=== PATIENT | female | born 1945 | race Caucasian/White ===

== ENCOUNTER 2019-03-06 05:38 | Outpatient (RCR) | payer MEDICARE, OTHER, SELFPAY | END 2019-03-31 00:01 | LOC: ONCRAD 05:38 | PROVIDERS: Family Provider Nurse Practitioner Family; Visit Provider Radiology Radiation Oncology | DX: C09.9 Malignant neoplasm of tonsil, unspecified (principal); F10.21 Alcohol dependence, in remission; M19.90 Unspecified osteoarthritis, unspecified site; H91.92 Unspecified hearing loss, left ear; N18.2 Chronic kidney disease, stage 2 (mild); D64.9 Anemia, unspecified; Z79.52 Long term (current) use of systemic steroids; Z79.899 Other long term (current) drug therapy; Z79.82 Long term (current) use of aspirin; Z92.3 Personal history of irradiation; Z85.3 Personal history of malignant neoplasm of breast; Z90.11 Acquired absence of right breast and nipple; Z92.23 Personal history of estrogen therapy; Z87.891 Personal history of nicotine dependence; Z92.21 Personal history of antineoplastic chemotherapy | CPT/HCPCS: 36591; 70491; 80053; 85025; 99214; J1642; Q9967 ==

== ENCOUNTER 2019-03-25 08:56 | Inpatient (IN) | payer MEDICARE, OTHER, SELFPAY | END 2019-03-28 16:49 | disposition skilled nursing facility (03) | DRG 682 | PROVIDERS: Admitting Provider Family Medicine; Family Provider Nurse Practitioner Family; Visit Provider Family Medicine | DX: N17.9 Acute kidney failure, unspecified (principal); S06.5X9A Traumatic subdural hemorrhage with loss of consciousness of unspecified duration, initial encounter; I82.4Z2 Acute embolism and thrombosis of unspecified deep veins of left distal lower extremity; E46 Unspecified protein-calorie malnutrition; N39.0 Urinary tract infection, site not specified; E86.0 Dehydration; N83.9 Noninflammatory disorder of ovary, fallopian tube and broad ligament, unspecified; Z85.3 Personal history of malignant neoplasm of breast; Z85.89 Personal history of malignant neoplasm of other organs and systems; Z92.21 Personal history of antineoplastic chemotherapy; K21.9 Gastro-esophageal reflux disease without esophagitis; E03.9 Hypothyroidism, unspecified; Z91.81 History of falling; F03.90 Unspecified dementia, unspecified severity, without behavioral disturbance, psychotic disturbance, mood disturbance, and anxiety; Z87.891 Personal history of nicotine dependence; X58.XXXA Exposure to other specified factors, initial encounter; D64.9 Anemia, unspecified; Z28.21 Immunization not carried out because of patient refusal ==

== ENCOUNTER 2019-04-15 05:48 | Outpatient (RCR) | payer MEDICARE, OTHER, SELFPAY ==
[2019-04-15 09:20] LABS: Basophils % 0.5 %; Eosinophils # 0.1 10^3/uL (0.0-0.8); Eosinophils % 0.8 %; Hematocrit 28.9 % (37.0-47.0); Hemoglobin 8.6 g/dL (11.5-15.3); Lymphocytes # 0.7 10^3/uL (0.8-4.8); Lymphocytes % 9.6 %; Mean Corpuscular HGB Conc 29.8 g/dL (30.0-36.0); Mean Corpuscular Hemoglobin 29.7 pg (28.0-34.0); Mean Corpuscular Volume 99.7 fL (81-99); Mean Platelet Volume 9.7 fL (7.4-10.4); Monocytes # 0.7 10^3/uL (0.2-0.9); Monocytes % 9.4 %; Neutrophils # 6.1 10^3/uL (1.8-7.7); Neutrophils % 78.9 %; Nucleated Red Blood Cells % 0 %; Platelet Count 254 10^3/cmm (130-400); Red Cell Distribution Width 17.2 % (12.1-15.1); White Blood Count 7.7 10^3/uL (4.0-10.0)
--- NOTE | 2019-04-16 13:07 | ONC FU_ITS ---
Dr. Miller follow up note Patient: Martha Patterson Unit #: [id number]: 1945 Dicatated By: Bhavani Miller M.D.Date of Visit:Apr 15, 2019 Onc Med Follow-up/Prog Note History of Present Illness: Mrs. Patterson is a 73-year-old female with history of progressive dysphagia and right-sided sore throat. As per patient initially she thought sore throat could be due to allergies but due to progressive nature and development of right tonsillar mass, she was referred to ENT and CT scan of the neck was done on 09/13/2018 which showed very large infiltrative also mass extending superiorly past the soft palate and measures 4 x 3 cm and there is a small level II lymph node on same side T4,N1 . 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 Now being treated with combined chemoradiation with weekly carboplatin since 12/03/2018 Patient has history of smoking but quit long time back and quit alcohol about year ago. She has history of arthritis for which she used to take low-dose methotrexate which she quit taken in July 2018, now being treated with low-dose steroids. She has history of right breast cancer diagnosed in 1975 status post right modified mastectomy followed by tamoxifen for 5 years. s/p combined therapy with radiation and weekly Carboplatin.Completed on 11/20/2018 h/o of fall off and on for the last couple of months now more often and was seen in emergency room recently on 01/30/2019 and she underwent echocardiogram on 02/04/2019 which shows normal-sized left ventricle with ejection fraction 45% patient also had Holter is monitor and as per she did not have any episode of fall while she was on monitor. Patient went to ER on 03/11/2019 with head /facial injury underwent CT scan of neck which showed no acute cervical spinal injury CT head showed thin subdural hematoma on the left extending along the left tentorium cerebelli. Old lacunar infarct on the left. She also had CT lumbar spine on 03/11/2019 which showed no acute lumbar spinal injury spinal injury because of subdural hematoma she was transferred to [place] where during further evaluation she was found to have left leg DVT but due to left subdural hematoma and anticoagulation was not considered rather inferior vena cava filter was placed in. Next Patient was immediately admitted to hospital on 03/25/2019 with shortness of breath and left lower extremity pain underwent venous Doppler study which was positive for DVT in the left leg and also had VQ scan which was low probability for pulmonary embolism. And follow-up CT scan of the head done on 03/25/2019 showed decreased size left tentorial subdural hematoma. Also had follow-up CT scan of neck done on 03/05/2019 which showed previously described large right tonsillar carcinoma has essentially resolved. Tiny amount of asymmetry at the tongue base and right tonsillar fossa likely post-therapeutic. No cervical lymphadenopathy. Came for follow-up, feeling much better now, as per patient physical therapy is helping her. No fever or chills, no nausea or vomiting, no diarrhea constipation, no more episode of fall, overall feeling better still has left leg swelling. No dysphagia. Medications: Isosorbide Dinitrate 1 Tablet (of 30 mg) Oral daily, Klor-Con 10 2 Tablet (of 10 meq) Tablet, controlled release Oral b.i.d., Levothyroxine Sodium 1 Tablet (of 10 mcg) Oral daily, Mirtazapine 1 Tablet (of 7.5 mg) Oral daily, Multivitamin Adult 1 Tablet Oral daily, Pantoprazole Sodium 1 Tablet (of 40 mg) Tablet, enteric coated Oral b.i.d., predniSONE 1 Tablet (of 5 mg) Oral daily, Prochlorperazine Maleate 1 Tablet (of 10 mg) Oral q 4 hours, Senna 1 Capsule (of 8.6 mg) Oral daily PRN, Tamsulosin HCl 1 Tablet (of 0.4 mg) Capsule Oral daily, Triamterene-HCTZ 1 Capsule (of 37.5-25 mg) Oral daily Allergies: milk, pork, and Sulfa Antibiotics. Review of Systems: Constitutional - Appetite is fair and weight is stable.No fever, chills, or night sweats. Energy level is poor, ENMT - Negative for sinus congestion/drainage. No mouth sores. Negative for sore throat and difficulty swallowing, Hematologic/Lymphatic - Pt bruises easily, Respiratory - No shortness of breath. No cough. No pleuritic pain or hemoptysis, Cardiovascular - No angina pain. Positive for palpitations, Gastrointestinal - No nausea, no vomiting. No heartburn or acid reflux. No diarrhea or constipation. No blood in the stool or black stools, Genitourinary (F) - No dysuria or hematuria. Positive for urinary frequency. No urgency or incontinence, Musculoskeletal - Positive for joint pain, Neurologic - Positive for dizziness, Psychiatric - Positive for anxiety and depression. No insomnia. Vital Signs: Performed on Apr 15, 2019 10:43 Height - 61.00 in Weight - 106.4 lbs (HIGH) BSA - 1.44 sq.m BMI - 20.10 Temperature - 98.1 F (LOW) Pulse - 96 /min Respiration - 20 /min BP - 156/79 mm(hg) (HIGH) O2 Sat - 99 % Pain - 0 Performance Status: 2 - Ambulatory/capable of all self-care, unable to perform any work activities. Up and about more than 50% of waking hours. (ECOG) Physical Examination: ENMT - No oral exudates, ulcers, masses, thrush or mucositis. Oropharynx clear. Tongue normal, Hematologic/Lymphatic - No petechiae or purpura. No tender or palpable lymph nodes in the cervical, supraclavicular, axillary or inguinal area, Respiratory - Lungs are clear to auscultation without rhonchi or wheezing, Abdomen - Non-tender, non-distended, Good bowel sounds. No guarding or rebound tenderness. No pulsatile masses, Extremities - left leg swelling. Lab/Imaging: Test performed on Apr 15, 2019 08:50 WBC 7.7 10 3/uL RBC 2.90 10^12/L HGB 8.6 g/dL HCT 28.9 % MCV 99.7 fL MCH 29.7 pg MCHC 29.8 g/dL Platelet Count 254 10^9/L RDW 17.2 % MPV 9.7 fL Lymphocytes 0.7 10^9/L Neutrophils 0.0 10 3/uL Monocytes 0.7 10^9/L Eosinophils 0.1 10^9/L Basophils 0.0 10^9/L Neutrophil % 0.8 % Manual Lymphocytes 9.6 % Manual Monocytes 9.4 % Manual Eosinophils 0.8 % Manual Basophils 0.5 % NRBCs 0.0 /100 WBC Test performed on Mar 03, 2019 11:18 Sodium 137 mmol/L Potassium 4.2 mmol/L Chloride 103 mmol/L CO2 22 mmol/L Anion Gap 16.2 BUN 23 mg/dL Creatinine 1.3 mg/dL Cr Clearance (Est) 29.1800 mL/min Glucose 89 mg/dl Calcium 9.6 mg/dL Protein, Total 6.9 g/dL Albumin 4.0 g/dL Globulin 2.9 gm/dL Bilirubin, Total 0.6 mg/dL ALT (SGPT) 14 U/L AST (SGOT) 19 U/L Alkaline Phosphatase 68 U/L Lymphocyte % 13.2 % Monocyte % 10.1 % Eosinophil % 1.7 % Basophils % 0.4 % Test performed on Jan 19, 2019 09:00 Magnesium 2.1 mg/dL Test performed on Jan 12, 2019 09:45 Ua Color YELLOW Ua Appearance CLEAR Ua Glucose NORM Ua Bilirubin NEG Colored urine samples may result in false positive dipstick reactions. Ua Ketones NEG Ua Specific [place] 1.010 Ua Blood 3+ Ua pH 8.0 Ua Protein NEG Ua Protein, Sulfosal Acid NEGATIVE Ua Nitrites NEG Ua Leukocyte Esterase NEG Ua Micro: Hyaline Casts 0-4 /lpf Ua Micro: WBC 10-15 /hpf Urine Culture DAY 2. 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 No cervical lymphadenopathy by size criteria Repeat CT scan of neck done on 09/09/2018 showed large infiltrative tonsillar mass size 4 x 3 cm and there is a small level II lymph node on the same side cT4,N1 History of right breast cancer diagnosed in 1975 status post right MRM followed by tamoxifen for 5 years History of progressive left ear hearing loss Mild renal insufficiency Chronic arthritis in the past treated with low-dose methotrexate/prednisone but patient quit methotrexate in July 2018. CT PET scan done on 10/25/2018 showed 2.2 cm mass in the right tonsil with SUV of 14.2. A small scattered cervical nodes are FDG negative s/p concurrent therapy with radiation with weekly carboplatin Completed on 01/20/2019 Follow-up CT scan of neck done on 03/05/2019 showed resolution of tonsillar mass and no evidence of cervical lymphadenopathy Plan: Discussed with patient regarding labs white blood count 7.7 hemoglobin 8.6 crit 28.9 platelets 254,000 Clinically, patient is doing well now improving from injuries sustained due to fall as well as symptoms due to acute left leg DVT. Patient still has lower extremity edema more on the left side due to DVT but not on anticoagulation due to recent episode of subdural hematoma due to fall, although she has inferior vena cava filter to prevent pulmonary embolism. Follow-up CT scan of neck done on 03/05/2019 showed excellent response to combined chemoradiation with resolution of tonsillar mass and no evidence of cervical lymphadenopathy. Progressive anemia probably due to diagnostic phlebotomy during multiple hospitalization in the recent past, we'll continue to monitor check her iron and B12 folic acid level if low supplement otherwise monitor and transfuse if hemoglobin below 8 g. Considering her age underlying myelodysplasia cannot be ruled out. Signed By: Bhavani Miller M.D. <<Signature on File>>
== END 2019-05-01 23:59 | disposition home or self-care (01) ==
LOC: ONCMED 05:48
PROVIDERS: Family Provider Nurse Practitioner Family; PCP Nurse Practitioner Family; Visit Provider Internal Medicine Hematology & Oncology
DX: Z08 Encounter for follow-up examination after completed treatment for malignant neoplasm (principal); Z85.89 Personal history of malignant neoplasm of other organs and systems; F10.21 Alcohol dependence, in remission; M19.90 Unspecified osteoarthritis, unspecified site; N18.2 Chronic kidney disease, stage 2 (mild); F41.8 Other specified anxiety disorders; Z79.899 Other long term (current) drug therapy; Z79.52 Long term (current) use of systemic steroids; Z92.21 Personal history of antineoplastic chemotherapy; Z92.3 Personal history of irradiation; Z87.891 Personal history of nicotine dependence; Z85.3 Personal history of malignant neoplasm of breast; Z90.11 Acquired absence of right breast and nipple; Z92.23 Personal history of estrogen therapy; Z86.718 Personal history of other venous thrombosis and embolism
CPT/HCPCS: 36591; 85025; 99214

== ENCOUNTER 2019-05-26 05:37 | Outpatient (RCR) | payer MEDICARE, OTHER, SELFPAY ==
[2019-05-19 12:42] LABS: Basophils % 0.6 %; Eosinophils # 0.1 10^3/uL (0.0-0.8); Eosinophils % 1.2 %; Hemoglobin 8.6 g/dL (11.5-15.3); Lymphocytes # 0.5 10^3/uL (0.8-4.8); Lymphocytes % 10.1 %; Mean Corpuscular HGB Conc 29.7 g/dL (30.0-36.0); Mean Corpuscular Hemoglobin 26.8 pg (28.0-34.0); Mean Corpuscular Volume 90.3 fL (81-99); Monocytes # 0.4 10^3/uL (0.2-0.9); Monocytes % 7.9 %; Neutrophils % 79.8 %; Nucleated Red Blood Cells % 0 %; Platelet Count 201 10^3/cmm (130-400); Red Blood Count 3.21 10^6/uL (4.1-5.3)
[2019-05-19 12:56] LABS: Ferritin 24 ng/mL (15-150); Iron 29 ug/dL (37-145); Total Iron Binding Capacity 289 mcg/dl; Unsaturated Iron Binding 260 ug/dL (112-347)
[2019-05-19 13:12] LABS: Vitamin B12 306 pg/mL (232-1245)
[2019-05-19 13:47] LABS: Folate Level 15.8 ng/mL (4.8-37.3)
--- NOTE | 2019-05-19 14:27 | ONC FU_ITS ---
Dr. Miller follow up note Patient: Martha Patterson Unit #: [id number]: [id number] Dicatated By: Bhavani Miller M.D.Date of Visit:May 19, 2019 Onc Med Follow-up/Prog Note History of Present Illness: Mrs. Patterson is a 73-year-old female with history of progressive dysphagia and right-sided sore throat. As per patient initially she thought sore throat could be due to allergies but due to progressive nature and development of right tonsillar mass, she was referred to ENT and CT scan of the neck was done on 09/13/2018 which showed very large infiltrative also mass extending superiorly past the soft palate and measures 4 x 3 cm and there is a small level II lymph node on same side T4,N1 . 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 Now being treated with combined chemoradiation with weekly carboplatin since 12/03/2018 Patient has history of smoking but quit long time back and quit alcohol about year ago. She has history of arthritis for which she used to take low-dose methotrexate which she quit taken in July 2018, now being treated with low-dose steroids. She has history of right breast cancer diagnosed in 1975 status post right modified mastectomy followed by tamoxifen for 5 years. s/p combined therapy with radiation and weekly Carboplatin.Completed on 11/20/2018 h/o of fall off and on for the last couple of months now more often and was seen in emergency room recently on 01/30/2019 and she underwent echocardiogram on 02/04/2019 which shows normal-sized left ventricle with ejection fraction 45% patient also had Holter is monitor and as per she did not have any episode of fall while she was on monitor. Patient went to ER on 03/11/2019 with head /facial injury underwent CT scan of neck which showed no acute cervical spinal injury CT head showed thin subdural hematoma on the left extending along the left tentorium cerebelli. Old lacunar infarct on the left. She also had CT lumbar spine on 03/11/2019 which showed no acute lumbar spinal injury spinal injury because of subdural hematoma she was transferred to [place] where during further evaluation she was found to have left leg DVT but due to left subdural hematoma and anticoagulation was not considered rather inferior vena cava filter was placed in. Next Patient was immediately admitted to hospital on 03/25/2019 with shortness of breath and left lower extremity pain underwent venous Doppler study which was positive for DVT in the left leg and also had VQ scan which was low probability for pulmonary embolism. And follow-up CT scan of the head done on 03/25/2019 showed decreased size left tentorial subdural hematoma.as per patient underwent inferior vena cava filter placement and because of subdural hematoma anticoagulation was not offered. Also had follow-up CT scan of neck done on 03/05/2019 which showed previously described large right tonsillar carcinoma has essentially resolved. Tiny amount of asymmetry at the tongue base and right tonsillar fossa likely post-therapeutic. No cervical lymphadenopathy. Came for follow-up, complaining of persistent left leg swelling, patient has history of left leg DVT now with inferior vena cava filter as anticoagulation was contraindicated due to subdural hematoma. Also complaining of generalized weakness and fatigue but no melena or hematochezia no nausea or vomiting no diarrhea or constipation no hemoptysis or hematemesis no jaundice. No fever or chills no dysphagia. Medications: Isosorbide Dinitrate 1 Tablet (of 30 mg) Oral daily, Klor-Con 10 2 Tablet (of 10 meq) Tablet, controlled release Oral b.i.d., Levothyroxine Sodium 1 Tablet (of 10 mcg) Oral daily, Mirtazapine 1 Tablet (of 7.5 mg) Oral daily, Multivitamin Adult 1 Tablet Oral daily, Pantoprazole Sodium 1 Tablet (of 40 mg) Tablet, enteric coated Oral b.i.d., predniSONE 1 Tablet (of 5 mg) Oral daily, Prochlorperazine Maleate 1 Tablet (of 10 mg) Oral q 4 hours, Senna 1 Capsule (of 8.6 mg) Oral daily PRN, Tamsulosin HCl 1 Tablet (of 0.4 mg) Capsule Oral daily, Triamterene-HCTZ 1 Capsule (of 37.5-25 mg) Oral daily Allergies: milk and Sulfa Antibiotics. Review of Systems: Constitutional - Appetite is fair and weight is stable.No fever, chills, or night sweats. Energy level is poor, ENMT - Negative for sinus congestion/drainage. No mouth sores. Negative for sore throat and difficulty swallowing, Hematologic/Lymphatic - Pt bruises easily, Respiratory - No shortness of breath. No cough. No pleuritic pain or hemoptysis, Cardiovascular - No angina pain. Positive for palpitations, Gastrointestinal - No nausea, no vomiting. No heartburn or acid reflux. No diarrhea or constipation. No blood in the stool or black stools, Genitourinary (F) - No dysuria or hematuria. Positive for urinary frequency. No urgency or incontinence, Musculoskeletal - Positive for joint pain, Neurologic - Positive for dizziness, Psychiatric - Positive for anxiety and depression. No insomnia. Vital Signs: Performed on May 19, 2019 13:41 Height - 61.00 in Weight - 111.8 lbs (HIGH) BSA - 1.48 sq.m BMI - 21.12 Temperature - 97.6 F (LOW) Pulse - 67 /min Respiration - 16 /min BP - 160/70 mm(hg) (HIGH) O2 Sat - 99 % Pain - 0 Fatigue - 4 Performance Status: 1 - No physically strenuous activity, but ambulatory and able to carry out light or sedentary work (e.g. office work, light house work). (ECOG) Physical Examination: ENMT - No oral exudates, ulcers, masses, thrush or mucositis. Oropharynx clear. Tongue normal, Respiratory - Lungs are clear to auscultation without rhonchi or wheezing, Cardiovascular - Regular rate and rhythm of heart, Abdomen - Non-tender, non-distended, Good bowel sounds. No guarding or rebound tenderness. No pulsatile masses, Extremities - left leg 3+ edema. Lab/Imaging: Test performed on Apr 15, 2019 08:50 WBC 7.7 10 3/uL RBC 2.90 10^12/L HGB 8.6 g/dL HCT 28.9 % MCV 99.7 fL MCH 29.7 pg MCHC 29.8 g/dL Platelet Count 254 10^9/L RDW 17.2 % MPV 9.7 fL Lymphocytes 0.7 10^9/L Neutrophils 0.0 10 3/uL Monocytes 0.7 10^9/L Eosinophils 0.1 10^9/L Basophils 0.0 10^9/L Neutrophil % 0.8 % Manual Lymphocytes 9.6 % Manual Monocytes 9.4 % Manual Eosinophils 0.8 % Manual Basophils 0.5 % NRBCs 0.0 /100 WBC Test performed on Mar 03, 2019 11:18 Sodium 137 mmol/L Potassium 4.2 mmol/L Chloride 103 mmol/L CO2 22 mmol/L Anion Gap 16.2 BUN 23 mg/dL Creatinine 1.3 mg/dL Cr Clearance (Est) 29.1800 mL/min Glucose 89 mg/dl Calcium 9.6 mg/dL Protein, Total 6.9 g/dL Albumin 4.0 g/dL Globulin 2.9 gm/dL Bilirubin, Total 0.6 mg/dL ALT (SGPT) 14 U/L AST (SGOT) 19 U/L Alkaline Phosphatase 68 U/L Lymphocyte % 13.2 % Monocyte % 10.1 % Eosinophil % 1.7 % Basophils % 0.4 % Test performed on Jan 19, 2019 09:00 Magnesium 2.1 mg/dL Test performed on Jan 12, 2019 09:45 Ua Color YELLOW Ua Appearance CLEAR Ua Glucose NORM Ua Bilirubin NEG Colored urine samples may result in false positive dipstick reactions. Ua Ketones NEG Ua Specific [place] 1.010 Ua Blood 3+ Ua pH 8.0 Ua Protein NEG Ua Protein, Sulfosal Acid NEGATIVE Ua Nitrites NEG Ua Leukocyte Esterase NEG Ua Micro: Hyaline Casts 0-4 /lpf Ua Micro: WBC 10-15 /hpf Urine Culture DAY 2. 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 No cervical lymphadenopathy by size criteria Repeat CT scan of neck done on 09/09/2018 showed large infiltrative tonsillar mass size 4 x 3 cm and there is a small level II lymph node on the same side cT4,N1 History of right breast cancer diagnosed in 1975 status post right MRM followed by tamoxifen for 5 years History of progressive left ear hearing loss Mild renal insufficiency Chronic arthritis in the past treated with low-dose methotrexate/prednisone but patient quit methotrexate in July 2018. CT PET scan done on 10/25/2018 showed 2.2 cm mass in the right tonsil with SUV of 14.2. A small scattered cervical nodes are FDG negative s/p concurrent therapy with radiation with weekly carboplatin Completed on 01/20/2019 Follow-up CT scan of neck done on 03/05/2019 showed resolution of tonsillar mass and no evidence of cervical lymphadenopathy Plan: Discussed with patient regarding her labs white blood count 5 hemoglobin 8.6 crit 29 platelets 201,000 and anemia workup shows ferritin 24, lower side of normal range, iron 29 which is low, B12 305 Clinically, patient is doing reasonably well but symptomatic due to persistent anemia and anemia workup shows iron deficiency. Patient has taken oral iron in the past but could not tolerate because of GI intolerance, at this point we'll consider trial of Injectafer 750 mg IV weekly ???2 and then repeat CBC and iron studies in one month, if with normalization of iron stores, anemia resolves then we'll monitor otherwise, considering her age she may have underlying myelodysplasia causing anemia. As far as left leg swelling is concern patient has history of DVT diagnosed on 03/25/2019 and anticoagulation was not done because of subdural hematoma and inferior vena cava filter was placed in to prevent major pulmonary embolism. At this point we'll consider EDU hose for her left leg. Patient was advised to use it as directed and also advised to do leg elevation when in the bed , might help her left leg swelling As far as left adnexal mass seen on CT scan of abdomen done while she was inpatient in the hospital is concern, we will refer her to [facility] for evaluation Return to clinic 1 month after second Injectafer infusion with CBC and iron studies. Signed By: Bhavani Miller M.D. <<Signature on File>>
== END 2019-05-30 23:59 | disposition home or self-care (01) ==
LOC: ONCMED 05:37
PROVIDERS: Family Provider Nurse Practitioner Family; PCP Nurse Practitioner Family; Visit Provider Internal Medicine Hematology & Oncology
DX: D50.9 Iron deficiency anemia, unspecified (principal); C09.9 Malignant neoplasm of tonsil, unspecified; M19.90 Unspecified osteoarthritis, unspecified site; N18.2 Chronic kidney disease, stage 2 (mild); N83.202 Unspecified ovarian cyst, left side; N83.201 Unspecified ovarian cyst, right side; F10.21 Alcohol dependence, in remission; Z79.899 Other long term (current) drug therapy; Z79.52 Long term (current) use of systemic steroids; Z87.891 Personal history of nicotine dependence; Z92.3 Personal history of irradiation; Z85.3 Personal history of malignant neoplasm of breast; Z90.11 Acquired absence of right breast and nipple; Z92.23 Personal history of estrogen therapy; Z92.21 Personal history of antineoplastic chemotherapy; Z91.81 History of falling; Z86.718 Personal history of other venous thrombosis and embolism; Z95.828 Presence of other vascular implants and grafts
CPT/HCPCS: 36591; 82607; 82728; 82746; 83540; 83550; 85025; 96365; 99214

== ENCOUNTER 2019-06-01 | Outpatient (RCR) | payer MEDICARE, OTHER, SELFPAY | END 2019-06-02 | disposition home or self-care (01) | LOC: WPT | PROVIDERS: PCP Nurse Practitioner Family; Referring Provider Nurse Practitioner Family; Visit Provider Nurse Practitioner Family | DX: R53.1 Weakness (principal); M54.2 Cervicalgia | CPT/HCPCS: 82105; 83520; 83615; 86304; 86336 ==

== ENCOUNTER 2019-06-02 06:04 | Outpatient (RCR) | payer MEDICARE, OTHER, SELFPAY | END 2019-06-30 23:59 | disposition home or self-care (01) | LOC: ONCMED 06:04 | PROVIDERS: Family Provider Nurse Practitioner Family; PCP Nurse Practitioner Family; Visit Provider Internal Medicine Hematology & Oncology | DX: C09.9 Malignant neoplasm of tonsil, unspecified (principal) | CPT/HCPCS: 96365; J1439 ==

== ENCOUNTER → 2019-06-12 11:02 | Outpatient (BNVA) | payer MEDICARE, OTHER, SELFPAY | PROVIDERS: Family Provider Nurse Practitioner Family; PCP Nurse Practitioner Family; Visit Provider Obstetrics & Gynecology Female Pelvic Medicine and Reconstructive Surgery | DX: N83.202 Unspecified ovarian cyst, left side (principal) | CPT/HCPCS: 76830 ==

== ENCOUNTER → 2019-06-25 15:08 | Outpatient (BNVA) | payer MEDICARE, OTHER, SELFPAY | PROVIDERS: Family Provider Nurse Practitioner Family; PCP Nurse Practitioner Family; Visit Provider Nurse Practitioner | DX: M25.511 Pain in right shoulder (principal) | CPT/HCPCS: 73030 ==

== ENCOUNTER 2019-07-06 07:27 | Outpatient (RCR) | payer MEDICARE, OTHER, SELFPAY ==
[2019-07-06 09:38] LABS: Basophils % 0.7 %; Eosinophils # 0.1 10^3/uL (0.0-0.8); Eosinophils % 1.6 %; Hematocrit 38.5 % (37.0-47.0); Hemoglobin 11.6 g/dL (11.5-15.3); Lymphocytes # 0.7 10^3/uL (0.8-4.8); Lymphocytes % 12.6 %; Mean Corpuscular HGB Conc 30.1 g/dL (30.0-36.0); Mean Corpuscular Hemoglobin 29.2 pg (28.0-34.0); Mean Platelet Volume 9.9 fL (7.4-10.4); Monocytes # 0.4 10^3/uL (0.2-0.9); Monocytes % 7.5 %; Neutrophils # 4.4 10^3/uL (1.8-7.7); Neutrophils % 77.3 %; Nucleated Red Blood Cells % 0 %; Platelet Count 177 10^3/cmm (130-400); Red Blood Count 3.97 10^6/uL (4.1-5.3); Red Cell Distribution Width 20.5 % (12.1-15.1); White Blood Count 5.7 10^3/uL (4.0-10.0)
[2019-07-06 09:52] LABS: Ferritin 637 ng/mL (15-150); Iron 74 ug/dL (37-145); Percent Saturation 37.5 % (20-50); Total Iron Binding Capacity 197 mcg/dl; Unsaturated Iron Binding 123 ug/dL (112-347)
--- NOTE | 2019-07-06 15:36 | ONC FU_ITS ---
Dr. Miller follow up note Patient: Martha Patterson Unit #: [id number]: 1945 Dicatated By: Bhavani Miller M.D.Date of Visit:Jul 06, 2019 Onc Med Follow-up/Prog Note History of Present Illness: Mrs. Patterson is a 74-year-old female with history of progressive dysphagia and right-sided sore throat. As per patient initially she thought sore throat could be due to allergies but due to progressive nature and development of right tonsillar mass, she was referred to ENT and CT scan of the neck was done on 09/13/2018 which showed very large infiltrative also mass extending superiorly past the soft palate and measures 4 x 3 cm and there is a small level II lymph node on same side T4,N1 . 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 Now being treated with combined chemoradiation with weekly carboplatin since 12/03/2018 Patient has history of smoking but quit long time back and quit alcohol about year ago. She has history of arthritis for which she used to take low-dose methotrexate which she quit taken in July 2018, now being treated with low-dose steroids. She has history of right breast cancer diagnosed in 1975 status post right modified mastectomy followed by tamoxifen for 5 years. s/p combined therapy with radiation and weekly Carboplatin.Completed on 11/20/2018 h/o of fall off and on for the last couple of months now more often and was seen in emergency room recently on 01/30/2019 and she underwent echocardiogram on 02/04/2019 which shows normal-sized left ventricle with ejection fraction 45% patient also had Holter is monitor and as per she did not have any episode of fall while she was on monitor. Patient went to ER on 03/11/2019 with head /facial injury underwent CT scan of neck which showed no acute cervical spinal injury CT head showed thin subdural hematoma on the left extending along the left tentorium cerebelli. Old lacunar infarct on the left. She also had CT lumbar spine on 03/11/2019 which showed no acute lumbar spinal injury spinal injury because of subdural hematoma she was transferred to [place] where during further evaluation she was found to have left leg DVT but due to left subdural hematoma and anticoagulation was not considered rather inferior vena cava filter was placed in. Next Patient was immediately admitted to hospital on 03/25/2019 with shortness of breath and left lower extremity pain underwent venous Doppler study which was positive for DVT in the left leg and also had VQ scan which was low probability for pulmonary embolism. And follow-up CT scan of the head done on 03/25/2019 showed decreased size left tentorial subdural hematoma.as per patient underwent inferior vena cava filter placement and because of subdural hematoma anticoagulation was not offered. Also had follow-up CT scan of neck done on 03/05/2019 which showed previously described large right tonsillar carcinoma has essentially resolved. Tiny amount of asymmetry at the tongue base and right tonsillar fossa likely post-therapeutic. No cervical lymphadenopathy. Follow-up CT PET scan done on 06/20/2019 showed no evidence of recurrent or residual malignancy Came for follow-up, denies any specific complaints, no fever or chills, no nausea or vomiting, no dysphagia, no mouth sores, no diarrhea constipation. more energetic since iron infusion,but persistent left leg swelling,, has history of left lower extremity DVT, was not treated with anticoagulation because of recent history of cranial hematoma Medications: Isosorbide Dinitrate 1 Tablet (of 30 mg) Oral daily, Klor-Con 10 2 Tablet (of 10 meq) Tablet, controlled release Oral b.i.d., Levothyroxine Sodium 1 Tablet (of 10 mcg) Oral daily, Multivitamin Adult 1 Tablet Oral daily, Pantoprazole Sodium 1 Tablet (of 40 mg) Tablet, enteric coated Oral b.i.d., predniSONE 1 Tablet (of 5 mg) Oral daily, Prochlorperazine Maleate 1 Tablet (of 10 mg) Oral q 4 hours, Senna 1 Capsule (of 8.6 mg) Oral daily PRN, Tamsulosin HCl 1 Tablet (of 0.4 mg) Capsule Oral daily, Triamterene-HCTZ 1 Capsule (of 37.5-25 mg) Oral daily Allergies: milk and Sulfa Antibiotics. Review of Systems: Constitutional - Appetite is fair and weight is stable.No fever, chills, or night sweats. Energy level is poor, ENMT - Negative for sinus congestion/drainage. No mouth sores. Negative for sore throat and difficulty swallowing, Hematologic/Lymphatic - Pt bruises easily, Respiratory - No shortness of breath. No cough. No pleuritic pain or hemoptysis, Cardiovascular - No angina pain. Positive for palpitations, Gastrointestinal - No nausea, no vomiting. No heartburn or acid reflux. No diarrhea or constipation. No blood in the stool or black stools, Genitourinary (F) - No dysuria or hematuria. Positive for urinary frequency. No urgency or incontinence, Musculoskeletal - Positive for joint pain, Neurologic - Positive for dizziness, Psychiatric - Positive for anxiety and depression. No insomnia. Vital Signs: Performed on Jul 06, 2019 10:35 Height - 61.00 in Weight - 108.8 lbs (LOW) BSA - 1.46 sq.m BMI - 20.56 Temperature - 97.3 F (LOW) Pulse - 54 /min (LOW) Respiration - 18 /min BP - 137/72 mm(hg) O2 Sat - 95 % (LOW) Pain - 0 Performance Status: 1 - No physically strenuous activity, but ambulatory and able to carry out light or sedentary work (e.g. office work, light house work). (ECOG) Physical Examination: ENMT - patient denies oral exudates, ulcers, masses, thrush or mucositis. Oropharynx clear. Tongue normal, Respiratory - no wheezing or shortness of breath, Cardiovascular - no tachycardia or palpitation, Abdomen - no abdominal pain or swelling, Extremities - left leg 2+ edema. Lab/Imaging: Test performed on Jul 06, 2019 09:15 Ferritin 637 ng/mL Iron 74 mcg/dL Iron Binding Capacity (TIBC) 197 mcg/dl % Iron Saturation 37.5 % UIBC 123 mcg/dL WBC 5.7 10 3/uL RBC 3.97 10 6/uL HGB 11.6 g/dL HCT 38.5 % MCV 97.0 fL MCH 29.2 pg MCHC 30.1 g/dL RDW 20.5 % Platelet Count 177 10 3/cmm MPV 9.9 fL Neutrophils 4.4 10 3/uL Lymphocytes 0.7 10 3/uL Monocytes 0.4 10 3/uL Eosinophils 0.1 10 3/uL Basophils 0.0 10 3/uL Neutrophil % 77.3 % Lymphocyte % 12.6 % Monocyte % 7.5 % Eosinophil % 1.6 % Basophils % 0.7 % Test performed on May 19, 2019 12:14 Vitamin B12 306 pg/mL Test performed on Apr 15, 2019 08:50 Manual Lymphocytes 9.6 % Manual Monocytes 9.4 % Manual Eosinophils 0.8 % Manual Basophils 0.5 % NRBCs 0.0 /100 WBC Test performed on Mar 03, 2019 11:18 Sodium 137 mmol/L Potassium 4.2 mmol/L Chloride 103 mmol/L CO2 22 mmol/L Anion Gap 16.2 BUN 23 mg/dL Creatinine 1.3 mg/dL Cr Clearance (Est) 29.1800 mL/min Glucose 89 mg/dl Calcium 9.6 mg/dL Protein, Total 6.9 g/dL Albumin 4.0 g/dL Globulin 2.9 gm/dL Bilirubin, Total 0.6 mg/dL ALT (SGPT) 14 U/L AST (SGOT) 19 U/L Alkaline Phosphatase 68 U/L Test performed on Jan 19, 2019 09:00 Magnesium 2.1 mg/dL Test performed on Jan 12, 2019 09:45 Ua Color YELLOW Ua Appearance CLEAR Ua Glucose NORM Ua Bilirubin NEG Colored urine samples may result in false positive dipstick reactions. Ua Ketones NEG Ua Specific [place] 1.010 Ua Blood 3+ Ua pH 8.0 Ua Protein NEG Ua Protein, Sulfosal Acid NEGATIVE Ua Nitrites NEG Ua Leukocyte Esterase NEG Ua Micro: Hyaline Casts 0-4 /lpf Ua Micro: WBC 10-15 /hpf Urine Culture DAY 2. 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 No cervical lymphadenopathy by size criteria Repeat CT scan of neck done on 09/09/2018 showed large infiltrative tonsillar mass size 4 x 3 cm and there is a small level II lymph node on the same side cT4,N1 History of right breast cancer diagnosed in 1975 status post right MRM followed by tamoxifen for 5 years History of progressive left ear hearing loss Mild renal insufficiency Chronic arthritis in the past treated with low-dose methotrexate/prednisone but patient quit methotrexate in July 2018. CT PET scan done on 10/25/2018 showed 2.2 cm mass in the right tonsil with SUV of 14.2. A small scattered cervical nodes are FDG negative s/p concurrent therapy with radiation with weekly carboplatin Completed on 01/20/2019 Follow-up CT scan of neck done on 03/05/2019 showed resolution of tonsillar mass and no evidence of cervical lymphadenopathy Plan: Discussed with patient regarding her labs white blood count 5.7 hemoglobin 11.6 crit 38.5 platelets 177,000 ferritin 637 compared to 24 on 05/19/2019, B12 [address] PET scan showed no evidence of recurrence of disease Clinically, patient is doing well, now with no signs symptom suggestive of recurrence of head and neck cancer, confirmed with follow-up CT PET scan done recently. As for the anemia is concerned, responded very well to Injectafer and now hemoglobin improved to 11.6 g compared to 8.6 g prior to Injectafer given on 05/26/2019 and 06/02/2019. Next Left leg swelling due to history of DVT, status post IVC filter as anticoagulation was not considered because of recent history of intracranial hematoma and now being treated with supportive care, patient was advised to elevate left leg while in the bed and any use EDU hose otherwise. And continue with monthly port maintenance return to clinic in 3 months with CBC CMP Signed By: Bhavani Miller M.D. <<Signature on File>>
== END 2019-07-30 23:59 | disposition home or self-care (01) ==
LOC: ONCMED 07:27
PROVIDERS: Family Provider Nurse Practitioner Family; PCP Nurse Practitioner Family; Visit Provider Internal Medicine Hematology & Oncology
DX: Z08 Encounter for follow-up examination after completed treatment for malignant neoplasm (principal); Z85.818 Personal history of malignant neoplasm of other sites of lip, oral cavity, and pharynx; H91.92 Unspecified hearing loss, left ear; N28.9 Disorder of kidney and ureter, unspecified; D50.9 Iron deficiency anemia, unspecified; Z85.3 Personal history of malignant neoplasm of breast; Z86.718 Personal history of other venous thrombosis and embolism
CPT/HCPCS: 36591; 82728; 83540; 83550; 85025; 99214

== ENCOUNTER → 2019-07-20 16:19 | Outpatient (BNVA) | payer MEDICARE, OTHER, SELFPAY | PROVIDERS: Family Provider Nurse Practitioner Family; PCP Nurse Practitioner Family; Visit Provider Nurse Practitioner Family | DX: Z87.440 Personal history of urinary (tract) infections (principal); N39.0 Urinary tract infection, site not specified | CPT/HCPCS: 80053; 81003; 87077; 87086; 87186 ==

== ENCOUNTER 2019-08-07 06:55 | Outpatient (RCR) | payer MEDICARE, OTHER, SELFPAY | END 2019-08-30 23:59 | disposition home or self-care (01) | LOC: ONCMED 06:55 | PROVIDERS: PCP Nurse Practitioner Family; Visit Provider Internal Medicine Hematology & Oncology | DX: Z45.2 Encounter for adjustment and management of vascular access device (principal); C09.9 Malignant neoplasm of tonsil, unspecified; D64.9 Anemia, unspecified; I25.10 Atherosclerotic heart disease of native coronary artery without angina pectoris; I10 Essential (primary) hypertension; M81.0 Age-related osteoporosis without current pathological fracture | CPT/HCPCS: 96523 ==

== ENCOUNTER 2019-09-11 06:57 | Outpatient (RCR) | payer MEDICARE, OTHER, SELFPAY | END 2019-09-29 23:59 | disposition home or self-care (01) | LOC: ONCMED 06:57 | PROVIDERS: PCP Nurse Practitioner Family; Visit Provider Internal Medicine Hematology & Oncology | DX: Z45.2 Encounter for adjustment and management of vascular access device (principal); C09.9 Malignant neoplasm of tonsil, unspecified; D64.9 Anemia, unspecified | CPT/HCPCS: 96523 ==

== ENCOUNTER 2019-10-09 06:51 | Outpatient (RCR) | payer MEDICARE, OTHER, SELFPAY ==
[2019-10-09 10:31] LABS: Basophils % 0.5 %; Eosinophils # 0.1 10^3/uL (0.0-0.8); Eosinophils % 1.4 %; Hematocrit 38.2 % (37.0-47.0); Hemoglobin 12.1 g/dL (11.5-15.3); Lymphocytes % 16.2 %; Mean Corpuscular HGB Conc 31.7 g/dL (30.0-36.0); Mean Corpuscular Hemoglobin 32.8 pg (28.0-34.0); Mean Corpuscular Volume 103.5 fL (81-99); Mean Platelet Volume 9.9 fL (7.4-10.4); Monocytes # 0.5 10^3/uL (0.2-0.9); Monocytes % 8.2 %; Neutrophils # 4.67 10^3/uL (1.8-7.7); Neutrophils % 73.4 %; Nucleated Red Blood Cells % 0 %; Platelet Count 165 10^3/cmm (130-400); Red Blood Count 3.69 10^6/uL (4.1-5.3); Red Cell Distribution Width 12.2 % (12.1-15.1); White Blood Count 6.4 10^3/uL (4.0-10.0)
[2019-10-09 10:43] LABS: Ferritin 438 ng/mL (15-150); Iron 105 ug/dL (37-145); Percent Saturation 52.5 % (20-50); Total Iron Binding Capacity 200 mcg/dl; Unsaturated Iron Binding 95 ug/dL (112-347)
--- NOTE | 2019-10-09 11:54 | ONC FU_ITS ---
Dr. Miller follow up note Patient: Martha Patterson Unit #: [id number]: 1945 Dicatated By: Bhavani Miller M.D.Date of Visit:Oct 09, 2019 Onc Med Follow-up/Prog Note History of Present Illness: Mrs. Patterson is a 74-year-old female with history of progressive dysphagia and right-sided sore throat. As per patient initially she thought sore throat could be due to allergies but due to progressive nature and development of right tonsillar mass, she was referred to ENT and CT scan of the neck was done on 09/13/2018 which showed very large infiltrative also mass extending superiorly past the soft palate and measures 4 x 3 cm and there is a small level II lymph node on same side T4,N1 . 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 Now being treated with combined chemoradiation with weekly carboplatin since 12/03/2018 Patient has history of smoking but quit long time back and quit alcohol about year ago. She has history of arthritis for which she used to take low-dose methotrexate which she quit taken in July 2018, now being treated with low-dose steroids. She has history of right breast cancer diagnosed in 1975 status post right modified mastectomy followed by tamoxifen for 5 years. s/p combined therapy with radiation and weekly Carboplatin.Completed on 11/20/2018 h/o of fall off and on for the last couple of months now more often and was seen in emergency room recently on 01/30/2019 and she underwent echocardiogram on 02/04/2019 which shows normal-sized left ventricle with ejection fraction 45% patient also had Holter is monitor and as per she did not have any episode of fall while she was on monitor. Patient went to ER on 03/11/2019 with head /facial injury underwent CT scan of neck which showed no acute cervical spinal injury CT head showed thin subdural hematoma on the left extending along the left tentorium cerebelli. Old lacunar infarct on the left. She also had CT lumbar spine on 03/11/2019 which showed no acute lumbar spinal injury spinal injury because of subdural hematoma she was transferred to [place] where during further evaluation she was found to have left leg DVT but due to left subdural hematoma and anticoagulation was not considered rather inferior vena cava filter was placed in. Next Patient was immediately admitted to hospital on 03/25/2019 with shortness of breath and left lower extremity pain underwent venous Doppler study which was positive for DVT in the left leg and also had VQ scan which was low probability for pulmonary embolism. And follow-up CT scan of the head done on 03/25/2019 showed decreased size left tentorial subdural hematoma.as per patient underwent inferior vena cava filter placement and because of subdural hematoma anticoagulation was not offered. Also had follow-up CT scan of neck done on 03/05/2019 which showed previously described large right tonsillar carcinoma has essentially resolved. Tiny amount of asymmetry at the tongue base and right tonsillar fossa likely post-therapeutic. No cervical lymphadenopathy. Follow-up CT PET scan done on 06/20/2019 showed no evidence of recurrent or residual malignancy Came for follow-up, denies any specific complaints today, no sore throat no dysphagia, no nausea or vomiting no hemoptysis or hematemesis no melena or hematochezia no jaundice, appetite is good overall feeling well, patient has follow-up appointment with ENT physician next month in [place]. Medications: Isosorbide Dinitrate 1 Tablet (of 30 mg) Oral daily, Klor-Con 10 2 Tablet (of 10 meq) Tablet, controlled release Oral b.i.d., Levothyroxine Sodium 1 Tablet (of 10 mcg) Oral daily, Lisinopril 1 Tablet (of 5 mg) Oral daily, Multivitamin Adult 1 Tablet Oral daily, Pantoprazole Sodium 1 Tablet (of 40 mg) Tablet, enteric coated Oral b.i.d., predniSONE 1 Tablet (of 5 mg) Oral daily, Senna 1 Capsule (of 8.6 mg) Oral daily PRN, Tamsulosin HCl 1 Tablet (of 0.4 mg) Capsule Oral daily, Triamterene-HCTZ 1 Capsule (of 37.5-25 mg) Oral daily Allergies: milk and Sulfa Antibiotics. Review of Systems: Constitutional - Appetite is fair and weight is stable. No fever, chills, or night sweats. Energy level is fair, ENMT - Negative for sinus congestion/drainage. No mouth sores. Negative for sore throat and difficulty swallowing, Hematologic/Lymphatic - Pt bruises easily, Respiratory - No shortness of breath. No cough. No pleuritic pain or hemoptysis, Cardiovascular - No angina pain. No palpitations, Gastrointestinal - No nausea, no vomiting. No heartburn or acid reflux. No diarrhea. Occasional constipation. No blood in the stool or black stools, Genitourinary (F) - No dysuria or hematuria. Positive for urinary frequency. No urgency or incontinence, Musculoskeletal - Positive for joint pain, Neurologic - Positive for dizziness, Psychiatric - Positive for anxiety and depression. No insomnia. Vital Signs: Performed on Oct 09, 2019 11:30 Height - 61.00 in Weight - 107.8 lbs (LOW) BSA - 1.45 sq.m BMI - 20.37 Temperature - 98.3 F (LOW) Pulse - 70 /min Respiration - 16 /min BP - 148/72 mm(hg) (HIGH) O2 Sat - 98 % Pain - 0 Performance Status: 0 - Fully active, able to carry on all predisease activities without restrictions. (ECOG) Physical Examination: ENMT - No mouth sores no thrush, no jaundice, Respiratory - Lungs are clear, Cardiovascular - Regular rate and rhythm of heart, Abdomen - Soft, bowel sounds present, Extremities - Trace edema bilaterally. Lab/Imaging: Test performed on Jul 06, 2019 09:15 Ferritin 637 ng/mL Iron 74 mcg/dL Iron Binding Capacity (TIBC) 197 mcg/dl % Iron Saturation 37.5 % UIBC 123 mcg/dL WBC 5.7 10 3/uL RBC 3.97 10 6/uL HGB 11.6 g/dL HCT 38.5 % MCV 97.0 fL MCH 29.2 pg MCHC 30.1 g/dL RDW 20.5 % Platelet Count 177 10 3/cmm MPV 9.9 fL Neutrophils 4.4 10 3/uL Lymphocytes 0.7 10 3/uL Monocytes 0.4 10 3/uL Eosinophils 0.1 10 3/uL Basophils 0.0 10 3/uL Neutrophil % 77.3 % Lymphocyte % 12.6 % Monocyte % 7.5 % Eosinophil % 1.6 % Basophils % 0.7 % Test performed on May 19, 2019 12:14 Vitamin B12 306 pg/mL Test performed on Apr 15, 2019 08:50 Manual Lymphocytes 9.6 % Manual Monocytes 9.4 % Manual Eosinophils 0.8 % Manual Basophils 0.5 % NRBCs 0.0 /100 WBC Impression: 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 No cervical lymphadenopathy by size criteria Repeat CT scan of neck done on 09/09/2018 showed large infiltrative tonsillar mass size 4 x 3 cm and there is a small level II lymph node on the same side cT4,N1 History of right breast cancer diagnosed in 1974 status post right MRM followed by tamoxifen for 5 years History of progressive left ear hearing loss Mild renal insufficiency Chronic arthritis in the past treated with low-dose methotrexate/prednisone but patient quit methotrexate in July 2018. CT PET scan done on 10/25/2018 showed 2.2 cm mass in the right tonsil with SUV of 14.2. A small scattered cervical nodes are FDG negative s/p concurrent therapy with radiation with weekly carboplatin Completed on 01/20/2019 Follow-up CT scan of neck done on 03/05/2019 showed resolution of tonsillar mass and no evidence of cervical lymphadenopathy Plan: Discussed with patient regarding her labs white blood count 6.4 hemoglobin 12.1 hematocrit 38.2 platelets 165,000 ferritin 438 iron saturation 52.5 iron 105 Clinically, patient is doing well with no signs symptoms suggestive of recurrence of head and neck cancer, patient said she has a follow-up appointment with the ENT physician in [place] next month. As far as iron deficiency anemia is concerned patient responded very well to parenteral iron and now with normalization of hemoglobin and iron stores. We will continue to monitor and she will continue with monthly port maintenance and return to clinic in 4 months with CBC CMP. Signed By: Bhavani Miller M.D. <<Signature on File>>
== END 2019-10-22 10:14 | disposition home or self-care (01) ==
LOC: ONCMED 06:51
PROVIDERS: PCP Nurse Practitioner Family; Visit Provider Internal Medicine Hematology & Oncology
DX: Z08 Encounter for follow-up examination after completed treatment for malignant neoplasm (principal); Z85.818 Personal history of malignant neoplasm of other sites of lip, oral cavity, and pharynx; D50.9 Iron deficiency anemia, unspecified; Z85.3 Personal history of malignant neoplasm of breast; Z92.23 Personal history of estrogen therapy; Z92.3 Personal history of irradiation; Z92.21 Personal history of antineoplastic chemotherapy
CPT/HCPCS: 36591; 82728; 83540; 83550; 85025; G0463

== ENCOUNTER 2019-10-22 10:14 | Outpatient (CLI) | payer MEDICARE, OTHER, SELFPAY ==
--- NOTE | 2019-10-22 10:30 | MM_ITS ---
WS: [id number] LEFT DIGITAL MAMMOGRAPHY WITH CAD CLINICAL INFORMATION: history HISTORY: Breast cancer with right mastectomy. COMPARISON: TECHNIQUE: 3 views of the left breast were obtained. FINDINGS: The left breast is composed of heterogeneous fibroglandular density tissue, which can limit the detec tion of small underlying mass lesions. Punctate calcifications. Vascular calcification. No suspicious focal mass, asymmetry, calcifications, or architectural distortion. No evidence of dayne gnancy. MM/[place] [id number] IMPRESSION: BI-RADS: 2-Benign FOLLOW UP: 1 Year Follow-up Recommend return to annual diagnostic mammography.
== END 2019-10-22 10:15 | disposition home or self-care (01) ==
LOC: RADSHAW 10:19
PROVIDERS: PCP Nurse Practitioner Family; Visit Provider Nurse Practitioner Family
DX: Z85.3 Personal history of malignant neoplasm of breast (principal)
CPT/HCPCS: 77065

== ENCOUNTER → 2019-10-26 14:55 | Outpatient (BNVA) | payer MEDICARE, OTHER, SELFPAY | PROVIDERS: PCP Nurse Practitioner Family; Visit Provider Obstetrics & Gynecology | DX: N81.11 Cystocele, midline (principal) | CPT/HCPCS: 80053 ==

== ENCOUNTER 2019-11-09 09:11 | Outpatient (CLI) | payer MEDICARE, OTHER, SELFPAY | END 2019-11-09 09:12 | disposition home or self-care (01) | LOC: ONCMED 09:13 | PROVIDERS: PCP Nurse Practitioner Family; Visit Provider Internal Medicine Hematology & Oncology | DX: Z45.2 Encounter for adjustment and management of vascular access device (principal) | CPT/HCPCS: 96523 ==

== ENCOUNTER 2019-12-10 09:25 | Outpatient (CLI) | payer MEDICARE, OTHER, SELFPAY | END 2019-12-10 09:26 | disposition home or self-care (01) | LOC: ONCMED 09:29 | PROVIDERS: PCP Nurse Practitioner Family; Visit Provider Internal Medicine Hematology & Oncology | DX: Z45.2 Encounter for adjustment and management of vascular access device (principal) | CPT/HCPCS: 96523 ==

== ENCOUNTER 2020-01-08 09:29 | Outpatient (CLI) | payer MEDICARE, OTHER, SELFPAY ==
[2020-01-08 11:07] LABS: Vitamin B12 308 pg/mL (232-1245)
== END 2020-01-08 09:30 | disposition home or self-care (01) ==
PROVIDERS: PCP Nurse Practitioner Family; Visit Provider Internal Medicine Hematology & Oncology
DX: D50.8 Other iron deficiency anemias (principal); Z45.2 Encounter for adjustment and management of vascular access device
CPT/HCPCS: 36591; 82607

== ENCOUNTER 2020-02-12 09:28 | Outpatient (CLI) | payer MEDICARE, OTHER, SELFPAY ==
[2020-02-12 10:05] LABS: Basophils # 0.1 10^3/uL (0.0-0.1); Basophils % 0.7 %; Eosinophils # 0.1 10^3/uL (0.0-0.8); Eosinophils % 1.9 %; Hematocrit 37.3 % (37.0-47.0); Lymphocytes % 13.8 %; Mean Corpuscular HGB Conc 32.2 g/dL (30.0-36.0); Mean Corpuscular Volume 105.7 fL (81-99); Mean Platelet Volume 9.7 fL (7.4-10.4); Monocytes # 0.6 10^3/uL (0.2-0.9); Monocytes % 8.8 %; Neutrophils # 5.17 10^3/uL (1.8-7.7); Neutrophils % 74.1 %; Nucleated Red Blood Cells % 0 %; Platelet Count 182 10^3/cmm (130-400); Red Blood Count 3.53 10^6/uL (4.1-5.3); Red Cell Distribution Width 12.1 % (12.1-15.1)
[2020-02-12 10:25] LABS: Alanine Aminotransferase 15 U/L (0-33); Albumin Level 4.1 g/dL (3.5-5.2); Alkaline Phosphatase 51 IU/L (35-105); Anion Gap 12.8 (5-19); Aspartate Amino Transferase 16 U/L (0-32); Blood Urea Nitrogen 22 mg/dL (8-23); Calcium 9.4 mg/dL (8.5-10.5); Carbon Dioxide 28 mmol/L (22-29); Chloride 104 mmol/L (98-107); Ferritin 473 ng/mL (15-150); Globulin 2.3 g/dL (1.3-4.6); Glucose 74 mg/dL (65-115); Iron 101 ug/dL (37-145); Osmolality Calculated 294 mOsm/kg (285-295); Percent Saturation 45.4 % (20-50); Potassium 3.8 mmol/L (3.5-5.1); Sodium 141 mmol/L (136-145); Total Bilirubin 0.3 mg/dL (0.15-1.2); Total Iron Binding Capacity 222 mcg/dl; Total Protein 6.4 g/dL (6.6-8.7); Unsaturated Iron Binding 121 ug/dL (112-347)
--- NOTE | 2020-02-12 12:05 | ONC FU_ITS ---
Dr. Miller follow up note Patient: Martha Patterson Unit #: [id number]: 1945 Dicatated By: Bhavani Miller M.D.Date of Visit:Feb 12, 2020 Onc Med Follow-up/Prog Note History of Present Illness: Mrs. Patterson is a 74-year-old female with history of progressive dysphagia and right-sided sore throat. As per patient initially she thought sore throat could be due to allergies but due to progressive nature and development of right tonsillar mass, she was referred to ENT and CT scan of the neck was done on 09/13/2018 which showed very large infiltrative also mass extending superiorly past the soft palate and measures 4 x 3 cm and there is a small level II lymph node on same side T4,N1 . 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 Now being treated with combined chemoradiation with weekly carboplatin since 12/03/2018 Patient has history of smoking but quit long time back and quit alcohol about year ago. She has history of arthritis for which she used to take low-dose methotrexate which she quit taken in July 2018, now being treated with low-dose steroids. She has history of right breast cancer diagnosed in 1975 status post right modified mastectomy followed by tamoxifen for 5 years. s/p combined therapy with radiation and weekly Carboplatin.Completed on 11/20/2018 h/o of fall off and on for the last couple of months now more often and was seen in emergency room recently on 01/30/2019 and she underwent echocardiogram on 02/04/2019 which shows normal-sized left ventricle with ejection fraction 45% patient also had Holter is monitor and as per she did not have any episode of fall while she was on monitor. Patient went to ER on 03/11/2019 with head /facial injury underwent CT scan of neck which showed no acute cervical spinal injury CT head showed thin subdural hematoma on the left extending along the left tentorium cerebelli. Old lacunar infarct on the left. She also had CT lumbar spine on 03/11/2019 which showed no acute lumbar spinal injury spinal injury because of subdural hematoma she was transferred to [place] where during further evaluation she was found to have left leg DVT but due to left subdural hematoma and anticoagulation was not considered rather inferior vena cava filter was placed in. Next Patient was immediately admitted to hospital on 03/25/2019 with shortness of breath and left lower extremity pain underwent venous Doppler study which was positive for DVT in the left leg and also had VQ scan which was low probability for pulmonary embolism. And follow-up CT scan of the head done on 03/25/2019 showed decreased size left tentorial subdural hematoma.as per patient underwent inferior vena cava filter placement and because of subdural hematoma anticoagulation was not offered. Also had follow-up CT scan of neck done on 03/05/2019 which showed previously described large right tonsillar carcinoma has essentially resolved. Tiny amount of asymmetry at the tongue base and right tonsillar fossa likely post-therapeutic. No cervical lymphadenopathy. Follow-up CT PET scan done on 06/20/2019 showed no evidence of recurrent or residual malignancy Follow-up mammogram done on October 22, 2019 showed benign findings Came for follow-up, denies any specific complaints, no fever chills, no nausea vomiting, no diarrhea constipation, no melena or hematochezia, patient states she has seen ENT physician recently and now with no evidence of disease. , No dysphagia, no hemoptysis or hematemesis Medications: Isosorbide Dinitrate 1 Tablet (of 30 mg) Oral daily, Klor-Con 10 2 Tablet (of 10 meq) Tablet, controlled release Oral b.i.d., Levothyroxine Sodium 1 Tablet (of 10 mcg) Oral daily, Lisinopril 1 Tablet (of 5 mg) Oral daily, Multivitamin Adult 1 Tablet Oral daily, Pantoprazole Sodium 1 Tablet (of 40 mg) Tablet, enteric coated Oral b.i.d., predniSONE 1 Tablet (of 5 mg) Oral daily, Senna 1 Capsule (of 8.6 mg) Oral daily PRN, Tamsulosin HCl 1 Tablet (of 0.4 mg) Capsule Oral daily, Triamterene-HCTZ 1 Capsule (of 37.5-25 mg) Oral daily Allergies: milk and Sulfa Antibiotics. Review of Systems: Constitutional - Appetite is fair and weight is stable. No fever, chills, or night sweats. Energy level is fair, ENMT - Negative for sinus congestion/drainage. No mouth sores. Negative for sore throat and difficulty swallowing, Hematologic/Lymphatic - Pt bruises easily, Respiratory - No shortness of breath. No cough. No pleuritic pain or hemoptysis, Cardiovascular - No angina pain. No palpitations, Gastrointestinal - No nausea, no vomiting. No heartburn or acid reflux. No diarrhea. Occasional constipation. No blood in the stool or black stools, Genitourinary (F) - No dysuria or hematuria. Positive for urinary frequency. No urgency or incontinence, Musculoskeletal - Positive for joint pain, Neurologic - Positive for dizziness, Psychiatric - Positive for anxiety and depression. No insomnia. Vital Signs: Performed on Feb 12, 2020 10:32 Height - 61.00 in Weight - 113.0 lbs (HIGH) BSA - 1.48 sq.m BMI - 21.35 Temperature - 97.0 F (LOW) Pulse - 64 /min Respiration - 18 /min BP - 150/72 mm(hg) (HIGH) O2 Sat - 98 % Pain - 0 Performance Status: 0 - Fully active, able to carry on all predisease activities without restrictions. (ECOG) Physical Examination: ENMT - No mouth sores, no thrush, no jaundice, Respiratory - Lungs are clear to auscultation, Heart S1-S2, Abdomen - Soft, bowel sounds present, Extremities - No visible edema. 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 No cervical lymphadenopathy by size criteria Repeat CT scan of neck done on 09/09/2018 showed large infiltrative tonsillar mass size 4 x 3 cm and there is a small level II lymph node on the same side cT4,N1 History of right breast cancer diagnosed in 1974 status post right MRM followed by tamoxifen for 5 years History of progressive left ear hearing loss Mild renal insufficiency Chronic arthritis in the past treated with low-dose methotrexate/prednisone but patient quit methotrexate in July 2018. CT PET scan done on 10/25/2018 showed 2.2 cm mass in the right tonsil with SUV of 14.2. A small scattered cervical nodes are FDG negative s/p concurrent therapy with radiation with weekly carboplatin Completed on 01/20/2019 Follow-up CT scan of neck done on 03/05/2019 showed resolution of tonsillar mass and no evidence of cervical lymphadenopathy Plan: Discussed with patient regarding her labs white blood count 7 hemoglobin 12 hematocrit 37.3 platelets 182,000, CMP within normal limits ferritin 473, iron saturation 45.4, her follow-up mammogram also showed benign finding Clinically, patient is doing well with no new signs symptoms, her follow-up labs shows hemoglobin in normal range along with iron stores. We will continue to monitor and then she will return to clinic in 3 months with CBC CMP Signed By: Bhavani Miller M.D. <<Signature on File>>
== END 2020-02-12 09:29 | disposition home or self-care (01) ==
LOC: ONCMED 09:31
PROVIDERS: PCP Nurse Practitioner Family; Visit Provider Internal Medicine Hematology & Oncology
DX: C09.9 Malignant neoplasm of tonsil, unspecified (principal); C79.89 Secondary malignant neoplasm of other specified sites; C77.1 Secondary and unspecified malignant neoplasm of intrathoracic lymph nodes; D50.9 Iron deficiency anemia, unspecified; N28.9 Disorder of kidney and ureter, unspecified
CPT/HCPCS: 36591; 80053; 82728; 83540; 83550; 85025; G0463

== ENCOUNTER → 2020-04-04 13:45 | Outpatient (BNVA) | payer MEDICARE, OTHER, SELFPAY | PROVIDERS: PCP Nurse Practitioner Family; Visit Provider Obstetrics & Gynecology | DX: N89.8 Other specified noninflammatory disorders of vagina (principal); N76.0 Acute vaginitis; B96.89 Other specified bacterial agents as the cause of diseases classified elsewhere | CPT/HCPCS: 87210 ==

== ENCOUNTER 2020-04-06 08:09 | Outpatient (CLI) | payer MEDICARE, OTHER, SELFPAY ==
--- NOTE | 2020-04-06 08:00 | USCV_ITS ---
Martha Patterson Age: 74 Gender: F : 1945 Exam Date: 04/06/2020 08:24 Ordering Phys: Bhaskar Lara MD Technologist: Tom Barnes [place] [facility] [place]: HISTORY: Lower extremity swelling. PROCEDURES: Bilateral duplex Venous Insufficiency study of the Deep and Superficial systems was carried out according to normal protocol with the patient in supine positon for deep system and dependent position for the superficial system. FINDINGS: All deep veins demonstrated compressibility without evidence of intraluminal thrombus or increased echogenicity. Spectral analysis of Doppler signals demonstrates normal response to compression maneuvers indicating patency without obstruction. Reflux determinations were made with the patient in the dependent position, the weight being on the contralateral leg. Vein measurements and reflux times are listed below were applicable. RT LEG QUALIFIES FOR ABLATION THERE IS STILL DVT IN THE LT LEG CONCLUSIONS 1. No evidence of DVT in the above-mentioned identifiable veins. 2. On the right side, no deep venous reflexes were noted. Significant venous reflux of greater than 500 ms were noted throughout the entire greater saphenous vein segments and also at the saphenofemoral junction. The venous reflux was 2.35 seconds at the saphenofemoral junction and greater than 3 seconds at all the greater saphenous vein segments. The venous dimension was ranging anywhere from 0.35 to 0.57 cm. These venous segments were greater than 1 cm deep from the skin surface. 3. On the left side, no significant venous reflux was noted in the deep veins at the level of the common femoral, femoral and popliteal veins. No significant venous reflux was noted in the superficial veins except that at the saphenofemoral junction. Further details of the reflux time, venous dimensions and depth from the surface, please see the above Dr Rhiannon Carrillo MD [facility] (Electronically Signed) Final Date: 08 April 2020 13:26 S
== END 2020-04-06 08:10 | disposition home or self-care (01) ==
LOC: RAD 08:15
PROVIDERS: PCP Nurse Practitioner Family; Visit Provider Family Medicine
DX: Z95.828 Presence of other vascular implants and grafts (principal); M79.89 Other specified soft tissue disorders
CPT/HCPCS: 93970

== ENCOUNTER 2020-05-13 08:29 | Outpatient (CLI) | payer MEDICARE, OTHER, SELFPAY ==
[2020-05-13 09:13] LABS: Basophils % 0.6 %; Eosinophils # 0.2 10^3/uL (0.0-0.8); Eosinophils % 2.3 %; Hematocrit 39.4 % (37.0-47.0); Hemoglobin 12.9 g/dL (11.5-15.3); Lymphocytes # 0.9 10^3/uL (0.8-4.8); Lymphocytes % 12.5 %; Mean Corpuscular HGB Conc 32.7 g/dL (30.0-36.0); Mean Corpuscular Hemoglobin 32.7 pg (28.0-34.0); Mean Platelet Volume 9.8 fL (7.4-10.4); Monocytes # 0.6 10^3/uL (0.2-0.9); Monocytes % 8.8 %; Neutrophils # 5.13 10^3/uL (1.8-7.7); Neutrophils % 75.4 %; Nucleated Red Blood Cells % 0 %; Platelet Count 177 10^3/cmm (130-400); Red Blood Count 3.94 10^6/uL (4.1-5.3); Red Cell Distribution Width 11.9 % (12.1-15.1); White Blood Count 6.8 10^3/uL (4.0-10.0)
[2020-05-13 09:31] LABS: Alanine Aminotransferase 15 U/L (0-33); Albumin Level 4.2 g/dL (3.5-5.2); Alkaline Phosphatase 54 IU/L (35-105); Anion Gap 12.2 (5-19); Aspartate Amino Transferase 16 U/L (0-32); Blood Urea Nitrogen 17 mg/dL (8-23); Calcium 9.5 mg/dL (8.5-10.5); Carbon Dioxide 30 mmol/L (22-29); Chloride 101 mmol/L (98-107); Globulin 2.5 g/dL (1.3-4.6); Glucose 97 mg/dL (65-115); Osmolality Calculated 289 mOsm/kg (285-295); Potassium 4.2 mmol/L (3.5-5.1); Sodium 139 mmol/L (136-145); Total Bilirubin 0.3 mg/dL (0.15-1.2); Total Protein 6.7 g/dL (6.6-8.7)
--- NOTE | 2020-05-13 10:53 | ONC FU_ITS ---
Dr. Miller follow up note Patient: Martha Patterson Unit #: [id number]: 1945 Dicatated By: Bhavani Miller M.D.Date of Visit:May 13, 2020 Onc Med Follow-up/Prog Note History of Present Illness: Mrs. Patterson is a 74-year-old female with history of progressive dysphagia and right-sided sore throat. As per patient initially she thought sore throat could be due to allergies but due to progressive nature and development of right tonsillar mass, she was referred to ENT and CT scan of the neck was done on 09/13/2018 which showed very large infiltrative also mass extending superiorly past the soft palate and measures 4 x 3 cm and there is a small level II lymph node on same side T4,N1 . 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 Now being treated with combined chemoradiation with weekly carboplatin since 12/03/2018 Patient has history of smoking but quit long time back and quit alcohol about year ago. She has history of arthritis for which she used to take low-dose methotrexate which she quit taken in July 2018, now being treated with low-dose steroids. She has history of right breast cancer diagnosed in 1975 status post right modified mastectomy followed by tamoxifen for 5 years. s/p combined therapy with radiation and weekly Carboplatin.Completed on 11/20/2018 h/o of fall off and on for the last couple of months now more often and was seen in emergency room recently on 01/30/2019 and she underwent echocardiogram on 02/04/2019 which shows normal-sized left ventricle with ejection fraction 45% patient also had Holter is monitor and as per she did not have any episode of fall while she was on monitor. Patient went to ER on 03/11/2019 with head /facial injury underwent CT scan of neck which showed no acute cervical spinal injury CT head showed thin subdural hematoma on the left extending along the left tentorium cerebelli. Old lacunar infarct on the left. She also had CT lumbar spine on 03/11/2019 which showed no acute lumbar spinal injury spinal injury because of subdural hematoma she was transferred to [place] where during further evaluation she was found to have left leg DVT but due to left subdural hematoma and anticoagulation was not considered rather inferior vena cava filter was placed in. Next Patient was immediately admitted to hospital on 03/25/2019 with shortness of breath and left lower extremity pain underwent venous Doppler study which was positive for DVT in the left leg and also had VQ scan which was low probability for pulmonary embolism. And follow-up CT scan of the head done on 03/25/2019 showed decreased size left tentorial subdural hematoma.as per patient underwent inferior vena cava filter placement and because of subdural hematoma anticoagulation was not offered. Also had follow-up CT scan of neck done on 03/05/2019 which showed previously described large right tonsillar carcinoma has essentially resolved. Tiny amount of asymmetry at the tongue base and right tonsillar fossa likely post-therapeutic. No cervical lymphadenopathy. Follow-up CT PET scan done on 06/20/2019 showed no evidence of recurrent or residual malignancy Follow-up mammogram done on October 22, 2019 showed benign findings Came for follow-up, denies any specific complaints except off-and-on soreness in her throat and also dental problem, may require extraction, but no fever chills, no nausea or vomiting, no diarrhea constipation. , No melena or hematochezia, no hemoptysis or hematemesis Medications: Isosorbide Dinitrate 1 Tablet (of 30 mg) Oral daily, Klor-Con 10 2 Tablet (of 10 meq) Tablet, controlled release Oral b.i.d., Levothyroxine Sodium 1 Tablet (of 10 mcg) Oral daily, Lisinopril 1 Tablet (of 5 mg) Oral daily, Multivitamin Adult 1 Tablet Oral daily, Pantoprazole Sodium 1 Tablet (of 40 mg) Tablet, enteric coated Oral b.i.d., predniSONE 1 Tablet (of 5 mg) Oral daily, Senna 1 Capsule (of 8.6 mg) Oral daily PRN, Tamsulosin HCl 1 Tablet (of 0.4 mg) Capsule Oral daily, Triamterene-HCTZ 1 Capsule (of 37.5-25 mg) Oral daily Allergies: milk and Sulfa Antibiotics. Review of Systems: Constitutional - Appetite is fair and weight is stable. No fever, chills, or night sweats. Energy level is fair, ENMT - Negative for sinus congestion/drainage. No mouth sores. Negative for sore throat and difficulty swallowing, Hematologic/Lymphatic - Pt bruises easily, Respiratory - No shortness of breath. No cough. No pleuritic pain or hemoptysis, Cardiovascular - No angina pain. No palpitations, Gastrointestinal - No nausea, no vomiting. No heartburn or acid reflux. No diarrhea. Occasional constipation. No blood in the stool or black stools, Genitourinary (F) - No dysuria or hematuria. Positive for urinary frequency. No urgency or incontinence, Musculoskeletal - Positive for neck pain, Neurologic - Positive for dizziness, Psychiatric - Positive for anxiety and depression. No insomnia. Vital Signs: Performed on May 13, 2020 10:22 Height - 61.00 in Weight - 119.4 lbs (HIGH) BSA - 1.52 sq.m BMI - 22.56 Temperature - 97.4 F (LOW) Pulse - 76 /min Respiration - 16 /min BP - 171/69 mm(hg) (HIGH) O2 Sat - 96 % Pain - 4 Performance Status: 1 - No physically strenuous activity, but ambulatory and able to carry out light or sedentary work (e.g. office work, light house work). (ECOG) Physical Examination: ENMT - No mouth sores, no thrush, Respiratory - Lungs are clear to auscultation, Cardiovascular - Regular rate and rhythm of heart, Abdomen - Soft, bowel sounds present, Extremities - No visible edema. Lab/Imaging: Test performed on May 13, 2020 08:50 Sodium 139 mmol/L Potassium 4.2 mmol/L Chloride 101 mmol/L CO2 30 mmol/L Anion Gap 12.2 BUN 17 mg/dL Creatinine 0.8 mg/dL Cr Clearance (Est) 46.7000 mL/min Glucose 97 mg/dL Osmolality - Calculated 289 mOsm/kg Calcium 9.5 mg/dL Protein, Total 6.7 g/dL Albumin 4.2 g/dL Globulin 2.5 g/dL Bilirubin, Total 0.3 mg/dL ALT (SGPT) 15 U/L AST (SGOT) 16 U/L Alkaline Phosphatase 54 IU/L WBC 6.8 10 3/uL RBC 3.94 10 6/uL HGB 12.9 g/dL HCT 39.4 % MCV 100.0 fL MCH 32.7 pg MCHC 32.7 g/dL RDW 11.9 % Platelet Count 177 10 3/cmm MPV 9.8 fL Neutrophils 5.13 10 3/uL Lymphocytes 0.9 10 3/uL Monocytes 0.6 10 3/uL Eosinophils 0.2 10 3/uL Basophils 0.0 10 3/uL Neutrophil % 75.4 % Lymphocyte % 12.5 % Monocyte % 8.8 % Eosinophil % 2.3 % Basophils % 0.6 % NRBC % 0 % Test performed on Feb 12, 2020 09:42 Ferritin 473 ng/mL Iron 101 mcg/dL Iron Binding Capacity (TIBC) 222 mcg/dl % Iron Saturation 45.4 % UIBC 121 mcg/dL Impression: 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 No cervical lymphadenopathy by size criteria Repeat CT scan of neck done on 09/09/2018 showed large infiltrative tonsillar mass size 4 x 3 cm and there is a small level II lymph node on the same side cT4,N1 History of right breast cancer diagnosed in 1975 status post right MRM followed by tamoxifen for 5 years History of progressive left ear hearing loss Mild renal insufficiency Chronic arthritis in the past treated with low-dose methotrexate/prednisone but patient quit methotrexate in July 2018. CT PET scan done on 10/25/2018 showed 2.2 cm mass in the right tonsil with SUV of 14.2. A small scattered cervical nodes are FDG negative s/p concurrent therapy with radiation with weekly carboplatin Completed on 01/20/2019 Follow-up CT scan of neck done on 03/05/2019 showed resolution of tonsillar mass and no evidence of cervical lymphadenopathy Plan: Discussed with patient regarding her labs white blood count 6.8 hemoglobin 12.9 hematocrit 39.4 platelets under 77,000 CMP within normal limits Clinically, patient doing well with no new signs symptom suggestive of recurrence of disease, as per patient she is following with ENT on regular basis, she will return to clinic in 3 months with CBC CMP and Follow-up CT scan of neck and chest x-ray Signed By: Bhavani Miller M.D. <<Signature on File>>
== END 2020-05-13 08:30 | disposition home or self-care (01) ==
LOC: ONCMED 08:32
PROVIDERS: PCP Nurse Practitioner Family; Visit Provider Internal Medicine Hematology & Oncology
DX: Z08 Encounter for follow-up examination after completed treatment for malignant neoplasm (principal); Z85.818 Personal history of malignant neoplasm of other sites of lip, oral cavity, and pharynx; Z85.3 Personal history of malignant neoplasm of breast; Z92.21 Personal history of antineoplastic chemotherapy; Z92.3 Personal history of irradiation
CPT/HCPCS: 36415; 36591; 80053; 85025; G0463

== ENCOUNTER → 2020-05-25 14:06 | Outpatient (BNVA) | payer MEDICARE, OTHER, SELFPAY | PROVIDERS: PCP Nurse Practitioner Family; Visit Provider Obstetrics & Gynecology | DX: N81.11 Cystocele, midline (principal); N99.3 Prolapse of vaginal vault after hysterectomy; N83.202 Unspecified ovarian cyst, left side | CPT/HCPCS: 87635 ==

== ENCOUNTER 2020-06-01 16:40 | Inpatient (IN) | payer MEDICARE, OTHER, SELFPAY ==
[2020-05-27 12:22] VITALS: BMI 22.8
--- NOTE | 2020-05-27 13:33 | ECG_ITS ---
[facility] Test Date: 2020-05-27 Pat Name: Martha Patterson Department: Room: Gender: Female Doula: : 1945 Requested By: Willie Coulter Order Number: [id number] Leo MD: Ana Maldonado M.D. Measurements Intervals [place] Rate: 66 P: 18 NC: 152 QRS: -34 QRSD: 137 T: 131 QT: 439 QTc: 463 Interpretive Statements SINUS RHYTHM WITH SINUS ARRHYTHMIA MARKED LEFT AXIS DEVIATION [QRS AXIS < -30] LEFT BUNDLE BRANCH BLOCK [120+ ms QRS DURATION, 80+ ms Q/S IN V1/V2, 85+ ms R IN I/aVL/V5/V6] Compared to ECG 02/03/2019 08:36:22 No significant changes Electronically Signed On 05-28-2020 11:30:49 [employer] by Ana Maldonado M.D. [id number]
[2020-05-27 13:34] LABS: Basophils # 0.1 10^3/uL (0.0-0.1); Basophils % 0.6 %; Eosinophils # 0.1 10^3/uL (0.0-0.8); Eosinophils % 1.1 %; Hematocrit 39.2 % (37.0-47.0); Hemoglobin 12.7 g/dL (11.5-15.3); Lymphocytes # 0.8 10^3/uL (0.8-4.8); Lymphocytes % 8.4 %; Mean Corpuscular HGB Conc 32.4 g/dL (30.0-36.0); Mean Corpuscular Hemoglobin 32.6 pg (28.0-34.0); Mean Corpuscular Volume 100.8 fL (81-99); Mean Platelet Volume 9.8 fL (7.4-10.4); Monocytes # 0.5 10^3/uL (0.2-0.9); Monocytes % 5.6 %; Neutrophils # 7.43 10^3/uL (1.8-7.7); Neutrophils % 83.7 %; Nucleated Red Blood Cells % 0 %; Platelet Count 181 10^3/cmm (130-400); Red Blood Count 3.89 10^6/uL (4.1-5.3); Red Cell Distribution Width 12.2 % (12.1-15.1); White Blood Count 8.9 10^3/uL (4.0-10.0)
--- NOTE | 2020-05-27 13:51 | P.ANESASSM_ITS ---
Pre-Anesthetic Assessment Pre-Anesthetic Assessment: Height/Weight: Height 1.52 m Weight 53.07 kg Preop Diagnosis: Vaginal vault prolapse, Cystocele, Ovarian cyst Proposed Procedure: Operation Date: 05/31/20 10:00 Proposed Procedures p Laparoscopic Uterosacral Ligament Suspen 38570 [id number] 23204 N99.3 N81.11 N83.202(Not Applicable) - MD oz Thompson Laparoscopic Salpingo Oophorectomy(Bilateral) - MD oz Thompson Anterior Repair(Not Applicable) - MD oz Thompson Cystoscopy(Not Applicable) - Arturo Isaac MD Was Beta Merlin taken within 24 hours: N/A Social: Social History: No alcohol and No tobacco (h/o smoking quit 20 yrs/ago) Exam: Pre-Anes Outpt Exam: alert, oriented x 3, clear to auscultation bilaterally and regular rate & rhythm Airway: Submandibular: WNL Cervical ROM: Other (limited b/c of cervical issues and head/neck radiation) MP: 3 Additional comments: Several missing and chipped--potentially difficult intubation Pulmonary: Pulmonary: COPD CV/HEM: CV/HEM: Anemia, Arrythmia, CAD, DVT, HTN, MA, Murmur and PVD C omments: h/o polymorphic VT, CAD/MA on perfusion study (per Dr. Gerardo garcia treat ent unless symptomatic), LV fxn normal GI: GI: GERD Metabolic: Metabolic: Thyroid Comments: Chronic steroid (for connective tissue disorder) Neuropsych: Neuropsych: CVA Comments: h/o subdural hematoma Anesthetic Plan: ASA status: 3 Anesthesia: General Other: GA/LMA Risk of > 500 ml blood loss (7ml/kg in children): No PFSH Anesthesia PFSH: Medical History Abnormal nuclear stress test Anemia Benign essential HTN Bladder prolapse Brain bleed Chronic congestive heart failure Chronic GERD COPD (chronic obstructive pulmonary disease) Essential (primary) hypertension Generalized weakness H/O deep venous thrombosis History of breast cancer Hypothyroidism (acquired) Mild hyperlipidemia Polymorphic ventricular tachycardia Syncope and collapse Tonsil cancer Surgical History H/O abdominoplasty History of left hip replacement S/P IVC filter (~03/13/19) DVT after hip replacement IVC Filter placed March 13, 2019 at [facility] Status post carpal tunnel release Status post hysterectomy (~1969) Vaginal per patient, ovaries were spared Status post right mastectomy with breast reconstruction with abdominal trans-flap. Status post total hip replacement, left Family History Mother Diabetes Hypertension Uterine cancer Diagnosed in her 70s Family/Other Diabetes maternal aunt Father Hypertension Heart disease of MA at age 59 Daughter Breast cancer With Mets; at age 50 Social History Smoking and tobacco status: former smoker Quit status (tobacco): has quit using tobacco Year quit tobacco: 1989 Former quit date comment: Started smoked as a teenager and smoked 1/2 pack per day Alcohol intake: never Data Anesthesia CBC & Chem 7: 05/27/20 12:59 05/27/20 12:59 Other Labs: Laboratory Results - last 48 hr 05/27/20 12:59 WBC 8.9 RBC 3.89 L Hgb 12.7 Hct 39.2 MCV 100.8 H MCH 32.6 MCHC 32.4 RDW 12.2 Plt Count 181 MPV 9.8 Neut % (Auto) 83.7 Lymph % (Auto) 8.4 [place] % (Auto) 5.6 Eos % (Auto) 1.1 Baso % (Auto) 0.6 Neut # (Auto) 7.43 Lymph # (Auto) 0.8 [place] # (Auto) 0.5 Eos # (Auto) 0.1 Baso # (Auto) 0.1 Nucleated RBC % (auto) 0 Nucleated RBCs # 0.0 Cardiac Studies: Holter Monitor 04/24/19
[2020-05-27 13:59] LABS: Anion Gap 12.2 (5-19); Blood Urea Nitrogen 21 mg/dL (8-23); Carbon Dioxide 29 mmol/L (22-29); Chloride 102 mmol/L (98-107); Glucose 95 mg/dL (65-115); Osmolality Calculated 291 mOsm/kg (285-295); Potassium 4.2 mmol/L (3.5-5.1); Sodium 139 mmol/L (136-145)
[2020-05-31] VITALS (72 sets, daily range): BP systolic 57–176; BP diastolic 32–88; PULSE 61–135; RESP 8–35; TEMP 36.2–36.8; O2SAT 75–100
[2020-05-31] MEDS: sodium chloride 0.9% 1,000 ML 30 ML IV (07:54)
[2020-05-31] MEDS: phenazopyridine 100 mg Tablet 200 MG PO (07:55)
[2020-05-31] MEDS: gabapentin 300 mg Capsule PO (07:55)
[2020-05-31] MEDS: ketorolac 30 mg/mL INJ IVP (07:55)
--- NOTE | 2020-05-31 08:26 | P.HPUD_ITS ---
Surgery/Procedure H&P Update DATE OF PROCEDURE: May 31, 2020 DATE H&P PERFORMED: 05/27/20 H&P UPDATE INFORMATION: I have reviewed H&P completed within last 30 days, I have examined patient prior to procedure, No changes to prior documentation and H[place] [facility] [place] indicated PREOP DIAGNOSIS: Vaginal vault prolapse, Cystocele, Ovarian cyst PLANNED PROCEDURE: Operation Date: 05/31/20 08:45 Proposed Procedures p Laparoscopic Uterosacral Ligament Suspen [id number] 52190 N99.3 N81.11 N83.202(Not Applicable) - Arturo Isaac MD s Laparoscopic Salpingo Oophorectomy(Bilateral) - MD oz Thompson Anterior Repair(Not Applicable) - MD oz Thompson Cystoscopy(Not Applicable) - Arturo Isaac MD Related Problem List Diagnoses (1) Vaginal vault prolapse after hysterectomy: (2) Cystocele, midline: (3) Ovarian cyst, left:
[2020-05-31] MEDS: vasopressin 20 unit/mL INJ 4 UNIT INJECTION (11:08)
--- NOTE | 2020-05-31 11:46 | P.OP_ITS ---
Operative Report Date of procedure: May 31, 2020 Pre-op Diagnosis: Vaginal vault prolapse, Cystocele, Ovarian cyst Post-op Diagnosis: Vaginal vault prolapse, Cystocele, Left ovarian cyst Procedure Done: Laparoscopic bilateral salpingo-oophorectomy, Laparoscopic uterosacral ligament suspension with enterocele repair, Anterior colporrhaphy, Cystoscopy Specimens removed/disposition: Bilateral tubes and ovaries Surgeon: Arturo Isaac Physical Chemistry Professor: None Anesthesia: General Estimated blood loss (mL): 20 IV fluids (mL): 1,000 Urine output (mL): 800 Complications: None Findings: Left ovarian cyst. Filmy adhesions between the sigmoid and the vaginal cuff. Brief History: Patient is a 75-year-old female 3, para 2-0-1-0 who is postmenopausal. She had presented to the office in 09/2019 complaining of a vaginal bulge. At the time, she had decided to wait and see if it gets any worse. She returned in 04/2020 reporting that the bulge had gotten bigger. And she decided that she wanted to go ahead and proceed with surgical treatment. On exam, she had been found to have a second-degree vaginal vault prolapse with third-degree cystocele. Treatment options were discussed and she is presenting for surgical repair. In addition she had been noted to have an approximately 6 cm simple appearing left ovarian cyst. Since she would be having a laparoscopic procedure anyway as part of her repair decision was made to go ahead and remove the ova etelvina as well because of the cyst. Procedure: Patient was taken to the operating room where general anesthesia was obtained. She was prepped and draped in usual sterile fashion dorsal supine position with legs in Ozzy style stirrups. Sequential compression boots have been placed prior to starting the case. Mccray catheter was inserted. Exam under anesthesia revealed her to have a third degree cystocele with a second-degree vault prolapse. The supraumbilical area was injected with 1% lidocaine with epinephrine. Skin incision was made with a knife and a size 10 trocar and sheath were inserted using an Optiview type technique. Trocar was removed and replaced with the laparoscope confirming intra-abdominal placement. Abdomen was inflated with carbon dioxide. The anterior abdominal wall was inspected and noted be free of adhesions. In the right and left lower quadrants lateral to the inferior epigastric vessels, the skin was injected with 1% lidocaine with epinephrine. Skin incisions were made with a knife and a size 5 trocar and sheath were inserted under direct visualization at each site. The pelvis was thoroughly inspected. She had filmy adhesions of the sigmoid to the vaginal cuff. A left ovarian cyst was also noted. Appendix was normal in appearance. Using the Voyant sealing device, the adhesions between the sigmoid and the vaginal cuff were lysed. The left ovary was grasped and elevated. Using the Voyant sealing device, the infundibulopelvic ligament was sealed and cut and the dissection carried along the underlying mesovarian and mesosalpinx until the tube and ovary were completely excised. The right ovary was grasped and elevated. Using the Voyant sealing device, the infundibulopelvic ligament was s ealed and cut and the dissection carried along the underlying mesovarian and mesosalpinx until the tube and ovary were completely excised. These were placed into a laparoscopic pouch. The cyst was drained and then removed from the abdomen. Inspection of the posterior cul-de-sac revealed presence of a large enterocele. As a result a laparoscopic approach to a modified Moschcowitz culdoplasty was performed. Approximately 2 cm above the pubic symphysis in the midline, skin was injected with 1% lidocaine with epinephrine. Skin incision was made with a knife and a 5 mm trocar and sheath were inserted under direct visualization. Using 2-0 silk suture, a pursestring stitch was placed into the peritoneum with care taken not to incorporate the bowel or ureters into the stitch. When tied, this closed the enterocele pouch well. Using an EEA sizer, the vaginal cuff was elevated to determine the cephalad most displacement of the vaginal cuff. Using 0 Ethibond suture, stitch was placed into the uterosacral ligament on the right side. This was then incorporated into the right side of the vaginal cuff. During the placement of the suture, a retroperitoneal hematoma formed which was contained. The suture was tied which elevated the cuff well. The left side was then inspected, however, the uterosacral ligament was not able to be identified adequately and as result a stitch was not placed on the left side. At this point cystoscopy was performed. Mccray catheter was removed and cystoscope inserted. Both ureters were noted to be effluxing urine well. No suture material was noted within the bladder. Bladder was drained and Mccray catheter reinserted. The fascia at umbilical site was closed with 0 Vicryl suture in a running fashion. Skin was reapproximated using 4-0 Vicryl suture at each of the sites. Skin glue was applied. The anterior vaginal wall was inspected. The vault suspension had reduced the cystocele, but she still had a good second-degree cystocele present. As a result an anterior repair was performed. The anterior vaginal wall was injected with dilute Pitressin solution. Midline incision was made with the knife. The edges were grasped with Allis clamps and the skin dissected away from the underlying vesicovaginal fascia and a sharp and blunt dissection. This was carried out to the lateral aspect of the anterior vaginal wall and extended from the urethrovesical junction to the vaginal vault. Using 2-0 Vicryl suture, stitches were placed laterally into the vesicovaginal fascia and carried across to the contralateral side picking up the lateral aspect of the fascia. Multiple stitches were placed along the anterior wall. Once all stitches were placed these were then tied, which reduced the cystocele well. Excess vaginal mucosa was excised and the vaginal wall was closed using 3-0 Vicryl suture in a running locking fashion. The vagina was packed with 1 inch Nu Gauze. Patient tolerated procedure well. Sponge needle and instrument counts were correct. Drains: Mccray catheter Postoperative status: Patient was transferred to recovery room in satisfactory condition.
--- NOTE | 2020-05-31 13:22 | ECG_ITS ---
[facility] Test Date: 2020-05-31 Pat Name: Martha Patterson Department: Room: OB8 Gender: Female Kinesiology Professor: SUDARSHAN OLSONB: 1945 Requested By: Kenia Farfan Order Number: [id number] Reading MD: PAPA STEWART Measurements Intervals [place] Rate: 73 P: 37 IN: 190 QRS: -42 QRSD: 133 T: 120 QT: 443 QTc: 490 Interpretive Statements SINUS RHYTHM WITH FREQUENT SUPRAVENTRICULAR PREMATURE COMPLEXES MARKED LEFT AXIS DEVIATION [QRS AXIS < -30] LEFT BUNDLE BRANCH BLOCK [120+ ms QRS DURATION, 80+ ms Q/S IN V1/V2, 85+ ms R IN I/aVL/V5/V6] Compared to ECG 05/27/2020 13:41:02 Sinus arrhythmia no longer present Electronically Signed On 05-31-2020 19:52:56 HOOP PUNCH AND COILER OPERATOR HELPER by PAPA STEWART [id number]
[2020-05-31] MEDS: sodium chloride 0.9% 1,000 ML 999 ML IV (14:00)
[2020-05-31] MEDS: HYDROcodone-acetaminophen 5-325 mg Tablet 1 TAB PO (14:16)
[2020-05-31] MEDS: albumin 12.5 GM/250 ML VIAL IV (14:30)
[2020-05-31 14:36] LABS: Basophils % 0.3 %; Eosinophils % 0.1 %; Hematocrit 24.2 % (37.0-47.0); Hemoglobin 7.5 g/dL (11.5-15.3); Lymphocytes # 0.7 10^3/uL (0.8-4.8); Lymphocytes % 4.5 %; Mean Corpuscular Hemoglobin 32.9 pg (28.0-34.0); Mean Corpuscular Volume 106.1 fL (81-99); Mean Platelet Volume 9.9 fL (7.4-10.4); Monocytes # 0.5 10^3/uL (0.2-0.9); Monocytes % 3.2 %; Neutrophils # 13.17 10^3/uL (1.8-7.7); Nucleated Red Blood Cells % 0 %; Platelet Count 151 10^3/cmm (130-400); Red Blood Count 2.28 10^6/uL (4.1-5.3); Red Cell Distribution Width 12.3 % (12.1-15.1); White Blood Count 14.5 10^3/uL (4.0-10.0)
[2020-05-31 16:19] LABS: Alanine Aminotransferase 12 U/L (0-33); Albumin Level 2.3 g/dL (3.5-5.2); Alkaline Phosphatase 29 IU/L (35-105); Anion Gap 10.3 (5-19); Aspartate Amino Transferase 11 U/L (0-32); Blood Urea Nitrogen 18 mg/dL (8-23); Calcium 6.8 mg/dL (8.5-10.5); Carbon Dioxide 22 mmol/L (22-29); Chloride 113 mmol/L (98-107); Globulin 1.5 g/dL (1.3-4.6); Glucose 160 mg/dL (65-115); Osmolality Calculated 297 mOsm/kg (285-295); Potassium 4.3 mmol/L (3.5-5.1); Sodium 141 mmol/L (136-145); Total Bilirubin 0.2 mg/dL (0.15-1.2); Total Protein 3.8 g/dL (6.6-8.7)
--- NOTE | 2020-05-31 17:07 | PC.NURSE ---
From PACU: Rec'd pt from PACU. PAC is accessed. 4 surgical Stabs to abdomen with dermabond. RBC brought by PACU. RBC started in ICU through PAC. BP is 77/45 O2 at 94 HR 86 T 98.1.
--- NOTE | 2020-05-31 17:29 | P.CONIM_ITS ---
Providers/Reason For Consult Consulting Physican/Specialty*: Dr. Isaac Reason for Consult*: Hypotension Attending Physician: Arturo Isaac MD Primary Care Provider: YISEL Che History of Present Illness History of Present Illness Martha Patterson is a 75 year old female developed hypotension after she had complex procedures performed including laparoscopic bilateral salpingo- oophorectomy, Laparoscopic uterosacral ligament suspension with enterocele repair, Anterior colporrhaphy and cystoscopy. Hospitalist team consulted for help managing patient in ICU. Patient received 2 L of fluids in PACU without much improvement and when she was brought to ICU her blood pressure is in the 50s over 30s. Her hemoglobin was 7.4 and she is started on PRBC infusion in addition to third liter of fluids. She is still under effect of anesthesia and does not respond to tactile stimuli but does withdraw to pain. Levophed drip was started. She does appear making urine based on Mccray catheter. History is limited. Review of Systems 2 Narrative: Unable to obtain due to patient's mental status Meds/Allergies Home Medications and Allergies Home Medications Medication Instructions Recorded Confirmed Last Taken Type acetaminophen 325 mg capsule 650 mg PO QID PRN cap 05/07/19 05/31/20 05/19/19 History docusate sodium 100 mg capsule 200 mg PO DAILY cap 05/07/19 05/31/20 05/30/20 History folic acid 400 mcg tablet 0.4 mg PO DAILY 05/07/19 05/31/20 05/30/20 History prednisone 5 mg tablet 5 mg PO DAILY #30 tab 07/28/19 05/31/20 05/31/20 05:30 Rx levothyroxine 25 mcg tablet 25 mcg PO DAILY #90 tab 10/12/19 05/31/20 05/31/20 05:30 Rx cyclobenzaprine 10 mg tablet 10 mg PO BID PRN 90 Days #180 tab 12/10/19 05/31/20 05/30/20 Rx cyanocobalamin (vitamin B-12) 1,000 mcg PO DAILY 60 Days #60 cap 02/22/20 05/31/20 05/30/20 Rx 1,000 mcg capsule lisinopril 5 mg tablet See Rx Instructions .ROUTE 04/14/20 05/31/20 05/31/20 05:30 Rx .COMPLEX #90 tab tamsulosin 0.4 mg capsule See Rx Instructions .ROUTE 04/19/20 05/31/20 05/30/20 Rx .COMPLEX #90 cap isosorbide mononitrate 30 mg See Rx Instructions .ROUTE 05/06/20 05/31/20 05/31/20 05:30 Rx tablet,extended release 24 hr .COMPLEX #90 tab pantoprazole 40 mg tablet,delayed See Rx Instructions .ROUTE 05/19/20 05/31/20 05/31/20 05:30 Rx release .COMPLEX #30 tab potassium chloride 10 mEq See Rx Instructions .ROUTE 05/26/20 05/31/20 05/30/20 Rx capsule,extended release .COMPLEX #30 cap Allergies Allergy/AdvReac Type Severity Reaction Status Date / Time ciprofloxacin [From Cipro] Allergy Intermediate rash Verified 05/31/20 07:20 Sulfa (Sulfonamide AdvReac [place] Verified 05/31/20 07:20 Antibiotics) dehydrated PFSH Acute PFSH: Medical History Abnormal nuclear stress test Anemia Benign essential HTN Bladder prolapse Brain bleed Chronic congestive heart failure Chronic GERD COPD (chronic obstructive pulmonary disease) Essential (primary) hypertension Generalized weakness H/O deep venous thrombosis History of breast cancer Hypothyroidism (acquired) Mild hyperlipidemia Polymorphic ventricular tachycardia Syncope and collapse Tonsil cancer Surgical History H/O abdominoplasty History of left hip replacement S/P IVC filter (~03/13/19) DVT after hip replacement IVC Filter placed March 13, 2019 at [facility] Status post carpal tunnel release Status post hysterectomy (~1969) Vaginal per patient, ovaries were spared Status post right mastectomy with breast reconstruction with abdominal trans-flap. Status post total hip replacement, left Family History Mother Diabetes Hypertension Uterine cancer Diagnosed in her 70s Family/Other Diabetes maternal aunt Father Hypertension Heart disease of [place] at age 59 Daughter Breast cancer With Mets; at age 50 Social History Smoking and tobacco status: former smoker Quit status (tobacco): has quit using tobacco Year quit tobacco: 1989 Former quit date comment: Started smoked as a teenager and smoked 1/2 pack per day Alcohol intake: never Vitals/I&O/Wt Last Vital Signs Temp 98.1 F 05/31/20 16:59 Pulse 87 05/31/20 16:59 Resp 18 05/31/20 16:59 BP 77/45 05/31/20 16:59 Pulse Ox 95 05/31/20 16:59 05/31/20 05/31/20 05/31/20 06:59 14:59 22:59 Intake Total 2049 1250 / 3300 Output Total 800 / 800 Balance 1250 / 1250 1250 / 2500 Physical Exam Const: COMMON NORMALS: no acute distress HENMT: COMMON NORMALS: normocephalic and atraumatic HEAD & SCALP: normocephalic and atraumatic Eye: COMMON NORMALS: conjunctivae normal and no scleral icterus CONJUNCTIVA: Yes conjunctivae normal Neck/C-Spine: COMMON NORMALS: no lymphadenopathy Lymph: LYMPHATIC: no lymphadenopathy noted Chest: COMMONS NORMALS: normal palpation of entire chest wall Resp: COMMON NORMALS: No use of accessory muscles and clear to auscultation bilaterally AUSCULTATION: clear to auscultation bilaterally Cardio: COMMON NORMALS: regular rate, regular rhythm and No murmurs present (Cardio) RATE: regular rate RHYTHM: regular rhythm OTHER: No lower extremity edema GI: COMMON NORMALS: Soft to palpation PALPATION: Yes Soft to palpation RECTAL EXAM: deferred OTHER: Appears tender on palpation. Post laparoscopic incisions look clean. Extremity: COMMON NORMALS: normal to inspection and capillary refill normal Neuro: OTHER: No focal motor neurological findings on gross examination although exam is limited. Skin: COMMON NORMALS: no rashes or lesions noted GENERAL SKIN EXAM: no rashes or lesions noted Urinary Catheter Management^: Mccray: Cath Placed During This Visit: yes Urinary Catheter Date of Insertion: 05/31/20 Urinary Catheter Time of Insertion: 09:15 A&P Assessment and plan (1) Postoperative anemia due to acute blood loss: Status: Acute (2) Hypotension due to hypovolemia: Postanesthesia effect can also play a role Status: Acute (3) Anesthesia complication: Patient appears to be under the effect of anesthesia. Status: Acute (4) Squamous cell carcinoma: Of right tonsil, currently being treated with chemoradiation Status: Acute Additional A&P Information PLAN: Continue with IV fluids, blood transfusion and Levophed drip titrated for map above 65 Monitor urinary output. I expect patient's mental status should improve as anesthesia wears off Patient is saturating well on room air. Will request chest x-ray and obtain UA for urinalysis and blood culture. Although infection felt highly unlikely will treat patient with Zosyn and vancomycin considering degree of her hypertension and since patient is immunosuppressed and reevaluate tomorrow. If mental status does not improve tomorrow morning will obtain CT scan of the head. Consult Attestations Medical Necessity Statement: Patient with postop acute blood loss anemia and hypotension requires close ICU monitoring and treatment. I expect patient will require more than 2 midnights. Time Spent in Patient Care: Greater than 35 minutes Critical Care Time: Critical Care Time (min): 40 Coding Level of Care Code Acute Electro Mechanical Designer for Mary Balderas Diagnoses Postoperative anemia due to acute blood loss D62 Hypotension due to hypovolemia I95.89; E86.1 Anesthesia complication T41.45XA Squamous cell carcinoma
--- NOTE | 2020-05-31 17:56 | XR_ITS ---
WS: [id number] Portable AP supine chest, 05/31/2020 Clinical Data: Hypotension post surgery Comparison: Portable chest, 03/25/2019. Findings: No nodules, masses or effusions are seen. The heart is normal. The aortic arch and descendi ng aorta show minimal calcification and tortuosity. The pulmonary vascularity is not increased. No pn eumonia or pneumothorax is seen. The left Port-A-Cath remains in good position. Monitor leads are on the chest wall. There are clips in the right axilla. The tip of the inferior vena caval filter is see n. XR/XR chest 1V portable [id number] Impression: Atherosclerosis.
[2020-05-31] MEDS: ondansetron 2 mg/ML SDV 2 mL 4 MG IVP (18:10)
[2020-05-31] MEDS: sodium chloride 0.9% (100 ml) 100 ML (20:16)
--- NOTE | 2020-05-31 21:10 | ANE.PACU2 ---
Inpatient post-anesthesia follow up: Airway intact: Yes Vital signs: Temperature 97.3 F Pulse Rate 110 Respiratory Rate 29 Blood Pressure 81/46 Pulse Oximetry 97 Oxygen Delivery Me thod [ Room Air Current Rate & Del fabiana] Oxygen Delivery Me thod Room Air Oxygen Flow Rate 8 Fraction of Inspir ed Oxygen Hydration adequate: No Nausea and vomiting: No Pain level: 3 Mental status: Altered (drowsy, easily falls back asleep) Additional Comments: Patient hypotensive in PACU, systolics in 80s with a few systolics dropping to 70s and one of 63 mmHg. Pateint giiven 1 L NS bolus, and phenylephrine 400 mg IV in divided doses, and 12.5g of Albumin (250 cc) with improvement in BP of systolics to low 90s to 105. Narcan 0.2 mg IV given despite adequate respiratory rate d/t somnolence, with mild improvement in alertness. EKG unchanged from pre-op, no chest pain, abdomen not tense or distended. Obtaining ICU bed and consulting hospitalist for closer management, surgeon aware of patient status. CBC while waiting for ICU bed shows Hgb 7.5. 2 Units prbcs ordered and transfusion begun in PACU. CMP shows no evidence of hemodilution.
[2020-05-31] MEDS: vancomycin 1,000 MG in sodium chloride 0.9% 250 ML 250 MG IV (23:14)
[2020-05-31] MEDS: dextrose 5%-lactated ringers 1,000 ML 125 ML IV (23:19)
[2020-05-31] MEDS: piperacillin-tazobactam 3.375 GM in sodium chloride 0.9% (plus) 50 ML IV (23:19)
[2020-05-31] MEDS: sodium chloride 0.9% 500 ML 999 ML IV (23:41)
[2020-05-31 23:51] LABS: Hemoglobin 10.7 g/dL (11.5-15.3)
[2020-06-01] VITALS (215 sets, daily range): BP systolic 81–131; BP diastolic 38–81; PULSE 87–135; RESP 4–37; TEMP 37.1; O2SAT 82–100
[2020-06-01] MEDS: albumin 12.5 GM/50 ML VIAL IV (00:20)
[2020-06-01] MEDS: dextrose 5%-lactated ringers 1,000 ML 125 ML IV (01:08)
--- NOTE | 2020-06-01 02:59 | PC.NURSE ---
[facility] 1900 Bedside report with FLORA Rodriguez. Patients BP is 70/47, 1 unit of blood is running at 240 mL/hour in left subclavian port. Nurse reports 1L NS bolus ordered, but waiting until blood done. Levophed also ordered, but cannot run with blood. This RN established peripheral line in left forearm, levophed started at 2 mcg/min, and bolus started once peripheral access obtained. Patient is alert and oriented x 4, but is pale and sleepy. Patient denies any pain. Vaginal packing in place and no drainage noted, 4 surgical incisions on stomach covered by dermabond, no bleeding or drainage. Mccray catheter is also in place and draining.
--- NOTE | 2020-06-01 03:14 | PC.NURSE ---
DR DAVIS ROUNDING Dr. Davis to ICU to round on patient. Patient is on 12 mcg/min of levophed at the time of rounding and 2 unit of blood infusing at the time. Dr. Davis states that patient had retroperitoneal bleed in OR, but denies need for abdomen/pelvis CT when nurse asked. Nurse asked about vaginal packing, Dr. Davis instructs he will change on 06/01 and not to remove atkinson catheter or patient will not be able to urinate with packing in place.
--- NOTE | 2020-06-01 03:34 | PC.NURSE ---
DR SCHAFER/RYAN CALLED [id number] hour Patient is extremely hypotensive. Dr. Schafer called, gave order for one liter bolus of normal saline and 12.5 of albumin. Nurse requested abdomen/pelvis CT and was told to call Dr. Isaac. Dr. Schafer reported to unit to assess patient as she is obtunded, lethargic, saying inappropriate sentences and not making sense, but is able to tell nurse her name and birthday. Order for phenylephrine, but as bolus began and levophed running also, not needed at this time. Order left in case of need. Dr. Isaac called while charge nurse initiated saline bolus. Dr. Isaac denied need for abdomen/pelvis CT and states if there is a retroperitoneal bleed surgery can make it worse and they usually stop on their own. Dr. Isaac told about orders from Dr. Schafer on saline bolus and albumin. Says to go ahead with those orders, draw stat H&H and if hemoglobin less than 9, give 2 more units of PRBC. Hemoglobin reading came back at 10.7, so PRBC not given. After 2nd 1L bolus, albumin, and levophed continuing at 12 mcg/min, patients MAP at 2328 had come back up to 75. Patients current MAP at 0424 is 85. Will continue to monitor and titrate levophed as needed.
[2020-06-01 03:55] LABS: Basophils # 0.1 10^3/uL (0.0-0.1); Basophils % 0.2 %; Hematocrit 30.5 % (37.0-47.0); Hemoglobin 9.3 g/dL (11.5-15.3); Lymphocytes # 1.1 10^3/uL (0.8-4.8); Mean Corpuscular HGB Conc 30.5 g/dL (30.0-36.0); Monocytes # 2.5 10^3/uL (0.2-0.9); Monocytes % 11.6 %; Neutrophils % 81.9 %; Nucleated Red Blood Cells % 0 %; Platelet Count 167 10^3/cmm (130-400); Red Cell Distribution Width 17.2 % (12.1-15.1); White Blood Count 21.7 10^3/uL (4.0-10.0)
[2020-06-01 04:09] LABS: INR 1.35 (0.8-1.2)
[2020-06-01 04:16] LABS: Mean Corpuscular Volume 98.4 fL (81-99)
[2020-06-01 04:20] LABS: Alanine Aminotransferase 14 U/L (0-33); Albumin Level 3.4 g/dL (3.5-5.2); Alkaline Phosphatase 30 IU/L (35-105); Anion Gap 17.4 (5-19); Aspartate Amino Transferase 22 U/L (0-32); Blood Urea Nitrogen 25 mg/dL (8-23); Calcium 6.9 mg/dL (8.5-10.5); Carbon Dioxide 19 mmol/L (22-29); Chloride 112 mmol/L (98-107); Globulin 1.4 g/dL (1.3-4.6); Glucose 212 mg/dL (65-115); Magnesium 1.6 mg/dL (1.7-2.3); Osmolality Calculated 307 mOsm/kg (285-295); Potassium 5.4 mmol/L (3.5-5.1); Sodium 143 mmol/L (136-145); Total Bilirubin 0.3 mg/dL (0.15-1.2); Total Protein 4.8 g/dL (6.6-8.7)
[2020-06-01] MEDS: piperacillin-tazobactam 3.375 GM in sodium chloride 0.9% (plus) 50 ML IV ×3 (06:14→23:24)
--- NOTE | 2020-06-01 07:18 | PM.PN ---
Subjective Subjective: Interval history: Patient reports being hungry this morning. She states she does not remember anything since going to the operating room yesterday until she woke up this morning. She reports feeling slightly nauseated this morning. She denies shortness of breath or chest pains. She denied lightheadedness or dizziness. She reports pressure like she needs to have a bowel movement, but denies any other pain with just lying in bed. However, with sitting up she reports that her belly hurts. Vitals/I&O/Wt Last Vital Signs Temp 97.3 F L 05/31/20 20:38 Pulse 104 H 06/01/20 06:40 Resp 26 H 06/01/20 06:40 BP 106/52 06/01/20 06:40 Pulse Ox 96 06/01/20 06:40 05/31/20 06/01/20 06/01/20 22:59 06:59 14:59 Intake Total 1739.731 / 3789.731 1534.229 / 5323.960 Output Total 200 / 1000 Balance 1739.731 / 2989.731 1334.229 / 4323.960 Weight last 48 hrs Weight 130 lb 14.4 oz Physical Exam Const: COMMON NORMALS: no acute distress, average body habitus, alert and well nourished GENERAL APPEARANCE: well developed ORIENTATION/CONSCIOUSNESS: Yes oriented to person, Yes oriented to place and Yes oriented to time Resp: COMMON NORMALS: normal respiratory effort and clear to auscultation bilaterally AUSCULTATION: clear to auscultation bilaterally Cardio: COMMON NORMALS: regular rate, regular rhythm, No gallops present (Cardio), No murmurs present (Cardio) and No rub (Cardio) RATE: regular rate RHYTHM: regular rhythm GI: COMMON NORMALS: Soft to palpation, No hepatosplenomegaly present and no masses INSPECTION: Yes incision (Laparoscopy sites well approximated with skin glue present.) AUSCULTATION: Yes Hypoactive bowel sounds present PALPATION: Yes Soft to palpation, Yes Tenderness to palpation present (GI) (In the lower abdomen), Yes No hepatosplenomegaly present and No Hernia present : EXTERNAL FEMALE EXAM: No Hernia present Extremity: COMMON NORMALS: no calf tenderness NARRATIVE EXTREMITY EXAM: SCDs in use. Neuro: SENSORIUM/ORIENTATION: Yes alert, Yes oriented to person, Yes oriented to place and Yes oriented to time Psych: COMMON NORMALS: normal affect MOOD & AFFECT: Yes euthymic mood Urinary Catheter Management^: Mccray: Cath Placed During This Visit: yes Urinary Catheter Date of Insertion: 05/31/20 Urinary Catheter Time of Insertion: 09:15 Data : 06/01/20 03:40 06/01/20 03:40 Micro: Microbiology 05/31/20 03:40 Blood Culture - Preliminary Blood SPECIMEN COLLECTED 05/31/20 01:33 Blood Culture - Preliminary Blood SPECIMEN COLLECTED A&P Assessment and plan (1) Vaginal vault prolapse after hysterectomy: Status: Acute (2) Cystocele, midline: Status: Acute (3) Ovarian cyst, left: Status: Acute (4) Postoperative anemia due to acute blood loss: Status: Acute (5) Hypotension due to hypovolemia: Status: Acute Additional A&P Information Postoperative day 1, status post laparoscopic bilateral salpingo-oophorectomy, laparoscopic uterosacral ligament suspension with enterocele repair, anterior repair, and cystoscopy. Patient had a retroperitoneal bleed noted during surgery. This appeared to have stopped when suturing was tied. However, in the recovery room after surgery, she was noted to be hypotensive. H&H in recovery room showed her hemoglobin to be 7.5. However by that time, she had also been given several liters of fluid and question was raised as to how much of the low hemoglobin was due to the bleeding that she had had versus hemodilution. However, due to the low blood pressure, she was transferred to the ICU for more intensive monitoring and management. She received 2 units of blood in the late evening and early night. She had also been started on Levophed for blood pressure management. This morning, Levophed has been titrated down. She is awake and oriented this morning. She is responding appropriately to questioning and commands. Blood pressure has improved. Hemoglobin this morning was 9.3 which is as expected following the 2 units of blood. Plan for today per the hospitalist, Levophed dose is to be further titrated down and if possible to be stopped altogether. She had been started yesterday on antibiotics while being evaluated for possible infection causes for the low blood pressure. If infection is ruled out, then the antibiotics will be stopped. From my standpoint, vaginal packing was removed this morning with minimal blood on the packing. Plan to start clear liquids this morning. When patient is stable from the hospitalist standpoint, may get up and start walking. Discussed with patient that she will not be going home today. Attestations Medical Necessity Statement*: Patient is still in ICU on pressors. Coding Level of Care Code Acute Senior Security Architect for Mary Lobatod Diagnoses Vaginal vault prolapse after hysterectomy N99.3 Cystocele, midline N81.11 Ovarian cyst, left N83.202 Postoperative anemia due to acute blood loss D62 Hypotension due to hypovolemia I95.89; E86.1
--- NOTE | 2020-06-01 07:33 | P.PN_ITS ---
Subjective Subjective: Interval history: Patient reports doing much better this morning. She is alert and orientedx3. She was able to recall name of president. I misread Dr. Miller's note yesterday. Patient is not getting chemotherapy. Patient reports her last chemotherapy was in November last year. This morning patient is on Levophed 8 mcg/min. UA not done yet. Discussed with Dr. Isaac this morning. Patient had retroperitoneal bleed postop and decision was made not to reexplore. Her creatinine increased to 1.6 and WBC up to 21.7. Hemoglobin responded to 2 units of blood and is at 9.3. Patient is making urine. Patient denies shortness of breath or chest pain. Denies abdominal pain but hydrogenation still operator to palpation and movement. Vitals/I&O/Wt Last Vital Signs Temp 97.3 F L 05/31/20 20:38 Pulse 104 H 06/01/20 06:40 Resp 26 H 06/01/20 06:40 BP 106/52 06/01/20 06:40 Pulse Ox 96 06/01/20 06:40 05/31/20 06/01/20 06/01/20 22:59 06:59 14:59 Intake Total 1739.731 / 3789.731 1534.229 / 5323.960 Output Total 200 / 1000 Balance 1739.731 / 2989.731 1334.229 / 4323.960 Weight last 48 hrs Weight 59.375 kg Physical Exam Narrative: EXAM NARRATIVE: Alert and oriented. Lungs are clear and heart is regular. Abdomen is soft and slightly tender to palpation. No lower extremity edema. Urinary Catheter Management^: Mccray: Cath Placed During This Visit: yes Urinary Catheter Date of Insertion: 05/31/20 Urinary Catheter Time of Insertion: 09:15 Data : 06/01/20 03:40 06/01/20 03:40 Micro: Microbiology 05/31/20 03:40 Blood Culture - Preliminary Blood SPECIMEN COLLECTED 05/31/20 01:33 Blood Culture - Preliminary Blood SPECIMEN COLLECTED A&P Assessment and plan (1) Postoperative anemia due to acute blood loss: Status: Acute (2) Hypotension due to hypovolemia: Postanesthesia effect can also play a role Status: Acute (3) Anesthesia complication: Patient appears to be under the effect of anesthesia. Status: Acute (4) Squamous cell carcinoma: Of right tonsil, currently being treated with chemoradiation Status: Acute Additional A&P Information Retroperitoneal bleed Acute kidney injury, concerning for hypotension induced ATN. Hyperkalemia PLAN: Awaiting UA. Continue antibiotics for now Change D5 LR to normal saline. Monitor hemoglobin and platelets Gradually wean off Levophed drip. Monitor urinary output and hopefully patient's kidney function improves. Attestations Medical Necessity Statement*: Patient with hypotension requiring pressors requires close ICU monitoring and treatment. Time Spent in Patient Care: 16 - 35 minutes Coding Level of Care Code Acute Hadoop Java Developer for g Fwd Diagnoses Postoperative anemia due to acute blood loss D62 Hypotension due to hypovolemia I95.89; E86.1 Anesthesia complication T41.45XA Squamous cell carcinoma
[2020-06-01] MEDS: sodium chloride 0.9% 1,000 ML 125 ML IV ×2 (07:59→17:31)
[2020-06-01] MEDS: docusate sodium 100 mg Capsule PO ×2 (08:01→17:31)
[2020-06-01] MEDS: isosorbide mononitrate ER 30 mg Tablet PO (08:01)
[2020-06-01] MEDS: levothyroxine 25 mcg Tablet PO (08:01)
[2020-06-01] MEDS: pantoprazole DR 40 mg Tablet PO (08:01)
[2020-06-01] MEDS: predniSONE 5 mg Tablet PO (08:02)
--- NOTE | 2020-06-01 08:43 | PC.CHAP ---
Pastoral Care Encounter/Spiritual Assessment Type of Contact [] Declined veneer taper visit [] Patient/Family/Request visit [] Outpatient visit [] Follow-up visit [] Physician referral [] Code/Alert [X] Routine visit [] Staff referral [] Actively dying [] Patient sleeping [] Family support [] [] Out of room [] Palliative care [] [] Receiving care in room [] Pre-surgical visit [] Trauma [] Long length of stay [] ICU visit [] Other: Relational/Emotional Strength [X] Patient feels connected with others/family/visitors/staff [] Distress [] Loneliness/isolation [] Abandonment Spirituality of Patient [X] Person of Gaby [] Attends Alevism of their Gaby [X] Believes in Prayer [] Reads Bible or Voodoo materials [] There are Spiritual issues to be addressed Data Examination Clerk Interventions [X] Prayer [] Active listening [X] Non-anxious presence [X] Spiritual/emotional support [] Crisis/trauma care [] Spiritual counseling [] Bereavement support [] Provided bereavement packet [] Provided Bible/devotional materials [] Provided toy/stuffed animal, coloring book to patient or family member [] Provided Communion [] Anointing/[place] [] Salvation [X] Completed spiritual assessment [] Other: Impact on Illness or Injury [] Angry [] Fearful [X] Anxious [] Often cries [] Exhaustion [] Unable to work [] Unable to attend hoahaoism [] Unable to walk/stand [] Unable to read [] Unable to drive [] Unable to eat/drink [] Unable to sleep [] Unable to be with family [] Patient intubated [] Other: Summary Pt alert but said she did not even know what time it was. She had no clock and no window to quality control assessor time. Her cell phone was in her bag so Data Examination Clerk assisted her in obtaining the phone where she could make contact with family and friends and tell time. She also needed assistance with her dinner tray and table arrangement so she could reach things more easily. Prayer offered and accepted. Time spent with patient 15m
[2020-06-01 10:43] LABS: Add Urine Culture? Yes; Add Urine Microscopic? YES; Bacteria Urine 2+ /hpf; Bilirubin Urine 2+ (Negative); Blood Urine Neg (Negative); Glucose Urine UA Norm (Normal); Ketones Urine Negative (Negative); Leukocyte Esterase Urine Trace (Negative); Mucus Urine TRACE /hpf; Nitrate Urine Positive (Negative); Protein Urine 1+ (Negative); RBC Urine 0-4 /hpf (0-2); Urine Appearance Clear (CLEAR); Urine Color Orange (Yellow); Urobilinogen Urine 4 mg/dL (Negative); WBC Urine 15-25 /hpf (0-5); pH Urine 5 (5-7)
[2020-06-02] VITALS (290 sets, daily range): BP systolic 78–201; BP diastolic 51–115; PULSE 97–121; RESP 13–35; TEMP 36.4–37.6; O2SAT 86–98
[2020-06-02 04:11] LABS: Basophils % 0.1 %; Eosinophils % 0.4 %; Lymphocytes # 0.8 10^3/uL (0.8-4.8); Lymphocytes % 7.1 %; Mean Corpuscular HGB Conc 30.9 g/dL (30.0-36.0); Mean Corpuscular Hemoglobin 30.6 pg (28.0-34.0); Mean Platelet Volume 10.3 fL (7.4-10.4); Monocytes # 1.1 10^3/uL (0.2-0.9); Monocytes % 10.2 %; Neutrophils # 9.02 10^3/uL (1.8-7.7); Neutrophils % 81.7 %; Nucleated Red Blood Cells % 0 %; Platelet Count 92 10^3/cmm (130-400); Red Blood Count 1.96 10^6/uL (4.1-5.3); Red Cell Distribution Width 17.2 % (12.1-15.1); White Blood Count 11.1 10^3/uL (4.0-10.0)
[2020-06-02 04:31] LABS: Hematocrit 19.4 % (37.0-47.0)
[2020-06-02 04:35] LABS: Alanine Aminotransferase 14 U/L (0-33); Alkaline Phosphatase 35 IU/L (35-105); Anion Gap 11.2 (5-19); Aspartate Amino Transferase 26 U/L (0-32); Blood Urea Nitrogen 26 mg/dL (8-23); Calcium 7.5 mg/dL (8.5-10.5); Carbon Dioxide 22 mmol/L (22-29); Chloride 111 mmol/L (98-107); Globulin 1.7 g/dL (1.3-4.6); Glucose 95 mg/dL (65-115); Magnesium 1.7 mg/dL (1.7-2.3); Osmolality Calculated 295 mOsm/kg (285-295); Potassium 4.2 mmol/L (3.5-5.1); Sodium 140 mmol/L (136-145); Total Bilirubin 0.3 mg/dL (0.15-1.2); Total Protein 4.7 g/dL (6.6-8.7)
[2020-06-02] MEDS: sodium chloride 0.9% (100 ml) 100 ML 50 ML (06:16)
--- NOTE | 2020-06-02 06:26 | PC.NURSE ---
ASSUMING CARE 1900 Patient resting in bed on 2L nasal cannula. She is alert and oriented x 4. Patient has NS running at 125 mL/hour and zosyn. Patients lung sounds are clear, but she does have generalized edema in upper extremities and scleral edema. Day shift RN reports patient has been off of levophed for most of afternoon. Patients MAP has been sustaining. Vaginal packing was removed in AM by Dr. Isaac and patient has minimal sanguineous vaginal discharge. 4 abdominal incisions to patients abdomen remain clean and no drainage. Mccray catheter in place and draining.
--- NOTE | 2020-06-02 06:30 | PC.NURSE ---
HGB/HCT 0546 Dr. Isaac called to notify of patients critical hemoglobin (6.0) and hematocrit (19.3) values. Dr. Isaac gave orders for 2 more units of PRBC and 20 mg of lasix between units. Run blood at slow rate and decrease rate of IVF due to increased scleral edema and edema to arms and hands. H & H 1 hour after 2nd unit done infusing. 1st unit began at 0616.
--- NOTE | 2020-06-02 06:32 | PC.NURSE ---
SHIFT SUMMARY Patient has been alert and oriented this shift. Patient left on 2L NC while sleeping due to desaturation to 88% while sleeping. Patient had 1275 mL of urine output. See previous note regarding hemoglobin and hematocrit. 1st unit of blood infusing at this time.
--- NOTE | 2020-06-02 07:34 | PM.PN ---
Subjective Subjective: Interval history: Patient reports feeling better. She states that her pain has been minimal unless she moves around in bed very much. She denies any shortness of breath or chest pains. She denied lightheadedness or dizziness with sitting up in bed. She denied nausea or vomiting, reporting tolerating a regular diet. However, she states she does not have much of an appetite. She denies passing flatus and denies having had a bowel movement. Vitals/I&O/Wt Last Vital Signs Temp 97.6 F 06/02/20 06:31 Pulse 113 H 06/02/20 06:46 Resp 21 H 06/02/20 06:46 BP 142/66 06/02/20 06:46 Pulse Ox 95 06/02/20 06:46 06/01/20 06/02/20 06/02/20 22:59 06:59 14:59 Intake Total 1552.913 / 4678.046 430 / 5108.046 Output Total 150 / 250 1275 / 1525 Balance 1402.913 / 4428.046 -845 / 3583.046 Weight last 48 hrs Weight 134 lb 11.2 oz Weight 130 lb 14.4 oz Physical Exam Const: COMMON NORMALS: no acute distress, average body habitus, alert and well nourished GENERAL APPEARANCE: well developed ORIENTATION/CONSCIOUSNESS: Yes oriented to person, Yes oriented to place and Yes oriented to time Resp: COMMON NORMALS: normal respiratory effort and clear to auscultation bilaterally AUSCULTATION: clear to auscultation bilaterally Cardio: COMMON NORMALS: regular rate, regular rhythm, No gallops present (Cardio), No murmurs present (Cardio) and No rub (Cardio) RATE: regular rate RHYTHM: regular rhythm GI: COMMON NORMALS: Soft to palpation, No hepatosplenomegaly present and no masses INSPECTION: Yes incision (Well approximated without erythema noted.) AUSCULTATION: Yes Hypoactive bowel sounds present PALPATION: Yes Soft to palpation, Yes Tenderness to palpation present (GI) (Mild tenderness suprapubic into the right side.), Yes No hepatosplenomegaly present and No Hernia present : EXTERNAL FEMALE EXAM: No Hernia present Extremity: OTHER: 1+ edema of upper and lower extremities Neuro: SENSORIUM/ORIENTATION: Yes alert, Yes oriented to person, Yes oriented to place and Yes oriented to time Psych: COMMON NORMALS: normal affect MOOD & AFFECT: Yes euthymic mood Urinary Catheter Management^: Mccray: Cath Placed During This Visit: yes Urinary Catheter Date of Insertion: 05/31/20 Urinary Catheter Time of Insertion: 09:15 Data : 06/02/20 03:27 06/02/20 03:27 Micro: Microbiology 05/31/20 03:40 Blood Culture - Preliminary Blood NEGATIVE TO DATE 05/31/20 01:33 Blood Culture - Preliminary Blood NEGATIVE TO DATE A&P Assessment and plan (1) Vaginal vault prolapse after hysterectomy: Status: Acute (2) Cystocele, midline: Status: Acute (3) Ovarian cyst, left: Status: Acute (4) Postoperative anemia due to acute blood loss: Status: Acute (5) Retroperitoneal bleeding: Status: Acute Additional A&P Information Postoperative day 2, status post laparoscopic bilateral salpingo-oophorectomy, laparoscopic uterosacral ligament suspension with enterocele repair, anterior colporrhaphy, and cystoscopy. Patient is doing better today. Blood pressures have been stable off of Levophed. This was stopped yesterday. Blood count this morning, however, has dropped further from yesterday. She is now at 6.0 hemoglobin, down from 9.3 yesterday morning. As a result, she is being transfused with 2 more units of blood. With the normalization of her blood pressure and the edema, she has now had her hypovolemia replaced, as a result, she will be getting Lasix with her 2 units of blood as well. As long as she continues to do well and approved by Lizzy Kaufman, she coud be transferred to [facility] floor. Patient had a retroperitoneal bleed during surgery. This most likely contributed to her hypotension and would be the cause for her anemia at this time. Due to her continued slow drop in blood count, I am obtaining a CT of the abdomen and pelvis, looking for evidence of continued bleed. Typically with retroperitoneal bleeds, you try not to have to go back to surgically explore as it becomes difficult to find the bleeding source and typically triggers more bleeding. Attestations Medical Necessity Statement*: Patient is receiving blood today. Coding Level of Care Code Acute Medical Scientific Officer for [facility] Sherrie Diagnoses Vaginal vault prolapse after hysterectomy N99.3 Cystocele, midline N81.11 Ovarian cyst, left N83.202 Postoperative anemia due to acute blood loss D62 Retroperitoneal bleeding R58
--- NOTE | 2020-06-02 07:50 | CT_ITS ---
WS: [id number] CT ABDOMEN AND PELVIS WITH CONTRAST HISTORY: Retroperitoneal bleeding after surgery TECHNIQUE: Imaging performed of the abdomen and pelvis with IV contrast. Single phase imaging of the abdomen. Coronal and sagittal reformats are submitted. All CT scans at [facility] use at least one of these dose optimization techniques: automated exposure control; mA and/or kV adjustment per patient size (includes targeted exams where dose is matched to clinical indication); or iterativ e reconstruction. IV CONTRAST: Visipaque 320; 95 mL IV. Oral contrast: Yes. DLP: 1284.39 mGy.cm COMPARISON: 03/25/2019 Lower thorax: Small bilateral pleural effusions with compressive atelectasis at the lung bases. Mildl y enlarged heart. Small circumferential pericardial effusion measuring up to 10 mm. Moderate size hia luz hernia. Hernia contains oral contrast. Liver/biliary system: Normal size with no intrahepatic dilatation. Gallbladder: Mildly hydropic gallbladder with no wall thickening or enhancement. Pancreas: Normal. Spleen: Normal. Adrenal glands: Normal. Right kidney: Mild atrophy of the RIGHT kidney. There is very slight dilatation of the renal pelvis a nd proximal ureter. Left kidney: Mild cortical thinning. Subcentimeter cyst upper pole LEFT kidney. Additional cysts in t he lower pole. Very slight dilatation of the renal pelvis and proximal ureter. Aorta: Moderate atherosclerosis of aorta. No aneurysm. IVC filter is in good position at the level of the renal vein. There is a very large retroperitoneal hematoma on the RIGHT extending from the inferior pole of the R IGHT kidney inferiorly along the paracolic gutter with involvement of the psoas muscle. Hematoma exte nds into the RIGHT pelvis and adnexa and into the presacral space. Hematoma measures over length grea ter than 17 cm x 8.5 cm. No definite active extravasation is identified. There is beam hardening leah fact from the patient's bilateral hip prosthesis obscuring a possible active bleeding in the RIGHT ad nexa. Retroperitoneal hematoma is minimally obstructing the RIGHT ureter and displacing it. Small yemi unt of free fluid extends along the LEFT paracolic gutter. There is significant diffuse anasarca. Lymphadenopathy: None. GI tract: Mild diffuse constipation. Abdominal wall: Unremarkable abdominal wall. No hernia. Pelvis: Large RIGHT adnexal retroperitoneal hematoma described previously in the report. Hematoma ext ends into the presacral space. There is significant displacement of the rectosigmoid colon to the mid line and LEFT. Bones: Degenerative disc disease and spondylitic changes. Bilateral total hip prostheses. CT/CT abdomen pelvis w con* [id number] IMPRESSION: 1. Large RIGHT retroperitoneal hematoma extends over a length of at least 17 c m x 8.5 cm. Hematoma is causing displacement of the RIGHT ureter, sigmoid and r ectum to the LEFT. Very slight obstruction of the RIGHT ureter. 2. No active extravasation but there is significant beam hardening artifact in the pelvis from the bilateral hip prostheses obscuring the RIGHT pelvis. 3. Small bilateral pleural effusions. Mild compressive atelectasis at the lung bases. 4. Diffuse soft tissue anasarca. 5. Small pericardial effusion. 6. IVC filter.
--- NOTE | 2020-06-02 08:35 | PM.PN ---
Subjective Subjective: Interval history: Patient denies any complaints this morning except some right lower quadrant abdominal discomfort. Denies shortness of breath or chest pain. Had very good urinary output yesterday and her creatinine slightly improved, down to 1.5. She is on 2 L of oxygen saturating in the high 90s. Her hemoglobin is down to 6.0 this morning and blood transfusions were initiated. Platelets are down to 92 and this appears to be consumptive in origin. Patient reports that she is hungry and wants to eat. Vitals/I&O/Wt Last Vital Signs Temp 98.2 F 06/02/20 07:40 Pulse 105 H 06/02/20 07:58 Resp 20 H 06/02/20 07:58 BP 130/62 06/02/20 07:58 Pulse Ox 93 06/02/20 07:58 06/01/20 06/02/20 06/02/20 22:59 06:59 14:59 Intake Total 1552.913 / 4678.046 430 / 5108.046 Output Total 150 / 250 1275 / 1525 Balance 1402.913 / 4428.046 -845 / 3583.046 Weight last 48 hrs Weight 61.099 kg Weight 59.375 kg Physical Exam Narrative: EXAM NARRATIVE: Alert and oriented. Lungs are clear and heart is regular. Abdomen is soft and slightly tender to palpation at right lower quadrant. No lower extremity edema. Urinary Catheter Management^: Mccray: Cath Placed During This Visit: yes Urinary Catheter Date of Insertion: 05/31/20 Urinary Catheter Time of Insertion: 09:15 Data : 06/02/20 03:27 06/02/20 03:27 Micro: Microbiology 05/31/20 03:40 Blood Culture - Preliminary Blood NEGATIVE TO DATE 05/31/20 01:33 Blood Culture - Preliminary Blood NEGATIVE TO DATE A&P Assessment and plan (1) Postoperative anemia due to acute blood loss: Status: Acute (2) Hypotension due to hypovolemia: Postanesthesia effect can also play a role Status: Acute (3) Anesthesia complication: Patient appears to be under the effect of anesthesia. 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 Last treatment was in November last year. Status: Acute Additional A&P Information Retroperitoneal bleed Acute kidney injury, concerning for hypotension induced ATN. Hyperkalemia PLAN: Discontinue vancomycin but continue Zosyn at this point. Awaiting urine culture. Continue with blood transfusion. Avoid antiplatelet medications or anticoagulation at this point. Attestations Medical Necessity Statement*: Patient with acute blood loss anemia and acute kidney injury requires close ICU monitoring and treatment as she shows evidence of continued retroperitoneal bleeding and at risk for hypotension. Time Spent in Patient Care: 16 - 35 minutes Coding Level of Care Code Acute Administrative [facility] Diagnoses Postoperative anemia due to acute blood loss D62 Hypotension due to hypovolemia I95.89; E86.1 Anesthesia complication T41.45XA Squamous cell carcinoma
--- NOTE | 2020-06-02 09:09 | PC.CHAP ---
Pastoral Care Encounter/Spiritual Assessment Type of Contact [] Declined miscellaneous machine operator visit [] Patient/Family/Request visit [] Outpatient visit [] Follow-up visit [] Physician referral [] Code/Alert [x] Routine visit [] Staff referral [] Actively dying [] Patient sleeping [] Family support [] [] Out of room [] Palliative care [] [] Receiving care in room [] Pre-surgical visit [] Trauma [] Long length of stay [x] ICU visit [] Other: Relational/Emotional Strength [] Patient feels connected with others/family/visitors/staff [] Distress [] Loneliness/isolation [] Abandonment Spirituality of Patient [x] Person of Gaby [] Attends Buddhism of their [place] [] Believes in Prayer [] Reads Bible or Jehovah'S Witness materials [] There are Spiritual issues to be addressed [employer] Advisor Interventions [x] Prayer [x] Active listening [x] Non-anxious presence [x] Spiritual/emotional support [] Crisis/trauma care [] Spiritual counseling [] Bereavement support [] Provided bereavement packet [] Provided Bible/devotional materials [] Provided toy/stuffed animal, coloring book to patient or family member [] Provided Communion [] Anointing/[place] [] Salvation [x] Completed spiritual assessment [] Other: Impact on Illness or Injury [] Angry [] Fearful [] Anxious [] Often cries [] Exhaustion [] Unable to work [] Unable to attend jainism [] Unable to walk/stand [] Unable to read [] Unable to drive [] Unable to eat/drink [] Unable to sleep [] Unable to be with family [] Patient intubated [] Other: Summary patient preparing for testing... little anxious... Time spent with patient 10 min
[2020-06-02] MEDS: isosorbide mononitrate ER 30 mg Tablet PO (09:10)
[2020-06-02] MEDS: docusate sodium 100 mg Capsule PO ×2 (09:10→17:36)
[2020-06-02] MEDS: pantoprazole DR 40 mg Tablet PO (09:11)
[2020-06-02] MEDS: predniSONE 5 mg Tablet PO (09:11)
[2020-06-02] MEDS: levothyroxine 25 mcg Tablet PO (09:11)
[2020-06-02] MEDS: lisinopril 5 mg Tablet PO (09:11)
[2020-06-02] MEDS: ondansetron 2 mg/ML SDV 2 mL 4 MG IVP (09:54)
[2020-06-02] MEDS: FUROsemide 10 mg/mL SDV 2mL 20 MG IVP (09:57)
--- NOTE | 2020-06-02 10:11 | PC.NURSE ---
1st unit of blood infused. Nurse administered 20 mg lasix per orders.
--- NOTE | 2020-06-02 10:12 | PC.NURSE ---
Patient cmplains of Nausea. Nurse administered zofran prn.
[2020-06-02] MEDS: iohexol 300 mg/mL 50 mL Btl PO (10:56)
[2020-06-02] MEDS: iodixanol 320 mg/mL 100mL Btl IV (11:20)
[2020-06-02] MEDS: piperacillin-tazobactam 3.375 GM in sodium chloride 0.9% (plus) 50 ML IV ×2 (15:16→23:00)
[2020-06-02 17:11] LABS: Hematocrit 31.1 % (37.0-47.0); Hemoglobin 10.4 g/dL (11.5-15.3)
--- NOTE | 2020-06-02 17:21 | PC.NURSE ---
Patient has had an elevated BP 170-[address] faust. Receive a PRN order for hydralazine if pressure is over 180. See mar
[2020-06-02] MEDS: hyDRALAzine 25 mg Tablet PO (17:59)
[2020-06-02] MEDS: saline nasal spray 44mL Btl 1 SPRAY NASAL (18:43)
[2020-06-03] VITALS (129 sets, daily range): BP systolic 142–183; BP diastolic 69–114; PULSE 91–119; RESP 13–29; TEMP 36.7–37.3; O2SAT 81–100
[2020-06-03] MEDS: hyDRALAzine 25 mg Tablet PO (00:36)
[2020-06-03] MEDS: acetaminophen 325 mg Tablet 650 MG PO (02:58)
[2020-06-03 04:00] LABS: Basophils % 0.2 %; Eosinophils # 0.1 10^3/uL (0.0-0.8); Eosinophils % 1.1 %; Hematocrit 32.2 % (37.0-47.0); Hemoglobin 10.5 g/dL (11.5-15.3); Lymphocytes # 0.7 10^3/uL (0.8-4.8); Lymphocytes % 7.3 %; Mean Corpuscular HGB Conc 32.6 g/dL (30.0-36.0); Mean Corpuscular Hemoglobin 30.7 pg (28.0-34.0); Mean Corpuscular Volume 94.2 fL (81-99); Mean Platelet Volume 9.9 fL (7.4-10.4); Monocytes # 1.1 10^3/uL (0.2-0.9); Monocytes % 10.3 %; Neutrophils # 8.15 10^3/uL (1.8-7.7); Neutrophils % 80.3 %; Nucleated Red Blood Cells # 0.1 /100WBC; Nucleated Red Blood Cells % 0.7 %; Platelet Count 91 10^3/cmm (130-400); Red Blood Count 3.42 10^6/uL (4.1-5.3); Red Cell Distribution Width 15.9 % (12.1-15.1); White Blood Count 10.2 10^3/uL (4.0-10.0)
[2020-06-03 04:31] LABS: Alanine Aminotransferase 17 U/L (0-33); Albumin Level 3.5 g/dL (3.5-5.2); Alkaline Phosphatase 47 IU/L (35-105); Anion Gap 10.4 (5-19); Aspartate Amino Transferase 38 U/L (0-32); Blood Urea Nitrogen 13 mg/dL (8-23); Calcium 8.1 mg/dL (8.5-10.5); Carbon Dioxide 28 mmol/L (22-29); Chloride 106 mmol/L (98-107); Globulin 2.4 g/dL (1.3-4.6); Glucose 95 mg/dL (65-115); Magnesium 1.7 mg/dL (1.7-2.3); Osmolality Calculated 292 mOsm/kg (285-295); Potassium 3.4 mmol/L (3.5-5.1); Sodium 141 mmol/L (136-145); Total Bilirubin 0.6 mg/dL (0.15-1.2); Total Protein 5.9 g/dL (6.6-8.7)
[2020-06-03] MEDS: piperacillin-tazobactam 3.375 GM in sodium chloride 0.9% (plus) 50 ML IV ×3 (06:16→21:19)
--- NOTE | 2020-06-03 07:54 | P.PN_ITS ---
Subjective Subjective: Interval history: Patient reports feeling better today. Reports being hungry. Reports tolerating liquids without nausea or vomiting. Denies shortness of breath or chest pain. States pain has been well controlled. Reports passing flatus. Vitals/I&O/Wt Last Vital Signs Temp 99.1 F 06/03/20 03:00 Pulse 98 06/03/20 06:45 Resp 21 H 06/03/20 06:45 BP 155/98 06/03/20 06:45 Pulse Ox 93 06/03/20 06:45 06/02/20 06/03/20 06/03/20 22:59 06:59 14:59 Intake Total 640 / 4450 50 / 4500 Output Total 1050 / 5100 2200 / 7300 Balance -410 / -650 -2150 / -2800 Weight last 48 hrs Weight 113 lb 11.2 oz Weight 134 lb 11.2 oz Physical Exam Const: COMMON NORMALS: no acute distress, average body habitus, alert and well nourished GENERAL APPEARANCE: well developed ORIENTATION/CONSCIOUSNESS: Yes oriented to person, Yes oriented to place and Yes oriented to time Resp: COMMON NORMALS: normal respiratory effort and clear to auscultation bilaterally AUSCULTATION: clear to auscultation bilaterally Cardio: COMMON NORMALS: regular rate, regular rhythm, No gallops present (Cardio), No murmurs present (Cardio) and No rub (Cardio) RATE: regular rate RHYTHM: regular rhythm GI: COMMON NORMALS: Soft to palpation, No hepatosplenomegaly present and no masses INSPECTION: Yes incision (sites well approximated) AUSCULTATION: Yes normoactive bowel sounds PALPATION: Yes Soft to palpation, Yes Tenderness to palpation present (GI) (right side of abdomen), Yes No hepatosplenomegaly present and No Hernia present : EXTERNAL FEMALE EXAM: No Hernia present Extremity: COMMON NORMALS: no calf tenderness NARRATIVE EXTREMITY EXAM: 1+ edema of extremities, SCD's in use. Neuro: SENSORIUM/ORIENTATION: Yes alert, Yes oriented to person, Yes oriented to place and Yes oriented to time Psych: COMMON NORMALS: normal affect MOOD & AFFECT: Yes euthymic mood Urinary Catheter Management^: Mccray: Cath Placed During This Visit: yes Urinary Catheter Date of Insertion: 05/31/20 Urinary Catheter Time of Insertion: 09:15 Data : 06/03/20 03:30 06/03/20 03:30 Micro: Microbiology 06/01/20 09:35 Urine Culture - Preliminary Urine,Clean Catch 05/31/20 03:40 Blood Culture - Preliminary Blood NEGATIVE TO DATE 05/31/20 01:33 Blood Culture - Preliminary Blood NEGATIVE TO DATE A&P Assessment and plan (1) Vaginal vault prolapse after hysterectomy: Status: Acute (2) Cystocele, midline: Status: Acute (3) Ovarian cyst, left: Status: Acute (4) Retroperitoneal bleeding: Status: Acute (5) Postoperative anemia due to acute blood loss: Status: Acute Additional A&P Information Postoperative day 3, Status post Laparoscopic bilateral salpingo-oophorectomy, Laparoscopic uterosacral ligament suspension with enterocele repair, Anterior colporrhaphy, Cystoscopy. Patient reports feeling better today. She reports having more of an appetite. She has been tolerating clear liquids and is now started passing flatus. As a result, diet has been advanced to a regular diet today. Patient has had no further problems with low blood pressure, and has actually returned to her usual high blood pressure status. She had been restarted on her usual blood pressure medicines yesterday and also was receiving as needed doses of hydralazine for blood pressure. She was also restarted on her nitrates yesterday. Yesterday morning, patient was found to have a hemoglobin of 6.0 on the morning blood draw. As result she was transfused with 2 more units of blood. She also got a CT scan of the abdomen and pelvis which confirmed the presence of the retroperitoneal hematoma which had occurred at the time of surgery. Based upon the CT findings, there did not appear to be any further acute bleeding. Following her 2 units of blood, she had an H&H drawn with hemoglobin 10.4. Hemoglobin this morning was 10.5. This raises the question as to whether the 6 hemoglobin yesterday morning was accurate. With this stable H&H from last night to this morning, I do not believe there is any further bleeding from the hematoma and further blood transfusions would most likely not be needed. However I would recommend rechecking blood count again tomorrow morning. Since patient has not been requiring any further pressors for blood pressure, I feel that she could be transferred from the ICU to the floor. I would recommend that she be monitored through the day today and tonight and if she does well tomorrow morning could potentially go home. Attestations Medical Necessity Statement*: Patient needs to be monitored with increase in activity today. Coding Level of Care Code Acute Marine Electrician Helper for g Fwd Exam Detailed Diagnoses Vaginal vault prolapse after hysterectomy N99.3 Cystocele, midline N81.11 Ovarian cyst, left N83.202 Retroperitoneal bleeding R58 Postoperative anemia due to acute blood loss D62
--- NOTE | 2020-06-03 08:19 | P.PN_ITS ---
Subjective Subjective: Interval history: Patient reports doing well. She denies any shortness of breath or chest pain. She denies abdominal pain unless pressure is applied to the right lower quadrant. Denies nausea. Her hemoglobin and platelets appear to be stabilized. White blood cell count slightly improved. She had good urinary output and her creatinine is down to 1.0. Albumin recover ed to 3.5. Vitals/I&O/Wt Last Vital Signs Temp 99.1 F 06/03/20 03:00 Pulse 98 06/03/20 06:45 Resp 21 H 06/03/20 06:45 BP 155/98 06/03/20 06:45 Pulse Ox 93 06/03/20 06:45 06/02/20 06/03/20 06/03/20 22:59 06:59 14:59 Intake Total 640 / 4450 50 / 4500 Output Total 1050 / 5100 2200 / 7300 Balance -410 / -650 -2150 / -2800 Weight last 48 hrs Weight 51.573 kg Weight 61.099 kg Physical Exam 2 Narrative: EXAM NARRATIVE: Clear lungs and regular heart. Abdomen is soft and slightly tender at right lower quadrant. Urinary Catheter Management^: Mccray: Cath Placed During This Visit: yes Urinary Catheter Date of Insertion: 05/31/20 Urinary Catheter Time of Insertion: 09:15 Data : 06/03/20 03:30 06/03/20 03:30 Micro: Microbiology 06/01/20 09:35 Urine Culture - Preliminary Urine,Clean Catch 05/31/20 03:40 Blood Culture - Preliminary Blood NEGATIVE TO DATE 05/31/20 01:33 Blood Culture - Preliminary Blood NEGATIVE TO DATE A&P Assessment and plan (1) Postoperative anemia due to acute blood loss: Status: Acute (2) Hypotension due to hypovolemia: Postanesthesia effect can also play a role Status: Acute (3) Anesthesia complication: Patient appears to be under the effect of anesthesia. 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 Last treatment was in November last year. Status: Acute Additional A&P Information Retroperitoneal bleed, stabilized Acute kidney injury, prerenal. ATN ruled out Hyperkalemia Hypertension. PLAN: Transfer patient out of ICU. Continue Zosyn for 1 more day and if urine culture negative this can be discontinued. Restart Flomax and continue rest of the antihypertensive medications Would recommend to monitor patient 1 more day to make sure her kidney function and hemoglobin/platelets doing well. Physical therapy to get patient up and walking. 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
[2020-06-03] MEDS: pantoprazole DR 40 mg Tablet PO (08:38)
[2020-06-03] MEDS: docusate sodium 100 mg Capsule PO ×2 (08:38→17:27)
[2020-06-03] MEDS: isosorbide mononitrate ER 30 mg Tablet PO (08:38)
[2020-06-03] MEDS: predniSONE 5 mg Tablet PO (08:38)
[2020-06-03] MEDS: lisinopril 5 mg Tablet PO (08:38)
[2020-06-03] MEDS: levothyroxine 25 mcg Tablet PO (08:38)
[2020-06-03] MEDS: cyanocobalamin 1,000 mcg Tablet 1000 MCG PO (08:50)
[2020-06-03] MEDS: folic acid 1 mg Tablet PO (08:50)
--- NOTE | 2020-06-03 10:57 | PC.NURSE ---
Transferring patient to [facility]. Pr report given to Ricarda HINES. Patient transferred via wheelchair. Belongings sent with patient included bag of clothes, glasses, purse,a book, and phone
--- NOTE | 2020-06-03 17:52 | PC.PT ---
PT note; patient received Instruction in written home exercise program and practice of same, patient feels independently able to continue same at home with use of her walker, posttreatment patient return herself to bed, call light in reach in care of nursing [ End ]
[2020-06-04] VITALS (7 sets, daily range): BP systolic 111–161; BP diastolic 64–80; PULSE 78–98; RESP 16–18; TEMP 36.9–37.3; O2SAT 90–97
[2020-06-04] MEDS: piperacillin-tazobactam 3.375 GM in sodium chloride 0.9% (plus) 50 ML IV (05:18)
[2020-06-04 06:27] LABS: Hematocrit 33.7 % (37.0-47.0); Hemoglobin 10.8 g/dL (11.5-15.3); Mean Corpuscular Hemoglobin 30.4 pg (28.0-34.0); Mean Corpuscular Volume 94.9 fL (81-99); Mean Platelet Volume 9.9 fL (7.4-10.4); Platelet Count 109 10^3/cmm (130-400); Red Blood Count 3.55 10^6/uL (4.1-5.3); Red Cell Distribution Width 15.4 % (12.1-15.1); White Blood Count 9.2 10^3/uL (4.0-10.0)
--- NOTE | 2020-06-04 06:56 | PC.NURSE ---
Patient accidentally removed accessed port, new access obtained with 19 G
--- NOTE | 2020-06-04 08:35 | PM.DCS ---
Discharge Providers Date of Admission: 06/01/20 16:40 Date of Discharge: June 04, 2020 Attending Provider at Admission: Arturo Iasac MD Attending Provider at Discharge: Arturo Isaac MD Primary Care Provider: YISEL Che Diagnoses at Discharge Discharge Diagnosis (1) Vaginal vault prolapse after hysterectomy: Status: Acute (2) Cystocele, midline: Status: Acute (3) Ovarian cyst, left: Status: Acute (4) Retroperitoneal bleeding: Status: Acute (5) Postoperative anemia due to acute blood loss: Status: Acute (6) Hypotension due to hypovolemia: Status: Acute Reason for Visit Reason for Visit: vaginal vault prolapse after hysterectomy Hospital Course Hospital Course Patient is a 75-year-old female 3, para 2-0-1-0 who is postmenopausal. She presented to the office in 09/2019 with complaint of a bulge from the vagina. She was diagnosed as having a cystocele and vault prolapse at the time. She decided at that time to wait and see if this worsens prior to making any decisions regarding treatment. She returned to the office in 04/2020 reporting that the bulge had gotten bigger and that she was wanting to go ahead and proceed with surgical treatment. On exam, she had been found to have a second-degree vaginal vault prolapse with third-degree cystocele. She had also been previously noted to have a 6 cm simple appearing left ovarian cyst. As a result, patient is decided proceed to surgical treatment for these problems. Her medical history is significant for having hypertension, history of deep venous thrombosis with a IVC filter present, chronic congestive heart failure, hyperlipidemia, COPD, GERD, hypothyroidism, remote history of breast cancer, and more recent history of squamous cell cancer of tonsils. Patient presented to the hospital on 05/31/2020 and had a laparoscopic bilateral salpingo-oophorectomy, laparoscopic uterosacral ligament suspension with enterocele repair, anterior colporrhaphy, and cystoscopy. During the surgery, she had a retroperitoneal bleed on the right side which appeared to be contained with tying of the suspension suture. Following surgery, in the recovery room, she was found to be hypotensive and hemoglobin was down to 7.5 from 12.7 preoperatively. The anemia was thought to be most likely secondary to the retroperitoneal bleed. Because of the anemia, hypotension, and sedation from the anesthesia, she was transferred to the ICU for more intensive monitoring and treatment. It was thought at the time that the hypotension may also be partly due to anesthesia effect still. Dr. Kaufman, Hospitalist service, was consulted for ICU management. In the ICU, she was started on transfusion of 2 units PRBCs. Blood pressures were low enough that she was started on a Levophed drip. She was also evaluated for other potential causes for her hypotension and was started on antibiotics for possible infectious causes as well. On postoperative day 1, patient was more awake at the time. She was reporting being hungry. She was denying any lightheadedness or dizziness. She was denying any shortness of breath or chest pains. Blood pressure had improved and Levophed was able to be titrated down through the night. The post transfusion hemoglobin was up to 10.7 and then by the morning of postoperative day 1 it had slightly dropped to 9.3 which was more in the expected range for the 2 units based upon her starting hemoglobin. During the day, Levophed was continued to be weaned down until it was eventually discontinued. She was continued on antibiotics awaiting blood and urine culture results. On postoperative day 2, patient was reporting feeling better. She was reporting minimal pain unless she moves around very much in the bed. She was still denying shortness of breath and chest pains. She was denying lightheadedness or dizziness with sitting up in bed. She was denying nausea or vomiting. A.m. labs however showed a low hemoglobin of 6.0. As a result, she was transfused with 2 more units of blood at the time (for a total of 4 units since surgery) with the possibility of needing more. Her post transfusion H&H however was up to 10.4. This raises the question as to whether the 6.0 hemoglobin was correct. Because of the initial significant drop reported in the H&H that morning, CT scan of abdomen and pelvis was performed to evaluate for possible signs of active bleeding. CT scan confirmed the presence of the known retroperitoneal bleed but no signs of active current bleeding. Blood pressures continued to increase through the day and she was restarted on her antihypertensive medications. By that evening blood pressure increased enough that as needed doses of hydralazine was added to her usual regimen. Urine output was also greatly improved. On postoperative day 3, she was continuing to report doing well. She was reporting that her pain was well controlled. She was denying lightheadedness or dizziness. She was denying any shortness of breath or chest pains. She was reporting feeling hungry and was tolerating clear liquids without nausea or vomiting. She was reporting passing flatus. Hemoglobin that morning was continuing to remain stable in the mid 10 range, again giving further evidence that the 6.0 hemoglobin was incorrect. She was continuing to do well through the day and was transferred out of the ICU to the [facility] floor. She was continued on antibiotics as cultures were still pending. Urine catheter was discontinued. On postoperative day 4, she reports doing well. She states that her pain has continued to be well controlled without need for much pain medication at all. She denies shortness of breath or chest pains. She denied lightheadedness or dizziness with ambulation. She reports tolerating a regular diet without nausea or vomiting. She denies problems with urination. She reports that she has continued to pass flatus. She denies any type of significant vaginal bleeding at all. Physical exam: See below Plan Urine culture was negative. Blood cultures were no growth to date. Hemoglobin this morning was 10.8 and is remaining stable. She is being discharged to home. Discharge instructions were discussed with her and written instructions will be provided. She will be following up in my office this coming week to recheck with her blood count and blood pressure. Physical Exam Const: COMMON NORMALS: no acute distress, average body habitus, alert and well nourished GENERAL APPEARANCE: well developed ORIENTATION/CONSCIOUSNESS: Yes oriented to person, Yes oriented to place and Yes oriented to time Resp: COMMON NORMALS: normal respiratory effort and clear to auscultation bilaterally AUSCULTATION: clear to auscultation bilaterally Cardio: COMMON NORMALS: regular rate, regular rhythm, No gallops present (Cardio), No murmurs present (Cardio) and No rub (Cardio) RATE: regular rate RHYTHM: regular rhythm PERIPHERAL PULSES: posterior tibial pulses present GI: COMMON NORMALS: Soft to palpation, No hepatosplenomegaly present and no masses INSPECTION: Yes incision (Laparoscopy sites well approximated.) AUSCULTATION: Yes normoactive bowel sounds PALPATION: Yes Soft to palpation, Yes Tenderness to palpation present (GI) (Tender in the right lower quadrant and right side of the abdomen.), Yes No hepatosplenomegaly present and No Hernia present : EXTERNAL FEMALE EXAM: No Hernia present Extremity: COMMON NORMALS: no calf tenderness NARRATIVE EXTREMITY EXAM: Trace to 1+ lower extremity edema. Neuro: SENSORIUM/ORIENTATION: Yes alert, Yes oriented to person, Yes oriented to place and Yes oriented to time Psych: COMMON NORMALS: normal affect MOOD & AFFECT: Yes euthymic mood Urinary Catheter Management^: Mccray: Cath Placed During This Visit: yes Urinary Catheter Date of Insertion: 05/31/20 Urinary Catheter Time of Insertion: 09:15 Discharge Data Data Completed and Pending: Completed Studies During Hospitalization Category Date Time Status CT abdomen pelvis w con* [id number] Rout ine Cat Scan 06/02/20 07:50 Completed XR chest 1V josephine ble [id number] Routine Exams 05/31/20 17:56 Completed Pathology: Surgic al [PTH] Routine Pth 05/31/20 12:01 Completed Pending at discharge Category Date Time Status ES surgery / GI i mages Routine Exams 05/31/20 06:48 Taken Blood Culture Sta t Lab 05/31/20 03:40 Results Urine Culture Rou eliazar Lab 06/02/20 09:15 Results Labs from last 24 hours 06/04/20 06:01 WBC 9.2 RBC 3.55 L Hgb 10.8 L Hct 33.7 L MCV 94.9 MCH 30.4 MCHC 32.0 RDW 15.4 H Plt Count 109 L MPV 9.9 Vitals: Last Vital Signs Temp 99.2 F 06/04/20 05:00 Pulse 92 06/04/20 05:00 Resp 16 06/04/20 05:00 BP 160/76 06/04/20 05:01 Pulse Ox 90 06/04/20 05:00 Discharge Plan Discharge Patient Disposition: Home Condition: Stable Prescriptions: Continued docusate sodium [Colace] 100 mg capsule 200 mg PO DAILY RF: 0 folic acid 400 mcg tablet 0.4 mg PO DAILY RF: 0 acetaminophen 325 mg capsule 650 mg PO QID PRN (Reason: Pain) RF: 0 cyanocobalamin (vitamin B-12) 1,000 mcg capsule 1,000 mcg PO DAILY 60 Days Qty: 60 RF: 0 prednisone 5 mg tablet 5 mg PO DAILY Qty: 30 RF: 1 levothyroxine 25 mcg tablet 25 mcg PO DAILY Qty: 90 RF: 1 cyclobenzaprine 10 mg tablet 10 mg PO BID PRN (Reason: muscle spasm) 90 Days Qty: 180 RF: 1 lisinopril 5 mg tablet See Rx Instructions .ROUTE .COMPLEX Qty: 90 RF: 0 tamsulosin 0.4 mg capsule See Rx Instructions .ROUTE .COMPLEX Qty: 90 RF: 0 isosorbide mononitrate 30 mg tablet extended release 24 hr See Rx Instructions .ROUTE .COMPLEX Qty: 90 RF: 1 pantoprazole 40 mg tablet,delayed release (DR/EC) See Rx Instructions .ROUTE .COMPLEX Qty: 30 RF: 3 potassium chloride 10 mEq capsule, extended release See Rx Instructions .ROUTE .COMPLEX Qty: 30 RF: 2 Discharge Orders: Discharge Order (Routine); Ordered 06/04/20 Ordered By: Arturo Isaac Referrals: Arturo Isaac MD [Physician] - 1 week (Postoperative follow-up with hemogram, BMP, and follow-up of blood pressure.) Discharge Diet: Regular Discharge Activity: Limit activity as instructed Patient Instructions: OB Abdominal Surgery - [facility] Discharge Attestations Time Spent in Discharge Care*: less than 30 min Quality Metrics Clinical Quality Measures During this hospital stay, did patient experience: None Coding Level of Care Code Acute Manager Of Digital for [facility] Fwd Diagnoses Vaginal vault prolapse after hysterectomy N99.3 Cystocele, midline N81.11 Ovarian cyst, left N83.202 Retroperitoneal bleeding R58 Postoperative anemia due to acute blood loss D62 Hypotension due to hypovolemia I95.89; E86.1
--- NOTE | 2020-06-04 09:59 | PC.SOCIAL ---
Important Medicare Message Reviewed previously signed Important Medicare Message. Updated copy to patient and in chart.
--- NOTE | 2020-06-04 10:26 | P.PN_ITS ---
Subjective Subjective: Interval history: Patient denies any complaints this morning except reports being short of breath whenever she walks. This is not normal for her. She denies any chest pain or abdominal pain. Reports that her appetite is getting better. CBC showed mild improvement. Denies cough. Vitals/I&O/Wt Last Vital Signs Temp 98.4 F 06/04/20 08:00 Pulse 78 06/04/20 08:00 Resp 18 06/04/20 08:00 BP 111/78 06/04/20 08:00 Pulse Ox 90 06/04/20 05:00 06/03/20 06/04/20 06/04/20 22:59 06:59 14:59 Intake Total 170 / 820 50 / 870 Output Total 0 / 1050 Balance 170 / -230 50 / -180 Weight last 48 hrs Weight 51.8 kg Weight 51.573 kg Physical Exam Narrative: EXAM NARRATIVE: Lungs with very minimal bibasilar Rales which improved with deep inspiration. Heart is regular. Abdomen is soft and slightly tender at right lower quadrant. No lower extremity edema. Urinary Catheter Management^: Mccray: Cath Placed During This Visit: yes Urinary Catheter Date of Insertion: 05/31/20 Urinary Catheter Time of Insertion: 09:15 Data : 06/04/20 06:01 06/03/20 03:30 Micro: Microbiology 06/02/20 09:15 Urine Culture - Final Urine Catheterized 06/01/20 09:35 Urine Culture - Final Urine,Clean Catch A&P Assessment and plan (1) Postoperative anemia due to acute blood loss: Status: Acute (2) Hypotension due to hypovolemia: Postanesthesia effect can also play a role Status: Acute (3) Anesthesia complication: Patient appears to be under the effect of anesthesia. 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 Last treatment was in November last year. Status: Acute Additional A&P Information Retroperitoneal bleed, stabilized Acute kidney injury, prerenal. ATN ruled out Hyperkalemia Hypertension. PLAN: Discussed with Dr. Isaac this morning and it appears that patient can be dismissed home today. Would like to obtain 2 view chest x-ray prior to discharge and perform home O2 evaluation. Patient was told to follow-up with the her primary care physician in 4 to [address] Isaac in 1 week. She had previous history of DVT and at this point it was decided to hold anticoagulations but I will discuss with Dr. Isaac to see earliest we can restart considering that she just had retroperitoneal bleed. Hopefully we can restart her anticoagulation sooner than in 1 week as was previously planned. Attestations Medical Necessity Statement*: Patient is planned to be discharged later today. 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
[2020-06-04] MEDS: cyanocobalamin 1,000 mcg Tablet 1000 MCG PO (10:34)
[2020-06-04] MEDS: levothyroxine 25 mcg Tablet PO (10:35)
[2020-06-04] MEDS: docusate sodium 100 mg Capsule PO (10:35)
[2020-06-04] MEDS: lisinopril 5 mg Tablet PO (10:35)
[2020-06-04] MEDS: folic acid 1 mg Tablet PO (10:35)
[2020-06-04] MEDS: pantoprazole DR 40 mg Tablet PO (10:35)
[2020-06-04] MEDS: isosorbide mononitrate ER 30 mg Tablet PO (10:35)
[2020-06-04] MEDS: predniSONE 5 mg Tablet PO (10:35)
== END 2020-06-04 12:09 | disposition home or self-care (01) | DRG 982 ==
LOC: OR 16:41 → ICU 16:41 → MEDSURG 06-03 10:41
PROVIDERS: Anesthesiology; Internal Medicine; Admitting Provider Obstetrics & Gynecology; PCP Nurse Practitioner Family; Visit Provider Obstetrics & Gynecology
PROC: 0USG4ZZ Reposition Vagina, Percutaneous Endoscopic Approach (ICD-10-PCS; CPT 57425; principal; 2020-05-31 08:45)
PROC: 0UT74ZZ Resection of Bilateral Fallopian Tubes, Percutaneous Endoscopic Approach (ICD-10-PCS; CPT 58661; 2020-05-31 08:45)
PROC: 0JQC0ZZ Repair Pelvic Region Subcutaneous Tissue and Fascia, Open Approach (ICD-10-PCS; CPT 57240; 2020-05-31 08:45)
PROC: 0TJB8ZZ Inspection of Bladder, Via Natural or Artificial Opening Endoscopic (ICD-10-PCS; CPT 52000; 2020-05-31 08:45)
DX: I95.81 Postprocedural hypotension (principal); D62 Acute posthemorrhagic anemia; L76.02 Intraoperative hemorrhage and hematoma of skin and subcutaneous tissue complicating other procedure; N17.9 Acute kidney failure, unspecified; E87.5 Hyperkalemia; E86.1 Hypovolemia; T88.59XA Other complications of anesthesia, initial encounter; N99.3 Prolapse of vaginal vault after hysterectomy; N83.202 Unspecified ovarian cyst, left side; I11.0 Hypertensive heart disease with heart failure; I50.9 Heart failure, unspecified; E78.5 Hyperlipidemia, unspecified; J44.9 Chronic obstructive pulmonary disease, unspecified; K21.9 Gastro-esophageal reflux disease without esophagitis; E03.9 Hypothyroidism, unspecified; Y76.3 Surgical instruments, materials and obstetric and gynecological devices (including sutures) associated with adverse incidents; Y92.234 Operating room of hospital as the place of occurrence of the external cause; Z96.642 Presence of left artificial hip joint; Z78.0 Asymptomatic menopausal state; Z79.52 Long term (current) use of systemic steroids; Z86.718 Personal history of other venous thrombosis and embolism; Z95.828 Presence of other vascular implants and grafts; Z85.3 Personal history of malignant neoplasm of breast; Z87.891 Personal history of nicotine dependence; Z85.89 Personal history of malignant neoplasm of other organs and systems; Z92.21 Personal history of antineoplastic chemotherapy
CPT/HCPCS: 36415; 36430; 36591; 71045; 74177; 80048; 80053; 81001; 83735; 85014; 85018; 85025; 85027; 85610; 86850; 86900; 86920; 87040; 87086; 88305; 93005; 96365; 97110; 97161; J0330; J0360; J0690; J1100; J1200; J1885; J1940; J2370; J2405; J2543; J2704; J3010; J3370; J3490; J7030; J7040; J7050; J7512; P9016; P9041; P9047; Q9967

== ENCOUNTER 2020-06-07 12:19 | Emergency (ER) | payer MEDICARE, OTHER, SELFPAY ==
[2020-06-07] VITALS (10 sets, daily range): BP systolic 113–145; BP diastolic 55–88; PULSE 53–113; RESP 16–18; TEMP 37.7; O2SAT 92–96; BMI 22.2
--- NOTE | 2020-06-07 12:51 | XRR_ITS ---
PROCEDURE INFORMATION: Exam: XR Chest Exam date and time: 06/07/2020 12:54 PM Age: 75 years old Clinical indication: Constipation and fever; Abdominal pain; Generalized; Prior surgery; Surgery date: 3-7 days post-operative; Surgery type: Hyst 05/31/20; Additional info: Abd pain, fever, constipation TECHNIQUE: Imaging protocol: XR of the chest Views: 1 view. COMPARISON: No relevant prior studies available. FINDINGS: Tubes, catheters and devices: There is a left subclavian port with the catheter tip in the right atrium. Lungs: There is left basilar atelectasis. Pleural spaces: No pleural effusion or pneumothorax. Heart/Mediastinum: The cardiac silhouette is not enlarged. The mediastinal contours are normal. Bones/joints: Multilevel disc degeneration in the thoracic spine. Soft tissues: Surgical clips present in the right breast and right axilla. IMPRESSION: Left basilar atelectasis. PROCEDURE INFORMATION: Exam: XR Abdomen Exam date and time: 06/07/2020 12:54 PM Age: 75 years old Clinical indication: Constipation and fever; Abdominal pain; Generalized; Prior surgery; Surgery date: 3-7 days post-operative; Surgery type: Hyst 05/31/20; Additional info: Abd pain, fever, constipation TECHNIQUE: Imaging protocol: XR of the abdomen. Views: 2 Views. Upright and supine views. COMPARISON: No relevant prior studies available. FINDINGS: Gastrointestinal tract: No dilated gas-filled loops of bowel. Large amount of stool in the colon, more so proximally. Intraperitoneal space: No pneumoperitoneum. Vasculature: There is an inferior vena cava filter present. Bones/joints: Prior bilateral total hip arthroplasties. Multilevel degenerative changes in the lower lumbar spine. XR/XR acute abdomen series [id number] IMPRESSION: Large amount of stool in the colon, more so proximally. COMMENTS: For patients with an IVC filter, recommend assessment for a management plan for the patient???s IVC filter. If there is no established management plan, recommend referral to an interventional clinician on a nonemergent basis for evaluation.
--- NOTE | 2020-06-07 13:11 | PC.NURSE ---
Pt to radiology via stretcher.
[2020-06-07 13:28] LABS: Basophils % 0.2 %; Eosinophils # 0.1 10^3/uL (0.0-0.8); Eosinophils % 0.4 %; Hematocrit 36.8 % (37.0-47.0); Hemoglobin 11.8 g/dL (11.5-15.3); Lymphocytes # 0.6 10^3/uL (0.8-4.8); Mean Corpuscular HGB Conc 32.1 g/dL (30.0-36.0); Mean Corpuscular Hemoglobin 31.3 pg (28.0-34.0); Mean Corpuscular Volume 97.6 fL (81-99); Monocytes # 1.2 10^3/uL (0.2-0.9); Monocytes % 9.5 %; Neutrophils # 10.38 10^3/uL (1.8-7.7); Neutrophils % 83.8 %; Nucleated Red Blood Cells % 0 %; Platelet Count 219 10^3/cmm (130-400); Red Blood Count 3.77 10^6/uL (4.1-5.3); Red Cell Distribution Width 16.2 % (12.1-15.1); White Blood Count 12.4 10^3/uL (4.0-10.0)
--- NOTE | 2020-06-07 13:34 | ED_ITS ---
Documented by User: RHETT Arroyo 06/08/20 20:22 HPI - Abdominal Pain General: Chief Complaint: Abdominal Pain Stated Complaint: weakness, constipation from previous surgery Time Seen by Provider: 06/07/20 12:51 Source: patient Mode of arrival: ambulatory Limitations: no limitations History of Present Illness: HPI narrative: 75-year-old female patient presents to the emergency department with weakness and not feeling well. She recently had surgery on 05/31/2020, bilateral oophorectomy with bladder tuck -reports last was prior to surgery, unknown date. She reports continued abdominal pain, took Tylenol approximately 2 days ago, currently not on prescription pain medication. She denies difficulty with urination or pain with urination. She denies fever or chills. She denies nausea vomiting. She has history of breast cancer and nose cancer. Has not taken [id number] medication for constipation. States has not had a follow-up appointment with Dr. Israel. SPAIN elicited complaint: abdominal pain Pertinent past history: constipation Onset (ago): week(s) Associated Symptoms: Reports bloating and constipation; Denies chills, GI cramping, diarrhea, dysuria, excessive flatus, fever(s), heartburn, hematuria, nausea and vomiting Review of Systems General: Reports: 10 or more systems reviewed and unremarkable except in HPI and below Const: Denies: fever(s), chills or diaphoresis Eyes: Denies: blurry vision or eye redness ENMT: Denies: throat pain, dental pain or disequilibrium Card: Denies: chest pain, palpitations or irregular heart rhythm Resp: Denies: dyspnea, productive cough, non-productive cough or wheezing GI: Reports: abdominal pain, constipation and bloating; Denies: nausea, vomiting, heartburn, diarrhea, GI cramping, excessive flatus or pain on defecation : Denies: difficulty voiding, dysuria, urinary urgency, urinary incontinence or hematuria Musc: Denies: neck pain, back pain, joint pain or joint warmth Skin/Breast: Denies: rash or pruritus Neuro: Denies: headache(s), weakness in extremities or behavioral changes Psych: Denies: anxiety or depression Darryn/Lymph: Denies: easy bruising PFSH ED PFSH: Medical History Abnormal nuclear stress test Anemia Benign essential HTN Bladder prolapse Brain bleed Chronic congestive heart failure Chronic GERD COPD (chronic obstructive pulmonary disease) Essential (primary) hypertension Generalized weakness H/O deep venous thrombosis History of breast cancer Hypothyroidism (acquired) Mild hyperlipidemia Polymorphic ventricular tachycardia Syncope and collapse Tonsil cancer Surgical History H/O abdominoplasty History of left hip replacement S/P IVC filter (~03/13/19) DVT after hip replacement IVC Filter placed March 13, 2019 at [facility] Status post carpal tunnel release Status post hysterectomy (~1969) Vaginal per patient, ovaries were spared Status post right mastectomy with breast reconstruction with abdominal trans-flap. Status post total hip replacement, left Family History Mother Diabetes Hypertension Uterine cancer Diagnosed in her 70s Family/Other Diabetes maternal aunt Father Hypertension Heart disease of [place] at age 59 Daughter Breast cancer With Mets; at age 50 Social History Smoking and tobacco status: former smoker Quit status (tobacco): has quit using tobacco Year quit tobacco: 1989 Former quit date comment: Started smoked as a teenager and smoked 1/2 pack per day Alcohol intake: never Physical Exam Const: COMMON NORMALS: no acute distress, average body habitus, patient oriented x3 and alert EXAM LIMITATIONS: no altered mental status and no physical limitations GENERAL APPEARANCE: cooperative, well kempt, well developed, frail appearing and well hydrated; not ill appearing ORIENTATION/CONSCIOUSNESS: Yes awake, Yes oriented to person, Yes oriented to place and Yes oriented to time; not confused HENMT: COMMON NORMALS: normocephalic, Normal external nose present and moist oral mucous membranes HEAD & SCALP: normocephalic NOSE: Normal external nose present Eye: COMMON NORMALS: Equal, round and reactive pupils present and EOMs intact bilaterally GENERAL EYE: appearance normal, both eyes and all related structures PUPIL: Yes Equal, round and reactive pupils present Neck/C-Spine: COMMON NORMALS: full ROM and no lymphadenopathy GENERAL: Yes normal visual inspection and Yes trachea midline CERVICAL SPINE: Yes cervical ROM normal Lymph: LYMPHATIC: no lymphadenopathy noted Chest: COMMONS NORMALS: normal inspection of the chest and normal palpation of entire chest wall OTHER: Port a cath left anterior chest wall Resp: COMMON NORMALS: normal respiratory effort, No retractions, No use of accessory muscles and clear to auscultation bilaterally EFFORT & INSPECTION: No labored, No Actively coughing and No audible wheezes AUSCULTATION: clear to auscultation bilaterally and diminished lung sounds bilateral in the lower lung ybarra Cardio: COMMON NORMALS: regular rate, regular rhythm, S1 normal heart sound present, S2 normal heart sound present and Peripheral pulses 2+ throughout RATE: regular rate and tachycardic RHYTHM: regular rhythm HEART SOUNDS: S1 normal heart sound present and S2 normal heart sound present PERIPHERAL PULSES: Peripheral pulses 2+ throughout GI: COMMON NORMALS: Soft to palpation INSPECTION: Yes normal to inspection, Yes abdominal wall ecchymosis (lower abdomen) and Yes incision (multiple puncture wounds to the abdomen, surgical, no s/s infection) PALPATION: Yes Soft to palpation and Yes Tenderness to palpation present (GI) Details: LLQ and LUQ : COMMON NORMALS: Yes no CVA tenderness BLADDER/KIDNEY EXAM: Yes no CVA tenderness Back/Pelvis: COMMON NORMALS: no CVA tenderness and thoracic and lumbar spine normal to inspection Extremity: COMMON NORMALS: normal to inspection and capillary refill normal Neuro: COMMON NORMALS: patient oriented x3 and no focal motor deficits SENSORIUM/ORIENTATION: Yes alert, Yes oriented to person, Yes oriented to place and Yes oriented to time Psych: COMMON NORMALS: mental status grossly normal, Normal thought process present and cooperative APPEARANCE: Yes well kempt ACTIVITY/MOTOR BEHAVIOR: Yes appropriate eye contact THOUGHT PROCESS: Normal thought process present Skin: COMMON NORMALS: no rashes or lesions noted, turgor normal, no petechiae and no mottling GENERAL SKIN EXAM: no rashes or lesions noted, turgor normal and ecchymosis (scattered BUE) Course Vital Signs: Vital signs: Vital Signs Temperature 99.9 F H 06/07/20 12:29 Pulse Rate 108 H 06/07/20 21:11 Respiratory Rate 16 06/07/20 21:11 Blood Pressure 128/71 06/07/20 20:56 Pulse Oximetry 96 06/07/20 21:11 MDM - Abdominal Pain Lab Data: Labs: Lab Results 06/07/20 06/07/20 06/07/20 Range/Units 13:05 13:05 13:05 WBC 12.4 H (4.0-10.0) 10^3/ uL RBC 3.77 L (4.1-5.3) 10^6/u L Hgb 11.8 (11.5-15.3) g/dL Hct 36.8 L (37.0-47.0) % MCV 97.6 (81-99) fL MCH 31.3 (28.0-34.0) pg MCHC 32.1 (30.0-36.0) g/dL RDW 16.2 H (12.1-15.1) % Plt Count 219 (130-400) 10^3/c mm MPV 10.0 (7.4-10.4) fL Neut % (Auto) 83.8 % Lymph % (Auto) 5.0 % [place] % (Auto) 9.5 % Eos % (Auto) 0.4 % Baso % (Auto) 0.2 % Neut # (Auto) 10.38 H (1.8-7.7) 10^3/u L Lymph # (Auto) 0.6 L (0.8-4.8) 10^3/u L [place] # (Auto) 1.2 H (0.2-0.9) 10^3/u L Eos # (Auto) 0.1 (0.0-0.8) 10^3/u L Baso # (Auto) 0.0 (0.0-0.1) 10^3/u L Nucleated RBC % (a uto) 0 % Nucleated RBCs # 0.0 /100WBC Sodium 137 (136-145) mmol/L Potassium 4.0 (3.5-5.1) mmol/L Chloride 101 (98-107) mmol/L Carbon Dioxide 24 (22-29) mmol/L Anion Gap 16.0 (5-19) BUN 22 (8-23) mg/dL Creatinine 1.0 H (0.5-0.9) mg/dL GFR Calculation Not Reportable Glucose 141 H (65-115) mg/dL Calculated Osmolal ity 290 (285-295) mOsm/k g Lactate 0.8 (0.5-2.2) mmol/L Calcium 9.1 (8.5-10.5) mg/dL Total Bilirubin 1.5 H (0.15-1.2) mg/dL AST 16 (0-32) U/L ALT 10 (0-33) U/L Alkaline Phosphata se 56 (35-105) IU/L Total Protein 6.5 L (6.6-8.7) g/dL Albumin 4.1 (3.5-5.2) g/dL Globulin 2.4 (1.3-4.6) g/dL Urine Color (Yellow) Urine Appearance (CLEAR) Urine pH (5-7) Ur Specific Gravit y (1.005-1.030) Urine Protein (Negative) Urine Glucose (UA) (Normal) Urine Ketones (Negative) Urine Blood (Negative) Urine Nitrate (Negative) Urine Bilirubin (Negative) Urine Urobilinogen (Negative) mg/dL Ur Leukocyte Brenda ase (Negative) Urine RBC (0-2) /hpf Urine WBC (0-5) /hpf Ur Squamous Epith Cells (0-5) /hpf Ur Transition Epit h Cell /hpf Amorphous Sediment Urine Bacteria (NONE) /hpf 06/07/20 Range/Units 14:53 WBC (4.0-10.0) 10^3/ uL RBC (4.1-5.3) 10^6/u L Hgb (11.5-15.3) g/dL Hct (37.0-47.0) % MCV (81-99) fL MCH (28.0-34.0) pg MCHC (30.0-36.0) g/dL RDW (12.1-15.1) % Plt Count (130-400) 10^3/c mm MPV (7.4-10.4) fL Neut % (Auto) % Lymph % (Auto) % [place] % (Auto) % Eos % (Auto) % Baso % (Auto) % Neut # (Auto) (1.8-7.7) 10^3/u L Lymph # (Auto) (0.8-4.8) 10^3/u L [place] # (Auto) (0.2-0.9) 10^3/u L Eos # (Auto) (0.0-0.8) 10^3/u L Baso # (Auto) (0.0-0.1) 10^3/u L Nucleated RBC % (a uto) % Nucleated RBCs # /100WBC Sodium (136-145) mmol/L Potassium (3.5-5.1) mmol/L Chloride (98-107) mmol/L Carbon Dioxide (22-29) mmol/L Anion Gap (5-19) BUN (8-23) mg/dL Creatinine (0.5-0.9) mg/dL GFR Calculation Glucose (65-115) mg/dL Calculated Osmolal ity (285-295) mOsm/k g Lactate (0.5-2.2) mmol/L Calcium (8.5-10.5) mg/dL Total Bilirubin (0.15-1.2) mg/dL AST (0-32) U/L ALT (0-33) U/L Alkaline Phosphata se (35-105) IU/L Total Protein (6.6-8.7) g/dL Albumin (3.5-5.2) g/dL Globulin (1.3-4.6) g/dL Urine Color Dark yellow (Yellow) Urine Appearance Cloudy (CLEAR) Urine pH 5 (5-7) Ur Specific Gravit y 1.010 (1.005-1.030) Urine Protein Trace (Negative) Urine Glucose (UA) Norm (Normal) Urine Ketones Negative (Negative) Urine Blood 2+ H (Negative) Urine Nitrate Negative (Negative) Urine Bilirubin 1+ H (Negative) Urine Urobilinogen 1 H (Negative) mg/dL Ur Leukocyte Brenda ase Negative (Negative) Urine RBC 5-10 H (0-2) /hpf Urine WBC 0-4 H (0-5) /hpf Ur Squamous Epith Cells 25-40 H (0-5) /hpf Ur Transition Epit h Cell 0-4 /hpf Amorphous Sediment Not Reportable Urine Bacteria 1+ H (NONE) /hpf Imaging Data ^: CT Abd/Pel: Radiologist's impression: [facility] [address] [place] [address] XRay Report Signed Patient: Martha Patterson #: [id number] : 4Acct#:[id number] Age/Sex: 75 / FADM Date: 06/07/20 Loc: ERRoom/Bed: Attending Dr: Ordering Provider/Ordering MD: Laurita Posey Date of Service: 06/07/20 Procedure(s): XR acute abdomen series 91334 Accession Number(s): [id number] Report Number: [id number] PROCEDURE INFORMATION: Exam: XR Chest Exam date and time: 06/07/2020 12:54 PM Age: 75 years old Clinical indication: Constipation and fever; Abdominal pain; Generalized; Prior surgery; Surgery date: 3-7 days post-operative; Surgery type: Hy 05/31/20; Additional info: Abd pain, fever, constipation TECHNIQUE: Imaging protocol: XR of the chest Views: 1 view. COMPARISON: No relevant prior studies available. FINDINGS: Tubes, catheters and devices: There is a left subclavian port with the catheter tip in the right atrium. Lungs: There is left basilar atelectasis. Pleural spaces: No pleural effusion or pneumothorax. Heart/Mediastinum: The cardiac silhouette is not enlarged. The mediastinal contours are normal. Bones/joints: Multilevel disc degeneration in the thoracic spine. Soft tissues: Surgical clips present in the right breast and right axilla. IMPRESSION: Left basilar atelectasis. PROCEDURE INFORMATION: Exam: XR Abdomen Exam date and time: 06/07/2020 12:54 PM Age: 75 years old Clinical indication: Constipation and fever; Abdominal pain; Generalized; Prior surgery; Surgery date: 3-7 days post-operative; Surgery type: [facility] 05/31/20; Additional info: Abd pain, fever, constipation TECHNIQUE: Imaging protocol: XR of the abdomen. Views: 2 Views. Upright and supine views. COMPARISON: No relevant prior studies available. FINDINGS: Gastrointestinal tract: No dilated gas-filled loops of bowel. Large amount of stool in the colon, more so proximally. Intraperitoneal space: No pneumoperitoneum. Vasculature: There is an inferior vena cava filter present. Bones/joints: Prior bilateral total hip arthroplasties. Multilevel degenerative changes in the lower lumbar spine. XR/XR acute abdomen series 89525 IMPRESSION: Large amount of stool in the colon, more so proximally. COMMENTS: For patients with an IVC filter, recommend assessment for a management plan for the patient???s IVC filter. If there is no established management plan, recommend referral to an interventional clinician on a nonemergent basis for evaluation. Dictated By:Eriberto Rivera Signed By:Briana Rivera Date/Time:06/07/20 1337 DD/ 1335 Discharge Plan Discharge Patient Disposition: Home Clinical Impression: Constipation Qualifiers: Constipation type: slow transit constipation Qualified Code(s): K59.01 - Slow transit constipation Condition: Stable Prescriptions: New Miralax 17 gram/dose powder 17 g PO DAILY PRN (Reason: constipation) Qty: 119 RF: 0 No Action docusate sodium [Colace] 100 mg capsule 200 mg PO DAILY RF: 0 folic acid 400 mcg tablet 400 mcg PO DAILY RF: 0 cyanocobalamin (vitamin B-12) 1,000 mcg capsule 1,000 mcg PO DAILY 60 Days Qty: 60 RF: 0 prednisone 5 mg tablet 5 mg PO DAILY Qty: 30 RF: 1 cyclobenzaprine 10 mg tablet 10 mg PO BID PRN (Reason: muscle spasm) 90 Days Qty: 180 RF: 1 Other Otc Medications See Rx Instructions .ROUTE .COMPLEX RF: 0 Vitamin D3 1 tab PO DAILY RF: 0 calcium 1 tab PO DAILY RF: 0 potassium chloride 10 mEq capsule, extended release 10 meq PO DAILY RF: 0 isosorbide mononitrate 30 mg tablet extended release 24 hr 30 mg PO DAILY RF: 0 levothyroxine 25 mcg tablet 25 mcg PO QAM RF: 0 tamsulosin 0.4 mg capsule 0.4 mg PO BEDTIME RF: 0 pantoprazole 40 mg tablet,delayed release (DR/EC) 40 mg PO DAILY RF: 0 lisinopril 5 mg tablet 5 mg PO DAILY RF: 0 Discharge Orders: Discharge ED (Routine); Ordered 06/07/20 Ordered By: Farooq Anderson Referrals: CHETNA Reyes, DOCUMENT MANAGEMENT CONSULTANT [Primary Care Provider] - Discharge Diet: Regular Discharge Activity: Increase activity as tolerated Patient Instructions: Constipation (ED), High Fiber Diet (ED) Activity Restrictions/Additional Instructions: Follow-up with medical provider as directed in 7 to 10 days for reevaluation. Take medications as prescribed. Drink plenty of fluids and stay hydrated. Return to the ER or your medical provider if condition worsens. Please read and understand discharge instructions. If any questions, please ask. Sign Out Sign Out Data: Patient Sign Out occurred on 06/07/20 at 17:35. Patient's care was discussed, and care was transferred from RHETT Arroyo to CLARENCE Lama. Sign Out Comment: ct scan pending, transfer of care to CLARENCE Lama, question bowel obstruction with constipation, enema remains pending, not yet administered Last updated by Laurita Posey ARNP at 06/07/20 17:29 Coding Level of Care Code ED Relationship Executive for Chg Fwd Exam Comprehensive Documented by User: CLARENCE Lama 06/07/20 23:31 HPI - Abdominal Pain General: Chief Complaint: Abdominal Pain Stated Complaint: weakness, constipation from previous surgery Time Seen by Provider: 06/07/20 12:51 History of Present Illness: HPI narrative: Patient told me she is unsure of her last bowel movement date but knows that she has not had a bowel movement since surgery on May 31. PFSH ED PFSH: Medical History Abnormal nuclear stress test Anemia Benign essential HTN Bladder prolapse Brain bleed Chronic congestive heart failure Chronic GERD COPD (chronic obstructive pulmonary disease) Essential (primary) hypertension Generalized weakness H/O deep venous thrombosis History of breast cancer Hypothyroidism (acquired) Mild hyperlipidemia Polymorphic ventricular tachycardia Syncope and collapse Tonsil cancer Surgical History H/O abdominoplasty History of left hip replacement S/P IVC filter (~03/13/19) DVT after hip replacement IVC Filter placed March 13, 2019 at [facility] Status post carpal tunnel release Status post hysterectomy (~1970) Vaginal per patient, ovaries were spared Status post right mastectomy with breast reconstruction with abdominal trans-flap. Status post total hip replacement, left Family History Mother Diabetes Hypertension Uterine cancer Diagnosed in her 70s Family/Other Diabetes maternal aunt Father Hypertension Heart disease of [place] at age 59 Daughter Breast cancer With Mets; at age 50 Social History Smoking and tobacco status: former smoker Quit status (tobacco): has quit using tobacco Year quit tobacco: 1989 Former quit date comment: Started smoked as a teenager and smoked 1/2 pack per day Alcohol intake: never Course Reevaluation(s): Reevaluation #1: Patient received milk and molasses enema and had a bowel movement immediately afterwards. She says she is feeling much better now. She would like to go home and rest. Time: 20:58 Consultations: Consultation #1: I contacted Dr. Isaac to discuss patient's case with him and the CT findings since he perform surgery back on 31 May. He said the CT finding of hematoma is stable and was there on previous CT. There were no other acute findings or concerns for him that would warrant any further evaluation or admission of patient. Vital Signs: Vital signs: Vital Signs Temperature 99.9 F H 06/07/20 12:29 Pulse Rate 108 H 06/07/20 21:11 Respiratory Rate 16 06/07/20 21:11 Blood Pressure 128/71 06/07/20 20:56 Pulse Oximetry 96 06/07/20 21:11 MDM - Abdominal Pain MDM Narrative: Medical decision making narrative: Patient is a 75-year-old female who comes to the ED with constipation and feeling unwell. Patient had surgery back on May 31 to repair vaginal vault prolapse and had a hysterectomy. She has not had a bowel movement since surgery. White blood cell count 12.4 but the rest of CBC and CMP were unremarkable. UA not concerning of any UTI. CT of abdomen showed stable lower pelvic hematoma with no active bleeding, no SBO noted or any other acute finding. I contacted Dr. Isaac and talked with her about patient and he was not concerned about CT findings of the hematoma has a stable hematoma and is seen on previous CT of abdomen before procedure. Patient was given a milk of molasses enema while here in the ED and she was able to have a bowel movement. Her symptoms greatly improved and she was ready for discharge. She was diagnosed with constipation and discharged home with a prescription for MiraLAX to take as needed. Patient told to follow-up with surgeon at scheduled postop appointment. Return to ED precautions given. Patient understood agree with plan. Lab Data: Attestation: I reviewed the patient's lab results. Labs: Lab Results 06/07/20 06/07/20 06/07/20 Range/Units 13:05 13:05 13:05 WBC 12.4 H (4.0-10.0) 10^3/ uL RBC 3.77 L (4.1-5.3) 10^6/u L Hgb 11.8 (11.5-15.3) g/dL Hct 36.8 L (37.0-47.0) % MCV 97.6 (81-99) fL MCH 31.3 (28.0-34.0) pg MCHC 32.1 (30.0-36.0) g/dL RDW 16.2 H (12.1-15.1) % Plt Count 219 (130-400) 10^3/c mm MPV 10.0 (7.4-10.4) fL Neut % (Auto) 83.8 % Lymph % (Auto) 5.0 % [place] % (Auto) 9.5 % Eos % (Auto) 0.4 % Baso % (Auto) 0.2 % Neut # (Auto) 10.38 H (1.8-7.7) 10^3/u L Lymph # (Auto) 0.6 L (0.8-4.8) 10^3/u L [place] # (Auto) 1.2 H (0.2-0.9) 10^3/u L Eos # (Auto) 0.1 (0.0-0.8) 10^3/u L Baso # (Auto) 0.0 (0.0-0.1) 10^3/u L Nucleated RBC % (a uto) 0 % Nucleated RBCs # 0.0 /100WBC Sodium 137 (136-145) mmol/L Potassium 4.0 (3.5-5.1) mmol/L Chloride 101 (98-107) mmol/L Carbon Dioxide 24 (22-29) mmol/L Anion Gap 16.0 (5-19) BUN 22 (8-23) mg/dL Creatinine 1.0 H (0.5-0.9) mg/dL GFR Calculation Not Reportable Glucose 141 H (65-115) mg/dL Calculated Osmolal ity 290 (285-295) mOsm/k g Lactate 0.8 (0.5-2.2) mmol/L Calcium 9.1 (8.5-10.5) mg/dL Total Bilirubin 1.5 H (0.15-1.2) mg/dL AST 16 (0-32) U/L ALT 10 (0-33) U/L Alkaline Phosphata se 56 (35-105) IU/L Total Protein 6.5 L (6.6-8.7) g/dL Albumin 4.1 (3.5-5.2) g/dL Globulin 2.4 (1.3-4.6) g/dL Urine Color (Yellow) Urine Appearance (CLEAR) Urine pH (5-7) Ur Specific Gravit y (1.005-1.030) Urine Protein (Negative) Urine Glucose (UA) (Normal) Urine Ketones (Negative) Urine Blood (Negative) Urine Nitrate (Negative) Urine Bilirubin (Negative) Urine Urobilinogen (Negative) mg/dL Ur Leukocyte Brenda ase (Negative) Urine RBC (0-2) /hpf Urine WBC (0-5) /hpf Ur Squamous Epith Cells (0-5) /hpf Ur Transition Epit h Cell /hpf Amorphous Sediment Urine Bacteria (NONE) /hpf 06/07/20 Range/Units 14:53 WBC (4.0-10.0) 10^3/ uL RBC (4.1-5.3) 10^6/u L Hgb (11.5-15.3) g/dL Hct (37.0-47.0) % MCV (81-99) fL MCH (28.0-34.0) pg MCHC (30.0-36.0) g/dL RDW (12.1-15.1) % Plt Count (130-400) 10^3/c mm MPV (7.4-10.4) fL Neut % (Auto) % Lymph % (Auto) % [place] % (Auto) % Eos % (Auto) % Baso % (Auto) % Neut # (Auto) (1.8-7.7) 10^3/u L Lymph # (Auto) (0.8-4.8) 10^3/u L [place] # (Auto) (0.2-0.9) 10^3/u L Eos # (Auto) (0.0-0.8) 10^3/u L Baso # (Auto) (0.0-0.1) 10^3/u L Nucleated RBC % (a uto) % Nucleated RBCs # /100WBC Sodium (136-145) mmol/L Potassium (3.5-5.1) mmol/L Chloride (98-107) mmol/L Carbon Dioxide (22-29) mmol/L Anion Gap (5-19) BUN (8-23) mg/dL Creatinine (0.5-0.9) mg/dL GFR Calculation Glucose (65-115) mg/dL Calculated Osmolal ity (285-295) mOsm/k g Lactate (0.5-2.2) mmol/L Calcium (8.5-10.5) mg/dL Total Bilirubin (0.15-1.2) mg/dL AST (0-32) U/L ALT (0-33) U/L Alkaline Phosphata se (35-105) IU/L Total Protein (6.6-8.7) g/dL Albumin (3.5-5.2) g/dL Globulin (1.3-4.6) g/dL Urine Color Dark yellow (Yellow) Urine Appearance Cloudy (CLEAR) Urine pH 5 (5-7) Ur Specific Gravit y 1.010 (1.005-1.030) Urine Protein Trace (Negative) Urine Glucose (UA) Norm (Normal) Urine Ketones Negative (Negative) Urine Blood 2+ H (Negative) Urine Nitrate Negative (Negative) Urine Bilirubin 1+ H (Negative) Urine Urobilinogen 1 H (Negative) mg/dL Ur Leukocyte Brenda ase Negative (Negative) Urine RBC 5-10 H (0-2) /hpf Urine WBC 0-4 H (0-5) /hpf Ur Squamous Epith Cells 25-40 H (0-5) /hpf Ur Transition Epit h Cell 0-4 /hpf Amorphous Sediment Not Reportable Urine Bacteria 1+ H (NONE) /hpf Imaging Data ^: CT Abd/Pel: Attestation: I personally reviewed and interpreted this imaging study as follows: Radiologist's impression: [address] [address] [address] Scan Report Signed with Didier Patient: Martha Patterson Unit #: [id number] : 1945 Age/Sex: 75 / F ADM Date: 06/07/20 Loc: ER Room/Bed: Attending Dr: Ordering Provider/Ordering MD: Laurita Posey Date of Service: 06/07/20 Procedure(s): CT angio chest w abd pel w con Accession Number(s): [id number] Report Number: [id number]/CT angio chest w abd pel w con THIS REPORT CONTAINS FINDINGS MAY BE CRITICAL TO PATIENT CARE. The findings were verbally communicated via telephone conference call with CLARENCE Lama at 5:50 PM AUTOMATIC FURNACE OPERATOR on 06/07/2020. The findings were acknowledged and understood. Radiation Dose CTDIVOL = (mGy): DLP = 970.43 970.43 (mGy-cm) Addendum Dictated By: Yony Barajas MD Addendum Signed By: Yony Barajas MD Signed Date/Time: 06/07/201751 Addendum Cosigned By: PROCEDURE INFORMATION: Exam: CT Angiography Chest With Contrast Exam date and time: 06/07/2020 5:18 PM Age: 75 years old Clinical indication: Other: Post op x 2 weeks; Other: Tachycardia; Prior surgery; Surgery type: Mastectomy, port, ivc filter, hip, bladder, hyst; Additional info: Tachycardia, abdominal pain S/P surgery TECHNIQUE: Imaging protocol: Computed tomographic angiography of the chest with contrast. 3D rendering (Not supervised by radiologist): MIP and/or 3D reconstructed images were created by the technologist. Radiation optimization: All CT scans at this facility use at least one of these dose optimization techniques: automated exposure control; mA and/or kV adjustment per patient size (includes targeted exams where dose is matched to clinical indication); or iterative reconstruction. Contrast material: VISI 320; Contrast volume: 75 ml; Contrast route: INTRAVENOUS (IV); COMPARISON: CR XR acute abdomen series [id number] 06/07/2020 1:15 PM RADIATION DOSE METRICS: Total DLP (mGy-cm): 970.43 FINDINGS: Tubes, catheters and devices: Left-sided infusion port, with tip in the right atrium. Pulmonary arteries: Pulmonary arteries are well opacified. Pulmonary arteries are normal in caliber. No filling defects are demonstrated. No evidence of pulmonary embolism. Aorta: Mild atherosclerosis of the thoracic aorta. No aneurysm or dissection. Lungs: Mild compressive atelectasis at the lung bases. No consolidative infiltrates. Pleural spaces: Small bilateral pleural effusions noted, right larger than left. Heart: Mild cardiomegaly is noted. There is a small pericardial effusion, measuring up to 16 mm in maximum thickness. Mediastinal space: There is a small hiatal hernia present. Lymph nodes: No pathologically enlarged lymph nodes are demonstrated. Bones/joints: Degenerative thoracic spine changes. No acute osseous abnormality. Soft tissues: Status post right mastectomy, right breast reconstruction, and right axillary lymph node dissection. IMPRESSION: 1. Mild cardiomegaly is noted. There is a small pericardial effusion, measuring up to 16 mm in maximum thickness. 2. Mild compressive atelectasis at the lung bases. No consolidative infiltrates. 3. Status post right mastectomy, right breast reconstruction, and right axillary lymph node dissection. 4. Pulmonary arteries appear unremarkable. No evidence of pulmonary embolism. 5. No evidence of thoracic aortic aneurysm or dissection. PROCEDURE INFORMATION: Exam: CT Abdomen And Pelvis With Contrast Exam date and time: 06/07/2020 5:18 PM Age: 75 years old Clinical indication: Other: Post op x 2 weeks; Other: Tachycardia; Prior surgery; Surgery type: Mastectomy, port, ivc filter, hip, bladder, hyst; Additional info: Tachycardia, abdominal pain S/P surgery TECHNIQUE: Imaging protocol: Computed tomography of the abdomen and pelvis with contrast. Radiation optimization: All CT scans at this facility use at least one of these dose optimization techniques: automated exposure control; mA and/or kV adjustment per patient size (includes targeted exams where dose is matched to clinical indication); or iterative reconstruction. Contrast material: VISI 320; Contrast volume: 75 ml; Contrast route: INTRAVENOUS (IV); COMPARISON: CR XR acute abdomen series [id number] 06/07/2020 1:15 PM RADIATION DOSE METRICS: Total DLP (mGy-cm): 970.43 FINDINGS: Lungs: Please see accompanying CT chest report from same date. Mediastinal space: There is a hiatal hernia noted. Liver: The liver is unremarkable in appearance. Gallbladder and bile ducts: No calcified stones. No ductal dilation. Pancreas: The pancreas is normal in appearance. No pancreatic duct dilatation. Spleen: The spleen is normal in size and appearance. Adrenal glands: The adrenal glands appear within normal limits. Kidneys and ureters: . Simple appearing renal cysts measuring up to 1.4 cm. No hydronephrosis. Stomach and bowel: The stomach is unremarkable. No acute abnormality of the small bowel or colon noted. Appendix: No evidence of appendicitis. Intraperitoneal space: No pneumoperitoneum. No hemoperitoneum. No abscess. Retroperitoneal space: There is a large extraperitoneal hematoma seen on the right side, involving the right posterior pararenal space and the extraperitoneal portion of the right hemipelvis. The hematoma measures approximately 14 cm AP x 6 cm transverse by 16 cm craniocaudal. The hematoma extends from the level of the lower pole of the right kidney within the posterior pararenal space and extends cephalad into the right hemipelvis Vasculature: There is an IVC filter present. The aorta is atherosclerotic. No aortic aneurysm. Lymph nodes: No pathologically enlarged lymph nodes are demonstrated. Urinary bladder: There is minimal air in the urinary bladder likely related to recent instrumentation. Reproductive: Beam hardening artifact limits visualization in this area. No uterus identified, suggesting previous hysterectomy. Bones/joints: Degenerative spine changes. No acute osseous abnormality. Bilateral hip prostheses are noted. Soft tissues: Unremarkable. CT/CT angio chest w abd pel w con IMPRESSION: 1. There is a 14 x 6 x 16 cm right retroperitoneal/extraperitoneal hematoma in the lower abdomen and pelvis. The source/origin of this hematoma is not demonstrated. There is no apparent injury to the adjacent organs. No active bleeding is demonstrated. 2. No acute abnormality demonstrated of the solid organs. 3. No acute bowel abnormality identified. 4. There is a hiatal hernia noted. COMMENTS: 1. Consistent with the [place] [employer]'s Incidental Findings Committee white paper (J Am Aubrey Radiol 2018): Any incidental renal lesion less than 1 cm or classified as too small to characterize, or any incidental cystic renal lesion characterized as simple-appearing, is likely benign. No follow-up imaging is recommended for these lesions per consensus recommendations based on imaging criteria. 2. For patients with an IVC filter, recommend assessment for a management plan for the patient???s IVC filter. If there is no established management plan, recommend referral to an interventional clinician on a nonemergent basis for evaluation. Radiation Dose CTDIVOL = (mGy): DLP = 970.43 970.43 (mGy-cm) Dictated By: Yony Barajas MD Signed By: Yony Barajas MD Signed Date/Time: 06/07/201750 DD/ 49 Discharge Plan Discharge Patient Disposition: Home Clinical Impression: Constipation Qualifiers: Constipation type: slow transit constipation Qualified Code(s): K59.01 - Slow transit constipation Condition: Stable Prescriptions: New Miralax 17 gram/dose powder 17 g PO DAILY PRN (Reason: constipation) Qty: 119 RF: 0 No Action docusate sodium [Colace] 100 mg capsule 200 mg PO DAILY RF: 0 folic acid 400 mcg tablet 400 mcg PO DAILY RF: 0 cyanocobalamin (vitamin B-12) 1,000 mcg capsule 1,000 mcg PO DAILY 60 Days Qty: 60 RF: 0 prednisone 5 mg tablet 5 mg PO DAILY Qty: 30 RF: 1 cyclobenzaprine 10 mg tablet 10 mg PO BID PRN (Reason: muscle spasm) 90 Days Qty: 180 RF: 1 Other Otc Medications See Rx Instructions .ROUTE .COMPLEX RF: 0 Vitamin D3 1 tab PO DAILY RF: 0 calcium 1 tab PO DAILY RF: 0 potassium chloride 10 mEq capsule, extended release 10 meq PO DAILY RF: 0 isosorbide mononitrate 30 mg tablet extended release 24 hr 30 mg PO DAILY RF: 0 levothyroxine 25 mcg tablet 25 mcg PO QAM RF: 0 tamsulosin 0.4 mg capsule 0.4 mg PO BEDTIME RF: 0 pantoprazole 40 mg tablet,delayed release (DR/EC) 40 mg PO DAILY RF: 0 lisinopril 5 mg tablet 5 mg PO DAILY RF: 0 Discharge Orders: Discharge ED (Routine); Ordered 06/07/20 Ordered By: Farooq Anderson Referrals: CHETNA Reyes, DOCUMENT MANAGEMENT CONSULTANT [Primary Care Provider] - Discharge Diet: Regular Discharge Activity: Increase activity as tolerated Patient Instructions: Constipation (ED), High Fiber Diet (ED) Activity Restrictions/Additional Instructions: Follow-up with medical provider as directed in 7 to 10 days for reevaluation. Take medications as prescribed. Drink plenty of fluids and stay hydrated. Return to the ER or your medical provider if condition worsens. Please read and understand discharge instructions. If any questions, please ask. Sign Out Sign Out Data: Patient Sign Out occurred on 06/07/20 at 17:35. Patient's care was discussed, and care was transferred from RHETT Arroyo to CLARENCE Lama. Sign Out Comment: ct scan pending, transfer of care to CLARENCE Lama, question bowel obstruction with constipation, enema remains pending, not yet administered Last updated by Laurita Posey ARNP at 06/07/20 17:29 Coding Level of Care Code ED Relationship Executive for Chg Fwd Exam Comprehensive
[2020-06-07 13:42] LABS: Alanine Aminotransferase 10 U/L (0-33); Albumin Level 4.1 g/dL (3.5-5.2); Alkaline Phosphatase 56 IU/L (35-105); Aspartate Amino Transferase 16 U/L (0-32); Blood Urea Nitrogen 22 mg/dL (8-23); Calcium 9.1 mg/dL (8.5-10.5); Carbon Dioxide 24 mmol/L (22-29); Chloride 101 mmol/L (98-107); Globulin 2.4 g/dL (1.3-4.6); Glucose 141 mg/dL (65-115); Lactate (Lactic Acid level) 0.8 mmol/L (0.5-2.2); Osmolality Calculated 290 mOsm/kg (285-295); Sodium 137 mmol/L (136-145); Total Bilirubin 1.5 mg/dL (0.15-1.2); Total Protein 6.5 g/dL (6.6-8.7)
[2020-06-07] MEDS: sodium chloride 0.9% 500 ML 999 ML IV ×2 (14:10→17:37)
--- NOTE | 2020-06-07 14:40 | PC.PHAR ---
PT STATES SHE TAKES CARE OF HER OWN MEDICATIONS-PT AND PTS VERIFIED MEDICATIONS-PTS STATES THE PT TAKES OTHER OTC MEDICATIONS BUT IS UNSURE OF THE NAMES OF THEM
[2020-06-07] MEDS: magnesium citrate Btl 296 mL PO (14:42)
[2020-06-07 15:15] LABS: Add Urine Microscopic? YES; Bilirubin Urine 1+ (Negative); Blood Urine 2+ (Negative); Glucose Urine UA Norm (Normal); Ketones Urine Negative (Negative); Leukocyte Esterase Urine Negative (Negative); Nitrate Urine Negative (Negative); Protein Urine Trace (Negative); Urine Appearance Cloudy (CLEAR); Urine Color Dark Yellow (Yellow); Urobilinogen Urine 1 mg/dL (Negative); pH Urine 5 (5-7)
--- NOTE | 2020-06-07 15:23 | CTR_ITS ---
PROCEDURE INFORMATION: Exam: CT Angiography Chest With Contrast Exam date and time: 06/07/2020 5:18 PM Age: 75 years old Clinical indication: Other: Post op x 2 weeks; Other: Tachycardia; Prior surgery; Surgery type: Mastectomy, port, ivc filter, hip, bladder, hyst; Additional info: Tachycardia, abdominal pain S/P surgery TECHNIQUE: Imaging protocol: Computed tomographic angiography of the chest with contrast. 3D rendering (Not supervised by radiologist): MIP and/or 3D reconstructed images were created by the technologist. Radiation optimization: All CT scans at this facility use at least one of these dose optimization techniques: automated exposure control; mA and/or kV adjustment per patient size (includes targeted exams where dose is matched to clinical indication); or iterative reconstruction. Contrast material: VISI 320; Contrast volume: 75 ml; Contrast route: INTRAVENOUS (IV); COMPARISON: CR XR acute abdomen series [id number] 06/07/2020 1:15 PM RADIATION DOSE METRICS: Total DLP (mGy-cm): 970.43 FINDINGS: Tubes, catheters and devices: Left-sided infusion port, with tip in the right atrium. Pulmonary arteries: Pulmonary arteries are well opacified. Pulmonary arteries are normal in caliber. No filling defects are demonstrated. No evidence of pulmonary embolism. Aorta: Mild atherosclerosis of the thoracic aorta. No aneurysm or dissection. Lungs: Mild compressive atelectasis at the lung bases. No consolidative infiltrates. Pleural spaces: Small bilateral pleural effusions noted, right larger than left. Heart: Mild cardiomegaly is noted. There is a small pericardial effusion, measuring up to 16 mm in maximum thickness. Mediastinal space: There is a small hiatal hernia present. Lymph nodes: No pathologically enlarged lymph nodes are demonstrated. Bones/joints: Degenerative thoracic spine changes. No acute osseous abnormality. Soft tissues: Status post right mastectomy, right breast reconstruction, and right axillary lymph node dissection. IMPRESSION: 1. Mild cardiomegaly is noted. There is a small pericardial effusion, measuring up to 16 mm in maximum thickness. 2. Mild compressive atelectasis at the lung bases. No consolidative infiltrates. 3. Status post right mastectomy, right breast reconstruction, and right axillary lymph node dissection. 4. Pulmonary arteries appear unremarkable. No evidence of pulmonary embolism. 5. No evidence of thoracic aortic aneurysm or dissection. PROCEDURE INFORMATION: Exam: CT Abdomen And Pelvis With Contrast Exam date and time: 06/07/2020 5:18 PM Age: 75 years old Clinical indication: Other: Post op x 2 weeks; Other: Tachycardia; Prior surgery; Surgery type: Mastectomy, port, ivc filter, hip, bladder, hyst; Additional info: Tachycardia, abdominal pain S/P surgery TECHNIQUE: Imaging protocol: Computed tomography of the abdomen and pelvis with contrast. Radiation optimization: All CT scans at this facility use at least one of these dose optimization techniques: automated exposure control; mA and/or kV adjustment per patient size (includes targeted exams where dose is matched to clinical indication); or iterative reconstruction. Contrast material: VISI 320; Contrast volume: 75 ml; Contrast route: INTRAVENOUS (IV); COMPARISON: CR XR acute abdomen series [id number] 06/07/2020 1:15 PM RADIATION DOSE METRICS: Total DLP (mGy-cm): 970.43 FINDINGS: Lungs: Please see accompanying CT chest report from same date. Mediastinal space: There is a hiatal hernia noted. Liver: The liver is unremarkable in appearance. Gallbladder and bile ducts: No calcified stones. No ductal dilation. Pancreas: The pancreas is normal in appearance. No pancreatic duct dilatation. Spleen: The spleen is normal in size and appearance. Adrenal glands: The adrenal glands appear within normal limits. Kidneys and ureters: . Simple appearing renal cysts measuring up to 1.4 cm. No hydronephrosis. Stomach and bowel: The stomach is unremarkable. No acute abnormality of the small bowel or colon noted. Appendix: No evidence of appendicitis. Intraperitoneal space: No pneumoperitoneum. No hemoperitoneum. No abscess. Retroperitoneal space: There is a large extraperitoneal hematoma seen on the right side, involving the right posterior pararenal space and the extraperitoneal portion of the right hemipelvis. The hematoma measures approximately 14 cm AP x 6 cm transverse by 16 cm craniocaudal. The hematoma extends from the level of the lower pole of the right kidney within the posterior pararenal space and extends cephalad into the right hemipelvis Vasculature: There is an IVC filter present. The aorta is atherosclerotic. No aortic aneurysm. Lymph nodes: No pathologically enlarged lymph nodes are demonstrated. Urinary bladder: There is minimal air in the urinary bladder likely related to recent instrumentation. Reproductive: Beam hardening artifact limits visualization in this area. No uterus identified, suggesting previous hysterectomy. Bones/joints: Degenerative spine changes. No acute osseous abnormality. Bilateral hip prostheses are noted. Soft tissues: Unremarkable. CT/CT angio chest w abd pel w con IMPRESSION: 1. There is a 14 x 6 x 16 cm right retroperitoneal/extraperitoneal hematoma in the lower abdomen and pelvis. The source/origin of this hematoma is not demonstrated. There is no apparent injury to the adjacent organs. No active bleeding is demonstrated. 2. No acute abnormality demonstrated of the solid organs. 3. No acute bowel abnormality identified. 4. There is a hiatal hernia noted. COMMENTS: 1. Consistent with the [place] [employer]'s Incidental Findings Committee white paper (J Am Aubrey Radiol 2018): Any incidental renal lesion less than 1 cm or classified as too small to characterize, or any incidental cystic renal lesion characterized as simple-appearing, is likely benign. No follow-up imaging is recommended for these lesions per consensus recommendations based on imaging criteria. 2. For patients with an IVC filter, recommend assessment for a management plan for the patient???s IVC filter. If there is no established management plan, recommend referral to an interventional clinician on a nonemergent basis for evaluation. Radiation Dose CTDIVOL = (mGy): DLP = 970.43~970.43 (mGy-cm)
[2020-06-07] MEDS: ondansetron 2 mg/ML SDV 2 mL 4 MG IVP ×2 (15:34→18:12)
[2020-06-07 15:37] LABS: Add Urine Culture? No; Bacteria Urine 1+ /hpf; Squamous Epithelial Cell Urine 25-40 /hpf (0-5); Transitional Epi Cells Urine 0-4 /hpf; WBC Urine 0-4 /hpf (0-5)
[2020-06-07] MEDS: iodixanol 320 mg/mL 100mL Btl IV (17:20)
--- NOTE | 2020-06-07 19:04 | PC.NURSE ---
Enema not given per CLARENCE Posey, hold for CT results. Spoke to CLARENCE Trivedi who advised hold the enema 2nd to CT results pending surgical consult.
== END 2020-06-07 21:12 | disposition home or self-care (01) ==
PROVIDERS: Nurse Practitioner Family; Emergency Provider Physician Assistant; PCP Nurse Practitioner Family
DX: K59.01 Slow transit constipation (principal); J44.9 Chronic obstructive pulmonary disease, unspecified; I11.0 Hypertensive heart disease with heart failure; I50.9 Heart failure, unspecified; Z85.3 Personal history of malignant neoplasm of breast; E78.2 Mixed hyperlipidemia; Z85.89 Personal history of malignant neoplasm of other organs and systems; Z87.891 Personal history of nicotine dependence
CPT/HCPCS: 45915; 71275; 74022; 74177; 80053; 81001; 83605; 85025; 96374; 96375; 96376; 99284; J0131; J2405; J7040; Q9967

== ENCOUNTER → 2020-06-13 10:51 | Outpatient (BNVA) | payer MEDICARE, OTHER, SELFPAY | PROVIDERS: PCP Nurse Practitioner Family; Visit Provider Obstetrics & Gynecology | DX: N39.0 Urinary tract infection, site not specified (principal); R39.9 Unspecified symptoms and signs involving the genitourinary system; Z48.816 Encounter for surgical aftercare following surgery on the genitourinary system | CPT/HCPCS: 81000; 87077; 87086; 87184 ==

== ENCOUNTER 2020-06-16 11:08 | Outpatient (CLI) | payer MEDICARE, OTHER, SELFPAY ==
--- NOTE | 2020-06-16 11:12 | XR_ITS ---
WS: [id number] Chest 2 views, 06/16/2020 Clinical Data: MALIGNANT NEOPLASM OF TONSIL, FOLLOW UP Comparison: Portable chest, 05/31/2020 Findings: No nodules, masses or effusions are seen. The heart is normal. The pulmonary vascularity is not increased. No pneumonia or pneumothorax is seen. The aortic arch and descending aorta show tortu osity. The Port-A-Cath remains in good position. There is an inferior vena caval filter. XR/XR chest 2V* [id number] Impression: Atherosclerosis.
--- NOTE | 2020-06-16 11:13 | CT_ITS ---
WS: [id number] CT scan of the neck. Additional two-dimensional coronal and sagittal reconstruction was performed. Clinical Data: MALIGNANT NEOPLASM OF TONSIL, FOLLOW UP Comparison: None. DLP: 1191.[address] scans at [facility] use at least one of these dose optimization techniques: automat ed exposure control; mA and/or kV adjustment per patient size (includes targeted exams where dose is matched to clinical indication); or iterative reconstruction. Findings: No lymphadenopathy is noted. The salivary glands are unremarkable. There is no prevertebral soft tiss ue swelling. The larynx is symmetric. The thyroid gland shows normal enhancement. The floor of the mo uth and parapharyngeal spaces are normal. The oral cavity is unremarkable. The tonsils are not enlarg ed. The carotid arteries bifurcate normally with calcification of the carotid bifurcations. The cervical spine shows moderate osteoarthritis and degenerative disc narrowing at C6-C7. The lung apices show no abnormalities. The portions of the intracranial circulation which are seen demonstrate no abnormalit ies. No erosion of the skull or skull base is seen. There is opacification of the right sphenoid sinu s with small calcifications inside. CT/CT neck w con* [id number] Impression: 1. Negative for tonsillar mass. 2. Incidental calcifications in the opacified right sphenoid sinus. 3. Bilateral calcifications at the carotid bifurcations.
[2020-06-16] MEDS: iodixanol 320 mg/mL 100mL Btl IV (11:53)
== END 2020-06-16 11:09 | disposition home or self-care (01) ==
LOC: RADWPI 11:09
PROVIDERS: PCP Nurse Practitioner Family; Visit Provider Internal Medicine Hematology & Oncology
DX: C09.9 Malignant neoplasm of tonsil, unspecified (principal); I65.23 Occlusion and stenosis of bilateral carotid arteries; I70.90 Unspecified atherosclerosis
CPT/HCPCS: 70491; 71046; Q9967

== ENCOUNTER → 2020-07-11 13:04 | Outpatient (BNVA) | payer MEDICARE, OTHER, SELFPAY | PROVIDERS: PCP Nurse Practitioner Family; Visit Provider Obstetrics & Gynecology | DX: N30.00 Acute cystitis without hematuria (principal); N39.46 Mixed incontinence | CPT/HCPCS: 81000; 87086 ==

== ENCOUNTER 2020-08-04 08:56 | Outpatient (CLI) | payer MEDICARE, OTHER, SELFPAY ==
[2020-08-04 09:47] LABS: Basophils % 0.4 %; Eosinophils # 0.1 10^3/uL (0.0-0.8); Eosinophils % 1.8 %; Hematocrit 38.3 % (37.0-47.0); Hemoglobin 12.2 g/dL (11.5-15.3); Lymphocytes # 0.9 10^3/uL (0.8-4.8); Lymphocytes % 12.6 %; Mean Corpuscular HGB Conc 31.9 g/dL (30.0-36.0); Mean Corpuscular Hemoglobin 31.4 pg (28.0-34.0); Mean Corpuscular Volume 98.7 fL (81-99); Monocytes # 0.7 10^3/uL (0.2-0.9); Monocytes % 9.1 %; Neutrophils # 5.48 10^3/uL (1.8-7.7); Neutrophils % 75.7 %; Nucleated Red Blood Cells % 0 %; Platelet Count 194 10^3/cmm (130-400); Red Blood Count 3.88 10^6/uL (4.1-5.3); Red Cell Distribution Width 14.6 % (12.1-15.1); White Blood Count 7.2 10^3/uL (4.0-10.0)
[2020-08-04 09:55] LABS: Alanine Aminotransferase 7 U/L (0-33); Albumin Level 3.7 g/dL (3.5-5.2); Alkaline Phosphatase 55 IU/L (35-105); Anion Gap 12.5 (5-19); Aspartate Amino Transferase 11 U/L (0-32); Blood Urea Nitrogen 18 mg/dL (8-23); Calcium 8.7 mg/dL (8.5-10.5); Carbon Dioxide 28 mmol/L (22-29); Chloride 104 mmol/L (98-107); Globulin 2.5 g/dL (1.3-4.6); Glucose 105 mg/dL (65-115); Osmolality Calculated 294 mOsm/kg (285-295); Potassium 3.5 mmol/L (3.5-5.1); Sodium 141 mmol/L (136-145); Total Bilirubin 0.2 mg/dL (0.15-1.2); Total Protein 6.2 g/dL (6.6-8.7)
--- NOTE | 2020-08-04 14:00 | ONC FU_ITS ---
Dr. Miller follow up note Patient: Martha Patterson Unit #: [id number]: 1945 Dicatated By: Bhavani Miller M.D.Date of Visit:August 04, 2020 Onc Med Follow-up/Prog Note History of Present Illness: Mrs. Patterson is a 75-year-old female with history of progressive dysphagia and right-sided sore throat. As per patient initially she thought sore throat could be due to allergies but due to progressive nature and development of right tonsillar mass, she was referred to ENT and CT scan of the neck was done on 09/13/2018 which showed very large infiltrative also mass extending superiorly past the soft palate and measures 4 x 3 cm and there is a small level II lymph node on same side T4,N1 . 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 Now being treated with combined chemoradiation with weekly carboplatin since 12/03/2018 Patient has history of smoking but quit long time back and quit alcohol about year ago. She has history of arthritis for which she used to take low-dose methotrexate which she quit taken in July 2018, now being treated with low-dose steroids. She has history of right breast cancer diagnosed in 1975 status post right modified mastectomy followed by tamoxifen for 5 years. s/p combined therapy with radiation and weekly Carboplatin.Completed on 11/20/2018 h/o of fall off and on for the last couple of months now more often and was seen in emergency room recently on 01/30/2019 and she underwent echocardiogram on 02/04/2019 which shows normal-sized left ventricle with ejection fraction 45% patient also had Holter is monitor and as per she did not have any episode of fall while she was on monitor. Patient went to ER on 03/11/2019 with head /facial injury underwent CT scan of neck which showed no acute cervical spinal injury CT head showed thin subdural hematoma on the left extending along the left tentorium cerebelli. Old lacunar infarct on the left. She also had CT lumbar spine on 03/11/2019 which showed no acute lumbar spinal injury spinal injury because of subdural hematoma she was transferred to [facility] where during further evaluation she was found to have left leg DVT but due to left subdural hematoma and anticoagulation was not considered rather inferior vena cava filter was placed in. Next Patient was immediately admitted to hospital on 03/25/2019 with shortness of breath and left lower extremity pain underwent venous Doppler study which was positive for DVT in the left leg and also had VQ scan which was low probability for pulmonary embolism. And follow-up CT scan of the head done on 03/25/2019 showed decreased size left tentorial subdural hematoma.as per patient underwent inferior vena cava filter placement and because of subdural hematoma anticoagulation was not offered. Also had follow-up CT scan of neck done on 03/05/2019 which showed previously described large right tonsillar carcinoma has essentially resolved. Tiny amount of asymmetry at the tongue base and right tonsillar fossa likely post-therapeutic. No cervical lymphadenopathy. Follow-up CT PET scan done on 06/20/2019 showed no evidence of recurrent or residual malignancy Follow-up mammogram done on October 22, [address] scan of neck was done on 06/16/2020 showed negative for tonsillar mass, incidental calcification of an opacified right sphenoid sinus. Bilateral calcifications at the carotid bifurcation , Came for follow-up, denies any specific complaints, no fever chills, no nausea or vomiting, no diarrhea constipation, no dysphagia, no headaches blurry and double vision Medications: Isosorbide Dinitrate 1 Tablet (of 30 mg) Oral daily, Klor-Con 10 2 Tablet (of 10 meq) Tablet, controlled release Oral b.i.d., Levothyroxine Sodium 1 Tablet (of 10 mcg) Oral daily, Lisinopril 1 Tablet (of 5 mg) Oral daily, Multivitamin Adult 1 Tablet Oral daily, Pantoprazole Sodium 1 Tablet (of 40 mg) Tablet, enteric coated Oral b.i.d., predniSONE 1 Tablet (of 5 mg) Oral daily, Senna 1 Capsule (of 8.6 mg) Oral daily PRN, Tamsulosin HCl 1 Tablet (of 0.4 mg) Capsule Oral daily, Triamterene-HCTZ 1 Capsule (of 37.5-25 mg) Oral daily Allergies: milk and Sulfa Antibiotics. Review of Systems: Review of Systems is not available for this patient. Vital Signs: Performed on August 04, 2020 11:07 Height - 61.00 in Weight - 116.2 lbs (LOW) BSA - 1.50 sq.m BMI - 21.96 Temperature - 98.0 F (LOW) Pulse - 86 /min Respiration - 18 /min BP - 150/76 mm(hg) (HIGH) O2 Sat - 97 % Pain - 4 Fatigue - 4 Performance Status: 0 - Fully active, able to carry on all predisease activities without restrictions. (ECOG) Physical Examination: ENMT - No mouth sores, no thrush, no jaundice. Poor dentition.No cervical lymphadenopathy, Respiratory - Lungs are clear to auscultation, Cardiovascular - Regular rate and rhythm of heart, Abdomen - Soft, Bowel sounds present, Extremities - No visible edema. Lab/Imaging: Test performed on May 13, 2020 08:50 Sodium 139 mmol/L Potassium 4.2 mmol/L Chloride 101 mmol/L CO2 30 mmol/L Anion Gap 12.2 BUN 17 mg/dL Creatinine 0.8 mg/dL Cr Clearance (Est) 46.7000 mL/min Glucose 97 mg/dL Osmolality - Calculated 289 mOsm/kg Calcium 9.5 mg/dL Protein, Total 6.7 g/dL Albumin 4.2 g/dL Globulin 2.5 g/dL Bilirubin, Total 0.3 mg/dL ALT (SGPT) 15 U/L AST (SGOT) 16 U/L Alkaline Phosphatase 54 IU/L WBC 6.8 10 3/uL RBC 3.94 10 6/uL HGB 12.9 g/dL HCT 39.4 % MCV 100.0 fL MCH 32.7 pg MCHC 32.7 g/dL RDW 11.9 % Platelet Count 177 10 3/cmm MPV 9.8 fL Neutrophils 5.13 10 3/uL Lymphocytes 0.9 10 3/uL Monocytes 0.6 10 3/uL Eosinophils 0.2 10 3/uL Basophils 0.0 10 3/uL Neutrophil % 75.4 % Lymphocyte % 12.5 % Monocyte % 8.8 % Eosinophil % 2.3 % Basophils % 0.6 % NRBC % 0 % Test performed on Feb 12, 2020 09:42 Ferritin 473 ng/mL Iron 101 mcg/dL Iron Binding Capacity (TIBC) 222 mcg/dl % Iron Saturation 45.4 % UIBC 121 mcg/dL Impression: 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 No cervical lymphadenopathy by size criteria Repeat CT scan of neck done on 09/09/2018 showed large infiltrative tonsillar mass size 4 x 3 cm and there is a small level II lymph node on the same side cT4,N1 History of right breast cancer diagnosed in 1974 status post right MRM followed by tamoxifen for 5 years History of progressive left ear hearing loss Mild renal insufficiency Chronic arthritis in the past treated with low-dose methotrexate/prednisone but patient quit methotrexate in July 2018. CT PET scan done on 10/25/2018 showed 2.2 cm mass in the right tonsil with SUV of 14.2. A small scattered cervical nodes are FDG negative s/p concurrent therapy with radiation with weekly carboplatin Completed on 01/20/2019 Follow-up CT scan of neck done on 03/05/2019 showed resolution of tonsillar mass and no evidence of cervical lymphadenopathy Follow-up CT scan of neck done on 06/16/2020 showed no evidence of recurrence, incidental calcification in the opacified right sphenoid sinus, bilateral calcifications at the carotid bifurcation Plan: Discussed with patient regarding her labs white blood count 7.2 hemoglobin 12.2 hematocrit 38.3 platelets 194,000 CMP within normal limits and CT scan of neck which shows no evidence of recurrence but calcification at the bifurcation of bilateral carotid Clinically, patient doing well with no signs symptom suggestive of recurrence of disease, her follow-up CT scan of neck confirmed JOSE C her lab work-up is within normal range, will continue to monitor, she return to clinic in 4 months with CBC CMP in the meantime she will continue monthly port maintenance As far as, incidental finding of bilateral calcifications at the carotid bifurcations, will refer her to Dr. Mccormick for evaluation Signed By: Bhavani Miller M.D. <<Signature on File>>
== END 2020-08-04 08:57 | disposition home or self-care (01) ==
PROVIDERS: PCP Nurse Practitioner Family; Visit Provider Internal Medicine Hematology & Oncology
DX: C09.9 Malignant neoplasm of tonsil, unspecified (principal); H91.92 Unspecified hearing loss, left ear; N17.9 Acute kidney failure, unspecified; M19.90 Unspecified osteoarthritis, unspecified site; I65.23 Occlusion and stenosis of bilateral carotid arteries; Z79.52 Long term (current) use of systemic steroids; Z79.899 Other long term (current) drug therapy; Z92.3 Personal history of irradiation
CPT/HCPCS: 36591; 80053; 85025; 99215

== ENCOUNTER → 2020-08-16 10:16 | Outpatient (BNVA) | payer MEDICARE, OTHER, SELFPAY | PROVIDERS: PCP Nurse Practitioner Family; Referring Provider Obstetrics & Gynecology; Visit Provider Nurse Practitioner Family | DX: N39.46 Mixed incontinence (principal); N39.0 Urinary tract infection, site not specified | CPT/HCPCS: 81003; 87086 ==

== ENCOUNTER 2020-09-09 10:02 | Outpatient (CLI) | payer MEDICARE, OTHER, SELFPAY | END 2020-09-09 10:03 | disposition home or self-care (01) | PROVIDERS: PCP Nurse Practitioner Family; Visit Provider Internal Medicine Hematology & Oncology | DX: C09.9 Malignant neoplasm of tonsil, unspecified (principal) | CPT/HCPCS: 36591 ==

== ENCOUNTER → 2020-09-16 13:35 | Outpatient (BNVA) | payer MEDICARE, OTHER, SELFPAY | PROVIDERS: PCP Nurse Practitioner Family; Visit Provider Nurse Practitioner Family | DX: N39.0 Urinary tract infection, site not specified (principal); N39.46 Mixed incontinence | CPT/HCPCS: 81003; 87077; 87086; 87184 ==

== ENCOUNTER 2020-09-22 14:43 | Outpatient (CLI) | payer MEDICARE, OTHER, SELFPAY ==
--- NOTE | 2020-09-22 14:50 | USCV_ITS ---
Martha Patterson Age: 75 Gender: F : 1945 Exam Date: 09/22/2020 14:58 Ordering Phys: Bhavani Miller MD Technologist: Exam Location: [facility] [place]ication: CALCIFICATION SEEN ON CT Risk Factors: None Previous Vascular Surgery: None Right Brachial BP: / Left Brachial BP: / Right Left Velocity (cm/s) Spectral Plaque Velocity (cm/s) Spectral Plaque Syst/Diast Broadening Syst/Diast Broadening 54.40/ 8.50 Prox CCA 65.10 / 9.90 47.40/ 8.50 Mid CCA 64.30 / 12.40 69.90/ 10.10 Rony Distal CCA 68.40 / 12.40 Rony 99.80/ 9.30 Rony Prox ICA 76.60 / 11.50 Rony 89.40/ 17.40 Mid ICA 81.60 / 13.20 55.70/ 11.60 Distal ICA 59.30 / 16.50 150.90 ECA 107.90 1.43 ICA/CCA 1.19 Antegrade Vertebral Antegrade 35.40/ 5.40 cm/s 46.70/ 5.40 cm/s Bi Subclavian Tri 83.20 113.0 0 FINDINGS Comparison: none available. No significant elevation of systolic or diastolic velocities. Waveforms are normal. Minimal bilateral, intimal thickening with no elevation of velocity. CONCLUSIONS Bilateral ICA stenosis less than 50%. Mild bilateral atherosclerosis. Dr. Jennifer Shah DO (Electronically Signed) Final Date: 22 September 2020 15:46 S
== END 2020-09-22 14:44 | disposition home or self-care (01) ==
LOC: RAD 14:46
PROVIDERS: PCP Nurse Practitioner Family; Visit Provider Internal Medicine Hematology & Oncology
DX: I65.23 Occlusion and stenosis of bilateral carotid arteries (principal); I70.90 Unspecified atherosclerosis
CPT/HCPCS: 93880

== ENCOUNTER 2020-10-07 10:35 | Outpatient (CLI) | payer MEDICARE, OTHER, SELFPAY ==
[2020-10-07] MEDS: alteplase 1 mg/mL SDV 2 mL 2 MG INTRACATH (11:05)
== END 2020-10-07 10:36 | disposition home or self-care (01) ==
LOC: ONCMED 10:42
PROVIDERS: PCP Nurse Practitioner Family; Visit Provider Internal Medicine Hematology & Oncology
DX: Z85.89 Personal history of malignant neoplasm of other organs and systems (principal); Z85.3 Personal history of malignant neoplasm of breast; N28.9 Disorder of kidney and ureter, unspecified; M19.90 Unspecified osteoarthritis, unspecified site
CPT/HCPCS: 36593; 96374; J2997

== ENCOUNTER → 2020-10-31 08:05 | Outpatient (BNVA) | payer MEDICARE, OTHER, SELFPAY | PROVIDERS: PCP Nurse Practitioner Family; Visit Provider Urology | DX: N39.0 Urinary tract infection, site not specified (principal); N39.46 Mixed incontinence | CPT/HCPCS: 81003 ==

== ENCOUNTER 2020-11-11 10:28 | Outpatient (CLI) | payer MEDICARE, OTHER, SELFPAY | END 2020-11-11 10:29 | disposition home or self-care (01) | LOC: ONCMED 10:32 | PROVIDERS: PCP Nurse Practitioner Family; Visit Provider Internal Medicine Hematology & Oncology | DX: Z45.2 Encounter for adjustment and management of vascular access device (principal) | CPT/HCPCS: 96523 ==

== ENCOUNTER 2020-12-07 10:59 | Outpatient (CLI) | payer MEDICARE, OTHER, SELFPAY ==
[2020-12-07] MEDS: alteplase 1 mg/mL SDV 2 mL 2 MG IV (11:26)
[2020-12-07 12:25] LABS: Basophils # 0.1 10^3/uL (0.0-0.1); Basophils % 0.6 %; Eosinophils # 0.2 10^3/uL (0.0-0.8); Eosinophils % 2.7 %; Hematocrit 37.2 % (37.0-47.0); Hemoglobin 12.2 g/dL (11.5-15.3); Lymphocytes # 1.1 10^3/uL (0.8-4.8); Lymphocytes % 13.3 %; Mean Corpuscular HGB Conc 32.8 g/dL (30.0-36.0); Mean Corpuscular Hemoglobin 33.2 pg (28.0-34.0); Mean Corpuscular Volume 101.4 fl (81-99); Mean Platelet Volume 10.7 fL (7.4-10.4); Monocytes # 0.7 10^3/uL (0.2-0.9); Monocytes % 8.3 %; Neutrophils # 5.99 10^3/uL (1.8-7.7); Neutrophils % 74.6 %; Nucleated Red Blood Cells % 0 %; Platelet Count 173 10^3/cmm (130-400); Red Blood Count 3.67 10^6/uL (4.1-5.3); Red Cell Distribution Width 11.8 % (12.1-15.1)
[2020-12-07 13:23] LABS: Alanine Aminotransferase 7 U/L (0-33); Albumin Level 3.7 g/dL (3.5-5.2); Alkaline Phosphatase 61 IU/L (35-105); Anion Gap 16.8 (5-19); Aspartate Amino Transferase 13 U/L (0-32); Blood Urea Nitrogen 14 mg/dL (8-23); Calcium 9.1 mg/dL (8.5-10.5); Carbon Dioxide 25 mmol/L (22-29); Chloride 102 mmol/L (98-107); Globulin 2.7 g/dL (1.3-4.6); Glucose 87 mg/dL (65-115); Osmolality Calculated 290 mOsm/kg (285-295); Potassium 3.8 mmol/L (3.5-5.1); Sodium 140 mmol/L (136-145); Total Bilirubin 0.3 mg/dL (0.15-1.2)
[2020-12-07 13:25] LABS: Total Protein 6.4 g/dL (6.6-8.7)
--- NOTE | 2020-12-07 13:54 | ONC FU_ITS ---
Dr. Miller follow up note Patient: Martha Patterson Unit #: [id number]: 1945 Dicatated By: Bhavani Miller M.D.Date of Visit:Dec 07, 2020 Onc Med Follow-up/Prog Note History of Present Illness: Mrs. Patterson is a 75-year-old female with history of progressive dysphagia and right-sided sore throat. As per patient initially she thought sore throat could be due to allergies but due to progressive nature and development of right tonsillar mass, she was referred to ENT and CT scan of the neck was done on 09/13/2018 which showed very large infiltrative also mass extending superiorly past the soft palate and measures 4 x 3 cm and there is a small level II lymph node on same side T4,N1 . 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 Now being treated with combined chemoradiation with weekly carboplatin since 12/03/2018 Patient has history of smoking but quit long time back and quit alcohol about year ago. She has history of arthritis for which she used to take low-dose methotrexate which she quit taken in July 2018, now being treated with low-dose steroids. She has history of right breast cancer diagnosed in 1975 status post right modified mastectomy followed by tamoxifen for 5 years. s/p combined therapy with radiation and weekly Carboplatin.Completed on 11/20/2018 h/o of fall off and on for the last couple of months now more often and was seen in emergency room recently on 01/30/2019 and she underwent echocardiogram on 02/04/2019 which shows normal-sized left ventricle with ejection fraction 45% patient also had Holter is monitor and as per she did not have any episode of fall while she was on monitor. Patient went to ER on 03/11/2019 with head /facial injury underwent CT scan of neck which showed no acute cervical spinal injury CT head showed thin subdural hematoma on the left extending along the left tentorium cerebelli. Old lacunar infarct on the left. She also had CT lumbar spine on 03/11/2019 which showed no acute lumbar spinal injury spinal injury because of subdural hematoma she was transferred to [place] where during further evaluation she was found to have left leg DVT but due to left subdural hematoma and anticoagulation was not considered rather inferior vena cava filter was placed in. Next Patient was immediately admitted to hospital on 03/25/2019 with shortness of breath and left lower extremity pain underwent venous Doppler study which was positive for DVT in the left leg and also had VQ scan which was low probability for pulmonary embolism. And follow-up CT scan of the head done on 03/25/2019 showed decreased size left tentorial subdural hematoma.as per patient underwent inferior vena cava filter placement and because of subdural hematoma anticoagulation was not offered. Also had follow-up CT scan of neck done on 03/05/2019 which showed previously described large right tonsillar carcinoma has essentially resolved. Tiny amount of asymmetry at the tongue base and right tonsillar fossa likely post-therapeutic. No cervical lymphadenopathy. Follow-up CT PET scan done on 06/20/2019 showed no evidence of recurrent or residual malignancy Follow-up mammogram done on October 22, [address] scan of neck was done on 06/16/2020 showed negative for tonsillar mass, incidental calcification of an opacified right sphenoid sinus. Bilateral calcifications at the carotid bifurcation Came for follow-up, denies any specific complaints, no fever chills, no nausea or vomiting, no diarrhea constipation, no dysphagia, no hemoptysis or hematemesis, no sore throat Medications: Isosorbide Dinitrate 1 Tablet (of 30 mg) Oral daily, Klor-Con 10 2 Tablet (of 10 meq) Tablet, controlled release Oral b.i.d., Levothyroxine Sodium 1 Tablet (of 10 mcg) Oral daily, Lisinopril 1 Tablet (of 5 mg) Oral daily, Multivitamin Adult 1 Tablet Oral daily, Pantoprazole Sodium 1 Tablet (of 40 mg) Tablet, enteric coated Oral b.i.d., predniSONE 1 Tablet (of 5 mg) Oral daily, Senna 1 Capsule (of 8.6 mg) Oral daily PRN, Tamsulosin HCl 1 Tablet (of 0.4 mg) Capsule Oral daily, Triamterene-HCTZ 1 Capsule (of 37.5-25 mg) Oral daily Allergies: milk and Sulfa Antibiotics. Review of Systems: Review of Systems is not available for this patient. Vital Signs: Vitals are not available for this patient. Performance Status: 0 - Fully active, able to carry on all predisease activities without restrictions. (ECOG) Physical Examination: ENMT - No mouth sores, no thrush, no tonsillar mass or cervical lymphadenopathy, Respiratory - Lungs are clear to auscultation, Cardiovascular - Regular rate and rhythm of heart, Abdomen - Soft, bowel sounds present, Extremities - No visible edema. Lab/Imaging: Most recent lab results are not available for this patient. 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 No cervical lymphadenopathy by size criteria Repeat CT scan of neck done on 09/09/2018 showed large infiltrative tonsillar mass size 4 x 3 cm and there is a small level II lymph node on the same side cT4,N1 History of right breast cancer diagnosed in 1975 status post right MRM followed by tamoxifen for 5 years History of progressive left ear hearing loss Mild renal insufficiency Chronic arthritis in the past treated with low-dose methotrexate/prednisone but patient quit methotrexate in July 2018. CT PET scan done on 10/25/2018 showed 2.2 cm mass in the right tonsil with SUV of 14.2. A small scattered cervical nodes are FDG negative s/p concurrent therapy with radiation with weekly carboplatin Completed on 01/20/2019 Follow-up CT scan of neck done on 03/05/2019 showed resolution of tonsillar mass and no evidence of cervical lymphadenopathy Follow-up CT scan of neck done on 06/16/2020 showed no evidence of recurrence, incidental calcification in the opacified right sphenoid sinus, bilateral calcifications at the carotid bifurcation Plan: . Discussed with patient regarding her labs white blood count 8 hemoglobin 12.2 hematocrit 37.2 platelets 173,000 CMP within normal limits Clinically, patient doing well with no new signs symptoms just of recurrence of disease, as per patient she has been following her ENT physician in [place] on regular basis, her lab work-up is within normal range, on physical exam no cervical lymphadenopathy, no ulceration or mass seen in the mouth or limited exam pharynx. Will continue to monitor she will return to clinic in 6 months with CBC CMP. Signed By: Bhavani Miller M.D. <<Signature on File>>
== END 2020-12-07 11:00 | disposition home or self-care (01) ==
LOC: ONCMED 11:02
PROVIDERS: PCP Nurse Practitioner Family; Visit Provider Internal Medicine Hematology & Oncology
DX: Z08 Encounter for follow-up examination after completed treatment for malignant neoplasm (principal); Z85.818 Personal history of malignant neoplasm of other sites of lip, oral cavity, and pharynx; Z85.3 Personal history of malignant neoplasm of breast; H91.92 Unspecified hearing loss, left ear; N28.9 Disorder of kidney and ureter, unspecified; M19.90 Unspecified osteoarthritis, unspecified site; Z79.52 Long term (current) use of systemic steroids; Z79.899 Other long term (current) drug therapy; Z79.890 Hormone replacement therapy; Z87.891 Personal history of nicotine dependence
CPT/HCPCS: 36593; 80053; 85025; 96374; 99215; J2997

== ENCOUNTER → 2020-12-20 15:19 | Outpatient (BNVA) | payer MEDICARE, OTHER, SELFPAY | PROVIDERS: PCP Nurse Practitioner Family; Visit Provider Nurse Practitioner Family | DX: N39.0 Urinary tract infection, site not specified (principal); N39.46 Mixed incontinence | CPT/HCPCS: 81003 ==

== ENCOUNTER 2021-01-13 08:28 | Outpatient (CLI) | payer MEDICARE, OTHER, SELFPAY | END 2021-01-13 08:29 | disposition home or self-care (01) | PROVIDERS: PCP Nurse Practitioner Family; Visit Provider Internal Medicine Hematology & Oncology | DX: Z45.2 Encounter for adjustment and management of vascular access device (principal) | CPT/HCPCS: 96523 ==

== ENCOUNTER → 2021-02-01 14:12 | Outpatient (BNVA) | payer MEDICARE, OTHER, SELFPAY | PROVIDERS: PCP Nurse Practitioner Family; Visit Provider Nurse Practitioner Family | DX: N39.0 Urinary tract infection, site not specified (principal) | CPT/HCPCS: 81003 ==

== ENCOUNTER 2021-02-07 14:36 | Outpatient (CLI) | payer MEDICARE, OTHER, SELFPAY ==
--- NOTE | 2021-02-07 15:30 | MM_ITS ---
WS: [id number] DIAGNOSTIC LEFT DIGITAL MAMMOGRAM WITH CAD HISTORY: Z85.3 - Personal history of malignant neoplasm of breast COMPARISON: 10/22/2019, 03/18/2018 Technique: CC, MLO and ML views. Breast composition: There are scattered areas of fibroglandular density. Scattered benign calcificat ions. No suspicious mass or grouping of calcifications. MM/[place] [id number] IMPRESSION: BI-RADS: 2-Benign FOLLOW UP: 1 Year Follow-up
== END 2021-02-07 14:37 | disposition home or self-care (01) ==
LOC: RADSHAW 14:43
PROVIDERS: PCP Nurse Practitioner Family; Visit Provider Nurse Practitioner Family
DX: Z85.3 Personal history of malignant neoplasm of breast (principal)
CPT/HCPCS: 77065

== ENCOUNTER 2021-02-17 10:02 | Outpatient (CLI) | payer MEDICARE, OTHER, SELFPAY ==
[2021-02-17] MEDS: alteplase 1 mg/mL SDV 2 mL 2 MG IV (10:35)
== END 2021-02-17 10:03 | disposition home or self-care (01) ==
LOC: ONCMED 10:07
PROVIDERS: PCP Nurse Practitioner Family; Visit Provider Internal Medicine Hematology & Oncology
DX: C09.9 Malignant neoplasm of tonsil, unspecified (principal); D64.9 Anemia, unspecified; Z79.899 Other long term (current) drug therapy
CPT/HCPCS: 96374; 96523; J2997

== ENCOUNTER → 2021-03-13 10:03 | Outpatient (BNVA) | payer MEDICARE, OTHER, SELFPAY | PROVIDERS: PCP Nurse Practitioner Family; Visit Provider Urology | DX: N39.0 Urinary tract infection, site not specified (principal); N39.46 Mixed incontinence | CPT/HCPCS: 81003 ==

== ENCOUNTER 2021-03-17 08:44 | Outpatient (CLI) | payer MEDICARE, OTHER, SELFPAY | END 2021-03-17 08:45 | disposition home or self-care (01) | LOC: ONCMED 08:48 | PROVIDERS: PCP Nurse Practitioner Family; Visit Provider Internal Medicine Hematology & Oncology | DX: Z45.2 Encounter for adjustment and management of vascular access device (principal) | CPT/HCPCS: 96523 ==

== ENCOUNTER 2021-04-14 10:40 | Outpatient (CLI) | payer MEDICARE, OTHER, SELFPAY | END 2021-04-14 10:41 | disposition home or self-care (01) | LOC: ONCMED 10:49 | PROVIDERS: PCP Nurse Practitioner Family; Visit Provider Internal Medicine Hematology & Oncology | DX: Z45.2 Encounter for adjustment and management of vascular access device (principal) | CPT/HCPCS: 96523 ==

== ENCOUNTER 2021-05-11 14:54 | Outpatient (CLI) | payer MEDICARE, OTHER, SELFPAY ==
--- NOTE | 2021-05-11 15:00 | USCV_ITS ---
Martha Patterson Age: 75 Gender: F : 1945 Exam Date: 05/11/2021 15:10 Ordering Phys: Jono Mccormick MD (Andy) ([email or web address] [place] Technologist: Exam Location: [facility] Indication: CCA DISEASE Risk Factors: Previous Vascular Surgery: Right Brachial BP: / Left Brachial BP: / Right Left Velocity (cm/s) Spectral Plaque Velocity (cm/s) Spectral Plaque Syst/Diast Broadening Syst/Diast Broadening 76.50/ 15.10 Prox CCA 60.30 / 10.20 81.50/ 11.80 Mid CCA 67.70 / 12.20 48.70/ 5.90 Hetro Distal CCA 62.30 / 12.55 Hetro 106.70/9.20 Hetro Prox ICA 98.90 / 17.60 Hetro 108.05/19.30 Rony Mid ICA 81.30 / 23.00 Hetro 112.50/22.50 Distal ICA 79.90 / 14.90 94.55 ECA 143.60 1.50 ICA/CCA 1.46 Antegrade Vertebral Antegrade 32.20/ 5.30 cm/s 65.00/ 12.90 cm/s Bi Subclavian Bi 48.80 96.20 CONCLUSIONS Right ICA stenosis <50%. Moderate atheromatous plaque right carotid bulb/ICA. Left ICA stenosis <50%. Moderate atheromatous plaque left carotid bulb/ICA. Normal antegrade Doppler flow noted in the right vertebral artery. Normal antegrade Doppler flow noted in the left vertebral artery. Van Vela MD (Electronically Signed) Final Date: 11 May 2021 16:23 S
== END 2021-05-11 14:55 | disposition home or self-care (01) ==
LOC: RAD 15:02
PROVIDERS: PCP Nurse Practitioner Family; Visit Provider Thoracic Surgery (Cardiothoracic Vascular Surgery)
DX: I65.23 Occlusion and stenosis of bilateral carotid arteries (principal)
CPT/HCPCS: 93880

== ENCOUNTER 2021-05-12 09:38 | Outpatient (CLI) | payer MEDICARE, OTHER, SELFPAY | END 2021-05-12 09:39 | disposition home or self-care (01) | LOC: ONCMED 09:44 | PROVIDERS: PCP Nurse Practitioner Family; Visit Provider Internal Medicine Hematology & Oncology | DX: Z45.2 Encounter for adjustment and management of vascular access device (principal) | CPT/HCPCS: 96523 ==

== ENCOUNTER 2021-06-08 12:35 | Outpatient (CLI) | payer MEDICARE, OTHER, SELFPAY ==
[2021-06-08 13:34] LABS: Basophils % 0.5 %; Eosinophils # 0.2 10^3/uL (0.0-0.8); Eosinophils % 2.1 %; Hematocrit 39.4 % (37.0-47.0); Hemoglobin 12.7 g/dL (11.5-15.3); Lymphocytes # 1.5 10^3/uL (0.8-4.8); Lymphocytes % 18.4 %; Mean Corpuscular HGB Conc 32.2 g/dL (30.0-36.0); Mean Corpuscular Hemoglobin 32.2 pg (28.0-34.0); Mean Platelet Volume 10.1 fL (7.4-10.4); Monocytes # 0.7 10^3/uL (0.2-0.9); Monocytes % 8.7 %; Neutrophils # 5.56 10^3/uL (1.8-7.7); Neutrophils % 69.8 %; Nucleated Red Blood Cells % 0 %; Platelet Count 217 10^3/cmm (130-400); Red Blood Count 3.94 10^6/uL (4.1-5.3)
[2021-06-08 13:52] LABS: Alanine Aminotransferase 9 U/L (0-33); Albumin Level 4.4 g/dL (3.5-5.2); Alkaline Phosphatase 52 IU/L (35-105); Aspartate Amino Transferase 15 U/L (0-32); Blood Urea Nitrogen 18 mg/dL (8-23); Calcium 9.3 mg/dL (8.5-10.5); Carbon Dioxide 25 mmol/L (22-29); Chloride 105 mmol/L (98-107); Globulin 2.3 g/dL (1.3-4.6); Glucose 92 mg/dL (65-115); Osmolality Calculated 296 mOsm/kg (285-295); Sodium 142 mmol/L (136-145); Total Bilirubin 0.3 mg/dL (0.15-1.2); Total Protein 6.7 g/dL (6.6-8.7)
[2021-06-08 13:55] LABS: Anion Gap 15.6 (5-19); Potassium 3.6 mmol/L (3.5-5.1)
--- NOTE | 2021-06-09 12:51 | ONC FU_ITS ---
Dr. Miller follow up note Patient: Martha Patterson Unit #: [id number]: 1945 Dicatated By: Bhavani Miller M.D.Date of Visit:Jun 08, 2021 Onc Med Follow-up/Prog Note History of Present Illness: Mrs. Patterson is a 76-year-old female with history of progressive dysphagia and right-sided sore throat. As per patient initially she thought sore throat could be due to allergies but due to progressive nature and development of right tonsillar mass, she was referred to ENT and CT scan of the neck was done on 09/13/2018 which showed very large infiltrative also mass extending superiorly past the soft palate and measures 4 x 3 cm and there is a small level II lymph node on same side T4,N1 . 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 Now being treated with combined chemoradiation with weekly carboplatin since 12/03/2018 Patient has history of smoking but quit long time back and quit alcohol about year ago. She has history of arthritis for which she used to take low-dose methotrexate which she quit taken in July 2018, now being treated with low-dose steroids. She has history of right breast cancer diagnosed in 1975 status post right modified mastectomy followed by tamoxifen for 5 years. s/p combined therapy with radiation and weekly Carboplatin.Completed on 11/20/2018 h/o of fall off and on for the last couple of months now more often and was seen in emergency room recently on 01/30/2019 and she underwent echocardiogram on 02/04/2019 which shows normal-sized left ventricle with ejection fraction 45% patient also had Holter is monitor and as per she did not have any episode of fall while she was on monitor. Patient went to ER on 03/11/2019 with head /facial injury underwent CT scan of neck which showed no acute cervical spinal injury CT head showed thin subdural hematoma on the left extending along the left tentorium cerebelli. Old lacunar infarct on the left. She also had CT lumbar spine on 03/11/2019 which showed no acute lumbar spinal injury spinal injury because of subdural hematoma she was transferred to [place] where during further evaluation she was found to have left leg DVT but due to left subdural hematoma and anticoagulation was not considered rather inferior vena cava filter was placed in. Next Patient was immediately admitted to hospital on 03/25/2019 with shortness of breath and left lower extremity pain underwent venous Doppler study which was positive for DVT in the left leg and also had VQ scan which was low probability for pulmonary embolism. And follow-up CT scan of the head done on 03/25/2019 showed decreased size left tentorial subdural hematoma.as per patient underwent inferior vena cava filter placement and because of subdural hematoma anticoagulation was not offered. Also had follow-up CT scan of neck done on 03/05/2019 which showed previously described large right tonsillar carcinoma has essentially resolved. Tiny amount of asymmetry at the tongue base and right tonsillar fossa likely post-therapeutic. No cervical lymphadenopathy. Follow-up CT PET scan done on 06/20/2019 showed no evidence of recurrent or residual malignancy Follow-up mammogram done on October 22, [address] scan of neck was done on 06/16/2020 showed negative for tonsillar mass, incidental calcification of an opacified right sphenoid sinus. Bilateral calcifications at the carotid bifurcation Came for follow-up, denies any specific complaint except off and on tightness and all the time dryness in her mouth since chemo radiation therapy, and denies any dysphagia, but sticky food, denies any mouth sores or bleeding, denies any hemoptysis or hematemesis, denies any jaundice, denies any nausea or vomiting denies any diarrhea or constipation denies any fever or chills denies any postnasal drip.Patient used to go to [place] for ENT evaluation For history of squamous cell carcinoma of right tonsil, now considering switching to local ENT physician for follow-up Medications: Isosorbide Dinitrate 1 Tablet (of 30 mg) Oral daily, Klor-Con 10 2 Tablet (of 10 meq) Tablet, controlled release Oral b.i.d., Levothyroxine Sodium 1 Tablet (of 10 mcg) Oral daily, Lisinopril 1 Tablet (of 5 mg) Oral daily, Multivitamin Adult 1 Tablet Oral daily, Pantoprazole Sodium 1 Tablet (of 40 mg) Tablet, enteric coated Oral b.i.d., predniSONE 1 Tablet (of 5 mg) Oral daily, Senna 1 Capsule (of 8.6 mg) Oral daily PRN, Tamsulosin HCl 1 Tablet (of 0.4 mg) Capsule Oral daily, Triamterene-HCTZ 1 Capsule (of 37.5-25 mg) Oral daily Allergies: milk and Sulfa Antibiotics. Review of Systems: Review of Systems is not available for this patient. Vital Signs: Performed on Jun 08, 2021 14:30 Height - 61.00 in BP - 178/71 mm(hg) (HIGH) Performed on Jun 08, 2021 14:29 Height - 61.00 in Weight - 124.8 lbs (HIGH) BSA - 1.55 sq.m BMI - 23.58 Temperature - 97.2 F (LOW) Pulse - 79 /min Respiration - 16 /min BP - 185/74 mm(hg) (HIGH) O2 Sat - 98 % Pain - 0 Fatigue - 2 Performance Status: 0 - Fully active, able to carry on all predisease activities without restrictions. (ECOG) Physical Examination: ENMT - Dry oral mucosa, no thrush, no sores, no jaundice, no cervical lymphadenopathy, Respiratory - Lungs are clear to auscultation, Cardiovascular - Regular rate and rhythm of heart, Abdomen - Soft, bowel sounds present, Extremities - No visible edema. Lab/Imaging: Most recent lab results are not available for this patient. 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 No cervical lymphadenopathy by size criteria Repeat CT scan of neck done on 09/09/2018 showed large infiltrative tonsillar mass size 4 x 3 cm and there is a small level II lymph node on the same side cT4,N1 History of right breast cancer diagnosed in 1975 status post right MRM followed by tamoxifen for 5 years History of progressive left ear hearing loss Mild renal insufficiency Chronic arthritis in the past treated with low-dose methotrexate/prednisone but patient quit methotrexate in July 2018. CT PET scan done on 10/25/2018 showed 2.2 cm mass in the right tonsil with SUV of 14.2. A small scattered cervical nodes are FDG negative s/p concurrent therapy with radiation with weekly carboplatin Completed on 01/20/2019 Follow-up CT scan of neck done on 03/05/2019 showed resolution of tonsillar mass and no evidence of cervical lymphadenopathy Follow-up CT scan of neck done on 06/16/2020 showed no evidence of recurrence, incidental calcification in the opacified right sphenoid sinus, bilateral calcifications at the carotid bifurcation Plan: Discussed with patient regarding her labs white blood count 8 hemoglobin 12.7 g hematocrit 39.4 platelets 217,000 CMP within normal limits Clinically, patient doing well with no new signs symptom except dryness of mouth and tightness in the mouth which could be related to history of combined chemoradiation given for squamous cell carcinoma right tonsil. On limited exam there is no obvious oral lesion but sticky mucosa and oral dryness observed no thrush. And no cervical lymphadenopathy. Her lab work-up is within normal range. At this point we will continue with monthly port maintenance and she return to clinic in 6 months in the meantime we will refer her to local ENT for evaluation regarding progressive oral dryness and off-and-on tightness in her mouth. Signed By: Bhavani Miller M.D. <<Signature on File>>
== END 2021-06-08 12:36 | disposition home or self-care (01) ==
PROVIDERS: PCP Nurse Practitioner Family; Visit Provider Internal Medicine Hematology & Oncology
DX: C09.9 Malignant neoplasm of tonsil, unspecified (principal); N28.9 Disorder of kidney and ureter, unspecified; M19.90 Unspecified osteoarthritis, unspecified site; Z79.899 Other long term (current) drug therapy; Z85.3 Personal history of malignant neoplasm of breast
CPT/HCPCS: 36591; 80053; 85025; 99214

== ENCOUNTER → 2021-06-15 09:24 | Outpatient (BNVA) | payer MEDICARE, OTHER, SELFPAY | PROVIDERS: PCP Nurse Practitioner Family; Visit Provider Thoracic Surgery (Cardiothoracic Vascular Surgery) | DX: R55 Syncope and collapse (principal); I65.23 Occlusion and stenosis of bilateral carotid arteries; Z87.891 Personal history of nicotine dependence | CPT/HCPCS: 99213 ==

== ENCOUNTER 2021-07-10 13:46 | Outpatient (CLI) | payer MEDICARE, OTHER, SELFPAY | END 2021-07-10 13:47 | disposition home or self-care (01) | LOC: ONCMED 13:50 | PROVIDERS: PCP Family Medicine; Visit Provider Internal Medicine Hematology & Oncology | DX: Z45.2 Encounter for adjustment and management of vascular access device (principal) | CPT/HCPCS: 96523 ==

== ENCOUNTER 2021-08-09 14:06 | Oncology outpatient (recurring) (ONCR) | payer MEDICARE, OTHER, SELFPAY | END 2021-08-29 23:59 | disposition home or self-care (01) | PROVIDERS: PCP Family Medicine; Visit Provider Internal Medicine Hematology & Oncology | DX: Z45.2 Encounter for adjustment and management of vascular access device (principal) | CPT/HCPCS: 96523 ==

== ENCOUNTER 2021-09-11 14:01 | Oncology outpatient (recurring) (ONCR) | payer MEDICARE, OTHER, SELFPAY | END 2021-09-28 23:59 | disposition home or self-care (01) | LOC: ONCMED 14:02 | PROVIDERS: PCP Family Medicine; Visit Provider Internal Medicine Hematology & Oncology | DX: Z45.2 Encounter for adjustment and management of vascular access device (principal) | CPT/HCPCS: 96523 ==

== ENCOUNTER → 2021-09-28 12:17 | Outpatient (BNVA) | payer MEDICARE, OTHER, SELFPAY | PROVIDERS: PCP Family Medicine; Visit Provider Internal Medicine | DX: M35.9 Systemic involvement of connective tissue, unspecified (principal); M54.2 Cervicalgia; Z79.52 Long term (current) use of systemic steroids | CPT/HCPCS: 99204 ==

== ENCOUNTER 2021-10-11 14:04 | Oncology outpatient (recurring) (ONCR) | payer MEDICARE, OTHER, SELFPAY ==
[2021-10-11 14:34] VITALS: BP 154/76; PULSE 86; RESP 16; TEMP 36.6; O2SAT 94
== END 2021-10-29 23:59 | disposition home or self-care (01) ==
LOC: ONCMED 14:04
PROVIDERS: PCP Family Medicine; Visit Provider Internal Medicine Hematology & Oncology
DX: Z45.2 Encounter for adjustment and management of vascular access device (principal)
CPT/HCPCS: 96523

== ENCOUNTER 2021-11-13 14:08 | Oncology outpatient (recurring) (ONCR) | payer MEDICARE, OTHER, SELFPAY ==
[2021-11-13 14:32] VITALS: BMI 24.7
== END 2021-11-29 23:59 | disposition home or self-care (01) ==
LOC: ONCMED 14:09
PROVIDERS: PCP Family Medicine; Visit Provider Internal Medicine Hematology & Oncology
DX: Z45.2 Encounter for adjustment and management of vascular access device (principal)
CPT/HCPCS: 96523

== ENCOUNTER 2021-12-11 11:47 | Outpatient (CLI) | payer MEDICARE, OTHER, SELFPAY ==
--- NOTE | 2021-12-11 12:15 | USCV_ITS ---
Martha Patterson Age: 76 Gender: F : 1945 Exam Date: 12/11/2021 12:13 Ordering Phys: Jono Mccormick MD (Andy) ([email or web address] [place]) Technologist: [place] [facility] [place] EVAL FOR CAROTID STENOSIS Risk Factors: Previous Vascular Surgery: Right Brachial BP: / Left Brachial BP: / Right Left Velocity (cm/s) Spectral Plaque Velocity (cm/s) Spectral Plaque Syst/Diast Broadening Syst/Diast Broadening 88.20/ 6.60 Prox CCA 133.80/ 13.80 77.70/ 16.30 Mid CCA 85.40 / 23.70 61.40/ 13.20 Distal CCA 62.40 / 12.80 91.30/ 20.60 Prox ICA 48.50 / 13.30 116.40/22.40 Mid ICA 65.80 / 13.30 43.40/ 10.30 Distal ICA 55.40 / 15.40 109.20 ECA 108.60 1.32 ICA/CCA 0.49 Antegrade Vertebral Antegrade 43.60/ 15.40 cm/s 49.80/ 6.80 cm/s Tri Subclavian Tri 135.4 151.2 0 0 FINDINGS Comparison:. 05/11/21 No significant elevation of systolic or diastolic velocities. Waveforms are normal. Calcified plaque in the bifurcations. Antegrade vertebral arteries. CONCLUSIONS Bilateral ICA stenosis less than 50%. Mild carotid atherosclerosis. Dr. Jennifer Shah DO (Electronically Signed) Final Date: 11 December 2021 13:44 S
== END 2021-12-11 11:48 | disposition home or self-care (01) ==
LOC: RAD 11:50
PROVIDERS: PCP Family Medicine; Visit Provider Thoracic Surgery (Cardiothoracic Vascular Surgery)
DX: I65.23 Occlusion and stenosis of bilateral carotid arteries (principal); R55 Syncope and collapse
CPT/HCPCS: 93880

== ENCOUNTER 2021-12-12 13:00 | Oncology outpatient (recurring) (ONCR) | payer MEDICARE, OTHER, SELFPAY ==
[2021-12-12 13:37] LABS: Basophils # 0.1 10^3/uL (0.0-0.1); Basophils % 0.8 %; Eosinophils # 0.2 10^3/uL (0.0-0.8); Eosinophils % 1.9 %; Hematocrit 39.9 % (37.0-47.0); Lymphocytes # 0.8 10^3/uL (0.8-4.8); Mean Corpuscular HGB Conc 32.6 g/dL (30.0-36.0); Mean Corpuscular Hemoglobin 31.6 pg (28.0-34.0); Mean Corpuscular Volume 97.1 fl (81-99); Mean Platelet Volume 10.1 fL (7.4-10.4); Monocytes # 0.5 10^3/uL (0.2-0.9); Monocytes % 6.3 %; Neutrophils # 6.74 10^3/uL (1.8-7.7); Neutrophils % 80.5 %; Nucleated Red Blood Cells % 0 %; Platelet Count 222 10^3/cmm (130-400); Red Blood Count 4.11 10^6/uL (4.1-5.3); Red Cell Distribution Width 12.3 % (12.1-15.1); White Blood Count 8.4 10^3/uL (4.0-10.0)
[2021-12-12 13:49] LABS: Alanine Aminotransferase 8 U/L (0-33); Alkaline Phosphatase 55 U/L (35-105); Anion Gap 15.9 (5-19); Aspartate Amino Transferase 15 U/L (0-32); Blood Urea Nitrogen 16 mg/dL (8-23); Calcium 9.3 mg/dL (8.5-10.5); Carbon Dioxide 24 mmol/L (22-29); Chloride 105 mmol/L (98-107); Glucose 93 mg/dL (65-115); Osmolality Calculated 293 mOsm/kg (285-295); Potassium 3.9 mmol/L (3.5-5.1); Sodium 141 mmol/L (136-145); Total Bilirubin 0.4 mg/dL (0.15-1.2)
== END 2021-12-29 23:59 | disposition home or self-care (01) ==
PROVIDERS: Nurse Practitioner; PCP Family Medicine; Visit Provider Internal Medicine Hematology & Oncology
DX: Z08 Encounter for follow-up examination after completed treatment for malignant neoplasm (principal); Z85.89 Personal history of malignant neoplasm of other organs and systems; Z92.21 Personal history of antineoplastic chemotherapy; Z92.3 Personal history of irradiation; Z87.891 Personal history of nicotine dependence
CPT/HCPCS: 36591; 80053; 85025; 99213; 99214

== ENCOUNTER → 2021-12-19 13:46 | Outpatient (BNVA) | payer MEDICARE, OTHER, SELFPAY | PROVIDERS: PCP Family Medicine; Visit Provider Podiatrist Foot & Ankle Surgery | DX: L60.0 Ingrowing nail (principal) | CPT/HCPCS: 11750; 99203 ==

== ENCOUNTER → 2021-12-29 13:56 | Outpatient (BNVA) | payer MEDICARE, OTHER, SELFPAY | PROVIDERS: PCP Family Medicine; Visit Provider Podiatrist Foot & Ankle Surgery | DX: L60.0 Ingrowing nail (principal) | CPT/HCPCS: 99213 ==

== ENCOUNTER → 2022-01-18 09:22 | Outpatient (BNVA) | payer MEDICARE, OTHER, SELFPAY | PROVIDERS: PCP Family Medicine; Visit Provider Thoracic Surgery (Cardiothoracic Vascular Surgery) | DX: I65.23 Occlusion and stenosis of bilateral carotid arteries (principal); Z98.62 Peripheral vascular angioplasty status; Z98.890 Other specified postprocedural states; I10 Essential (primary) hypertension; J44.9 Chronic obstructive pulmonary disease, unspecified; I25.10 Atherosclerotic heart disease of native coronary artery without angina pectoris; F17.210 Nicotine dependence, cigarettes, uncomplicated | CPT/HCPCS: 99213 ==

== ENCOUNTER 2022-01-18 09:54 | Oncology outpatient (recurring) (ONCR) | payer MEDICARE, OTHER, SELFPAY | END 2022-01-29 23:59 | disposition home or self-care (01) | PROVIDERS: PCP Family Medicine; Visit Provider Internal Medicine Hematology & Oncology | DX: Z08 Encounter for follow-up examination after completed treatment for malignant neoplasm (principal); Z85.89 Personal history of malignant neoplasm of other organs and systems; Z92.21 Personal history of antineoplastic chemotherapy; Z92.3 Personal history of irradiation; Z87.891 Personal history of nicotine dependence | CPT/HCPCS: 96523; 99213 ==

== ENCOUNTER 2022-02-16 10:50 | Oncology outpatient (recurring) (ONCR) | payer MEDICARE, OTHER, SELFPAY | END 2022-02-28 23:59 | disposition home or self-care (01) | PROVIDERS: PCP Family Medicine; Visit Provider Internal Medicine Hematology & Oncology | DX: Z45.2 Encounter for adjustment and management of vascular access device | CPT/HCPCS: 96523 ==

== ENCOUNTER 2022-03-16 10:49 | Oncology outpatient (recurring) (ONCR) | payer MEDICARE, OTHER, SELFPAY ==
--- NOTE | 2022-03-16 14:15 | MM_ITS ---
WS: [id number] LEFT 3D TOMOSYNTHESIS DIGITAL MAMMOGRAPHY WITH CAD CLINICAL INFORMATION: HX OF BREAST CA;RT MST HISTORY: RIGHT mastectomy COMPARISON: February 07, 2021 TECHNIQUE: 3 views of the left breast were obtained. FINDINGS: Scattered fibroglandular densities of the left breast. Punctate and lucent centered calcifications LE FT breast. Clustered dystrophic calcifications LEFT breast. Vascular calcification. No suspicious focal mass, asymmetry, calcifications, or architectural distortion. No evidence of dayne gnancy. MM/[place] [id number] IMPRESSION: BI-RADS: 2-Benign FOLLOW UP: 1 Year Follow-up Recommend return to annual diagnostic mammography.
== END 2022-03-31 23:59 | disposition home or self-care (01) ==
LOC: ONCMED 10:50
PROVIDERS: PCP Family Medicine; Visit Provider Internal Medicine Hematology & Oncology
DX: Z45.2 Encounter for adjustment and management of vascular access device (principal); Z95.828 Presence of other vascular implants and grafts; Z85.3 Personal history of malignant neoplasm of breast
CPT/HCPCS: 77061; 96523; G0279

== ENCOUNTER 2022-04-13 10:31 | Oncology outpatient (recurring) (ONCR) | payer MEDICARE, OTHER, SELFPAY | END 2022-05-01 23:59 | disposition home or self-care (01) | PROVIDERS: PCP Family Medicine; Visit Provider Internal Medicine Hematology & Oncology | DX: Z45.2 Encounter for adjustment and management of vascular access device (principal); Z95.828 Presence of other vascular implants and grafts | CPT/HCPCS: 96523 ==

== ENCOUNTER 2022-05-11 10:31 | Oncology outpatient (recurring) (ONCR) | payer MEDICARE, OTHER, SELFPAY | END 2022-05-29 23:59 | disposition home or self-care (01) | PROVIDERS: PCP Family Medicine; Visit Provider Internal Medicine Hematology & Oncology | DX: Z45.2 Encounter for adjustment and management of vascular access device (principal); Z95.828 Presence of other vascular implants and grafts | CPT/HCPCS: 96523 ==

== ENCOUNTER → 2022-05-30 14:11 | Outpatient (BNVA) | payer MEDICARE, OTHER, SELFPAY | PROVIDERS: PCP Family Medicine; Visit Provider Family Medicine | DX: R42 Dizziness and giddiness (principal) | CPT/HCPCS: 85025 ==

== ENCOUNTER 2022-06-13 12:54 | Oncology outpatient (recurring) (ONCR) | payer MEDICARE, OTHER, SELFPAY ==
[2022-06-13 13:33] LABS: Basophils % 0.4 %; Eosinophils # 0.1 10^3/uL (0.0-0.8); Eosinophils % 0.5 %; Hematocrit 38.6 % (37.0-47.0); Hemoglobin 12.8 g/dL (11.5-15.3); Lymphocytes # 0.8 10^3/uL (0.8-4.8); Lymphocytes % 7.6 %; Mean Corpuscular HGB Conc 33.2 g/dL (30.0-36.0); Mean Corpuscular Hemoglobin 31.4 pg (28.0-34.0); Mean Corpuscular Volume 94.8 fl (81-99); Mean Platelet Volume 9.7 fL (7.4-10.4); Monocytes # 0.6 10^3/uL (0.2-0.9); Neutrophils # 9.41 10^3/uL (1.8-7.7); Nucleated Red Blood Cells % 0 %; Platelet Count 237 10^3/cmm (130-400); Red Blood Count 4.07 10^6/uL (4.1-5.3); Red Cell Distribution Width 12.4 % (12.1-15.1)
[2022-06-13 13:51] LABS: Alanine Aminotransferase 9 U/L (0-33); Albumin Level 4.2 g/dL (3.5-5.2); Alkaline Phosphatase 47 U/L (35-105); Anion Gap 17.7 (5-19); Aspartate Amino Transferase 20 U/L (0-32); Blood Urea Nitrogen 24 mg/dL (8-23); Calcium 9.1 mg/dL (8.5-10.5); Carbon Dioxide 26 mmol/L (22-29); Chloride 94 mmol/L (98-107); Globulin 2.8 g/dL (1.3-4.6); Glucose 111 mg/dL (65-115); Osmolality Calculated 283 mOsm/kg (285-295); Potassium 3.7 mmol/L (3.5-5.1); Sodium 134 mmol/L (136-145); Total Bilirubin 0.3 mg/dL (0.15-1.2)
== END 2022-06-29 23:59 | disposition home or self-care (01) ==
PROVIDERS: PCP Family Medicine; Visit Provider Internal Medicine Hematology & Oncology
DX: Z08 Encounter for follow-up examination after completed treatment for malignant neoplasm; Z85.818 Personal history of malignant neoplasm of other sites of lip, oral cavity, and pharynx; Z90.09 Acquired absence of other part of head and neck; D72.829 Elevated white blood cell count, unspecified; Z92.21 Personal history of antineoplastic chemotherapy; Z92.3 Personal history of irradiation; Z95.828 Presence of other vascular implants and grafts
CPT/HCPCS: 80053; 85025; 99213; 99214

== ENCOUNTER → 2022-06-20 15:19 | Outpatient (BNVA) | payer MEDICARE, OTHER, SELFPAY | PROVIDERS: PCP Family Medicine; Visit Provider Internal Medicine | DX: M35.9 Systemic involvement of connective tissue, unspecified (principal); M79.643 Pain in unspecified hand; Z11.1 Encounter for screening for respiratory tuberculosis | CPT/HCPCS: 72040; 73120; 99214 ==

== ENCOUNTER 2022-07-17 12:52 | Oncology outpatient (recurring) (ONCR) | payer MEDICARE, OTHER, SELFPAY ==
[2022-07-17 14:21] LABS: Erythrocyte Sedimentation Rate 9 mm/hr (0-15)
[2022-07-18 11:54] LABS: COMPLEMENT COMPONENT C3C 117 mg/dL (83-193); COMPLEMENT COMPONENT C4C 27 mg/dL (15-57)
[2022-07-18 13:16] LABS: COMPLEMENT, TOTAL (CH50) 49 U/mL (31-60)
[2022-07-18 14:20] LABS: Cyclic Citrullinated Peptide <16 UNITS
[2022-07-19 16:20] LABS: Quantiferon Mitogen >10.00 IU/mL; Quantiferon Nil 0.01 IU/mL; Quantiferon TB Gold NEGATIVE (NEGATIVE)
[2022-07-19 17:54] LABS: CENTROMERE B ANTIBODY <1.0 NEG AI (<1.0 NEG); JO-1 ANTIBODY <1.0 NEG AI (<1.0 NEG); RNP ANTIBODY <1.0 NEG AI (<1.0 NEG); SCL-70 ANTIBODY <1.0 NEG AI (<1.0 NEG); SJOGREN'S ANTIBODY (SS-A) <1.0 NEG AI (<1.0 NEG); SM ANTIBODY <1.0 NEG AI (<1.0 NEG); SS-B <1.0 NEG AI (<1.0 NEG)
[2022-07-20 15:54] LABS: THYROID PEROXIDASE ANTIBODIES <1 IU/mL (<9)
[2022-07-23 10:20] LABS: ANA SCREEN, IFA POSITIVE (NEGATIVE)
[2022-07-24 14:39] LABS: DNA AB (DS) CRITHIDIA,IFA NEGATIVE (NEGATIVE)
[2022-07-26 10:45] LABS: ANA PATTERN Nuclear, Speckled
== END 2022-07-29 23:59 | disposition home or self-care (01) ==
LOC: ONCMED 12:52
PROVIDERS: Internal Medicine; PCP Family Medicine; Visit Provider Internal Medicine Hematology & Oncology
DX: N39.46 Mixed incontinence (principal); Z45.2 Encounter for adjustment and management of vascular access device
CPT/HCPCS: 85651; 86140; 86160; 86162; 86200; 86235; 86255; 86376; 86431; 86480; 96523

== ENCOUNTER 2022-08-16 12:53 | Oncology outpatient (recurring) (ONCR) | payer MEDICARE, OTHER, SELFPAY ==
[2022-08-16 13:39] VITALS: BP 134/78; PULSE 92; RESP 18; TEMP 35.9; O2SAT 97
== END 2022-08-29 23:59 | disposition home or self-care (01) ==
LOC: ONCMED 12:54
PROVIDERS: PCP Family Medicine; Visit Provider Internal Medicine Hematology & Oncology
DX: Z95.828 Presence of other vascular implants and grafts; Z45.2 Encounter for adjustment and management of vascular access device
CPT/HCPCS: 96523; J1642

== ENCOUNTER → 2022-09-06 15:41 | Outpatient (BNVA) | payer MEDICARE, OTHER, SELFPAY | PROVIDERS: PCP Family Medicine; Visit Provider Nurse Practitioner | DX: N39.0 Urinary tract infection, site not specified (principal) | CPT/HCPCS: 81000 ==

== ENCOUNTER 2022-09-12 13:04 | Oncology outpatient (recurring) (ONCR) | payer MEDICARE, OTHER, SELFPAY ==
[2022-09-12 13:48] VITALS: BP 136/88; PULSE 90; RESP 18; TEMP 36; O2SAT 95
== END 2022-09-28 23:59 | disposition home or self-care (01) ==
PROVIDERS: PCP Family Medicine; Visit Provider Internal Medicine Hematology & Oncology
DX: Z45.2 Encounter for adjustment and management of vascular access device (principal); Z53.9 Procedure and treatment not carried out, unspecified reason
CPT/HCPCS: 96523; J1642

== ENCOUNTER → 2022-09-19 15:43 | Outpatient (BNVA) | payer MEDICARE, OTHER, SELFPAY | PROVIDERS: PCP Family Medicine; Visit Provider Nurse Practitioner | DX: N39.0 Urinary tract infection, site not specified (principal) | CPT/HCPCS: 81000; 87077; 87086; 87184 ==

== ENCOUNTER → 2022-09-26 15:29 | Outpatient (BNVA) | payer MEDICARE, OTHER, SELFPAY | PROVIDERS: PCP Family Medicine; Visit Provider Internal Medicine | DX: M35.9 Systemic involvement of connective tissue, unspecified (principal); M79.643 Pain in unspecified hand; M54.2 Cervicalgia | CPT/HCPCS: 99214 ==

== ENCOUNTER 2022-10-10 12:37 | Oncology outpatient (recurring) (ONCR) | payer MEDICARE, OTHER, SELFPAY ==
[2022-10-10 12:41] VITALS: BP 110/65; PULSE 105; RESP 18; TEMP 37; O2SAT 92
== END 2022-10-29 23:59 | disposition home or self-care (01) ==
LOC: ONCMED 12:37
PROVIDERS: PCP Family Medicine; Visit Provider Internal Medicine Hematology & Oncology
DX: Z45.2 Encounter for adjustment and management of vascular access device (principal)
CPT/HCPCS: 96523; J1642

== ENCOUNTER → 2022-10-15 13:58 | Outpatient (BNVA) | payer MEDICARE, OTHER, SELFPAY | PROVIDERS: PCP Family Medicine; Visit Provider Nurse Practitioner Family | DX: N39.0 Urinary tract infection, site not specified (principal) | CPT/HCPCS: 81000 ==

== ENCOUNTER 2022-10-16 04:51 | Emergency (ER) | payer MEDICARE, OTHER, SELFPAY ==
--- NOTE | 2022-10-16 04:53 | XRR_ITS ---
PROCEDURE INFORMATION: Exam: XR Right Hip Exam date and time: 10/16/2022 5:23 AM Age: 77 years old Clinical indication: Injury or trauma; Fall; Crushing; Right; Prior surgery; Surgery date: 04/20/2022 + months; Surgery type: Hip repl. TECHNIQUE: Imaging protocol: Radiologic exam of the right hip. Views: 1 view hip with pelvis when performed. COMPARISON: CT abdomen pelvis w con* [id number] 06/02/2020 11:35 AM FINDINGS: Bones/joints: The patient has a right hip prosthesis. The acetabular and femoral components appear in satisfactory position. There is no acute fracture or dislocation. If symptoms persist, follow-up imaging in several days may be useful to exclude an occult or subtle fracture. No other significant acute bone or joint abnormality. Prominent degenerative disc changes in the lower lumbar spine. Soft tissues: Vascular calcifications noted. XR/XR hip RT 2-3V wo/w pel* [id number] IMPRESSION: 1. No acute fracture or dislocation. 2. Other findings discussed above.
--- NOTE | 2022-10-16 04:53 | XRR_ITS ---
PROCEDURE INFORMATION: Exam: XR Chest Exam date and time: 10/16/2022 5:31 AM Age: 77 years old Clinical indication: Injury or trauma; Fall; Crushing TECHNIQUE: Imaging protocol: Radiologic exam of the chest. Views: 1 view. COMPARISON: CR XR chest 2V* [id number] 06/16/2020 11:22 AM FINDINGS: Tubes, catheters and devices: Essentially unchanged position of left-sided Port-A-Cath. Lungs: No CHF/pulmonary edema. Visible lungs appear essentially clear. Pleural spaces: No visible pneumothorax. No definite pleural fluid. Heart/Mediastinum: Heart size is within normal limits. Diaphragm: Mild elevation of the right hemidiaphragm. Bones/joints: No significant acute finding. XR/XR chest 1V portable [id number] IMPRESSION: 1. No CHF or pneumonia. 2. No visible pneumothorax. 3. Other findings discussed above.
[2022-10-16 04:58] VITALS: BP 153/82; PULSE 104; RESP 20; TEMP 37.6; O2SAT 100; BMI 25.4
--- NOTE | 2022-10-16 04:58 | XRR_ITS ---
PROCEDURE INFORMATION: Exam: XR Right Knee Exam date and time: 10/16/2022 5:28 AM Age: 77 years old Clinical indication: Injury or trauma; Fall; Work related; Crushing; Patella or knee; Right TECHNIQUE: Imaging protocol: Radiologic exam of the right knee. Views: 3 views. COMPARISON: No relevant prior studies available. FINDINGS: Bones/joints: There is no acute fracture or dislocation. If symptoms persist, follow-up imaging in several days may be useful to exclude an occult or subtle fracture. No other significant acute bone or joint abnormality. Moderate to severe joint space narrowing both medially and laterally. Soft tissues: Moderate soft tissue fullness in the suprapatellar region likely indicates evidence of joint effusion. XR/XR knee RT 3V* [id number] IMPRESSION: 1. No acute fracture or dislocation. 2. Suspected knee joint effusion.
--- NOTE | 2022-10-16 05:03 | ED_ITS ---
Documented by User: Natalie Lozada MD 10/16/22 05:05 HPI - Fall General: Chief Complaint: Fall Stated Complaint: FALL Time Seen by Provider: 10/16/22 04:53 Source: patient and EMS Mode of arrival: EMS Limitations: no limitations History of Present Illness: 77-year-old female who is here by EMS after a fall. States she tripped and fell landed on her right side she complains of right knee and hip pain she rates that pain a 6 out of 10 and EMS states she was able to ambulate. She denies any other injuries denies any headache or loss conscious denies neck pain. Associated symptoms-after fall: Denies abdominal pain, chest pain, headache(s) or neck pain Review of Systems Const: Denies: fever(s), chills, body aches or change in appetite ENMT: Denies: throat pain or dental pain Card: Denies: chest pain Resp: Denies: dyspnea GI: Denies: abdominal pain, nausea, vomiting or diarrhea Musc: Reports: extremity pain; Denies: neck pain or back pain Skin/Breast: Denies: rash Neuro: Denies: headache(s) PFSH ED 2 PFSH: Medical History Abnormal nuclear stress test Benign essential HTN Brain bleed Carotid stenosis, bilateral Cervicalgia Chronic congestive heart failure Chronic GERD COPD (chronic obstructive pulmonary disease) Generalized weakness H/O deep venous thrombosis History of breast cancer History of nonmelanoma skin cancer Hypothyroidism (acquired) Ingrown right big toenail Mild hyperlipidemia Mixed incontinence Mixed stress and urge urinary incontinence Pain of right foot Polymorphic ventricular tachycardia Recurrent UTI SCCA (squamous cell carcinoma) of skin Syncope and collapse Tonsil cancer Urinary incontinence Surgical History H/O abdominoplasty H/O vaginal surgery (05/31/20) Laparoscopic BSO, Uterosacral ligament suspension with enterocele, Anterior colporrhaphy, Cystoscopy. Performed by Dr. Isaac at [facility] in [place], [place] History of insertion of tunneled central venous catheter (CVC) with port History of left hip replacement S/P IVC filter (~03/13/19) DVT after hip replacement IVC Filter placed March 13, 2019 at [facility] Status post carpal tunnel release Status post hysterectomy (~1970) Vaginal per patient, ovaries were spared Status post right mastectomy with breast reconstruction with abdominal trans-flap. Status post total hip replacement, left Family History Mother Diabetes Hypertension Uterine cancer Diagnosed in her 70s CAD (coronary artery disease) Family/Other Diabetes maternal aunt Chronic kidney disease (CKD) Father Hypertension Heart disease of [place] at age 59 CAD (coronary artery disease) Daughter Breast cancer With Mets; at age 50 Sister Dementia Denies family history of Clotting disorder Suicide Anesthesia complication Bleeding disorder Lung disease Cancer Stroke Social History Smoking and tobacco status: former smoker Quit status (tobacco): has quit using tobacco Year quit tobacco: 1989 Former quit date comment: Started smoked as a teenager and smoked 1/2 pack per day Alcohol intake: current Alcohol intake frequency: holidays/special occasions only Substance/Drug Use: never Marital status: Current occupational status: retired Physical Exam Const: COMMON NORMALS: no acute distress, patient oriented x3 and healthy appearing HENMT: COMMON NORMALS: normocephalic and atraumatic HEAD & SCALP: normocephalic and atraumatic Eye: COMMON NORMALS: conjunctivae normal CONJUNCTIVA: Yes conjunctivae normal Neck/C-Spine: COMMON NORMALS: full ROM and supple Chest: COMMONS NORMALS: normal inspection of the chest and normal palpation of entire chest wall Resp: COMMON NORMALS: normal respiratory effort, No retractions, No use of accessory muscles and clear to auscultation bilaterally AUSCULTATION: clear to auscultation bilaterally Cardio: COMMON NORMALS: regular rate, regular rhythm and No murmurs present (Cardio) RATE: regular rate RHYTHM: regular rhythm GI: COMMON NORMALS: Normal to inspection, nondistended, normoactive bowel sounds present, Soft to palpation, non-tender and no masses PALPATION: Yes Soft to palpation Extremity: NARRATIVE EXTREMITY EXAM: Tenderness over right knee does have pain with range of motion Neuro: COMMON NORMALS: patient oriented x3, moves all extremities and no focal motor deficits Psych: COMMON NORMALS: mental status grossly normal, Normal thought process present and cooperative THOUGHT PROCESS: Normal thought process present Skin: COMMON NORMALS: no rashes or lesions noted and no wounds GENERAL SKIN EXAM: no rashes or lesions noted Course Vital Signs: Vital signs: Vital Signs Temperature 99.6 F 10/16/22 04:58 Pulse Rate 116 H 10/16/22 06:11 Respiratory Rate 23 H 10/16/22 06:11 Blood Pressure 141/102 10/16/22 06:11 Pulse Oximetry 98 10/16/22 06:11 Oxygen Delivery Me thod Room Air 10/16/22 06:11 MDM - Fall Lab Data 10/16/22 06:05 10/16/22 06:05 Radiology Impressions Chest X-Ray 10/16/22 04:53 IMPRESSION: 1. No CHF or pneumonia. 2. No visible pneumothorax. 3. Other findings discussed above. Hip/Pelvis X-Ray 10/16/22 04:53 IMPRESSION: 1. No acute fracture or dislocation. 2. Other findings discussed above. Knee X-Ray 10/16/22 04:58 IMPRESSION: 1. No acute fracture or dislocation. 2. Suspected knee joint effusion. Head CT 10/16/22 05:06 IMPRESSION: 1. No acute intracranial hemorrhage or mass effect. 2. Changes of microvascular disease, and old lacunar infarcts. 3. Other findings discussed above. Laboratory Results WBC 14.0 10^3/uL (4.0-10.0) H 10/16/22 06:05 RBC 4.01 10^6/uL (4.1-5.3) L 10/16/22 06:05 Hgb 12.7 g/dL (11.5-15.3) 10/16/22 06:05 Hct 37.5 % (37.0-47.0) 10/16/22 06:05 MCV 93.5 fl (81-99) 10/16/22 06:05 MCH 31.7 pg (28.0-34.0) 10/16/22 06:05 MCHC 33.9 g/dL (30.0-36.0) 10/16/22 06:05 RDW 11.9 % (12.1-15.1) L 10/16/22 06:05 Plt Count 245 10^3/cmm (130-400) 10/16/22 06:05 MPV 9.1 fL (7.4-10.4) 10/16/22 06:05 Neut % (Auto) 91.4 % 10/16/22 06:05 Lymph % (Auto) 4.1 % 10/16/22 06:05 Rabun % (Auto) 3.2 % 10/16/22 06:05 Eos % (Auto) 0.3 % 10/16/22 06:05 Baso % (Auto) 0.4 % 10/16/22 06:05 Neut # (Auto) 12.83 10^3/uL (1.8-7.7) H 10/16/22 06:05 Lymph # (Auto) 0.6 10^3/uL (0.8-4.8) L 10/16/22 06:05 Rabun # (Auto) 0.5 10^3/uL (0.2-0.9) 10/16/22 06:05 Eos # (Auto) 0.0 10^3/uL (0.0-0.8) 10/16/22 06:05 Baso # (Auto) 0.1 10^3/uL (0.0-0.1) 10/16/22 06:05 Nucleated RBC % (auto) 0 % 10/16/22 06:05 Nucleated RBCs # 0.0 /100WBC 10/16/22 06:05 Sodium 135 mmol/L (136-145) L 10/16/22 06:05 Potassium 3.1 mmol/L (3.5-5.1) L 10/16/22 06:05 Chloride 96 mmol/L (98-107) L 10/16/22 06:05 Carbon Dioxide 21 mmol/L (22-29) L 10/16/22 06:05 Anion Gap 21.1 (5-19) H 10/16/22 06:05 BUN 26 mg/dL (8-23) H 10/16/22 06:05 Creatinine 1.5 mg/dL (0.5-0.9) H 10/16/22 06:05 GFR Calculation Not Reportable 10/16/22 06:05 Glucose 128 mg/dL (65-115) H 10/16/22 06:05 Calculated Osmolality 286 mOsm/kg (285-295) 10/16/22 06:05 Calcium 9.7 mg/dL (8.5-10.5) 10/16/22 06:05 Total Bilirubin 0.7 mg/dL (0.15-1.2) 10/16/22 06:05 AST 18 U/L (0-32) 10/16/22 06:05 ALT 12 U/L (0-33) 10/16/22 06:05 Alkaline Phosphatase 51 U/L (35-105) 10/16/22 06:05 Total Protein 7.0 g/dL (6.6-8.7) 10/16/22 06:05 Albumin 4.0 g/dL (3.5-5.2) 10/16/22 06:05 Globulin 3.0 g/dL (1.3-4.6) 10/16/22 06:05 Discharge Plan Discharge Patient Disposition: Home Clinical Impression: Fall, Osteoarthritis Condition: Stable Prescriptions: New diclofenac sodium 75 mg tablet,delayed release (DR/EC) 75 mg PO Q12H PRN (Reason: pain) Qty: 20 0RF Discontinued diclofenac sodium [Voltaren Arthritis Pain] 1 % gel 4 g topical QID Qty: 100 2RF Rx Instructions: apply to single knee, ankle, foot; for foot includes sole/toes/top of foot No Action folic acid 400 mcg tablet 400 mcg PO DAILY ketoconazole 2 % shampoo 1 applic topical ONCE Qty: 120 6RF Rx Instructions: Lather into scalp 2-3 times weekly. Allow to sit on scalp 5 minutes before rinsing mometasone 0.1 % solution 1 applic topical DAILY Qty: 60 3RF Rx Instructions: apply a few drops to scalp daily as needed for itch prednisone 5 mg tablet 5 mg PO DAILY Qty: 30 3RF leflunomide 10 mg tablet 10 mg PO DAILY Qty: 30 3RF nitrofurantoin monohyd/m-cryst [Macrobid] 100 mg capsule 100 mg PO BID Qty: 20 0RF Rx Instructions: must administer with a meal/food hydroxychloroquine 200 mg tablet 200 mg PO BID Qty: 60 4RF meclizine 25 mg tablet 25 mg PO DAILY PRN (Reason: motion sickness/dizziness) 30 Days Qty: 30 0RF imiquimod 5 % cream in packet 1 applic topical ONCE Qty: 24 1RF Rx Instructions: apply thin film to Saturday-Saturday (off weekends) for 6 weeks. cyclobenzaprine 10 mg tablet See Rx Instructions .ROUTE .COMPLEX 7 Days Qty: 14 0RF Dose Instruction: TAKE ONE TABLET BY MOUTH TWICE DAILY NEEDED FOR MUSCLE SPASM Rx Instructions: TAKE ONE TABLET BY MOUTH TWICE DAILY NEEDED FOR MUSCLE SPASM lisinopril 20 mg tablet See Rx Instructions .ROUTE .COMPLEX Qty: 180 0RF Dose Instruction: TAKE 1 TABLET TWICE DAILY Rx Instructions: TAKE 1 TABLET TWICE DAILY chlorthalidone 25 mg tablet See Rx Instructions .ROUTE .COMPLEX Qty: 60 0RF Dose Instruction: TAKE 1 TABLET EVERY DAY Rx Instructions: TAKE 1 TABLET EVERY DAY levothyroxine 25 mcg tablet See Rx Instructions .ROUTE .COMPLEX Qty: 90 1RF Dose Instruction: Take 1 tablet by mouth once daily Rx Instructions: Take 1 tablet by mouth once daily pantoprazole 40 mg tablet,delayed release (DR/EC) See Rx Instructions .ROUTE .COMPLEX Qty: 90 0RF Dose Instruction: TAKE 1 TABLET EVERY DAY Rx Instructions: TAKE 1 TABLET EVERY DAY cephalexin 500 mg capsule 500 mg PO TID Qty: 21 0RF phenazopyridine [Pyridium] 200 mg tablet 200 mg PO TID Qty: 6 0RF Discharge Orders: Discharge ED (Routine); Ordered 10/16/22 Ordered By: Colton Rivera Referrals: Bhaskar Lara MD [Primary Care Provider] - Discharge Diet: Usual diet Discharge Activity: Resume usual activity Patient Instructions: Opioid Safety, Pain Management Coding Level of Care Code ED Getter Operator for Chg Fwd Documented by User: Colton Rivera DO 10/16/22 07:31 HPI - Fall General: Chief Complaint: Fall Stated Complaint: FALL Time Seen by Provider: 10/16/22 04:53 PFS ED PFSH: Medical History Abnormal nuclear stress test Benign essential HTN Brain bleed Carotid stenosis, bilateral Cervicalgia Chronic congestive heart failure Chronic GERD COPD (chronic obstructive pulmonary disease) Generalized weakness H/O deep venous thrombosis History of breast cancer History of nonmelanoma skin cancer Hypothyroidism (acquired) Ingrown right big toenail Mild hyperlipidemia Mixed incontinence Mixed stress and urge urinary incontinence Pain of right foot Polymorphic ventricular tachycardia Recurrent UTI SCCA (squamous cell carcinoma) of skin Syncope and collapse Tonsil cancer Urinary incontinence Surgical History H/O abdominoplasty H/O vaginal surgery (05/31/20) Laparoscopic BSO, Uterosacral ligament suspension with enterocele, Anterior colporrhaphy, Cystoscopy. Performed by Dr. Isaac at [facility] in [place], [place] History of insertion of tunneled central venous catheter (CVC) with port History of left hip replacement S/P IVC filter (~03/13/19) DVT after hip replacement IVC Filter placed March 13, 2019 at [facility] Status post carpal tunnel release Status post hysterectomy (~1969) Vaginal per patient, ovaries were spared Status post right mastectomy with breast reconstruction with abdominal trans-flap. Status post total hip replacement, left Family History Mother Diabetes Hypertension Uterine cancer Diagnosed in her 70s CAD (coronary artery disease) Family/Other Diabetes maternal aunt Chronic kidney disease (CKD) Father Hypertension Heart disease of [place] at age 59 CAD (coronary artery disease) Daughter Breast cancer With Mets; at age 50 Sister Dementia Denies family history of Clotting disorder Suicide Anesthesia complication Bleeding disorder Lung disease Cancer Stroke Social History Smoking and tobacco status: former smoker Quit status (tobacco): has quit using tobacco Year quit tobacco: 1989 Former quit date comment: Started smoked as a teenager and smoked 1/2 pack per day Alcohol intake: current Alcohol intake frequency: holidays/special occasions only Substance/Drug Use: never Marital status: Current occupational status: retired Course Vital Signs: Vital signs: Vital Signs Temperature 99.6 F 10/16/22 04:58 Pulse Rate 116 H 10/16/22 06:11 Respiratory Rate 23 H 10/16/22 06:11 Blood Pressure 141/102 10/16/22 06:11 Pulse Oximetry 98 10/16/22 06:11 Oxygen Delivery Me thod Room Air 10/16/22 06:11 MDM - Fall Medical Decision Making Care assumed at change of shift from Dr. Lozada. X-rays and CT unremarkable laboratory tests show mild leukocytosis but clinically there is no sign of infection at this time. Patient is ambulatory up sitting at the bedside anxious to be discharged. She is asking for change in pain medications reviewed her old records from Dr. Ferrer that he has referred her to the pain clinic she tells me she does not yet have an appointment time for that. We will have her stop the diclofenac topical use diclofenac oral her thinks he she has not been using topical anyway. Follow-up with primary care or rheumatology as needed. Medical Records I reviewed the patient's medical records. Lab Data I reviewed the patient's lab results. 10/16/22 06:05 10/16/22 06:05 Radiology Impressions Chest X-Ray 10/16/22 04:53 IMPRESSION: 1. No CHF or pneumonia. 2. No visible pneumothorax. 3. Other findings discussed above. Hip/Pelvis X-Ray 10/16/22 04:53 IMPRESSION: 1. No acute fracture or dislocation. 2. Other findings discussed above. Knee X-Ray 10/16/22 04:58 IMPRESSION: 1. No acute fracture or dislocation. 2. Suspected knee joint effusion. Head CT 10/16/22 05:06 IMPRESSION: 1. No acute intracranial hemorrhage or mass effect. 2. Changes of microvascular disease, and old lacunar infarcts. 3. Other findings discussed above. Laboratory Results WBC 14.0 10^3/uL (4.0-10.0) H 10/16/22 06:05 RBC 4.01 10^6/uL (4.1-5.3) L 10/16/22 06:05 Hgb 12.7 g/dL (11.5-15.3) 10/16/22 06:05 Hct 37.5 % (37.0-47.0) 10/16/22 06:05 MCV 93.5 fl (81-99) 10/16/22 06:05 MCH 31.7 pg (28.0-34.0) 10/16/22 06:05 MCHC 33.9 g/dL (30.0-36.0) 10/16/22 06:05 RDW 11.9 % (12.1-15.1) L 10/16/22 06:05 Plt Count 245 10^3/cmm (130-400) 10/16/22 06:05 MPV 9.1 fL (7.4-10.4) 10/16/22 06:05 Neut % (Auto) 91.4 % 10/16/22 06:05 Lymph % (Auto) 4.1 % 10/16/22 06:05 Rabun % (Auto) 3.2 % 10/16/22 06:05 Eos % (Auto) 0.3 % 10/16/22 06:05 Baso % (Auto) 0.4 % 10/16/22 06:05 Neut # (Auto) 12.83 10^3/uL (1.8-7.7) H 10/16/22 06:05 Lymph # (Auto) 0.6 10^3/uL (0.8-4.8) L 10/16/22 06:05 Rabun # (Auto) 0.5 10^3/uL (0.2-0.9) 10/16/22 06:05 Eos # (Auto) 0.0 10^3/uL (0.0-0.8) 10/16/22 06:05 Baso # (Auto) 0.1 10^3/uL (0.0-0.1) 10/16/22 06:05 Nucleated RBC % (auto) 0 % 10/16/22 06:05 Nucleated RBCs # 0.0 /100WBC 10/16/22 06:05 Sodium 135 mmol/L (136-145) L 10/16/22 06:05 Potassium 3.1 mmol/L (3.5-5.1) L 10/16/22 06:05 Chloride 96 mmol/L (98-107) L 10/16/22 06:05 Carbon Dioxide 21 mmol/L (22-29) L 10/16/22 06:05 Anion Gap 21.1 (5-19) H 10/16/22 06:05 BUN 26 mg/dL (8-23) H 10/16/22 06:05 Creatinine 1.5 mg/dL (0.5-0.9) H 10/16/22 06:05 GFR Calculation Not Reportable 10/16/22 06:05 Glucose 128 mg/dL (65-115) H 10/16/22 06:05 Calculated Osmolality 286 mOsm/kg (285-295) 10/16/22 06:05 Calcium 9.7 mg/dL (8.5-10.5) 10/16/22 06:05 Total Bilirubin 0.7 mg/dL (0.15-1.2) 10/16/22 06:05 AST 18 U/L (0-32) 10/16/22 06:05 ALT 12 U/L (0-33) 10/16/22 06:05 Alkaline Phosphatase 51 U/L (35-105) 10/16/22 06:05 Total Protein 7.0 g/dL (6.6-8.7) 10/16/22 06:05 Albumin 4.0 g/dL (3.5-5.2) 10/16/22 06:05 Globulin 3.0 g/dL (1.3-4.6) 10/16/22 06:05 Discharge Plan Discharge Patient Disposition: Home Clinical Impression: Fall, Osteoarthritis Condition: Stable Prescriptions: New diclofenac sodium 75 mg tablet,delayed release (DR/EC) 75 mg PO Q12H PRN (Reason: pain) Qty: 20 0RF Discontinued diclofenac sodium [Voltaren Arthritis Pain] 1 % gel 4 g topical QID Qty: 100 2RF Rx Instructions: apply to single knee, ankle, foot; for foot includes sole/toes/top of foot No Action folic acid 400 mcg tablet 400 mcg PO DAILY ketoconazole 2 % shampoo 1 applic topical ONCE Qty: 120 6RF Rx Instructions: Lather into scalp 2-3 times weekly. Allow to sit on scalp 5 minutes before rinsing mometasone 0.1 % solution 1 applic topical DAILY Qty: 60 3RF Rx Instructions: apply a few drops to scalp daily as needed for itch prednisone 5 mg tablet 5 mg PO DAILY Qty: 30 3RF leflunomide 10 mg tablet 10 mg PO DAILY Qty: 30 3RF nitrofurantoin monohyd/m-cryst [Macrobid] 100 mg capsule 100 mg PO BID Qty: 20 0RF Rx Instructions: must administer with a meal/food hydroxychloroquine 200 mg tablet 200 mg PO BID Qty: 60 4RF meclizine 25 mg tablet 25 mg PO DAILY PRN (Reason: motion sickness/dizziness) 30 Days Qty: 30 0RF imiquimod 5 % cream in packet 1 applic topical ONCE Qty: 24 1RF Rx Instructions: apply thin film to Tino-Saturday (off weekends) for 6 weeks. cyclobenzaprine 10 mg tablet See Rx Instructions .ROUTE .COMPLEX 7 Days Qty: 14 0RF Dose Instruction: TAKE ONE TABLET BY MOUTH TWICE DAILY NEEDED FOR MUSCLE SPASM Rx Instructions: TAKE ONE TABLET BY MOUTH TWICE DAILY NEEDED FOR MUSCLE SPASM lisinopril 20 mg tablet See Rx Instructions .ROUTE .COMPLEX Qty: 180 0RF Dose Instruction: TAKE 1 TABLET TWICE DAILY Rx Instructions: TAKE 1 TABLET TWICE DAILY chlorthalidone 25 mg tablet See Rx Instructions .ROUTE .COMPLEX Qty: 60 0RF Dose Instruction: TAKE 1 TABLET EVERY DAY Rx Instructions: TAKE 1 TABLET EVERY DAY levothyroxine 25 mcg tablet See Rx Instructions .ROUTE .COMPLEX Qty: 90 1RF Dose Instruction: Take 1 tablet by mouth once daily Rx Instructions: Take 1 tablet by mouth once daily pantoprazole 40 mg tablet,delayed release (DR/EC) See Rx Instructions .ROUTE .COMPLEX Qty: 90 0RF Dose Instruction: TAKE 1 TABLET EVERY DAY Rx Instructions: TAKE 1 TABLET EVERY DAY cephalexin 500 mg capsule 500 mg PO TID Qty: 21 0RF phenazopyridine [Pyridium] 200 mg tablet 200 mg PO TID Qty: 6 0RF Discharge Orders: Discharge ED (Routine); Ordered 10/16/22 Ordered By: Colton Rivera Referrals: Bhaskar Lara MD [Primary Care Provider] - Discharge Diet: Usual diet Discharge Activity: Resume usual activity Patient Instructions: Opioid Safety, Pain Management Coding Level of Care Code ED Getter Operator for Mary Balderas
--- NOTE | 2022-10-16 05:06 | CTR_ITS ---
PROCEDURE INFORMATION: Exam: CT Head Without Contrast Exam date and time: 10/16/2022 5:34 AM Age: 77 years old Clinical indication: Injury or trauma; Fall; Blunt trauma (contusions or hematomas) TECHNIQUE: Imaging protocol: Computed tomography of the head without contrast. Radiation optimization: All CT scans at this facility use at least one of these dose optimization techniques: automated exposure control; mA and/or kV adjustment per patient size (includes targeted exams where dose is matched to clinical indication); or iterative reconstruction. REPORTING DATA: Count of CT and Cardiac NM exams in prior 12 months: This patient has received 0 known CTs and 0 known cardiac nuclear medicine studies in the 12 months prior to the current study. COMPARISON: CT Head wo IV contrast* [id number] 03/25/2019 12:43 PM RADIATION DOSE METRICS: Total DLP (mGy-cm): 1079.51 FINDINGS: Brain: No acute intracranial hemorrhage or mass effect. There is decreased attenuation in the periventricular white matter, likely from microvascular disease. There are old lacunar infarcts in the left basal ganglia region. No definite acute infarct by CT. Cerebral ventricles: Ventricle size is normal for age. Paranasal sinuses: Prominent opacity in the right aspect of the sphenoid sinus, similar to the prior exam. Included paranasal sinuses otherwise appear essentially clear. Mastoid air cells: No significant acute finding. Bones/joints: No definite acute skull fracture. Soft tissues: No significant acute finding. Vasculature: Vascular calcifications in the internal carotid and vertebral basilar systems. CT/CT head wo con* [id number] IMPRESSION: 1. No acute intracranial hemorrhage or mass effect. 2. Changes of microvascular disease, and old lacunar infarcts. 3. Other findings discussed above.
[2022-10-16 05:18] VITALS: BP 159/78; PULSE 107; RESP 18; O2SAT 100
[2022-10-16] MEDS: HYDROcodone-acetaminophen 5-325 mg Tablet 1 TAB PO (06:08)
[2022-10-16 06:11] VITALS: BP 141/102; PULSE 116; RESP 23; O2SAT 98
[2022-10-16 06:11] LABS: Basophils # 0.1 10^3/uL (0.0-0.1); Basophils % 0.4 %; Eosinophils % 0.3 %; Hematocrit 37.5 % (37.0-47.0); Hemoglobin 12.7 g/dL (11.5-15.3); Lymphocytes # 0.6 10^3/uL (0.8-4.8); Lymphocytes % 4.1 %; Mean Corpuscular HGB Conc 33.9 g/dL (30.0-36.0); Mean Corpuscular Hemoglobin 31.7 pg (28.0-34.0); Mean Corpuscular Volume 93.5 fl (81-99); Mean Platelet Volume 9.1 fL (7.4-10.4); Monocytes # 0.5 10^3/uL (0.2-0.9); Monocytes % 3.2 %; Neutrophils # 12.83 10^3/uL (1.8-7.7); Neutrophils % 91.4 %; Nucleated Red Blood Cells % 0 %; Platelet Count 245 10^3/cmm (130-400); Red Blood Count 4.01 10^6/uL (4.1-5.3); Red Cell Distribution Width 11.9 % (12.1-15.1)
[2022-10-16 06:41] LABS: Alanine Aminotransferase 12 U/L (0-33); Alkaline Phosphatase 51 U/L (35-105); Anion Gap 21.1 (5-19); Aspartate Amino Transferase 18 U/L (0-32); Blood Urea Nitrogen 26 mg/dL (8-23); Calcium 9.7 mg/dL (8.5-10.5); Carbon Dioxide 21 mmol/L (22-29); Chloride 96 mmol/L (98-107); Glucose 128 mg/dL (65-115); Osmolality Calculated 286 mOsm/kg (285-295); Potassium 3.1 mmol/L (3.5-5.1); Sodium 135 mmol/L (136-145); Total Bilirubin 0.7 mg/dL (0.15-1.2)
[2022-10-16 07:50] VITALS: BP 110/79; PULSE 120; O2SAT 97
== END 2022-10-16 07:51 | disposition home or self-care (01) ==
PROVIDERS: Emergency Medicine; Emergency Provider Family Medicine; PCP Family Medicine
DX: M19.90 Unspecified osteoarthritis, unspecified site (principal); Z87.891 Personal history of nicotine dependence; Z96.642 Presence of left artificial hip joint; I10 Essential (primary) hypertension; J44.9 Chronic obstructive pulmonary disease, unspecified; Z85.3 Personal history of malignant neoplasm of breast; E78.2 Mixed hyperlipidemia; Z85.89 Personal history of malignant neoplasm of other organs and systems; W01.0XXA Fall on same level from slipping, tripping and stumbling without subsequent striking against object, initial encounter
CPT/HCPCS: 70450; 71045; 73502; 73562; 80053; 85025; 99284

== ENCOUNTER 2022-10-23 20:25 | Emergency (ER) | payer MEDICARE, OTHER, SELFPAY ==
--- NOTE | 2022-10-23 20:31 | XRR_ITS ---
PROCEDURE INFORMATION: Exam: XR Chest Exam date and time: 10/23/2022 8:47 PM Age: 77 years old Clinical indication: Injury or trauma; Fall TECHNIQUE: Imaging protocol: Radiologic exam of the chest. Views: 1 view. COMPARISON: CR (CHEST, ) 10/16/2022 5:31 AM FINDINGS: Tubes, catheters and devices: Left-sided Port-A-Cath. Lungs: Unremarkable. No consolidation. Pleural spaces: Unremarkable. No pleural effusion. No pneumothorax. Heart/Mediastinum: Cardiomegaly. Bones/joints: Unremarkable. XR/XR chest 1V portable [id number] IMPRESSION: 1. Negative for traumatic injury to the chest. 2. Cardiomegaly. 3. Left-sided Port-A-Cath.
--- NOTE | 2022-10-23 20:31 | CTR_ITS ---
PROCEDURE INFORMATION: Exam: CT Head Without Contrast Exam date and time: 10/23/2022 9:05 PM Age: 77 years old Clinical indication: Injury or trauma; Fall; Blunt trauma (contusions or hematomas); Consciousness not specified TECHNIQUE: Imaging protocol: Computed tomography of the head without contrast. Radiation optimization: All CT scans at this facility use at least one of these dose optimization techniques: automated exposure control; mA and/or kV adjustment per patient size (includes targeted exams where dose is matched to clinical indication); or iterative reconstruction. REPORTING DATA: Count of CT and Cardiac NM exams in prior 12 months: This patient has received [address] and 0 known cardiac nuclear medicine studies in the 12 months prior to the current study. COMPARISON: CT head wo con* [id number] 10/16/2022 5:34 AM RADIATION DOSE METRICS: Total DLP (mGy-cm): 1041.49 FINDINGS: Brain: Moderate diffuse white matter disease likely reflecting chronic microvascular ischemic changes. Chronic benign bilateral basal ganglia calcifications. Cerebral ventricles: No ventriculomegaly. Paranasal sinuses: Paranasal sinus opacifications Mastoid air cells: Visualized mastoid air cells are well aerated. Bones/joints: Unremarkable. No acute fracture. Soft tissues: Unremarkable. CT/CT head wo con* [id number] IMPRESSION: 1. Negative for infiltrate 2. Moderate diffuse white matter disease likely reflecting chronic microvascular ischemic changes. 3. Chronic benign bilateral basal ganglia calcifications.
[2022-10-23 20:36] VITALS: BP 102/58; PULSE 106; RESP 18; TEMP 37.2; O2SAT 97; BMI 23.6
--- NOTE | 2022-10-23 20:47 | ECG_ITS ---
[facility] Test Date: 2022-10-23 Pat Name: Martha Patterson Department: Room: Gender: Female Assistant Coach: : 1945 Requested By: Natalie Lozada Order Number: [id number] Leo MD: Cj Lloyd M.D. Measurements Intervals [place] Rate: 101 P: 66 SD: 179 QRS: -48 QRSD: 141 T: 124 QT: 400 QTc: 521 Interpretive Statements SINUS TACHYCARDIA LEFT AXIS DEVIATION [QRS AXIS < -30] LEFT BUNDLE BRANCH BLOCK [120+ ms QRS DURATION, 80+ ms Q/S IN V1/V2, 85+ ms R IN I/aVL/V5/V6] Compared to ECG 05/31/2020 13:39:35 Sinus rhythm no longer present Electronically Signed On 10-23-2022 23:30:11 CDT by Cj Lloyd M.D. [id number]
[2022-10-23 20:55] LABS: Glucose Point of Care 87 mg/dL (70-110)
--- NOTE | 2022-10-23 21:18 | W.ED.GENADLT ---
HPI - General Adult General: Chief complaint: General Medical Stated complaint: difficulty speaking Time Seen by Provider: 10/23/22 20:31 Source: patient and EMS Mode of arrival: EMS Limitations: no limitations History of Present Illness: 77-year-old female had a fall on Saturday. Per she been acting differently since and states today she had slurred speech roughly a few hours ago. She states that her symptoms all completely resolved she has no slurred speech now she denies any weakness she is able to ambulate move all extremities she states she feels fine currently is unsure what happened earlier. No history of a stroke she did have an intracerebral hemorrhage in the past from a fall Associated symptoms: Deny chest pain, dyspnea, headache(s), nausea, rash or vomiting Review of Systems Const: Denies: fever(s), chills, body aches or change in appetite Eyes: Denies: eye discomfort ENMT: Denies: throat pain or dental pain Card: Denies: chest pain Resp: Denies: dyspnea GI: Denies: abdominal pain, nausea, vomiting or diarrhea : Denies: dysuria Musc: Denies: neck pain or back pain Skin/Breast: Denies: rash Neuro: Reports: Slurred speech present; Denies: headache(s) [facility] ED PFSH: Medical History Abnormal nuclear stress test Benign essential HTN Brain bleed Carotid stenosis, bilateral Cervicalgia Chronic congestive heart failure Chronic GERD COPD (chronic obstructive pulmonary disease) Generalized weakness H/O deep venous thrombosis History of breast cancer History of nonmelanoma skin cancer Hypothyroidism (acquired) Ingrown right big toenail Mild hyperlipidemia Mixed incontinence Mixed stress and urge urinary incontinence Pain of right foot Polymorphic ventricular tachycardia Recurrent UTI SCCA (squamous cell carcinoma) of skin Syncope and collapse Tonsil cancer Urinary incontinence Surgical History H/O abdominoplasty H/O vaginal surgery (05/31/20) Laparoscopic BSO, Uterosacral ligament suspension with enterocele, Anterior colporrhaphy, Cystoscopy. Performed by Dr. Isaac at [facility] in [place], [place] History of insertion of tunneled central venous catheter (CVC) with port History of left hip replacement S/P IVC filter (~03/13/19) DVT after hip replacement IVC Filter placed March 13, 2019 at [facility] Status post carpal tunnel release Status post hysterectomy (~1970) Vaginal per patient, ovaries were spared Status post right mastectomy with breast reconstruction with abdominal trans-flap. Status post total hip replacement, left Family History Mother Diabetes Hypertension Uterine cancer Diagnosed in her 70s CAD (coronary artery disease) Family/Other Diabetes maternal aunt Chronic kidney disease (CKD) Father Hypertension Heart disease of [place] at age 59 CAD (coronary artery disease) Daughter Breast cancer With Mets; at age 50 Sister Dementia Denies family history of Clotting disorder Suicide Anesthesia complication Bleeding disorder Lung disease Cancer Stroke Social History Smoking and tobacco status: former smoker Quit status (tobacco): has quit using tobacco Year quit tobacco: 1989 Former quit date comment: Started smoked as a teenager and smoked 1/2 pack per day Alcohol intake: current Alcohol intake frequency: holidays/special occasions only Substance/Drug Use: never Marital status: Current occupational status: retired Physical Exam Const: COMMON NORMALS: no acute distress, patient oriented x3 and healthy appearing HENMT: COMMON NORMALS: normocephalic and atraumatic HEAD & SCALP: normocephalic and atraumatic Eye: COMMON NORMALS: Equal, round and reactive pupils present and EOMs intact bilaterally PUPIL: Yes Equal, round and reactive pupils present Neck/C-Spine: COMMON NORMALS: full ROM and supple Chest: COMMONS NORMALS: normal inspection of the chest and normal palpation of entire chest wall Resp: COMMON NORMALS: normal respiratory effort, No retractions, No use of accessory muscles and clear to auscultation bilaterally AUSCULTATION: clear to auscultation bilaterally Cardio: COMMON NORMALS: regular rate, regular rhythm and No murmurs present (Cardio) RATE: regular rate RHYTHM: regular rhythm GI: INSPECTION: Yes normal to inspection Extremity: COMMON NORMALS: normal to inspection and full ROM Neuro: COMMON NORMALS: patient oriented x3, moves all extremities and no focal motor deficits CRANIAL NERVES: Yes CN normal except as noted SPEECH: speech normal MOTOR EXAM: 5/5 motor strength present throughout Psych: COMMON NORMALS: mental status grossly normal, Normal thought process present and cooperative THOUGHT PROCESS: Normal thought process present Skin: COMMON NORMALS: no rashes or lesions noted and no wounds GENERAL SKIN EXAM: no rashes or lesions noted Course Vital Signs: Vital signs: Vital Signs Temperature 98.9 F 10/23/22 20:36 Pulse Rate 89 10/23/22 23:03 Respiratory Rate 18 10/23/22 23:03 Blood Pressure 117/71 10/23/22 23:03 Pulse Oximetry 99 10/23/22 23:03 Oxygen Delivery Me thod Room Air 10/23/22 20:36 MDM - General Adult Medical Decision Making Patient presents here with an episode of slurred speech along with some confusion patient here is mentating normally her symptoms have completely resolved she is a NIH is 0 she is ambulatory without any difficulties. Blood sugar was mildly low she could have had a hypoglycemic event at home she has had a urinary tract infection she is currently being treated for as well she could have had a TIA patient is wanting go home I feel she is stable for discharge we will start her on a statin baby aspirin and she is to follow-up with her PCP. Medical Records I reviewed the patient's medical records. Lab Data I reviewed the patient's lab results. 10/23/22 21:17 10/23/22 21:17 Radiology Impressions Chest X-Ray 10/23/22 20:31 IMPRESSION: 1. Negative for traumatic injury to the chest. 2. Cardiomegaly. 3. Left-sided Port-A-Cath. Head CT 10/23/22 20:31 IMPRESSION: 1. Negative for infiltrate 2. Moderate diffuse white matter disease likely reflecting chronic microvascular ischemic changes. 3. Chronic benign bilateral basal ganglia calcifications. Laboratory Results WBC 13.8 10^3/uL (4.0-10.0) H 10/23/22 21:17 RBC 4.08 10^6/uL (4.1-5.3) L 10/23/22 21:17 Hgb 13.0 g/dL (11.5-15.3) 10/23/22 21:17 Hct 38.4 % (37.0-47.0) 10/23/22 21:17 MCV 94.1 fl (81-99) 10/23/22 21:17 MCH 31.9 pg (28.0-34.0) 10/23/22 21:17 MCHC 33.9 g/dL (30.0-36.0) 10/23/22 21:17 RDW 11.9 % (12.1-15.1) L 10/23/22 21:17 Plt Count 390 10^3/cmm (130-400) 10/23/22 21:17 MPV 9.3 fL (7.4-10.4) 10/23/22 21:17 Neut % (Auto) 82.0 % 10/23/22 21:17 Lymph % (Auto) 8.4 % 10/23/22 21:17 [place] % (Auto) 6.3 % 10/23/22 21:17 Eos % (Auto) 1.0 % 10/23/22 21:17 Baso % (Auto) 0.7 % 10/23/22 21:17 Neut # (Auto) 11.36 10^3/uL (1.8-7.7) H 10/23/22 21:17 Lymph # (Auto) 1.2 10^3/uL (0.8-4.8) 10/23/22 21:17 [place] # (Auto) 0.9 10^3/uL (0.2-0.9) 10/23/22 21:17 Eos # (Auto) 0.1 10^3/uL (0.0-0.8) 10/23/22 21:17 Baso # (Auto) 0.1 10^3/uL (0.0-0.1) 10/23/22 21:17 Nucleated RBC % (auto) 0 % 10/23/22 21:17 Nucleated RBCs # 0.0 /100WBC 10/23/22 21:17 PT 14.90 SECONDS (12.1-14.9) 10/23/22 21:17 INR 1.13 (0.8-1.2) 10/23/22 21:17 Sodium 134 mmol/L (136-145) L 10/23/22 21:17 Potassium 3.4 mmol/L (3.5-5.1) L 10/23/22 21:17 Chloride 95 mmol/L (98-107) L 10/23/22 21:17 Carbon Dioxide 19 mmol/L (22-29) L 10/23/22 21:17 Anion Gap 23.4 (5-19) H 10/23/22 21:17 BUN 48 mg/dL (8-23) H 10/23/22 21:17 Creatinine 1.7 mg/dL (0.5-0.9) H 10/23/22 21:17 GFR Calculation Not Reportable 10/23/22 21:17 Glucose 90 mg/dL (65-115) 10/23/22 21:17 POC Glucose 90 mg/dL (70-110) 10/23/22 21:50 Calculated Osmolality 290 mOsm/kg (285-295) 10/23/22 21:17 Calcium 9.7 mg/dL (8.5-10.5) 10/23/22 21:17 Total Bilirubin 0.4 mg/dL (0.15-1.2) 10/23/22 21:17 AST 20 U/L (0-32) 10/23/22 21:17 ALT 9 U/L (0-33) 10/23/22 21:17 Alkaline Phosphatase 60 U/L (35-105) 10/23/22 21:17 Total Protein 6.7 g/dL (6.6-8.7) 10/23/22 21:17 Albumin 4.1 g/dL (3.5-5.2) 10/23/22 21:17 Globulin 2.6 g/dL (1.3-4.6) 10/23/22 21:17 TSH 4.57 uIU/mL (0.27-4.20) H 10/23/22 21:17 Urine Color Yellow (Yellow) 10/23/22 21:57 Urine Appearance Sl hazy (CLEAR) A 10/23/22 21:57 Urine pH 6 (5-7) 10/23/22 21:57 Ur Specific Williams 1.015 (1.005-1.030) 10/23/22 21:57 Urine Protein Neg (Negative) 10/23/22 21:57 Urine Glucose (UA) Norm (Normal) 10/23/22 21:57 Urine Ketones 1+ (Negative) H 10/23/22 21:57 Urine Blood Trace (Negative) H 10/23/22 21:57 Urine Nitrate Negative (Negative) 10/23/22 21:57 Urine Bilirubin Neg (Negative) 10/23/22 21:57 Urine Urobilinogen Neg mg/dL (Negative) 10/23/22 21:57 Ur Leukocyte Esterase 2+ (Negative) H 10/23/22 21:57 Urine RBC 5-10 /hpf (0-2) H 10/23/22 21:57 Urine WBC 15-25 /hpf (0-5) H 10/23/22 21:57 Ur Squamous Epith Cells 15-25 /hpf (0-5) H 10/23/22 21:57 Amorphous Sediment Not Reportable 10/23/22 21:57 Urine Bacteria 1+ /hpf (NONE) H 10/23/22 21:57 Discharge Plan Discharge Patient Disposition: Home Clinical Impression: Slurred speech, Brain TIA Condition: Stable Prescriptions: New atorvastatin 40 mg tablet 40 mg PO DAILY Qty: 30 0RF Adult Aspirin Regimen 81 mg tablet,delayed release (DR/EC) 81 mg PO DAILY Qty: 30 0RF No Action folic acid 400 mcg tablet 400 mcg PO DAILY ketoconazole 2 % shampoo 1 applic topical ONCE Qty: 120 6RF Rx Instructions: Lather into scalp 2-3 times weekly. Allow to sit on scalp 5 minutes before rinsing mometasone 0.1 % solution 1 applic topical DAILY Qty: 60 3RF Rx Instructions: apply a few drops to scalp daily as needed for itch prednisone 5 mg tablet 5 mg PO DAILY Qty: 30 3RF leflunomide 10 mg tablet 10 mg PO DAILY Qty: 30 3RF nitrofurantoin monohyd/m-cryst [Macrobid] 100 mg capsule 100 mg PO BID Qty: 20 0RF Rx Instructions: must administer with a meal/food hydroxychloroquine 200 mg tablet 200 mg PO BID Qty: 60 4RF meclizine 25 mg tablet 25 mg PO DAILY PRN (Reason: motion sickness/dizziness) 30 Days Qty: 30 0RF imiquimod 5 % cream in packet 1 applic topical ONCE Qty: 24 1RF Rx Instructions: apply thin film to Saturday-Saturday (off weekends) for 6 weeks. cyclobenzaprine 10 mg tablet See Rx Instructions .ROUTE .COMPLEX 7 Days Qty: 14 0RF Dose Instruction: TAKE ONE TABLET BY MOUTH TWICE DAILY NEEDED FOR MUSCLE SPASM Rx Instructions: TAKE ONE TABLET BY MOUTH TWICE DAILY NEEDED FOR MUSCLE SPASM lisinopril 20 mg tablet See Rx Instructions .ROUTE .COMPLEX Qty: 180 0RF Dose Instruction: TAKE 1 TABLET TWICE DAILY Rx Instructions: TAKE 1 TABLET TWICE DAILY chlorthalidone 25 mg tablet See Rx Instructions .ROUTE .COMPLEX Qty: 60 0RF Dose Instruction: TAKE 1 TABLET EVERY DAY Rx Instructions: TAKE 1 TABLET EVERY DAY levothyroxine 25 mcg tablet See Rx Instructions .ROUTE .COMPLEX Qty: 90 1RF Dose Instruction: Take 1 tablet by mouth once daily Rx Instructions: Take 1 tablet by mouth once daily pantoprazole 40 mg tablet,delayed release (DR/EC) See Rx Instructions .ROUTE .COMPLEX Qty: 90 0RF Dose Instruction: TAKE 1 TABLET EVERY DAY Rx Instructions: TAKE 1 TABLET EVERY DAY cephalexin 500 mg capsule 500 mg PO TID Qty: 21 0RF phenazopyridine [Pyridium] 200 mg tablet 200 mg PO TID Qty: 6 0RF diclofenac sodium 75 mg tablet,delayed release (DR/EC) 75 mg PO Q12H PRN (Reason: pain) Qty: 20 0RF Discharge Orders: Discharge ED (Routine); Ordered 10/23/22 Ordered By: Natalie Lozada Referrals: Bhaskar Lara MD [Primary Care Provider] - 1-3 days Discharge Diet: Advance as tolerated Discharge Activity: Resume usual activity Patient Instructions: Transient Ischemic Attack (ED) Coding Level of Care Code 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
[2022-10-23 21:38] LABS: Basophils # 0.1 10^3/uL (0.0-0.1); Basophils % 0.7 %; Eosinophils # 0.1 10^3/uL (0.0-0.8); Hematocrit 38.4 % (37.0-47.0); Lymphocytes # 1.2 10^3/uL (0.8-4.8); Lymphocytes % 8.4 %; Mean Corpuscular HGB Conc 33.9 g/dL (30.0-36.0); Mean Corpuscular Hemoglobin 31.9 pg (28.0-34.0); Mean Corpuscular Volume 94.1 fl (81-99); Mean Platelet Volume 9.3 fL (7.4-10.4); Monocytes # 0.9 10^3/uL (0.2-0.9); Monocytes % 6.3 %; Neutrophils # 11.36 10^3/uL (1.8-7.7); Nucleated Red Blood Cells % 0 %; Platelet Count 390 10^3/cmm (130-400); Red Blood Count 4.08 10^6/uL (4.1-5.3); Red Cell Distribution Width 11.9 % (12.1-15.1); White Blood Count 13.8 10^3/uL (4.0-10.0)
[2022-10-23 21:42] VITALS: BP 164/84; RESP 18
[2022-10-23 21:45] LABS: INR 1.13 (0.8-1.2)
[2022-10-23 21:53] LABS: Glucose Point of Care 90 mg/dL (70-110)
[2022-10-23 22:03] LABS: Alanine Aminotransferase 9 U/L (0-33); Albumin Level 4.1 g/dL (3.5-5.2); Alkaline Phosphatase 60 U/L (35-105); Blood Urea Nitrogen 48 mg/dL (8-23); Calcium 9.7 mg/dL (8.5-10.5); Carbon Dioxide 19 mmol/L (22-29); Chloride 95 mmol/L (98-107); Globulin 2.6 g/dL (1.3-4.6); Glucose 90 mg/dL (65-115); Osmolality Calculated 290 mOsm/kg (285-295); Sodium 134 mmol/L (136-145); Thyroid Stimulating Hormone 4.57 uIU/mL (0.27-4.20); Total Bilirubin 0.4 mg/dL (0.15-1.2); Total Protein 6.7 g/dL (6.6-8.7)
[2022-10-23 22:04] LABS: Anion Gap 23.4 (5-19); Aspartate Amino Transferase 20 U/L (0-32); Potassium 3.4 mmol/L (3.5-5.1)
[2022-10-23 22:19] LABS: Add Urine Microscopic? YES; Bilirubin Urine Neg (Negative); Blood Urine Trace (Negative); Glucose Urine UA Norm (Normal); Ketones Urine 1+ (Negative); Leukocyte Esterase Urine 2+ (Negative); Nitrate Urine Negative (Negative); Protein Urine Neg (Negative); Specific Gravity, Urine 1.015 (1.005-1.030); Urine Appearance SL Hazy (CLEAR); Urine Color Yellow (Yellow); Urobilinogen Urine Neg (Negative); pH Urine 6 (5-7)
[2022-10-23 22:20] LABS: Add Urine Culture? No; Bacteria Urine 1+ /hpf; Squamous Epithelial Cell Urine 15-25 /hpf (0-5); WBC Urine 15-25 /hpf (0-5)
[2022-10-23 23:03] VITALS: BP 117/71; PULSE 89; RESP 18; O2SAT 99
== END 2022-10-23 23:05 | disposition home or self-care (01) ==
PROVIDERS: Emergency Provider Emergency Medicine; PCP Family Medicine
DX: G45.9 Transient cerebral ischemic attack, unspecified (principal); Z87.891 Personal history of nicotine dependence; I10 Essential (primary) hypertension; J44.9 Chronic obstructive pulmonary disease, unspecified; Z85.3 Personal history of malignant neoplasm of breast; E78.2 Mixed hyperlipidemia; Z85.89 Personal history of malignant neoplasm of other organs and systems
CPT/HCPCS: 36415; 36416; 70450; 71045; 80053; 81001; 82962; 84443; 85025; 85610; 93005; 99285

== ENCOUNTER → 2022-10-30 10:45 | Outpatient (BNVA) | payer MEDICARE, OTHER, SELFPAY | PROVIDERS: PCP Family Medicine; Visit Provider Nurse Practitioner Family | DX: R32 Unspecified urinary incontinence (principal); N39.0 Urinary tract infection, site not specified | CPT/HCPCS: 81000; 87086 ==

== ENCOUNTER 2022-11-02 12:47 | Emergency (ER) | payer MEDICARE, OTHER, SELFPAY ==
[2022-11-02 12:48] VITALS: BP 145/77; PULSE 72; RESP 18; TEMP 36.6; O2SAT 100; BMI 23.4
--- NOTE | 2022-11-02 12:53 | ED_ITS ---
HPI - Arrhythmia/Palpitations General: Chief Complaint: Weakness Stated Complaint: dizziness, new onset afib Time Seen by Provider: 11/02/22 12:53 History of Present Illness: Ms. Patterson is a 77-year-old lady with multiple past medical problems presenting to the emergency department for evaluation of generalized illness. She notes few week history of gradually worsening generalized weakness and decreased energy. She reports nausea vomiting and diarrhea without associated abdominal pain started yesterday. Symptoms have progressively worsened. Denies focality or strokelike symptoms. No other specific changes in health, exacerbating, or alleviating factors identified. Onset (ago): week(s) Duration: constant Severity: moderate Review of Systems General: Reports: 10 or more systems reviewed and unremarkable except in HPI and below PFSH ED PFSH: Medical History Abnormal nuclear stress test Benign essential HTN Brain bleed Carotid stenosis, bilateral Cervicalgia Chronic congestive heart failure Chronic GERD COPD (chronic obstructive pulmonary disease) Dizziness Fatigue Generalized weakness H/O deep venous thrombosis History of breast cancer History of nonmelanoma skin cancer Hypothyroidism (acquired) Ingrown right big toenail Leg swelling Mild hyperlipidemia Mixed incontinence Mixed stress and urge urinary incontinence Pain of right foot Polymorphic ventricular tachycardia Recurrent UTI SCCA (squamous cell carcinoma) of skin Slurred speech Syncope and collapse Tonsil cancer Urinary incontinence Surgical History H/O abdominoplasty H/O vaginal surgery (05/31/20) Laparoscopic BSO, Uterosacral ligament suspension with enterocele, Anterior colporrhaphy, Cystoscopy. Performed by Dr. Isaac at [facility] in [place], [place] History of insertion of tunneled central venous catheter (CVC) with port History of left hip replacement S/P IVC filter (~03/13/19) DVT after hip replacement IVC Filter placed March 13, [address] [facility] Status post carpal tunnel release Status post hysterectomy (~1969) Vaginal per patient, ovaries were spared Status post right mastectomy with breast reconstruction with abdominal trans-flap. Status post total hip replacement, left Family History Mother Diabetes Hypertension Uterine cancer Diagnosed in her 70s CAD (coronary artery disease) Family/Other Diabetes maternal aunt Chronic kidney disease (CKD) Father Hypertension Heart disease of CT at age 59 CAD (coronary artery disease) Daughter Breast cancer With Mets; at age 50 Sister Dementia Denies family history of Clotting disorder Suicide Anesthesia complication Bleeding disorder Lung disease Cancer Stroke Social History Smoking and tobacco status: former smoker Quit status (tobacco): has quit using tobacco Year quit tobacco: 1989 Former quit date comment: Started smoked as a teenager and smoked 1/2 pack per day Alcohol intake: current Alcohol intake frequency: holidays/special occasions only Substance/Drug Use: never Marital status: Current occupational status: retired Physical Exam Const: COMMON NORMALS: patient oriented x3 and alert GENERAL APPEARANCE: cooperative and well developed HENMT: COMMON NORMALS: normocephalic and atraumatic HEAD & SCALP: normocephalic and atraumatic THROAT: posterior oropharynx normal Eye: COMMON NORMALS: conjunctivae normal CONJUNCTIVA: Yes conjunctivae normal SCLERA: sclerae normal Neck/C-Spine: COMMON NORMALS: supple GENERAL: Yes trachea midline Resp: COMMON NORMALS: clear to auscultation bilaterally EFFORT & I NSPECTION: Yes able to speak in complete sentences AUSCULTATION: clear to auscultation bilaterally Cardio: COMMON NORMALS: regular rate and regular rhythm RATE: regular rate RHYTHM: regular rhythm GI: COMMON NORMALS: Soft to palpation PALPATION: Yes Soft to palpation, Yes Tenderness to palpation present (GI), No Guarding due to palpation present (GI) and No Rigid due to palpation Extremity: GENERAL: Yes normal exam except as noted and No edema Neuro: COMMON NORMALS: patient oriented x3, CN's II-XII intact bilaterally, moves all extremities, no focal motor deficits and no sensory deficits noted SENSORIUM/ORIENTATION: Yes alert and No Orientation impaired Psych: COMMON NORMALS: mental status grossly normal and Normal thought process present THOUGHT PROCESS: Normal thought process present Course Vital Signs: Vital signs: Vital Signs Temperature 97.8 F 11/02/22 12:48 Pulse Rate 71 11/02/22 16:30 Respiratory Rate 16 11/02/22 14:31 Blood Pressure 183/87 11/02/22 17:08 Pulse Oximetry 100 11/02/22 16:30 Oxygen Delivery Me thod Room Air 11/02/22 16:30 MDM - Arrhythmia/Palpitations Medical Decision Making 77-year-old lady presenting with generalized illness and A-fib. Exam as above. No evidence of A-fib. No focal neurodeficits and patient is nontoxic. EKG demonstrates sinus rhythm with left axis deviation and left bundle branch block. No STEMI. Labs with minimal leukocytosis, no anemia. Metabolic panel similar to prior with no acute electrolyte derangements to explain symptoms with the exception of low magnesium. Negative range 2-hour delta troponin. Possible UTI given presence of symptoms despite squamous epithelial contamination. Chest x-ray with no lobar consolidation or pneumothorax. CT scan with no acute finding. Incidental findings discussed with patient. No right upper quadrant tenderness palpation or Segal sign. Patient treated with antiemetic, fluids, magnesium, antibiotic and feels improved. The results of ED evaluation were discussed with the patient including prescriptions and/or symptomatic cares (if applicable) including appropriate and responsible use, followup plan, and return precautions. The patient verbalized understanding and felt safe for discharge. Medical Records I reviewed the patient's medical records. Lab Data I reviewed the patient's lab results. 11/02/22 13:31 11/02/22 13:31 Radiology Impressions Chest X-Ray 11/02/22 12:54 Impression: Atherosclerosis. Abdomen/Pelvis CT 11/02/22 14:34 IMPRESSION: 1. No acute findings. 2. Distended gallbladder, had a similar appearance on prior exam. COMMENTS: 1. For patients with an IVC filter, recommend assessment for a management plan for the patient's IVC filter. If there is no established management plan, recommend referral to an interventional clinician on a nonemergent basis for evaluation. 2. Consistent with the [place] [employer]'s Incidental Findings Committee white paper (J Am Aubrey Radiol 2018): Any incidental renal lesion less than 1 cm or classified as too small to characterize, or any incidental cystic renal lesion characterized as simple-appearing, is likely benign. No follow-up imaging is recommended for these lesions per consensus recommendations based on imaging criteria. Laboratory Results WBC 10.3 10^3/uL (4.0-10.0) H 11/02/22 13:31 RBC 4.08 10^6/uL (4.1-5.3) L 11/02/22 13:31 Hgb 12.7 g/dL (11.5-15.3) 11/02/22 13:31 Hct 38.8 % (37.0-47.0) 11/02/22 13:31 MCV 95.1 fl (81-99) 11/02/22 13:31 MCH 31.1 pg (28.0-34.0) 11/02/22 13:31 MCHC 32.7 g/dL (30.0-36.0) 11/02/22 13:31 RDW 12.5 % (12.1-15.1) 11/02/22 13:31 Plt Count 340 10^3/cmm (130-400) 11/02/22 13:31 MPV 9.9 fL (7.4-10.4) 11/02/22 13:31 Neut % (Auto) 83.8 % 11/02/22 13:31 Lymph % (Auto) 8.0 % 11/02/22 13:31 Nicollet % (Auto) 5.9 % 11/02/22 13:31 Eos % (Auto) 1.0 % 11/02/22 13:31 Baso % (Auto) 0.5 % 11/02/22 13:31 Neut # (Auto) 8.65 10^3/uL (1.8-7.7) H 11/02/22 13:31 Lymph # (Auto) 0.8 10^3/uL (0.8-4.8) 11/02/22 13:31 Nicollet # (Auto) 0.6 10^3/uL (0.2-0.9) 11/02/22 13:31 Eos # (Auto) 0.1 10^3/uL (0.0-0.8) 11/02/22 13:31 Baso # (Auto) 0.1 10^3/uL (0.0-0.1) 11/02/22 13:31 Nucleated RBC % (auto) 0 % 11/02/22 13:31 Nucleated RBCs # 0.0 /100WBC 11/02/22 13:31 Sodium 140 mmol/L (136-145) 11/02/22 13:31 Potassium 3.5 mmol/L (3.5-5.1) 11/02/22 13:31 Chloride 103 mmol/L (98-107) 11/02/22 13:31 Carbon Dioxide 20 mmol/L (22-29) L 11/02/22 13:31 Anion Gap 20.5 (5-19) H 11/02/22 13:31 BUN 27 mg/dL (8-23) H 11/02/22 13:31 Creatinine 1.6 mg/dL (0.5-0.9) H 11/02/22 13:31 GFR Calculation Not Reportable 11/02/22 13:31 Glucose 80 mg/dL (65-115) 11/02/22 13:31 Calculated Osmolality 294 mOsm/kg (285-295) 11/02/22 13:31 Calcium 8.6 mg/dL (8.5-10.5) 11/02/22 13:31 Magnesium 1.4 mg/dL (1.7-2.3) L 11/02/22 13:31 Total Bilirubin 0.5 mg/dL (0.15-1.2) 11/02/22 13:31 AST 19 U/L (0-32) 11/02/22 13:31 ALT 12 U/L (0-33) 11/02/22 13:31 Alkaline Phosphatase 80 U/L (35-105) 11/02/22 13:31 Troponin T Baseline 66 ng/L (0-10) H 11/02/22 13:31 Troponin T 120 Minute 64.70 ng/L (0-10) H 11/02/22 15:30 Delta Troponin T -1.30 ABS# (0-10) L 11/02/22 15:30 NT-Pro-B Natriuret Pep 2013 pg/mL (0-450) H 11/02/22 13:31 Total Protein 6.2 g/dL (6.6-8.7) L 11/02/22 13:31 Albumin 3.7 g/dL (3.5-5.2) 11/02/22 13:31 Globulin 2.5 g/dL (1.3-4.6) 11/02/22 13:31 TSH 3.33 uIU/mL (0.27-4.20) 11/02/22 13:31 Urine Color Yellow (Yellow) 11/02/22 14:00 Urine Appearance Clear (CLEAR) 11/02/22 14:00 Urine pH 5 (5-7) 11/02/22 14:00 Ur Specific Alt[place] 1.005 (1.005-1.030) 11/02/22 14:00 Urine Protein Neg (Negative) 11/02/22 14:00 Urine Glucose (UA) Norm (Normal) 11/02/22 14:00 Urine Ketones 1+ (Negative) H 11/02/22 14:00 Urine Blood Trace (Negative) H 11/02/22 14:00 Urine Nitrate Negative (Negative) 11/02/22 14:00 Urine Bilirubin Neg (Negative) 11/02/22 14:00 Urine Urobilinogen Norm mg/dL (Negative) 11/02/22 14:00 Ur Leukocyte Esterase 2+ (Negative) H 11/02/22 14:00 Urine RBC 0-4 /hpf (0-2) H 11/02/22 14:00 Urine WBC 10-15 /hpf (0-5) H 11/02/22 14:00 Ur Squamous Epith Cells 5-10 /hpf (0-5) H 11/02/22 14:00 Amorphous Sediment Not Reportable 11/02/22 14:00 Urine Bacteria None /hpf (NONE) 11/02/22 14:00 Discharge Plan Discharge Patient Disposition: Home Clinical Impression: Malaise and fatigue, Hypomagnesemia, Acute UTI, Dehydration, mild, Nausea vomiting and diarrhea, Sinus arrhythmia Condition: Stable Prescriptions: New magnesium oxide 400 mg magnesium tablet 400 mg PO BID Qty: 10 0RF ondansetron 4 mg tablet,disintegrating 4 mg PO Q8H PRN (Reason: nausea and vomiting) Qty: 15 0RF cefpodoxime 200 mg tablet 200 mg PO BID Qty: 20 0RF Rx Instructions: must administer with a meal/food No Action folic acid 400 mcg tablet 400 mcg PO DAILY mometasone 0.1 % solution 1 applic topical DAILY Qty: 60 3RF Rx Instructions: apply a few drops to scalp daily as needed for itch prednisone 5 mg tablet 5 mg PO DAILY Qty: 30 3RF leflunomide 10 mg tablet 10 mg PO DAILY Qty: 30 3RF nitrofurantoin monohyd/m-cryst [Macrobid] 100 mg capsule 100 mg PO BID Qty: 20 0RF Rx Instructions: must administer with a meal/food amoxicillin-pot clavulanate 875-125 mg tablet 1 tab PO BID 3 Days Qty: 6 0RF hydroxychloroquine 200 mg tablet 200 mg PO BID Qty: 60 4RF imiquimod 5 % cream in packet 1 applic topical ONCE Qty: 24 1RF Rx Instructions: apply thin film to Saturday-Saturday (off weekends) for 6 weeks. chlorthalidone 25 mg tablet See Rx Instructions .ROUTE .COMPLEX Qty: 60 0RF Dose Instruction: TAKE 1 TABLET EVERY DAY Rx Instructions: TAKE 1 TABLET EVERY DAY levothyroxine 25 mcg tablet See Rx Instructions .ROUTE .COMPLEX Qty: 90 1RF Dose Instruction: Take 1 tablet by mouth once daily Rx Instructions: Take 1 tablet by mouth once daily pantoprazole 40 mg tablet,delayed release (DR/EC) See Rx Instructions .ROUTE .COMPLEX Qty: 90 0RF Dose Instruction: TAKE 1 TABLET EVERY DAY Rx Instructions: TAKE 1 TABLET EVERY DAY lisinopril 20 mg tablet See Rx Instructions .ROUTE .COMPLEX Qty: 180 0RF Dose Instruction: TAKE 1 TABLET TWICE DAILY Rx Instructions: TAKE 1 TABLET TWICE DAILY atorvastatin 40 mg tablet 40 mg PO DAILY Qty: 30 0RF Adult Aspirin Regimen 81 mg tablet,delayed release (DR/EC) 81 mg PO DAILY Qty: 30 0RF Discharge Orders: Discharge ED (Routine); Ordered 11/02/22 Ordered By: Adonay Serrato Referrals: Bhaskar Lara MD [Primary Care Provider] - Discharge Diet: Usual diet Discharge Activity: Increase activity as tolerated Patient Instructions: Urinary Tract Infection in Women (ED), Hypomagnesemia (ED), Weakness (Generalized) Activity Restrictions/Additional Instructions: Thank you for visiting the emergency department. You were seen and evaluated for generalized malaise with nausea vomiting and diarrhea. The exact cause of your symptoms is unclear. You may have recurrent or continued UTI which will be treated with additional antibiotics. I will also prescribe antinausea medication. Follow-up with your primary care provider. Return for uncontrolled symptoms or anything else that you are concerned about and feel needs emergency department evaluation. Coding Level of Care Code ED Change Control Specialist for Mary Balderas
--- NOTE | 2022-11-02 12:54 | XR_ITS ---
WS: [id number] Portable AP upright chest, 11/02/2022 Clinical Data: dizzy, palpitations Comparison: Portable chest, 10/23/2022 Findings: No nodules, masses or effusions are seen. The heart is normal. The pulmonary vascularity is not increased. No pneumonia or pneumothorax is seen. The aortic arch and descending thoracic aorta s how minimal calcification and tortuosity. There is a left Port-A-Cath unchanged in position. There ar e clips in the right axilla from surgery. There is a vena caval filter. Monitor leads overlie the low er chest and upper abdomen. XR/XR chest 1V portable [id number] Impression: Atherosclerosis.
--- NOTE | 2022-11-02 13:09 | ECG_ITS ---
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 Measurements Intervals [place] Rate: 72 P: 28 [place]: 166 QRS: -34 QRSD: 144 T: 129 QT: 481 QTc: 529 Interpretive Statements SINUS RHYTHM WITH OCCASIONAL SUPRAVENTRICULAR PREMATURE COMPLEXES LEFT AXIS DEVIATION [QRS AXIS < -30] LEFT BUNDLE BRANCH BLOCK [120+ ms QRS DURATION, 80+ ms Q/S IN V1/V2, 85+ ms R IN I/aVL/V5/V6] Compared to ECG 10/23/2022 20:47:33 Sinus tachycardia no longer present Electronically Signed On 11-02-2022 13:38:30 CDT by Ana Maldonado M.D. [id number]
[2022-11-02 13:58] LABS: Basophils # 0.1 10^3/uL (0.0-0.1); Basophils % 0.5 %; Eosinophils # 0.1 10^3/uL (0.0-0.8); Hematocrit 38.8 % (37.0-47.0); Hemoglobin 12.7 g/dL (11.5-15.3); Lymphocytes # 0.8 10^3/uL (0.8-4.8); Mean Corpuscular HGB Conc 32.7 g/dL (30.0-36.0); Mean Corpuscular Hemoglobin 31.1 pg (28.0-34.0); Mean Corpuscular Volume 95.1 fl (81-99); Mean Platelet Volume 9.9 fL (7.4-10.4); Monocytes # 0.6 10^3/uL (0.2-0.9); Monocytes % 5.9 %; Neutrophils # 8.65 10^3/uL (1.8-7.7); Neutrophils % 83.8 %; Nucleated Red Blood Cells % 0 %; Platelet Count 340 10^3/cmm (130-400); Red Blood Count 4.08 10^6/uL (4.1-5.3); Red Cell Distribution Width 12.5 % (12.1-15.1); White Blood Count 10.3 10^3/uL (4.0-10.0)
[2022-11-02 14:12] VITALS: BP 145/82; PULSE 72; RESP 16; O2SAT 90
[2022-11-02 14:14] LABS: Troponin(5th) Baseline 66 ng/L (0-10)
[2022-11-02 14:30] LABS: Alanine Aminotransferase 12 U/L (0-33); Albumin Level 3.7 g/dL (3.5-5.2); Alkaline Phosphatase 80 U/L (35-105); Anion Gap 20.5 (5-19); Aspartate Amino Transferase 19 U/L (0-32); Blood Urea Nitrogen 27 mg/dL (8-23); Calcium 8.6 mg/dL (8.5-10.5); Carbon Dioxide 20 mmol/L (22-29); Chloride 103 mmol/L (98-107); Globulin 2.5 g/dL (1.3-4.6); Glucose 80 mg/dL (65-115); Magnesium 1.4 mg/dL (1.7-2.3); NT Pro B Type Natriuretic Pept 2013 pg/mL (0-450); Osmolality Calculated 294 mOsm/kg (285-295); Potassium 3.5 mmol/L (3.5-5.1); Sodium 140 mmol/L (136-145); Thyroid Stimulating Hormone 3.33 uIU/mL (0.27-4.20); Total Bilirubin 0.5 mg/dL (0.15-1.2); Total Protein 6.2 g/dL (6.6-8.7)
[2022-11-02 14:31] VITALS: BP 160/68; PULSE 70; RESP 16; O2SAT 94
--- NOTE | 2022-11-02 14:34 | CTR_ITS ---
PROCEDURE INFORMATION: Exam: CT Abdomen And Pelvis Without Contrast Exam date and time: 11/02/2022 3:41 PM Age: 77 years old Clinical indication: Nausea and vomiting; Prior surgery; Surgery date: 6+ months; Surgery type: Ivc filter; Additional info: N/v/d TECHNIQUE: Imaging protocol: Computed tomography of the abdomen and pelvis without contrast. Radiation optimization: All CT scans at this facility use at least one of these dose optimization techniques: automated exposure control; mA and/or kV adjustment per patient size (includes targeted exams where dose is matched to clinical indication); or iterative reconstruction. REPORTING DATA: Count of CT and Cardiac NM exams in prior 12 months: This patient has received 2 known CTs and 0 known cardiac nuclear medicine studies in the 12 months prior to the current study. COMPARISON: CT abdomen pelvis w con* [id number] 06/02/2020 11:35 AM RADIATION DOSE METRICS: Total DLP (mGy-cm): 341.74 FINDINGS: Liver: Normal. No mass. Gallbladder and bile ducts: Distended gallbladder, similar to prior exam. No calcified stones. No ductal dilation. Pancreas: Normal. No ductal dilation. Spleen: Normal. No splenomegaly. Adrenal glands: Normal. No mass. Kidneys and ureters: Bilateral vascular calcifications. 1.6 cm exophytic cyst noted in the lower pole the left kidney. There is also a 1.3 cm cyst in the upper pole. No hydronephrosis. Stomach and bowel: Unremarkable. No obstruction. No mucosal thickening. Appendix: No evidence of appendicitis. Intraperitoneal space: Unremarkable. No free air. No significant fluid collection. Vasculature: IVC filter noted. Lymph nodes: Unremarkable. No enlarged lymph nodes. Urinary bladder: Unremarkable as visualized. Reproductive: Unremarkable as visualized. Bones/joints: No acute fracture. Bilateral total hip arthroplasties noted. Soft tissues: Unremarkable. CT/CT abdomen pelvis wo con [id number] IMPRESSION: 1. No acute findings. 2. Distended gallbladder, had a similar appearance on prior exam. COMMENTS: 1. For patients with an IVC filter, recommend assessment for a management plan for the patient's IVC filter. If there is no established management plan, recommend referral to an interventional clinician on a nonemergent basis for evaluation. 2. Consistent with the [place] [employer]'s Incidental Findings Committee white paper (J Am Aubrey Radiol 2018): Any incidental renal lesion less than 1 cm or classified as too small to characterize, or any incidental cystic renal lesion characterized as simple-appearing, is likely benign. No follow-up imaging is recommended for these lesions per consensus recommendations based on imaging criteria.
[2022-11-02 14:49] LABS: Add Urine Microscopic? YES; Bilirubin Urine Neg (Negative); Blood Urine Trace (Negative); Glucose Urine UA Norm (Normal); Ketones Urine 1+ (Negative); Leukocyte Esterase Urine 2+ (Negative); Nitrate Urine Negative (Negative); Protein Urine Neg (Negative); Specific Gravity, Urine 1.005 (1.005-1.030); Urine Appearance Clear (CLEAR); Urine Color Yellow (Yellow); Urobilinogen Urine Norm (Negative); pH Urine 5 (5-7)
[2022-11-02 14:50] LABS: Add Urine Culture? No; RBC Urine 0-4 /hpf (0-2)
--- NOTE | 2022-11-02 14:55 | ECG_ITS ---
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 Measurements Intervals [place] Rate: 74 P: 40 [place]: 158 QRS: -34 QRSD: 150 T: 127 QT: 477 QTc: 531 Interpretive Statements SINUS RHYTHM WITH FREQUENT SUPRAVENTRICULAR PREMATURE COMPLEXES LEFT AXIS DEVIATION [QRS AXIS < -30] LEFT BUNDLE BRANCH BLOCK [120+ ms QRS DURATION, 80+ ms Q/S IN V1/V2, 85+ ms R IN I/aVL/V5/V6] Compared to ECG 11/02/2022 13:09:15 No significant changes Electronically Signed On 11-02-2022 23:01:14 CDT by Ana Maldonado M.D. [id number]
[2022-11-02 15:30] VITALS: BP 164/94; PULSE 69; O2SAT 98
--- NOTE | 2022-11-02 16:05 | PC.NURSE ---
Assumed care of patient at 1600.
[2022-11-02 16:30] VITALS: BP 169/90; PULSE 71; O2SAT 100
[2022-11-02] MEDS: cefTRIAXone 1,000 MG in water for injection-sterile 2.1 ML 2.1 MG IM (16:54)
[2022-11-02 17:08] VITALS: BP 183/87
== END 2022-11-02 17:09 | disposition home or self-care (01) ==
PROVIDERS: Emergency Provider Emergency Medicine; PCP Family Medicine
DX: N39.0 Urinary tract infection, site not specified (principal); R53.81 Other malaise; R53.83 Other fatigue; E83.42 Hypomagnesemia; E86.0 Dehydration; R11.2 Nausea with vomiting, unspecified; R19.7 Diarrhea, unspecified; I49.8 Other specified cardiac arrhythmias; Z79.82 Long term (current) use of aspirin; Z87.891 Personal history of nicotine dependence; J44.9 Chronic obstructive pulmonary disease, unspecified; Z85.3 Personal history of malignant neoplasm of breast; E78.2 Mixed hyperlipidemia; Z87.440 Personal history of urinary (tract) infections; Z85.89 Personal history of malignant neoplasm of other organs and systems; I11.0 Hypertensive heart disease with heart failure; I50.9 Heart failure, unspecified
CPT/HCPCS: 36415; 71045; 74176; 80053; 81001; 83735; 83880; 84443; 84484; 85025; 93005; 96372; 99285; J0696

== ENCOUNTER 2022-11-13 12:50 | Oncology outpatient (recurring) (ONCR) | payer MEDICARE, OTHER, SELFPAY ==
[2022-11-13 12:54] VITALS: BP 165/75; PULSE 80; RESP 18; TEMP 36.8; O2SAT 95
== END 2022-11-29 23:59 | disposition home or self-care (01) ==
PROVIDERS: PCP Family Medicine; Visit Provider Internal Medicine Hematology & Oncology
DX: Z45.2 Encounter for adjustment and management of vascular access device (principal)
CPT/HCPCS: 96523; J1642

== ENCOUNTER → 2022-11-21 16:09 | Outpatient (BNVA) | payer MEDICARE, OTHER, SELFPAY | PROVIDERS: PCP Family Medicine; Visit Provider Nurse Practitioner Family | DX: R35.0 Frequency of micturition (principal) | CPT/HCPCS: 81000 ==

== ENCOUNTER 2022-12-17 12:46 | Oncology outpatient (recurring) (ONCR) | payer MEDICARE, OTHER, SELFPAY ==
[2022-12-17 12:58] VITALS: BP 150/78; PULSE 76; RESP 16; TEMP 36.4; O2SAT 97
[2022-12-17 13:18] LABS: Basophils # 0.1 10^3/uL (0.0-0.1); Basophils % 0.8 %; Eosinophils # 0.1 10^3/uL (0.0-0.8); Hematocrit 32.1 % (36-47); Lymphocytes # 0.7 10^3/uL (0.8-4.8); Lymphocytes % 9.5 %; Mean Corpuscular HGB Conc 32.1 g/dL (30-55); Mean Corpuscular Hemoglobin 31.7 pg (27-33); Mean Corpuscular Volume 98.8 fl (85-98); Mean Platelet Volume 10.8 fL (7.4-10.4); Monocytes # 0.6 10^3/uL (0.2-0.9); Monocytes % 7.3 %; Neutrophils % 80.7 %; Nucleated Red Blood Cells % 0 %; Platelet Count 195 10^3/cmm (157-399); Red Blood Count 3.25 10^6/uL (3.85-5.65); Red Cell Distribution Width 13.8 % (12.1-15.1); White Blood Count 7.68 10^3/uL (3.29-11.43)
[2022-12-17 14:33] LABS: Alanine Aminotransferase 7 U/L (0-33); Albumin Level 4.3 g/dL (3.5-5.2); Alkaline Phosphatase 38 U/L (35-105); Anion Gap 15.2 (5-19); Aspartate Amino Transferase 15 U/L (0-32); Blood Urea Nitrogen 21 mg/dL (8-23); Calcium 9.1 mg/dL (8.5-10.5); Carbon Dioxide 23 mmol/L (22-29); Chloride 104 mmol/L (98-107); Globulin 2.3 g/dL (1.3-4.6); Glucose 90 mg/dL (65-115); Osmolality Calculated 291 mOsm/kg (285-295); Sodium 139 mmol/L (136-145); Total Bilirubin 0.4 mg/dL (0.15-1.2); Total Protein 6.6 g/dL (6.6-8.7)
[2022-12-17 14:45] LABS: Potassium 3.2 mmol/L (3.5-5.1)
[2022-12-17 16:13] LABS: Ferritin 949 ng/mL (15-150); Iron 51 ug/dL (37-145); Percent Saturation 25.2 % (20-50); Total Iron Binding Capacity 202 mcg/dl; Unsaturated Iron Binding 151 ug/dL (112-347)
[2022-12-17 16:22] LABS: Folate Level < 20.0 ng/mL (4.8-37.3)
[2022-12-17 17:05] LABS: Vitamin B12 282 pg/mL (232-1245)
== END 2022-12-29 23:59 | disposition home or self-care (01) ==
PROVIDERS: PCP Family Medicine; Visit Provider Internal Medicine Medical Oncology
DX: C09.9 Malignant neoplasm of tonsil, unspecified (principal); D64.9 Anemia, unspecified; C44.92 Squamous cell carcinoma of skin, unspecified; E03.9 Hypothyroidism, unspecified; Z85.828 Personal history of other malignant neoplasm of skin; Z53.9 Procedure and treatment not carried out, unspecified reason
CPT/HCPCS: 80053; 82607; 82728; 82746; 83540; 83550; 85025; 99215; J1642

== ENCOUNTER → 2022-12-24 13:44 | Outpatient (BNVA) | payer MEDICARE, OTHER, SELFPAY | PROVIDERS: PCP Family Medicine; Visit Provider Otolaryngology | DX: C09.9 Malignant neoplasm of tonsil, unspecified (principal); R13.10 Dysphagia, unspecified; M26.623 Arthralgia of bilateral temporomandibular joint | CPT/HCPCS: 99204 ==

== ENCOUNTER 2022-12-31 08:27 | Outpatient (CLI) | payer MEDICARE, OTHER, SELFPAY ==
--- NOTE | 2022-12-31 09:00 | FL_ITS ---
WS: [id number] EXAMINATION: FL barium swallow modifd [id number] REASON FOR EXAM: Trouble swallowing ORDER DATE: 12/31/2022 8:58 AM FLUOROSCOPY TIME: 1min [id number] # OF SPOT FILMS: 0 TECHNIQUE: The oral cavity and upper pharyngeal and laryngeal region were observed in the lateral pro jection with fluoroscopy during swallowing. Different consistencies of liquid and food were mixed with barium and administered by the speech path ologist during fluoroscopy. FINDINGS: The oral stage was unremarkable with satisfactory initiation of the swallowing reflex. Mov ement of contrast coated material through the pharynx into the upper esophagus was observed. There wa s no evidence of penetration or aspiration. Please refer to speech pathologist report for specific de tails regarding swallowing function. There was no significant residual. IMPRESSION: PLEASE REFER TO THE SPEECH PATHOLOGIST REPORT FOR ADDITIONAL DETAILS REGARDING THIS MODIFIED BARIUM S WALLOW STUDY.
== END 2022-12-31 08:28 | disposition home or self-care (01) ==
LOC: RAD 08:28
PROVIDERS: PCP Family Medicine; Visit Provider Otolaryngology
DX: R13.10 Dysphagia, unspecified (principal)
CPT/HCPCS: 74230; 92611

== ENCOUNTER 2023-01-08 13:47 | Outpatient (CLI) | payer MEDICARE, OTHER, SELFPAY ==
--- NOTE | 2023-01-08 13:30 | USCV_ITS ---
Martha Patterson Age: 77 Gender: F : 1945 Exam Date: 01/08/2023 13:58 Ordering Phys: Jono Mccormick MD (And[place]) [email or web address] [place] Technologist: ALEXI [place] [facility] [place]ication: RECHECK ON STENOSIS CCA Risk Factors: Unknown Previous Vascular Surgery: NECK WITH RAD AND SURG Right Brachial BP: / Left Brachial BP: / Right Left Velocity (cm/s) Spectral Plaque Velocity (cm/s) Spectral Plaque Syst/Diast Broadening Syst/Diast Broadening 68.10/ 18.50 Prox CCA 111.40/ 13.20 42.10/ 14.50 Mid CCA 61.40 / 14.80 45.40/ 11.20 Hetro Distal CCA 50.50 / 14.80 Hetro 104.70/25.40 Hetro Prox ICA 51.30 / 22.50 Hetro 127.90/32.00 Mid ICA 72.20 / 20.20 88.20/ 22.10 Distal ICA 63.70 / 21.80 131.20 ECA 80.00 3.04 ICA/CCA 1.18 Antegrade Vertebral Antegrade 44.30/ 8.50 cm/s 35.70/ 6.90 cm/s Tri Subclavian Bi 122.4 100.8 0 0 FINDINGS Comparison:. 12/11/21 Diffuse bilateral scattered calcified plaque and intimal thickening throughout the common carotid arteries and extending through the bifurcation. Mild progressive increase in velocity right ICA. Bilateral antegrade vertebral arteries. CONCLUSIONS Right ICA stenosis < 50%. Increase in velocity but near 50%. Left ICA stenosis < 50%. Bilateral calcified plaque in the bifurcations. Dr. Jennifer Shah DO (Electronically Signed) Final Date: 08 January 2023 14:42 S
== END 2023-01-08 13:48 | disposition home or self-care (01) ==
PROVIDERS: PCP Family Medicine; Visit Provider Thoracic Surgery (Cardiothoracic Vascular Surgery)
DX: I65.23 Occlusion and stenosis of bilateral carotid arteries (principal); R13.10 Dysphagia, unspecified; M35.9 Systemic involvement of connective tissue, unspecified; M54.2 Cervicalgia; E87.6 Hypokalemia; L98.9 Disorder of the skin and subcutaneous tissue, unspecified; M79.642 Pain in left hand; M79.641 Pain in right hand; Z79.52 Long term (current) use of systemic steroids; Z87.891 Personal history of nicotine dependence; Z85.818 Personal history of malignant neoplasm of other sites of lip, oral cavity, and pharynx
CPT/HCPCS: 93880; 99213; 99214

== ENCOUNTER → 2023-01-17 10:19 | Outpatient (BNVA) | payer MEDICARE, OTHER, SELFPAY | PROVIDERS: PCP Family Medicine; Visit Provider Thoracic Surgery (Cardiothoracic Vascular Surgery) | DX: I65.23 Occlusion and stenosis of bilateral carotid arteries (principal); I11.0 Hypertensive heart disease with heart failure; I50.9 Heart failure, unspecified; Z87.891 Personal history of nicotine dependence | CPT/HCPCS: 99213 ==

== ENCOUNTER 2023-01-28 12:13 | Oncology outpatient (recurring) (ONCR) | payer MEDICARE, OTHER, SELFPAY ==
[2023-01-28 12:55] VITALS: BP 179/75; PULSE 62; RESP 17; TEMP 36.1; O2SAT 98
[2023-01-28 13:00] VITALS: BP 179/75; PULSE 62; RESP 17; TEMP 36.1; O2SAT 98
== END 2023-01-29 23:59 | disposition home or self-care (01) ==
LOC: ONCMED 12:14
PROVIDERS: PCP Family Medicine; Visit Provider Internal Medicine Medical Oncology
DX: Z45.2 Encounter for adjustment and management of vascular access device (principal); C09.9 Malignant neoplasm of tonsil, unspecified; D64.9 Anemia, unspecified; C44.92 Squamous cell carcinoma of skin, unspecified; E03.9 Hypothyroidism, unspecified; Z79.899 Other long term (current) drug therapy
CPT/HCPCS: 99214; J1642

== ENCOUNTER 2023-02-11 14:20 | Oncology outpatient (recurring) (ONCR) | payer MEDICARE, OTHER, SELFPAY ==
[2023-02-11 14:26] VITALS: BP 119/63; PULSE 76; RESP 16; TEMP 36.3; O2SAT 96
== END 2023-02-28 23:59 | disposition home or self-care (01) ==
LOC: ONCMED 14:20
PROVIDERS: PCP Family Medicine; Visit Provider Internal Medicine Medical Oncology
DX: Z45.2 Encounter for adjustment and management of vascular access device (principal)
CPT/HCPCS: 96523; J1642

== ENCOUNTER 2023-02-28 09:21 | Outpatient (CLI) | payer MEDICARE, OTHER, SELFPAY ==
--- NOTE | 2023-02-28 09:30 | MM_ITS ---
WS: [id number] DIAGNOSTIC LEFT DIGITAL TOMOSYNTHESIS MAMMOGRAPHY WITH CAD. HISTORY: history of breast cancer COMPARISON: 03/16/2022, 02/07/2021 Technique: CC, MLO and ML views. Breast composition: There are scattered areas of fibroglandular density. Numerous calcifications with in each breast. No mass or distortion. Mediport noted along the LEFT upper thorax. IMPRESSION: MM/[place] [id number] BI-RADS: 2-Benign FOLLOW UP: 1 Year Follow-up
== END 2023-02-28 09:22 | disposition home or self-care (01) ==
LOC: RAD 09:21
PROVIDERS: PCP Family Medicine; Visit Provider Nurse Practitioner Family
DX: Z85.3 Personal history of malignant neoplasm of breast (principal)
CPT/HCPCS: 77061; G0279

== ENCOUNTER → 2023-03-07 10:15 | Outpatient (BNVA) | payer MEDICARE, OTHER, SELFPAY | PROVIDERS: PCP Family Medicine; Visit Provider Dermatology | DX: D48.5 Neoplasm of uncertain behavior of skin (principal); D23.39 Other benign neoplasm of skin of other parts of face; L57.0 Actinic keratosis; L82.0 Inflamed seborrheic keratosis; L81.4 Other melanin hyperpigmentation; Z85.828 Personal history of other malignant neoplasm of skin | CPT/HCPCS: 11102; 17000; 17110; 40490; 99214 ==

== ENCOUNTER 2023-03-11 14:19 | Oncology outpatient (recurring) (ONCR) | payer MEDICARE, OTHER, SELFPAY ==
[2023-03-11 14:30] VITALS: BP 139/69; PULSE 80; RESP 16; TEMP 36.6; O2SAT 95
== END 2023-03-31 23:59 | disposition home or self-care (01) ==
LOC: ONCMED 14:20
PROVIDERS: PCP Family Medicine; Visit Provider Internal Medicine Medical Oncology
DX: Z45.2 Encounter for adjustment and management of vascular access device (principal)
CPT/HCPCS: 96523; J1642

== ENCOUNTER → 2023-04-08 12:52 | Outpatient (BNVA) | payer MEDICARE, SELFPAY | PROVIDERS: PCP Family Medicine; Visit Provider Dermatology | DX: L85.8 Other specified epidermal thickening (principal); K13.0 Diseases of lips; L81.4 Other melanin hyperpigmentation; Z85.828 Personal history of other malignant neoplasm of skin; L82.0 Inflamed seborrheic keratosis | CPT/HCPCS: 17110; 99213 ==

== ENCOUNTER 2023-04-17 08:43 | Oncology outpatient (recurring) (ONCR) | payer MEDICARE, SELFPAY ==
[2023-04-17 09:06] VITALS: BP 164/88; PULSE 52; RESP 16; TEMP 36.1; O2SAT 100
== END 2023-05-01 23:59 | disposition home or self-care (01) ==
LOC: ONCMED 08:44
PROVIDERS: PCP Nurse Practitioner Family; Visit Provider Internal Medicine Medical Oncology
DX: Z45.2 Encounter for adjustment and management of vascular access device; M35.9 Systemic involvement of connective tissue, unspecified; M79.643 Pain in unspecified hand; M54.2 Cervicalgia; M54.9 Dorsalgia, unspecified
CPT/HCPCS: 96523; 99203; 99214; J1642

== ENCOUNTER 2023-04-30 14:14 | Outpatient (CLI) | payer MEDICARE, SELFPAY ==
--- NOTE | 2023-04-30 14:30 | XR_ITS ---
WS: [email or web address] SCREENING DEXA SCAN HEALBE CLINICAL INFORMATION: post menopausal COMPARISON: None. FINDINGS: The L1-L4 bone mineral density measures 1.186 g/cm2. This corresponds to a T score score of 0.0 and Z score of 2.3. Left femoral neck bone mineral density measures . This corresponds to a T score of and Z score of . Right femoral neck bone mineral density measures . This corresponds to a T score of and Z score of . Mean femoral neck bone mineral density measures . This corresponds to a T score of and Z score of . IMPRESSION: Normal bone mineralization lumbar spine. Osteoporosis LEFT forearm.
== END 2023-04-30 14:15 | disposition home or self-care (01) ==
LOC: RAD 14:15
PROVIDERS: PCP Nurse Practitioner Family; Visit Provider Nurse Practitioner Family
DX: Z85.3 Personal history of malignant neoplasm of breast (principal); Z78.0 Asymptomatic menopausal state; M81.0 Age-related osteoporosis without current pathological fracture
CPT/HCPCS: 77080

== ENCOUNTER → 2023-05-08 11:31 | Outpatient (BNVA) | payer MEDICARE, SELFPAY | PROVIDERS: PCP Nurse Practitioner Family; Visit Provider Nurse Practitioner Family | DX: N39.0 Urinary tract infection, site not specified (principal); N39.46 Mixed incontinence; E86.0 Dehydration | CPT/HCPCS: 81000; 87077; 87086; 87184 ==

== ENCOUNTER 2023-05-16 14:01 | Oncology outpatient (recurring) (ONCR) | payer MEDICARE, SELFPAY | END 2023-05-30 23:59 | disposition home or self-care (01) | LOC: ONCMED 14:03 | PROVIDERS: PCP Nurse Practitioner Family; Visit Provider Internal Medicine Medical Oncology | DX: M79.641 Pain in right hand (principal); M24.541 Contracture, right hand; T84.84XA Pain due to internal orthopedic prosthetic devices, implants and grafts, initial encounter; Y79.2 Prosthetic and other implants, materials and accessory orthopedic devices associated with adverse incidents; Z45.2 Encounter for adjustment and management of vascular access device; M35.9 Systemic involvement of connective tissue, unspecified; M54.2 Cervicalgia; M54.9 Dorsalgia, unspecified | CPT/HCPCS: 73130; 96523; 99204; J1642 ==

== ENCOUNTER 2023-06-19 10:59 | Outpatient (CLI) | payer MEDICARE, SELFPAY ==
--- NOTE | 2023-06-19 11:15 | USCV_ITS ---
Martha Patterson Age: 78 Gender: F : 1945 Exam Date: 06/19/2023 11:18 Ordering Phys: Jono Mccormick MD (Andy) ([email or web address] [place]) Technologist: Exam Location: [facility] [place] Indication: cca stenosis Risk Factors: Previous Vascular Surgery: Right Brachial BP: / Left Brachial BP: / Right Left Velocity (cm/s) Spectral Plaque Velocity (cm/s) Spectral Plaque Syst/Diast Broadening Syst/Diast Broadening 106.10/19.30 Prox CCA 108.00/ 21.50 97.00/ 18.00 Mid CCA 90.00 / 21.50 73.70/ 12.80 Distal CCA 103.60/ 23.10 Hetro / Prox ICA 105.00/ 18.00 Hetro 141.40/20.40 Mid ICA 80.30 / 14.10 115.70/20.40 Distal ICA 74.70 / 12.30 115.20 ECA 109.00 1.90 ICA/CCA 0.80 Antegrade Vertebral Antegrade 43.20/ 11.20 cm/s 30.40/ 6.00 cm/s Tri Subclavian Tri 112.0 113.0 0 0 FINDINGS no change from previous comp 01/21 CONCLUSIONS Right ICA/CCA stenosis <50% at the upper end of the range. Moderate calcified atheromatous plaque right carotid bulb/ICA. Left ICA stenosis <50%. Moderate calcified atheromatous plaque left carotid bulb/ICA. Intimal thickening in the common carotid arteries and internal carotid arteries bilaterally. Normal antegrade Doppler flow noted in the right vertebral artery. Normal antegrade Doppler flow noted in the left vertebral artery. Van Vela MD (Electronically Signed) Final Date: 19 June 2023 16:19 S
== END 2023-06-19 11:00 | disposition home or self-care (01) ==
LOC: RAD 11:00
PROVIDERS: PCP Nurse Practitioner Family; Visit Provider Thoracic Surgery (Cardiothoracic Vascular Surgery)
DX: I65.23 Occlusion and stenosis of bilateral carotid arteries (principal); R25.2 Cramp and spasm; D64.9 Anemia, unspecified; M81.0 Age-related osteoporosis without current pathological fracture; Z85.818 Personal history of malignant neoplasm of other sites of lip, oral cavity, and pharynx; Z87.891 Personal history of nicotine dependence; Z85.3 Personal history of malignant neoplasm of breast; Z90.11 Acquired absence of right breast and nipple; Z92.21 Personal history of antineoplastic chemotherapy; Z92.3 Personal history of irradiation
CPT/HCPCS: 93880; 99214

== ENCOUNTER 2023-06-19 11:51 | Oncology outpatient (recurring) (ONCR) | payer MEDICARE, SELFPAY ==
[2023-06-19 12:45] LABS: Basophils # 0.1 10^3/uL (0.0-0.1); Basophils % 0.9 %; Eosinophils # 0.2 10^3/uL (0.0-0.8); Eosinophils % 3.3 %; Hematocrit 34.5 % (36-47); Lymphocytes # 1.3 10^3/uL (0.8-4.8); Lymphocytes % 18.9 %; Mean Corpuscular HGB Conc 32.5 g/dL (30-55); Mean Corpuscular Hemoglobin 30.6 pg (27-33); Mean Corpuscular Volume 94.3 fl (85-98); Mean Platelet Volume 9.9 fL (7.4-10.4); Monocytes # 0.8 10^3/uL (0.2-0.9); Monocytes % 11.4 %; Neutrophils % 65.1 %; Nucleated Red Blood Cells % 0 %; Platelet Count 270 10^3/cmm (157-399); Red Blood Count 3.66 10^6/uL (3.85-5.65); Red Cell Distribution Width 12.5 % (12.1-15.1); White Blood Count 6.92 10^3/uL (3.29-11.43)
[2023-06-19 13:02] LABS: Alanine Aminotransferase 8 U/L (0-33); Albumin Level 4.2 g/dL (3.5-5.2); Alkaline Phosphatase 52 U/L (35-105); Anion Gap 16.5 (5-19); Aspartate Amino Transferase 18 U/L (0-32); Blood Urea Nitrogen 22 mg/dL (8-23); C Reactive Protein 7.4 mg/L (0.0-4.9); Calcium 9.3 mg/dL (8.5-10.5); Carbon Dioxide 22 mmol/L (22-29); Chloride 104 mmol/L (98-107); Globulin 3.1 g/dL (1.3-4.6); Glucose 98 mg/dL (65-115); Osmolality Calculated 289 mOsm/kg (285-295); Potassium 4.5 mmol/L (3.5-5.1); Sodium 138 mmol/L (136-145); Total Bilirubin 0.2 mg/dL (0.15-1.2); Total Protein 7.3 g/dL (6.6-8.7)
[2023-06-19 15:30] LABS: Magnesium 1.9 mg/dL (1.7-2.3)
[2023-06-19 15:46] LABS: 25 Hydroxy Vitamin D 32 ng/mL (30-100)
== END 2023-06-30 23:59 | disposition home or self-care (01) ==
PROVIDERS: Internal Medicine; Internal Medicine Rheumatology; Nurse Practitioner Family; PCP Nurse Practitioner Family; Visit Provider Internal Medicine Medical Oncology
DX: M79.641 Pain in right hand (principal); M24.541 Contracture, right hand; T84.84XA Pain due to internal orthopedic prosthetic devices, implants and grafts, initial encounter; Y79.2 Prosthetic and other implants, materials and accessory orthopedic devices associated with adverse incidents; Z45.2 Encounter for adjustment and management of vascular access device; M35.9 Systemic involvement of connective tissue, unspecified; M79.643 Pain in unspecified hand; M54.2 Cervicalgia; M54.9 Dorsalgia, unspecified; M81.0 Age-related osteoporosis without current pathological fracture
CPT/HCPCS: 36591; 80053; 82306; 83735; 85025; 86140; J1642

== ENCOUNTER 2023-07-10 09:25 | Outpatient (CLI) | payer MEDICARE, SELFPAY ==
--- NOTE | 2023-07-10 09:30 | USCV_ITS ---
Martha Patterson Age: 78 Gender: F : 1945 Exam Date: 07/10/2023 09:35 Ordering Phys: CHETNA Reyes APRNP Technologist: [place] [facility] [place]: pain RIGHT LEFT Brachial 147.00 mmHg Brachial 149.00 mmHg Pressure (mmHg) Waveform Pressure (mmHg) Waveform 175.00 BMX RIDER 183.00 160.00 DPA 172.00 1.17 Ankle/Brachial Index 1.23 137.00 Pre-Exercise Toe Pressure 137.00 0.92 Pre-Exercise Toe/Brachial Index 0.92 FINDINGS Resting NESTOR of 1.17 on the right and 1.23 on the left Resting TBI of 0.92 on the right and 0.92 on the left CONCLUSIONS Normal resting ABIs and TBIs bilaterally. No significant arterial obstruction, based on the above findings. Dr Rhiannon Carrillo MD [facility] (Electronically Signed) Final Date: 10 July 2023 10:23 S
== END 2023-07-10 09:26 | disposition home or self-care (01) ==
LOC: RAD 09:26
PROVIDERS: PCP Nurse Practitioner Family; Visit Provider Nurse Practitioner Family
DX: I73.9 Peripheral vascular disease, unspecified (principal)
CPT/HCPCS: 93922

== ENCOUNTER → 2023-07-17 10:26 | Outpatient (BNVA) | payer MEDICARE, SELFPAY | PROVIDERS: PCP Nurse Practitioner Family; Visit Provider Anesthesiology Pain Medicine | DX: M54.9 Dorsalgia, unspecified (principal) | CPT/HCPCS: 99213; 99214 ==

== ENCOUNTER 2023-07-22 15:11 | Outpatient (CLI) | payer MEDICARE, SELFPAY ==
--- NOTE | 2023-07-22 15:20 | XRR_ITS ---
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 . . TECHNIQUE: Imaging protocol: Radiologic exam of the thoracic spine. Views: 3 views. COMPARISON: CR XR cervical spine 3V* [id number] 07/22/2023 3:23 PM FINDINGS: Bones/joints: Chronic T12 vertebral body compression fracture with approximately 20% height loss. No evidence of acute fracture or subluxation. Moderate multilevel degenerative changes with anterior osteophytes. Detailed evaluation is limited by overlapping structures. Pedicles are grossly symmetric. Soft tissues: Grossly unremarkable. IVC filter noted. XR/XR thoracic spine 3V* [id number] IMPRESSION: 1. Chronic T12 vertebral body compression fracture with mild height loss. If there is clinical history of recent traumatic injury, consider correlation with CT. 2. IVC filter in place. Please assess the management of the filter. If there is no established plan for management or ongoing clinical follow-up, nonemergent interventional radiology evaluation is recommended.
--- NOTE | 2023-07-22 15:20 | XRR_ITS ---
PROCEDURE INFORMATION: Exam: XR Cervical Spine Exam date and time: 07/22/2023 3:23 PM Age: 78 years old Clinical indication: Pain; Cervicalgia; Patient HX: HX of breast, throat, skin cancer; Additional info: M54.2 - cervicalgia TECHNIQUE: Imaging protocol: Radiologic exam of the cervical spine. Views: 2 or 3 views. COMPARISON: CR XR cervical spine fl/ex [id number] 06/20/2022 4:17 PM FINDINGS: Bones/joints: No evidence of fracture or subluxation. Moderate-severe multilevel uncovertebral hypertrophy and facet arthrosis. No evidence of fracture or subluxation. Soft tissues: Prevertebral soft tissues and airway are grossly unremarkable. Dense calcifications noted in the right side of the neck, possibly in the region of the carotid bulb. XR/XR cervical spine 3V* [id number] IMPRESSION: 1. Moderate-severe multilevel degenerative changes without evidence of fracture or subluxation of the cervical spine. Consider correlation with follow-up outpatient MRI if there is concern for neural impingement.
--- NOTE | 2023-07-22 15:20 | XRR_ITS ---
PROCEDURE INFORMATION: Exam: XR Lumbosacral Spine Exam date and time: 07/22/2023 3:23 PM Age: 78 years old Clinical indication: Pain; Dorslagia; Patient HX: HX of breast, throat, skin cancer; Additional info: M54.9 - dorsalgia, unspecified TECHNIQUE: Imaging protocol: Radiologic exam of the lumbosacral spine. Views: 4 or 5 views. COMPARISON: CT lumbar spine wo con* [id number] 03/11/2019 10:09 PM FINDINGS: Bones/joints: Or chronic T12 vertebral body compression fracture with mild height loss. No evidence of acute fracture or subluxation of the lumbar spine. The sacrum and coccyx are partially obscured by bowel gas/stool. There is thoracolumbar/lumbosacral transitional anatomy. Mild grade 1 anterolisthesis of L3 on L4. Moderate multilevel degenerative changes. There is moderate-severe disc height loss and endplate degeneration at L4-L5. Soft tissues: Grossly unremarkable. IVC filter in place. Bilateral total hip arthroplasties partially visualized. XR/XR lumbar spine min 4V [id number] IMPRESSION: 1. No evidence of acute fracture or subluxation of the lumbar spine. 2. IVC filter in place. Please assess the management of the filter. If there is no established plan for management or ongoing clinical follow-up, nonemergent interventional radiology evaluation is recommended.
== END 2023-07-22 15:12 | disposition home or self-care (01) ==
PROVIDERS: PCP Nurse Practitioner Family; Visit Provider Anesthesiology Pain Medicine
DX: M54.50 Low back pain, unspecified (principal); M35.9 Systemic involvement of connective tissue, unspecified; M54.2 Cervicalgia; G89.29 Other chronic pain; M48.54XD Collapsed vertebra, not elsewhere classified, thoracic region, subsequent encounter for fracture with routine healing; X58.XXXD Exposure to other specified factors, subsequent encounter
CPT/HCPCS: 72040; 72072; 72110; 99213

== ENCOUNTER → 2023-08-02 14:22 | Outpatient (BNVA) | payer MEDICARE, SELFPAY | PROVIDERS: PCP Nurse Practitioner Family; Visit Provider Student in an Organized Health Care Education/Training Program | DX: M79.643 Pain in unspecified hand (principal); M24.549 Contracture, unspecified hand; T84.84XA Pain due to internal orthopedic prosthetic devices, implants and grafts, initial encounter; X58.XXXA Exposure to other specified factors, initial encounter | CPT/HCPCS: 99213 ==

== ENCOUNTER 2023-09-03 09:14 | Oncology outpatient (recurring) (ONCR) | payer MEDICARE, SELFPAY | END 2023-09-29 23:59 | disposition home or self-care (01) | LOC: ONCMED 09:16 | PROVIDERS: PCP Nurse Practitioner Family; Visit Provider Internal Medicine Medical Oncology | DX: M79.641 Pain in right hand (principal); M24.541 Contracture, right hand; T84.84XA Pain due to internal orthopedic prosthetic devices, implants and grafts, initial encounter; Y79.2 Prosthetic and other implants, materials and accessory orthopedic devices associated with adverse incidents; Z45.2 Encounter for adjustment and management of vascular access device; M35.9 Systemic involvement of connective tissue, unspecified; M79.643 Pain in unspecified hand; M54.2 Cervicalgia; M54.9 Dorsalgia, unspecified | CPT/HCPCS: 96523 ==

== ENCOUNTER 2023-10-01 09:20 | Oncology outpatient (recurring) (ONCR) | payer MEDICARE, SELFPAY | END 2023-10-30 23:59 | disposition home or self-care (01) | LOC: ONCMED 09:21 | PROVIDERS: PCP Nurse Practitioner Family; Visit Provider Internal Medicine Medical Oncology | DX: Z45.2 Encounter for adjustment and management of vascular access device | CPT/HCPCS: 96523 ==

== ENCOUNTER → 2023-10-25 16:55 | Outpatient (BNVA) | payer MEDICARE, SELFPAY | PROVIDERS: PCP Nurse Practitioner Family; Visit Provider Nurse Practitioner Family | DX: N39.0 Urinary tract infection, site not specified (principal) | CPT/HCPCS: 81000 ==

== ENCOUNTER 2023-11-05 09:25 | Oncology outpatient (recurring) (ONCR) | payer MEDICARE, SELFPAY | END 2023-12-05 09:58 | disposition home or self-care (01) | PROVIDERS: PCP Nurse Practitioner Family; Visit Provider Internal Medicine Medical Oncology | DX: Z45.2 Encounter for adjustment and management of vascular access device (principal) | CPT/HCPCS: 96523 ==

== ENCOUNTER → 2023-11-21 11:10 | Outpatient (BNVA) | payer MEDICARE, SELFPAY | PROVIDERS: PCP Nurse Practitioner Family; Visit Provider Nurse Practitioner Family | DX: L03.116 Cellulitis of left lower limb (principal); W10.8XXA Fall (on) (from) other stairs and steps, initial encounter; X58.XXXA Exposure to other specified factors, initial encounter | CPT/HCPCS: 73590 ==

== ENCOUNTER → 2023-11-28 11:05 | Outpatient (BNVA) | payer MEDICARE, SELFPAY | PROVIDERS: PCP Nurse Practitioner Family; Visit Provider Nurse Practitioner Family | DX: L03.116 Cellulitis of left lower limb (principal) | CPT/HCPCS: 87070 ==

== ENCOUNTER → 2023-12-10 13:16 | Outpatient (BNVA) | payer MEDICARE, SELFPAY | PROVIDERS: PCP Nurse Practitioner Family; Visit Provider Nurse Practitioner Family | DX: L57.0 Actinic keratosis (principal); L82.0 Inflamed seborrheic keratosis; S81.801A Unspecified open wound, right lower leg, initial encounter; X58.XXXA Exposure to other specified factors, initial encounter; I78.1 Nevus, non-neoplastic; L81.4 Other melanin hyperpigmentation; Z85.828 Personal history of other malignant neoplasm of skin | CPT/HCPCS: 17000; 17110; 99213 ==

== ENCOUNTER 2023-12-23 11:51 | Oncology outpatient (recurring) (ONCR) | payer MEDICARE, SELFPAY ==
[2023-12-23 12:39] LABS: Basophils # 0.1 10^3/uL (0.0-0.1); Basophils % 0.6 %; Eosinophils # 0.1 10^3/uL (0.0-0.8); Eosinophils % 0.9 %; Hematocrit 35.5 % (36-47); Lymphocytes # 0.8 10^3/uL (0.8-4.8); Lymphocytes % 8.2 %; Mean Corpuscular HGB Conc 32.1 g/dL (30-55); Mean Corpuscular Volume 96.5 fl (85-98); Mean Platelet Volume 10.5 fL (7.4-10.4); Monocytes # 0.7 10^3/uL (0.2-0.9); Monocytes % 6.9 %; Neutrophils # 8.03 10^3/uL (1.8-7.7); Neutrophils % 82.7 %; Nucleated Red Blood Cells % 0 %; Platelet Count 209 10^3/cmm (157-399); Red Blood Count 3.68 10^6/uL (3.85-5.65); Red Cell Distribution Width 13.1 % (12.1-15.1); White Blood Count 9.72 10^3/uL (3.29-11.43)
[2023-12-23 12:50] LABS: Alanine Aminotransferase 14 U/L (0-33); Albumin Level 4.3 g/dL (3.5-5.2); Alkaline Phosphatase 36 U/L (35-105); Anion Gap 16.4 (5-19); Aspartate Amino Transferase 19 U/L (0-32); Blood Urea Nitrogen 26 mg/dL (8-23); Calcium 9.1 mg/dL (8.5-10.5); Carbon Dioxide 23 mmol/L (22-29); Chloride 102 mmol/L (98-107); Ferritin 490 ng/mL (15-150); Globulin 2.7 g/dL (1.3-4.6); Glucose 93 mg/dL (65-115); Iron 65 ug/dL (37-145); Osmolality Calculated 290 mOsm/kg (285-295); Percent Saturation 28.6 % (20-50); Potassium 3.4 mmol/L (3.5-5.1); Sodium 138 mmol/L (136-145); Total Bilirubin 0.3 mg/dL (0.15-1.2); Total Iron Binding Capacity 227 mcg/dl; Unsaturated Iron Binding 162 ug/dL (112-347)
== END 2023-12-30 23:59 | disposition home or self-care (01) ==
PROVIDERS: Nurse Practitioner Family; PCP Nurse Practitioner Family; Visit Provider Internal Medicine Medical Oncology
DX: Z87.891 Personal history of nicotine dependence; Z92.21 Personal history of antineoplastic chemotherapy; Z92.3 Personal history of irradiation; C09.9 Malignant neoplasm of tonsil, unspecified; D64.9 Anemia, unspecified
CPT/HCPCS: 36591; 80053; 82728; 83540; 83550; 85025; 99214

== ENCOUNTER 2024-01-14 09:36 | Outpatient (CLI) | payer MEDICARE, SELFPAY ==
--- NOTE | 2024-01-14 10:30 | CT_ITS ---
WS: [id number] CT NECK WITH CONTRAST HISTORY: surveillance, history of RIGHT tonsillar neoplasm. TECHNIQUE: Contiguous 2 mm axial images are performed through the neck with intravenous contrast. Sag ittal and coronal reformats are also submitted. All CT scans at [facility] use at least one o f these dose optimization techniques: automated exposure control; mA and/or kV adjustment per patient size (includes targeted exams where dose is matched to clinical indication); or iterative reconstruc tion. CONTRAST: CONTRAST: Omnipaque 350; 100 mL IV. DLP: 154.43 mGy.cm COMPARISON: 03/05/2019 and 06/16/2020 Mild asymmetry involving the LEFT torus tubarius and the overlying parapharyngeal soft tissue. Slight area of enhancement measuring 5.1 mm has not been present on prior studies. This is just to the LEFT of the uvula. The remaining tongue base and epiglottis are negative. No significant lymphadenopathy is identified. Thyroid gland and salivary glands are normally enhancing with no masses. Cervical spondylosis. Visualized portions of the skull base demonstrate no abnormalities. Orbits and globes are within norm al limits. No soft tissue masses. Visualized paranasal sinuses and mastoid air cells are normal. Lung apices are clear. LEFT subclavian Mediport. CT/CT neck w con* [id number] IMPRESSION: 1. New asymmetry in the LEFT parapharyngeal soft tissue at the level of the to ysabel tubarius. This asymmetry slightly enhances and only measures 5.1 mm. Recomm end direct visualization. 2. No cervical chain lymphadenopathy.
[2024-01-14] MEDS: iohexol 350 mg/mL 500 mL Btl (per mL) IV (10:53)
== END 2024-01-14 09:37 | disposition home or self-care (01) ==
LOC: RAD 09:37
PROVIDERS: PCP Nurse Practitioner Family; Visit Provider Nurse Practitioner Family
DX: C09.9 Malignant neoplasm of tonsil, unspecified (principal); Z95.828 Presence of other vascular implants and grafts
CPT/HCPCS: 70491

== ENCOUNTER 2024-01-20 14:45 | Oncology outpatient (recurring) (ONCR) | payer MEDICARE, SELFPAY ==
[2023-12-31 14:27] LABS: Anion Gap 18.8 (5-19); Blood Urea Nitrogen 28 mg/dL (8-23); Carbon Dioxide 23 mmol/L (22-29); Chloride 99 mmol/L (98-107); Glucose 123 mg/dL (65-115); Osmolality Calculated 291 mOsm/kg (285-295); Potassium 3.8 mmol/L (3.5-5.1); Sodium 137 mmol/L (136-145)
== END 2024-01-30 23:59 | disposition home or self-care (01) ==
PROVIDERS: Nurse Practitioner Family; PCP Nurse Practitioner Family; Visit Provider Internal Medicine Medical Oncology
DX: Z53.9 Procedure and treatment not carried out, unspecified reason
CPT/HCPCS: 36591; 70491; 80048

== ENCOUNTER 2024-02-17 13:53 | Oncology outpatient (recurring) (ONCR) | payer MEDICARE, SELFPAY | END 2024-02-29 23:59 | disposition home or self-care (01) | LOC: ONCMED 13:54 | PROVIDERS: PCP Nurse Practitioner Family; Visit Provider Internal Medicine Medical Oncology | DX: Z45.2 Encounter for adjustment and management of vascular access device ==

== ENCOUNTER 2024-03-09 14:15 | Oncology outpatient (recurring) (ONCR) | payer MEDICARE, SELFPAY | END 2024-03-31 23:59 | disposition home or self-care (01) | LOC: ONCMED 14:16 | PROVIDERS: PCP Nurse Practitioner Family; Visit Provider Internal Medicine Medical Oncology | DX: Z45.2 Encounter for adjustment and management of vascular access device (principal) | CPT/HCPCS: 96523 ==

== ENCOUNTER → 2024-04-21 13:30 | Outpatient (BNVA) | payer MEDICARE, SELFPAY | PROVIDERS: PCP Nurse Practitioner Family; Visit Provider Nurse Practitioner Family | DX: N39.0 Urinary tract infection, site not specified (principal); E03.9 Hypothyroidism, unspecified | CPT/HCPCS: 81003; 87086 ==

== ENCOUNTER 2024-05-04 14:28 | Oncology outpatient (recurring) (ONCR) | payer MEDICARE, SELFPAY ==
[2024-05-04] MEDS: alteplase 1 mg/mL SDV 2 mL 2 MG INTRACATH (14:52)
[2024-05-04 15:15] LABS: Basophils % 0.4 %; Eosinophils % 0.4 %; Lymphocytes # 0.7 10^3/uL (0.8-4.8); Lymphocytes % 7.1 %; Mean Corpuscular HGB Conc 32.1 g/dL (30-55); Mean Corpuscular Hemoglobin 30.1 pg (27-33); Mean Corpuscular Volume 93.8 fl (85-98); Mean Platelet Volume 10.2 fL (7.4-10.4); Monocytes # 0.4 10^3/uL (0.2-0.9); Monocytes % 4.1 %; Neutrophils # 8.25 10^3/uL (1.8-7.7); Neutrophils % 87.6 %; Nucleated Red Blood Cells % 0 %; Platelet Count 276 10^3/cmm (157-399); Red Blood Count 3.52 10^6/uL (3.85-5.65); Red Cell Distribution Width 12.9 % (12.1-15.1); White Blood Count 9.43 10^3/uL (3.29-11.43)
[2024-05-04 15:16] LABS: Bilirubin Urine Negative (Negative); Blood Urine Negative (Negative); Glucose Urine UA Negative (Normal); Ketones Urine Negative (Negative); Leukocyte Esterase Urine Negative (Negative); Nitrate Urine Negative (Negative); Protein Urine Negative (Negative); Specific Gravity, Urine 1.007 (1.005-1.030); Urine Appearance Clear (CLEAR); Urine Color Yellow (Yellow); Urobilinogen Urine 0.2 mg/dL (Negative); pH Urine 6.5 (5-7)
[2024-05-04 15:19] LABS: Bacteria Urine None Seen /hpf; Hyaline Casts Urine 0-4 /lpf; RBC Urine 0-2 /hpf (0-2); Squamous Epithelial Cell Urine 0-5 /hpf (0-5); WBC Urine 0-5 /hpf (0-5)
[2024-05-04 15:55] LABS: Estmated Average Glucose 94; Hemoglobin A1C 4.9 % (4.0-6.0)
[2024-05-04 15:59] LABS: 25 Hydroxy Vitamin D 34 ng/mL (30-100); Alanine Aminotransferase 6 U/L (0-33); Albumin Level 4.1 g/dL (3.5-5.2); Alkaline Phosphatase 42 U/L (35-105); Anion Gap 16.2 (5-19); Aspartate Amino Transferase 12 U/L (0-32); Blood Urea Nitrogen 27 mg/dL (8-23); Calcium 8.9 mg/dL (8.5-10.5); Carbon Dioxide 22 mmol/L (22-29); Chloride 97 mmol/L (98-107); Chol HDL Ratio 4.15 mg/dL (0.0-4.40); Cholesterol 195 mg/dL (0-200); Globulin 3.1 g/dL (1.3-4.6); Glucose 120 mg/dL (65-115); HDL Cholesterol 47 mg/dL (60-100); Iron 33 ug/dL (37-145); LDL Cholesterol Calculated 131 mg/dL (50-129); LDL HDL Ratio 2.79 RATIO (0.00-3.22); Osmolality Calculated 278 mOsm/kg (285-295); Percent Saturation 14.6 % (20-50); Potassium 4.2 mmol/L (3.5-5.1); Sodium 131 mmol/L (136-145); Thyroid Stimulating Hormone 1.15 uIU/mL (0.27-4.20); Total Bilirubin 0.2 mg/dL (0.15-1.2); Total Iron Binding Capacity 226 mcg/dl; Total Protein 7.2 g/dL (6.6-8.7); Triglycerides 83 mg/dL (0-150); Unsaturated Iron Binding 193 ug/dL (112-347); Vitamin B12 254 pg/mL (232-1245)
== END 2024-05-29 23:59 | disposition home or self-care (01) ==
PROVIDERS: PCP Nurse Practitioner Family; Visit Provider Internal Medicine Medical Oncology
DX: E55.9 Vitamin D deficiency, unspecified (principal); I10 Essential (primary) hypertension; E78.5 Hyperlipidemia, unspecified; L03.119 Cellulitis of unspecified part of limb; R53.83 Other fatigue; Z79.899 Other long term (current) drug therapy
CPT/HCPCS: 36591; 80053; 80061; 81001; 82306; 82607; 83036; 83540; 83550; 84443; 85025; J2997

== ENCOUNTER → 2024-06-08 15:40 | Outpatient (BNVA) | payer MEDICARE, SELFPAY | PROVIDERS: PCP Nurse Practitioner Family; Visit Provider Nurse Practitioner Family | DX: L21.8 Other seborrheic dermatitis (principal); I78.1 Nevus, non-neoplastic; D23.39 Other benign neoplasm of skin of other parts of face; L81.4 Other melanin hyperpigmentation; Z08 Encounter for follow-up examination after completed treatment for malignant neoplasm; Z85.828 Personal history of other malignant neoplasm of skin; L82.0 Inflamed seborrheic keratosis; R20.8 Other disturbances of skin sensation; L29.89 Other pruritus; L53.8 Other specified erythematous conditions; L57.0 Actinic keratosis | CPT/HCPCS: 17000; 17110; 99214 ==

== ENCOUNTER → 2024-06-15 14:51 | Outpatient (BNVA) | payer MEDICARE, SELFPAY ==
--- NOTE | 2024-06-15 17:56 | PM.CONSULT ---
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 She has an IVC filter in place. Patient sustained a mechanical fall on June 10, 2024 for which she presented to the ER at [facility]. She was diagnosed with a right shoulder dislocation. She was referred to see orthopedic service and was evaluated by Dr. Boles in the clinic today. She is planned to undergo surgical fixation tomorrow. Patient had significant amount of pain therefore decision was made to admit her to the hospital today with planned intervention tomorrow. Hospitalist consult is requested for management of medical comorbidities. Review of Systems General: Reports: 10 or more systems reviewed and unremarkable except in HPI and below Const: Denies: fever(s), chills or body aches Eyes: Denies: change in vision, blurry vision or photophobia ENMT: Reports: hoarseness; Denies: throat pain, enlarged tonsils, odynophagia or nasal congestion Card: Denies: chest pain, palpitations, irregular heart rhythm, edema, swelling of feet/ankles, lightheadedness, pre-syncope, dyspnea on exertion or orthopnea Resp: Denies: dyspnea, productive cough, non-productive cough, wheezing, stridor, pain on inspiration, change in phlegm color, hemoptysis or chest congestion GI: Denies: abdominal pain, nausea, vomiting, hematemesis, coffee ground emesis, dysphagia, heartburn, diarrhea, constipation, GI cramping, change in stool character, hematochezia or melena : Denies: flank pain, difficulty voiding, dysuria, urinary frequency, urinary urgency, urinary hesitancy or hematuria Musc: Denies: neck pain, back pain, extremity pain, joint swelling, joint warmth or deformity Neuro: Denies: headache(s), numbness in extremities, weakness in extremities, sensory changes, difficulty walking, frequent falls, dizziness, vertigo, behavioral changes, Slurred speech present or seizure-like activity Psych: Denies: anxiety, depression, suicidal ideation or homicidal ideation Endo: Denies: polyuria, polydipsia, tired all the time, cold intolerance or hot flashes Darryn/Lymph: Denies: easy bruising or easy bleeding Medications/Allergies Home Medications ?Medication ?Instructions ?Recorded ?Confirmed ?Last Taken ?Type lisinopril 20 mg tablet See Rx Instructions .Route 06/26/23 06/16/24 Unknown Rx .COMPLEX #180 tabs pantoprazole 40 mg tablet,delayed See Rx Instructions .Route 07/29/23 06/16/24 Unknown Rx release .COMPLEX #90 tabs levothyroxine 25 mcg tablet See Rx Instructions .Route 09/12/23 06/16/24 Unknown Rx .COMPLEX #90 tabs amlodipine 5 mg tablet See Rx Instructions .Route 01/09/24 06/16/24 Unknown Rx .COMPLEX #90 tabs chlorthalidone 25 mg tablet See Rx Instructions .Route 03/17/24 06/16/24 Unknown Rx .COMPLEX 90 days #90 tabs prednisone 5 mg tablet See Rx Instructions .Route 04/07/24 06/16/24 Unknown Rx .COMPLEX #30 tabs hydrocodone 5 mg-acetaminophen 325 1 tab PO Q6H PRN pain 3 days #10 06/12/24 06/16/24 Unknown Rx mg tablet tabs leflunomide 10 mg tablet 10 mg PO DAILY 06/16/24 06/16/24 Unknown History Allergies Allergy/AdvReac Type Severity Reaction Status Date / Time ciprofloxacin (From Cipro) Allergy Intermediate rash Verified 06/15/24 14:34 Sulfa (Sulfonamide Allergy Mild ADR-Nausea Verified 06/15/24 14:34 Antibiotics) PFSH Acute PFSH: Medical History Weight loss Cellulitis, leg Abdominal pain Breast cancer screening by mammogram Enrolled in chronic care management Pseudomonas infection Cellulitis of right lower limb Klebsiella infection Urinary tract infection Claudication of right lower extremity Slurred speech Dizziness Pain of right foot Ingrown right big toenail History of nonmelanoma skin cancer Mixed incontinence Cervicalgia SCCA (squamous cell carcinoma) of skin Carotid stenosis, bilateral Recurrent UTI Mixed stress and urge urinary incontinence Urinary incontinence Leg swelling Fatigue Tonsil cancer Abnormal nuclear stress test Benign essential HTN Syncope and collapse Polymorphic ventricular tachycardia Generalized weakness Brain bleed H/O deep venous thrombosis Hypothyroidism (acquired) Chronic congestive heart failure Chronic GERD History of breast cancer Mild hyperlipidemia COPD (chronic obstructive pulmonary disease) Surgical History History of insertion of tunneled central venous catheter (CVC) with port H/O vaginal surgery (05/31/20) Laparoscopic BSO, Uterosacral ligament suspension with enterocele, Anterior colporrhaphy, Cystoscopy. Performed by Dr. Isaac at [facility] in [place], [place] H/O abdominoplasty S/P IVC filter (~03/13/19) DVT after hip replacement IVC Filter placed March 13, 2019 at [facility] History of left hip replacement Status post carpal tunnel release Status post total hip replacement, left Status post hysterectomy (~1969) Vaginal per patient, ovaries were spared Status post right mastectomy with breast reconstruction with abdominal trans-flap. Family History Mother Diabetes Hypertension Uterine cancer Diagnosed in her 70s CAD (coronary artery disease) Family/Other Diabetes maternal aunt Chronic kidney disease (CKD) Father Hypertension Heart disease of [place] at age 59 CAD (coronary artery disease) Daughter Breast cancer With Mets; at age 50 Sister Dementia Denies family history of Clotting disorder Suicide Anesthesia complication Bleeding disorder Lung disease Cancer Stroke Social History Smoking and tobacco/nicotine status: former use of tobacco/nicotine (quit about 35 years ago) Quit status (tobacco/nicotine): has quit using Year quit tobacco: 1989 Former quit date comment: Started smoked as a teenager and smoked 1/2 pack per day Alcohol intake: current Alcohol intake frequency: holidays/special occasions only Substance/Drug Use: never Marital status: Current occupational status: retired Physical Exam Narrative: General: No acute distress, AO x3 HEENT: PERRLA, pupils bilaterally equal and reactive, pallors not present Chest: Normal vesicular breath sounds, no added sounds, equal good air entry bilaterally CVS: S1-S2 regular, no murmurs, no tachycardia, no gallops, no rubs Abdomen: Soft, nontender, no organomegaly, bowel sounds present Neuro: No focal deficits, no facial deformity, AO x3, power 5/5 in all limbs Extremities: right shoulder in sling Data Other Labs: Patient: Martha Patterson Unit #: [id number] : 1945 Age/Sex: 79 / F ADM Date: 06/15/24 Loc: [facility]TO Room/Bed: Attending Dr: Humphrey Boles MD Ordering Provider/Ordering MD: Humphrey Boles MD Date of Service: 06/15/24 Procedure(s): XR shoulder RT min 2V* [id number] Accession Number(s): [id number] Report Number: [id number] PROCEDURE INFORMATION: Exam: XR Right Shoulder Exam date and time: 06/15/2024 2:53 PM Age: 79 years old Clinical indication: Pain; Shoulder; Right; Additional info: Fracture TECHNIQUE: Imaging protocol: Radiologic exam of the right shoulder. Views: 2 or more views. COMPARISON: CR XR shoulder RT min 2V* [id number] 06/25/2019 3:20 PM FINDINGS: Bones/joints: Acute comminuted displaced proximal humeral fracture with rotation of the humeral head and overriding of the fracture fragments. There is anterior translation of the humeral shaft with respect of the humeral head. The acromioclavicular articulation is grossly intact. Soft tissues: Soft tissue edema. Left-sided central venous catheter noted. XR/XR shoulder RT min 2V* [id number] IMPRESSION: 1. Acute comminuted displaced proximal humeral fracture. A&P Assessment and plan (1) Humerus fracture: Displaced humerus fracture plan for surgical intervention tomorrow. Pain management and post op wound care per ortho obtain baseline labs CBC and CMP (2) Hypertension: continue home dose of amlodpine and lisinopril hold chlorthalidone Qualifiers: Hypertension type: primary hypertension Qualified Code(s): I10 - Essential (primary) hypertension (3) S/P IVC filter: (4) Hypothyroidism (acquired): continue levothyroxine (5) Undifferentiated connective tissue disease: continue home dose of prednisone 5mg daily. Leflunomide N/A on formulary - may be resumed at discharge, okay to hold for now PDMP PDMP Reviewed: Not Reviewed Consult Attestations Medical Necessity Statement: per admitting Coding Level of Care Code Acute Code for Chg Fwd Diagnoses Humerus fracture S42.309A Primary hypertension I10 Hypertension type: primary hypertension S/P IVC filter Z95.828 Hypothyroidism (acquired) E03.9 Undifferentiated connective tissue disease M35.9
== END ==
PROVIDERS: PCP Nurse Practitioner Family; Visit Provider Orthopaedic Surgery
DX: S42.291A Other displaced fracture of upper end of right humerus, initial encounter for closed fracture (principal); W18.30XA Fall on same level, unspecified, initial encounter
CPT/HCPCS: 12345; 73030; 99204

== ENCOUNTER 2024-06-15 17:10 | Observation (INO) | payer MEDICARE, SELFPAY ==
--- OUTSIDE RECORDS SUMMARY | 2024-06-15 17:15 | XMS_ITS | Encounter Summary ---
Author Organization [facility] Address [address] [place] [address] Care Team Providers Care Histology Aide Name Role Phone Santino Reyes APRN Primary Care Provider [phone] Encounter Details Date Type Department Care Team (Latest Contact Info) Description 12/07/1998 Outpatient [facility] [address] 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 Gender Identity Not on file Sexual Orientation Not on file documented as of this encounter Plan of Treatment Not on file documented as of this encounter Visit Diagnoses Diagnosis Other screening mammogram- Primary documented in this encounter Additional Health Concerns Infection Onset Date Last Indicated Resolved Time VRE Comment:VRE positive urine culture 06/15/18 06/17/2018 06/17/2018 06/20/2018 9:09 AM C DT VRE Comment:Positive Urine Culture from outside facility on 06/15/18 06/23/2018 06/23/2018 documented as of this encounter Care Teams Histology Aide Relationship Specialty Start Date End Date Santino Reyes APRN [address] [facility] [address] [place] [address] PCP - General NURSE PRACTITIONER 07/10/18 documented as of this encounter
--- OUTSIDE RECORDS SUMMARY | 2024-06-15 17:15 | XMS_ITS | Encounter Summary ---
Author Organization [facility] Address [address] [place] [address] Care Team Providers Care C++ Professor Name Role Phone Santino Reyes APRN Primary Care Provider [phone] Encounter Details Date Type Department Care Team (Latest Contact Info) Description 02/28/1999 Outpatient Historical [facility] Luis Miguel Almendarez MD NO ADDRESS ON FILE Malignant neoplasm of central portion of female breast (CMS/HCC) (Primary Dx) Social History Tobacco Use Types Packs/Day Years Used Date Smoking Tobacco: Never Assessed Comments Unknown Sex and Gender Information Value Date Recorded Sex Assigned at Not on file 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 Gender Identity Not on file Sexual Orientation Not on file documented as of this encounter Plan of Treatment Not on file documented as of this encounter Visit Diagnoses Diagnosis Malignant neoplasm of central portion of female breast (CMS/HCC)- Primary Malignant neoplasm of central portion of female breast documented in this encounter Additional Health Concerns Infection Onset Date Last Indicated Resolved Time VRE Comment:VRE positive urine culture 06/15/18 06/17/2018 06/17/2018 06/20/2018 9:09 AM C DT VRE Comment:Positive Urine Culture from outside facility on 06/15/18 06/23/2018 06/23/2018 documented as of this encounter Care Teams C++ Professor Relationship Specialty Start Date End Date Santino Reyes APRN [address] [place] [phone] PCP - General NURSE PRACTITIONER 07/10/18 documented as of this encounter
--- OUTSIDE RECORDS SUMMARY | 2024-06-15 17:15 | XMS_ITS | Encounter Summary ---
Author Organization [facility] Address [address] [place] [address] Care Team Providers Care Digital Content Coordinator Name Role Phone Santino Reyes APRN Primary Care Provider [phone] Encounter Details Date Type Department Care Team (Latest Contact Info) Description 02/01/1999 Outpatient Historical [facility] General and Trauma Surgery-[address] [place] [address] Raulito Wagner MD [address] [place] [address] [address] [place] [address] Nonspecific abnormal findings on radiological or other examinations of the breast (Primary Dx) Social History Tobacco Use Types Packs/Day Years Used Date Smoking Tobacco: Never Assessed Comments Unknown Sex and Gender Information Value Date Recorded Sex Assigned at Not on file 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 Gender Identity Not on file Sexual Orientation Not on file documented as of this encounter Plan of Treatment Not on file documented as of this encounter Visit Diagnoses Diagnosis Nonspecific abnormal findings on radiological or other examinations of the breast- Primary documented in this encounter Additional Health Concerns Infection Onset Date Last Indicated Resolved Time VRE Comment:VRE positive urine culture 06/15/18 06/17/2018 06/17/2018 06/20/2018 9:09 AM C DT VRE Comment:Positive Urine Culture from outside facility on 06/15/18 06/23/2018 06/23/2018 documented as of this encounter Care Teams Digital Content Coordinator Relationship Specialty Start Date End Date Santino Reyes, AIRCRAFT LANDING GEAR INSPECTOR [address] [phone] PCP - General NURSE PRACTITIONER 07/10/18 documented as of this encounter
--- OUTSIDE RECORDS SUMMARY | 2024-06-15 17:15 | XMS_ITS | Encounter Summary ---
Author Organization [facility] Address [address] [place] [address] Care Team Providers Care Plant Etiologist Name Role Phone Santino Reyes APRN Primary Care Provider Encounter Details Date Type Department Care Team (Latest Contact Info) Description 02/17/1999 Outpatient [facility] [address] [facility] [address] [place] [address] Farzad Diehl MD NO ADDRESS ON FILE Other sign and symptom in breast (Primary Dx) Social History Tobacco Use Types Packs/Day Years Used Date Smoking Tobacco: Never Assessed Comments Unknown Sex and Gender Information Value Date Recorded Sex Assigned at Not on file 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 Gender Identity Not on file Sexual Orientation Not on file documented as of this encounter Plan of Treatment Not on file documented as of this encounter Visit Diagnoses Diagnosis Other sign and symptom in breast- Primary documented in this encounter Additional Health Concerns Infection Onset Date Last Indicated Resolved Time VRE Comment:VRE positive urine culture 06/15/18 06/17/2018 06/17/2018 06/20/2018 9:09 AM C DT VRE Comment:Positive Urine Culture from outside facility on 06/15/18 06/23/2018 06/23/2018 documented as of this encounter Care Teams Plant Etiologist Relationship Specialty Start Date End Date Santino Ryees APRN [facility] [address] [place] [address] PCP - General NURSE PRACTITIONER 07/10/18 documented as of this encounter
--- OUTSIDE RECORDS SUMMARY | 2024-06-15 17:15 | XMS_ITS | Encounter Summary ---
Author Organization [facility] Address [address] [place] [address] Care Team Providers Care Striper Spray Gun Name Role Phone Santino Reyes APRN Primary Care Provider Encounter Details Date Type Department Care Team (Latest Contact Info) Description 02/22/1999 Outpatient Historical [facility] General and Trauma Surgery-[address] [place] [address] Raulito Wagner MD [address] [place] [address] [address] [place] [address] Malignant neoplasm of breast (female), unspecified site (CMS/HCC) (Primary Dx) Social History Tobacco Use Types Packs/Day Years Used Date Smoking Tobacco: Never Assessed Comments Unknown Sex and Gender Information Value Date Recorded Sex Assigned at Not on file 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 Gender Identity Not on file Sexual Orientation Not on file documented as of this encounter Plan of Treatment Not on file documented as of this encounter Visit Diagnoses Diagnosis Malignant neoplasm of breast (female), unspecified site (CMS/HCC)- Primary Malignant neoplasm of breast (female), unspecified site documented in this encounter Additional Health Concerns Infection Onset Date Last Indicated Resolved Time VRE Comment:VRE positive urine culture 06/15/18 06/17/2018 06/17/2018 06/20/2018 9:09 AM C DT VRE Comment:Positive Urine Culture from outside facility on 06/15/18 06/23/2018 06/23/2018 documented as of this encounter Care Teams Striper Spray Gun Relationship Specialty Start Date End Date Santino Reyes, SPRING BENDER [address] [place] [phone] PCP - General NURSE PRACTITIONER 07/10/18 documented as of this encounter
--- OUTSIDE RECORDS SUMMARY | 2024-06-15 17:15 | XMS_ITS | Encounter Summary ---
Author Organization [facility] Address [address] [place] [address] Care Team Providers Care General Forecaster Name Role Phone Santino Reyes APRN Primary Care Provider [phone] Encounter Details Date Type Department Care Team (Latest Contact Info) Description 11/16/1997 Outpatient Historical [facility] Rheumatology- [facility] [place] [address] [place] [address] Antonella Amaya MD [address] [place] [address] Myalgia and myositis, unspecified (Primary Dx); Synovitis and tenosynovitis, unspecified Social History Tobacco Use Types Packs/Day Years Used Date Smoking Tobacco: Never Assessed Comments Unknown Sex and Gender Information Value Date Recorded Sex Assigned at Not on file 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 Gender Identity Not on file Sexual Orientation Not on file documented as of this encounter Plan of Treatment Not on file documented as of this encounter Visit Diagnoses Diagnosis Myalgia and myositis, unspecified- Primary Mylagia and myositis, unspecified Synovitis and tenosynovitis, unspecified documented in this encounter Additional Health Concerns Infection Onset Date Last Indicated Resolved Time VRE Comment:VRE positive urine culture 06/15/18 06/17/2018 06/17/2018 06/20/2018 9:09 AM C DT VRE Comment:Positive Urine Culture from outside facility on 06/15/18 06/23/2018 06/23/2018 documented as of this encounter Care Teams General Forecaster Relationship Specialty Start Date End Date Santino Reyes, CLOTH ROLL WINDER [address] [place] [phone] PCP - General NURSE PRACTITIONER 07/10/18 documented as of this encounter
--- OUTSIDE RECORDS SUMMARY | 2024-06-15 17:15 | XMS_ITS | Encounter Summary ---
Author Organization [facility] Address [address] [place] [address] Care Team Providers Care Blood Donor Recruiter Supervisor Name Role Phone Santino Reyes APRN Primary Care Provider [phone] Encounter Details Date Type Department Care Team (Latest Contact Info) Description 08/08/1998 Outpatient Historical [facility] Rheumatology- [place] [address] [place] [address] Antonella Amaya MD [address] [place] [address] Myalgia and myositis, unspecified (Primary Dx); Synovitis and tenosynovitis, unspecified Social History Tobacco Use Types Packs/Day Years Used Date Smoking Tobacco: Never Assessed Comments Unknown Sex and Gender Information Value Date Recorded Sex Assigned at Not on file 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
--- OUTSIDE RECORDS SUMMARY | 2024-06-15 17:15 | XMS_ITS | Encounter Summary ---
Author Organization [facility] Address [address] [place] [address] Attn: [place] [address] Care Team Providers Care Chemical Operations Specialist Name Role Phone Santino Reyes APRN Primary Care Provider [phone] Encounter Details Date Type Department Care Team ([facility] Contact Info) Description 03/01/1999 Inpatient Historical Raulito Wagner MD [address] [facility] [address] [place] [address] Social History Tobacco Use Types Packs/Day Years Used Date Smoking Tobacco: Never Assessed Comments Unknown Sex and Gender Information Value Date Recorded Sex Assigned at Not on file 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 Gender Identity Not on file Sexual Orientation Not on file documented as of this encounter Plan of Treatment Not on file documented as of this encounter Visit Diagnoses Not on filedocumented in this encounter Additional Health Concerns Infection Onset Date Last Indicated Resolved Time VRE Comment:VRE positive urine culture 06/15/18 06/17/2018 06/17/2018 06/20/2018 9:09 AM C DT VRE Comment:Positive Urine Culture from outside facility on 06/15/18 06/23/2018 06/23/2018 documented as of this encounter Care Teams Chemical Operations Specialist Relationship Specialty Start Date End Date Santino Reyes APRN [address] [facility] [address] [place] [address] PCP - General NURSE PRACTITIONER 07/10/18 documented as of this encounter
--- OUTSIDE RECORDS SUMMARY | 2024-06-15 17:15 | XMS_ITS | Encounter Summary ---
Author Organization [facility] Address [address] [place] [address] Care Team Providers Care Manager Resource Name Role Phone Eric Santino CARDENAS Primary Care Provider [phone] Reason for Visit * Reason Onset Date Comments Question 06/11/2024 Encounter Details Date Type Department Care Team (Late st Contact Info) Description 06/11/2024 Telephone [facility] Orthopedics - Orthopedic [facility] [address] [place] [address] Jony Dee, DO [address] [facility] [address] [place] [address] Question Social History Tobacco Use Types Packs/Day Years Used Date Smoking Tobacco: Former Cigarettes Q uit: 04/01/1989 Smokeless Tobacco: Never Alcohol Use Standard Drinks/Week Comments No 0 (1 standard drink = 0.6 oz pur e alcohol) Feeling Safe Answer Date Recorded Are you in a relationship wi th someone who hurts you emotionally and/or physically? No 06/10/2024 Comments No Sex and Gender Information Value Date Recorded Sex Assigned at Not on file Legal Sex Female 6:53 AM STATUE MAKER Gender Identity Not on file Sexual Orientation Not on file documented as of this encounter Miscellaneous Notes * Telephone Encounter - Celena Garcia N - 06/12/2024 6:27 AM CDT Doctor: LUIZ Phone #: - Person Calling: - Relationship to patient: - Reason for call: REFERRAL IN CHART REC'D 3/12/25 FOR CLOSED DISPLACED FX OF SURGICAL NECK OF RT HUMERUS-ADVISED TO SEE IN ONE WEEK PER DR. DEE. DO NOT SEE AVAILABILITY WITH ANY PROVIDER WITHIN ONEWEEK. PLEASE ADVISE DATE, TIME, AND PROVIDER TO SCHEDULE APPT WITH. * Telephone Encounter - Esperanza Hathaway CMA - 06/11/2024 4:07 PM CDT Called patient to advise we do not have a referral for her for this and asked if she could bear with us. I am calling the referral team to ask they send to use and Dr. Dee. * Telephone Encounter - Esperanza Hathaway CMA - 06/11/2024 4:06 PM CDT ----- Message from Jyoti Soriano sent at 06/11/2024 2:32 PM CDT ----- DATE: 06.11.24 Time: 10:22a Who is the doctor/PA: Dr. Dee Phone #:[phone] Person calling: Martha Reason for the call: Patient states she has a dislocated shoulder and a broken bone and in pain andneeds to be seen. DOI or SX DATE: LV: * Telephone Encounter - Ricarda Pisano - 06/11/2024 1:47 PM CDT Patient called back and was transferred to trauma to [facility]. I did not see any availability next week.Please advise. * Telephone Encounter - Davina Kohli - 06/11/2024 7:34 AM CDT Images from the original note were not included. Doctor: DR DEE BUILDING PRINCIPAL 06/10/2024 Phone #: - Person Calling: - Relationship to patient: - Reason for call: Referral for Closed displaced fracture of surgical neck of right humerus, unspecified fracture morphology, initial encounter Images on pacs Provider Comments closed displaced fracture of humerus head and there are multiple parts of the bone. the humerus is anteriorly displaced. Please advise. documented in this encounter Plan of Treatment Upcoming Encounters Date Type Department Care Team ([facility] st Contact Info) Description 06/24/2024 1:40 PM CDT Office Visit [facility] [place] [address] [facility] [address] [place] [address] Ric Wei PA [address] [facility] [address] [place] [address] documented as of this encounter Visit Diagnoses Not on filedocumented in this encounter Additional Health Concerns Infection Onset Date Last Indicated Resolved Time VRE Comment:Positive Urine Culture from outside facility on 06/15/18 06/23/2018 06/23/2018 Assessment Noted Time PHQ-9 Depression Total Score: 4 03/12/20 19 1:00 PM STATUE MAKER documented as of this encounter Care Teams Manager Resource Relationship Specialty Start Date End Date Santino Reyes APRN [address] [place] [phone] PCP - General 06/09/20 documented as of this encounter
--- OUTSIDE RECORDS SUMMARY | 2024-06-15 17:15 | XMS_ITS | Encounter Summary ---
Author Organization [facility] Address [address] [place] [address] Care Team Providers Care Hotbed Transfer Operator Name Role Phone Santino Reyes APRN Primary Care Provider [phone] Encounter Details Date Type Department Care Team (Latest Contact Info) Description 12/16/1998 Outpatient [facility] [address] [facility] [address] [place] [address] Casandra Subramanian MD NO ADDRESS ON FILE Nonspecific abnormal findings on radiological or other examinations of the breast (Primary Dx) Social History Tobacco Use Types Packs/Day Years Used Date Smoking Tobacco: Never Assessed Comments Unknown Sex and Gender Information Value Date Recorded Sex Assigned at Not on file 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
--- OUTSIDE RECORDS SUMMARY | 2024-06-15 17:15 | XMS_ITS | Encounter Summary ---
Author Organization [facility] Address 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 Name Role Phone Santino Reyes APRN Primary Care Provider [phone] Reason for Referral * Eval and Treat (Urgent) - Closed Specialty Diagnoses / Procedures Referred By Dennis pike Referred To Contact Orthopedic Surgery Diagnoses Closed displaced fracture of surgical neck of right humerus, unspecified fracture morphology, initial encounter Procedures [place] OFFICE/OUTPATIENT ESTABLISHED MOD MDM 30 MIN [place] OFFICE/OUTPATIENT NEW MODERATE MDM 45 MINUTES Jakob Marti MD [employer] [address] Phone: tel: fax: [facility] [address] [address] Phone: tel: fax: Referral ID Status Reason Start Date Expiration Date Visits Re quested Visits Authorized [id number] Closed 06/11/2024 06/11/2025 1 1 * Eval and Treat (Urgent) - Authorized Specialty Diagnoses / Procedures Referred By Dennis pike Referred To Contact Orthopedic Surgery Diagnoses Closed displaced fracture of surgical neck of right humerus, unspecified fracture morphology, initial encounter Skin tear of elbow without complication, right, initial encounter Procedures [place] OFFICE/OUTPATIENT ESTABLISHED MOD MDM 30 MIN [place] OFFICE/OUTPATIENT NEW MODERATE MDM 45 MINUTES Jakob Marti MD [address] [address] Phone: tel: fax: Jony Charles, DO [address] [place] [address] Phone: tel: fax: Referral ID Status Reason Start Date Expiration Date V isits Requested Visits Authorized [id number] Authorized 06/10/2024 06/10/2025 1 1 Reason for Visit * Reason Comments Fall Shoulder Injury Right Arm Injury right Encounter Details Date Type Department Care Team (Late st Contact Info) Description 06/10/2024 9:13 AM CDT - 06/10/2024 5:45 PM CDT Emergency [facility] Emergency Medicine [address] [address] Jakob Marti MD [address] [address] Closed displaced fracture of surgical neck of right humerus, unspecified fracture morphology, initial encounter (Primary Dx); Skin tear of elbow without complication, right, initial encounter Discharge Disposition: Home or Self Care Social History Tobacco Use Types Packs/Day Years Used Date Smoking Tobacco: Former Cigarettes Q uit: 04/01/1989 Smokeless Tobacco: Never Tobacco Cessation:Counseling Given: Not Answered Alcohol Use Standard Drinks/Week Comments No 0 (1 standard drink = 0.6 oz pur e alcohol) Feeling Safe Answer Date Recorded Are you in a relationship wi th someone who hurts you emotionally and/or physically? 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 Gender Identity Not on file Sexual Orientation Not on file documented as of this encounter Last Filed Vital Signs Vital Sign Reading Time Taken Comments Blood Pressure 158/69 06/10/2024 5:30 PM CDT Pulse 64 06/10/2024 5:30 PM CDT Temperature 36.8 ??C (98.3 ??F) 06/10/2024 5:30 PM CD T Respiratory Rate 20 06/10/2024 5:30 PM CDT Oxygen Saturation 97% 06/10/2024 5:30 PM CDT Inhaled Oxygen Concentration - - Weight 47.3 kg (104 lb 3.2 oz) 06/10/2024 9:17 A M CDT Height 149.9 cm (4' 11 ) 06/10/2024 9:17 AM CDT Body Mass Index 21.05 06/10/2024 9:17 AM CDT documented in this encounter Discharge Instructions * Discharge Instructions* Jakob Marti MD - 06/10/2024 5:27 PM CDT Please makes sure you take the pain medication prescribed only for severe pain, since it is a narcotic substance, it may make you drowsy, do not drive or operate any machinery while taking this medication. Please do not remove the sling unless you need to change or shower. Please reach out to the [facility] in [place] to make sure you have close follow up. If you notice that you are having difficulty feeling your hand or it becomes different color such as pale or blue, please go to the nearest emergency department right away. * Attachments The following attachments cannot be sent through Care Everywhere. * Tdap Vaccine: VIS (Belarusian) * Slings: General Info (Belarusian) * Oxycodone/Acetaminophen Oral Tablet (OXYCODONE/ACETAMINOPHEN - ORAL) (Belarusian) * Arm Fracture (Belarusian) documented in this encounter Medications at Time of Discharge lisinopriL (PRINIVIL) 20 mg tablet TAKE 1 TABLET BY MOUTH ONCE DAILY FOR 90 DAYS 08/22/2021 levothyroxine 25 mcg tablet Take 25 mcg by mouth daily. 07/20/2021 potassium chloride (MICRO-K EXTENCAPS) 10 mEq Extended Release capsule TAKE ONE CAPSULE BY MOUTH EVERY DAY 07/28/2019 calcium carbonate/vitamin D3 (CALCIUM 600 WITH VITAMIN D3 ORAL) Take 1 Tablet by mouth daily. 01/29/2018 predniSONE (DELTASONE) 5 mg tablet Take 5 mg by mouth daily at bedtime. 01/29/2018 oxyCODONE-acetami nophen (PERCOCET) 5-325 mg tabletIndications :Closed displaced fracture of surgical neck of right humerus, unspecified fracture morphology, initial encounter,Skin tear of elbow without complication, right, initial encounter Take 1 Tablet by mouth every 6 hours as needed for Pain, Moderate. Max Daily Amount: 4 Tablets 12 Tablet 06/10/2024 06/13/2024 documented as of this encounter ED Notes * Sandra Yang RN - 06/10/2024 5:[address] Marti advises that [facility] declined in accepting referral for patient. * Sandra Yang RN - 06/10/2024 4:57 PM CDT Remaining to wait to hear from [facility] Supervisor. * Sandra Yang RN - 06/10/2024 3:10 PM CDT Updated on wait time. States she wants to wait for [facility] to call back. Dr Marti notified.Patient placed on bed pena and removed from bed pena. Cleaned perianal area with wet wipes * Sandra Yang RN - 06/10/2024 2:32 PM CDT Called [facility] Supervisor Hope and advises that she has not been able to reach out to [facility] at this time due to being in procedures and unknown on how long the wait time to reach [facility] will be. DR Marti notified. * Sandra Yang RN - 06/10/2024 1:49 PM CDT Explained wait time. Patient asking if she can have something to drink. I advised since we are waiting on plan of care with [facility], she needs to hold off on drinking or eating anything. Patient provided chap stick for her lips. * Sandra Yang RN - 06/10/2024 1:[address] Marti calling [facility] Supervisor for ortho to call back per patient request of wanting to try [facility] initally * Sandra Yang RN - 06/10/2024 11:41 AM CDT Radiology notified or orders * Sandra Yang RN - 06/10/2024 11:10 AM CDT Patient states she gets vaccines in her left arm and is ok to use for the TDAP shot * Sandra Yang RN - 06/10/2024 10:33 AM CDT Placed triple antibiotic ointment over skin tear to right forearm, applied non stick telfa, and kerlix and secured with tape. * Sandra Yang RN - 06/10/2024 10:[address] Marti calling [facility] Transfer Line * Sandra Yang RN - 06/10/2024 10:15 AM CDT Cleaned right forearm skin tear with endure and water and washcloth along with flushing with endureand water. Cleaned underneath the flap of skin. Flushed skin tear with water and dried. Placed skinflap flat back over the skin tear area per DR Marti's orders * Sandra Yang RN - 06/10/2024 9:44 AM CDT Radiology at bedside * Sandra Yang RN - 06/10/2024 9:27 AM CDT Radiology notified of orders * Sandra Yang RN - 06/10/2024 9:17 AM CDT Patient arrives by private vehicle. Ambulates well into room. Friend at bedside and is the driver courier. Complains of fall at 0730 at home today. States she tripped and fell onto her right side onto concrete as she tried to catch herself. Complains of right shoulder pain and difficulty with range of motion. Right upper arm and elbow pain. Skin tear to right forearm that is wrapped. Denies loss of consciousness or head injury. Not up to date with tetanus shot. Last food intake yesterday at 1900. Last fluid intake this morning. * Jakob Marti MD - 06/10/2024 9:10 AM CDT HISTORY OF PRESENT ILLNESS Martha Patterson, a 79 y.o. female presents to the ED with a Chief Complaint of Fall, Shoulder Injury, and Arm Injury Subjective The patient, an elderly female, presents with a chief complaint of right shoulder pain and a skin tear on her right elbow following a fall this morning around 7:00 AM. She reports slipping on a rug while stepping down a 6-inch step while taking out the trash. The patient landed on her right side onconcrete. The primary area of pain is her right shoulder, which she describes as feeling weak. She also notessoreness in her right elbow where she sustained a large skin tear. The patient denies pain in otherareas, except for her normal arthritis- related pain. She was able to walk after the fall but is currently trying not to move her right arm to avoid exacerbating the pain. The skin tear on the elbow has been bleeding, and it was wrapped before coming to the hospital. Thepatient was initially unaware of the severity of the elbow injury due to the intensity of her shoulder pain. The patient has a history of hypertension and thyroid condition, both controlled with medication. She also has arthritis. Her current medications include blood pressure medication and thyroid medication. History provided by: The patient Arrived by: Private vehicle Arrived from: Home REVIEW OF SYSTEMS Review of Systems All other systems reviewed and are negative. 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 SURGICAL: Patient has a past surgical history that includes pr arthroplasty metacarpophalangeal joint each (Left, 11/15/2016); pr arthrp acetblr/prox fem prostc agrft/algrft (Right, 01/30/2018); carpal tunnel release; surgical other; pr esophagogastroduodenoscopy transoral diagnostic (04/11/2010); pr arthrp acet blr/prox fem prostc agrft/algrft (12/26/2011); cyst removal (07/21/2012); cyst removal (Left, 04/16/2016); pr esophagogastroduodenoscopy transoral diagnostic (N/A, 01/04/2016); hysterectomy (1.1.79); surgical other (07/21/2012); pr esophagogastroduodenoscopy transoral diagnostic (11/25/2013); pr xcapsl ctrc rmvl insj io lens prosth w/o ecp (11/18/2013); pr xcapsl ctrc rmvl insj io lens prosth w/o ecp (09/16/2013); liv and beckieo (1978); and mastectomy (). FAMILY: Patient's family history includes Breast Cancer in her maternal cousin and paternal cousin; Breast Cancer (age of onset: 30) in her paternal aunt; Breast Cancer (age of onset: 42) in her daughter; Breast Cancer (age of onset: 55) in an other family member; Cancer (age of onset: 78) in her mother; Diabetes in her brother; Heart Disease in her brother and father; Other in her sister and son. SOCIAL: reports that she quit smoking about 35 years ago. Her smoking use included cigarettes. She has never used smokeless tobacco. She reports that she does not drink alcohol and does not use drugs. No history on file. Social History Other Topics Concern Not on file ALLERGIES Penicillins and Sulfa (sulfonamide antibiotics) HOME MEDICATIONS Patient's Home Medications Current Home Medications CALCIUM CARBONATE/VITAMIN D3 (CALCIUM 600 WITH VITAMIN D3 ORAL) LEVOTHYROXINE 25 MCG TABLET LISINOPRIL (PRINIVIL) 20 MG TABLET POTASSIUM CHLORIDE (MICRO-K EXTENCAPS) 10 MEQ EXTENDED RELEASE CAPSULE PREDNISONE (DELTASONE) 5 MG TABLET Medications Modified during this Encounter No medications on file Medications Discontinued during this Encounter No medications on file Objective PHYSICAL EXAM INITIAL VS BP: (!) 161/62 (06/10/24916), Heart Rate: (!) 58 bpm (06/10/24916), Resp: 20 (06/10/24916), Pulse: 63 (06/10/24944), Temp: 96.8 ??F (36 ??C) (06/10/24916), Temp src: Temporal (06/10/24916), SpO2: 100 % (06/10/24916), Height: 4' 11 (149.9 cm) (06/10/24916), Weight: 47.3 kg (104 lb 3.2 oz) (06/10/24916), BMI (Calculated): 21.05 (06/10/24916) No LMP recorded. Patient has had a hysterectomy. Physical Exam Vitals and nursing note reviewed. Constitutional: General: She is not in acute distress. Appearance: Normal appearance. She is normal weight. She is not ill-appearing. HENT: Mouth/Throat: Mouth: Mucous membranes are moist. Eyes: Extraocular Movements: Extraocular movements intact. Pupils: Pupils are equal, round, and reactive to light. Cardiovascular: Rate and Rhythm: Normal rate and regular rhythm. Pulses: Normal pulses. Pulmonary: Effort: Pulmonary effort is normal. No respiratory distress. Skin: General: Skin is warm and dry. Capillary Refill: Capillary refill takes less than 2 seconds. Neurological: General: No focal deficit present. Mental Status: She is alert and oriented to person, place, and time. Mental status is at baseline. Cranial Nerves: No cranial nerve deficit. Psychiatric: Mood and Affect: Mood normal. Behavior: Behavior normal. DIAGNOSTICS LAB: No data to display RADIOLOGY: CT SHOULDER WO CONTRAST RIGHT Radiologist Impression IMPRESSION: Please see below. Exam: CT SHOULDER WO CONTRAST RIGHT Date/Time of Exam: 06/10/2024 12:30 PM Reason For Exam: Shoulder trauma, fracture of humerus or scapula. Diagnosis: Closed displaced fracture of surgical neck of right humerus, unspecified fracture morphology, initial encounter; Skin tear of elbow without complication, right, initial encounter. Technique: CT of the right shoulder was performed without the administration of intravenous contrast. Comparison: Radiographs from 06/10/2024. Findings: There is an acute comminuted and displaced proximal humeral fracture involving the humeral head, humeral neck and both tuberosities. The degree of displacement is greatest at the neck component where there is anterior and superior displacement of the distal humeral fracture fragment by up to one shaft width. The osseous structures appear otherwise intact. The glenohumeral and acromioclavicular joints are anatomically aligned. There are mild degenerative changes. There is a mild degree of edema and hemorrhage within the periarticular soft tissues and musculature without a discrete fluid collection or measurable hematoma. IMPRESSION: Comminuted displaced proximal humeral fracture as above. XR HUMERUS 2+ VW RIGHT Radiologist Impression IMPRESSION: Please see below. EXAM: XR HUMERUS 2+ VW RIGHT DATE/TIME OF EXAM: 06/10/2024 9:56 AM REASON FOR STUDY: Injury DIAGNOSIS: See Reason for Exam COMPARISON: None FINDINGS: Bones: Comminuted, displaced, overriding right humeral fracture. Mineralization: Demineralization. Soft Tissues: No acute abnormality identified. Surgical clips overlying right chest. EKG: PROCEDURES Procedures MEDICAL DECISION MAKING AND PLAN OF CARE Medical Decision Making -Right shoulder dislocation: Assessment: 79-year-old female presenting with right shoulder pain and limited mobility after a fall this morning around 7:00 AM. Patient reports tripping on a rug while taking out the trash, fallingonto her right side on concrete. Physical examination reveals limited range of motion and pain in the right shoulder. Xray revealed displaced humerus head. Obtained CT of the right shoulder which revealed more details about the fracture as described above. -Right elbow skin tear: Assessment: Patient sustained a significant skin tear to the right elbow during the fall. The woundis described as pretty big and was actively bleeding. The area was initially covered by the patient's clothing, which may have contributed to delayed recognition of the severity. Plan: -Clean wound thoroughly -Apply antibiotic ointment -Dress wound appropriately -Provide wound care instructions, emphasizing keeping the area clean and applying pressure to promote skin reattachment Discussed the case with medical administrative specialist on-call and he was recommended to place patient in the sling and they will see the patient in their clinic outpatient, considering the neurovascular status was intact. Patient otherwise was in significant amount of pain and was provided with multiple doses of Percocet and in addition to that was also provided with a Tdap since she was not up-to-date. Patient requested that she would like the provider to reach out to [facility] to inquire for second opinion and was informed by orthopedic doctor on-call that the recommendation remains. Patient understood the recommendations and felt more comfortable being discharged at this time and was advised to monitor for her neurovascular status and to return to the emergency department immediately if stops feeling the pulse in the right radial artery or if there is any change in the coloration or sensation of the right hand. Advised to not remove the sling at all unless attempting to change clothes. Upon review of history and physical examination and other diagnostic tests, believe that patient isstable for discharge home with self-care and close monitoring of symptoms. Discussed the plan with the patient and the red flag symptoms to return to the emergency department. Explained that follow-up is very important and patient should make an appointment with their primary care doctor within the next 3-5 days. They have voiced understanding and are comfortable with theplan of care. Amount and/or Complexity of Data Reviewed Radiology: ordered. Risk Prescription drug management. Clinical Scoring & Consults Medications Administered During the ED Stay from 06/10/2024 0910 to 06/10/2024 1738 Date/Time Order Dose Route Action 06/10/2024 1028 CDT oxyCODONE-acetaminophen (PERCOCET) 5-325 mg per tablet 1 Tablet 1 Tablet Oral Given 06/10/2024 1110 CDT tetanus and diphtheria toxoids and acellular pertussis vaccine PF (adult) (Tdap) (ADACEL) injection syringe 0.5 mL 0.5 mL IM Given 06/10/2024 1258 CDT oxyCODONE-acetaminophen (PERCOCET) 5-325 mg per tablet 1 Tablet 1 Tablet Oral Given . New Prescriptions for this Encounter OXYCODONE-ACETAMINOPHEN (PERCOCET) 5-325 MG TABLET Take 1 Tablet by mouth every 6 hours as needed for Pain, Moderate. Max Daily Amount: 4 Tablets LAST VS BP: (!) 158/69 (06/10/24 1730), Heart Rate: (!) 58 bpm (06/10/24 0917), Resp: 20 (06/10/24 1700), Pulse: 64 (06/10/24 1730), Temp: 96.8 ??F (36 ??C) (06/10/24916), Temp src: Temporal (06/10/24916), SpO2: 97 % (06/10/241729) CLINICAL IMPRESSION Final diagnoses: [S42.211A] Closed displaced fracture of surgical neck of right humerus, unspecified fracture morphology, initial encounter (Primary) [S51.011A] Skin tear of elbow without complication, right, initial encounter DISPOSITION, EDUCATION AND MEDICATION RECONCILIATION Medications reconciled. See after visit summary for patient education on discharged patients. ED Disposition ED Disposition Discharge Condition Stable User Jakob Marti MD Date/Time SatJun 10, 2024 5:29 PM Comment -- ATTESTATION STATEMENTS Diagnoses Diagnosis Comment Added By Time Added Closed displaced fracture of surgical neck of right humerus, unspecified fracture morphology, initial encounter [S42.211A] Jakob Marti MD 06/10/2024 10:26 AM Skin tear of elbow without complication, right, initial encounter [S51.011A] Jakob Marti MD 06/10/2024 12:00 PM documented in this encounter Plan of Treatment Upcoming Encounters Date Type Department Care Team (Late st Contact Info) Description 06/24/2024 1:40 PM CDT Office Visit [facility] [place] [address] [place] [address] Ric Wei PA [address] [facility] [address] [place] [id number] Scheduled Referrals Name Type Priority Associated Diagnoses Orde r Schedule AMB REFERRAL TO ORTHOPEDIC SURGERY Outpatient Referral Routine Closed displaced fracture of surgical neck of right humerus, unspecified fracture morphology, initial encounter Skin tear of elbow without complication, right, initial encounter Ordered: 06/10/2024 AMB REFERRAL TO ORTHOPEDIC SURGERY Outpatient Referral Routine Closed displaced fracture of surgical neck of right humerus, unspecified fracture morphology, initial encounter Ordered: 06/11/2024 documented as of this encounter Procedures Procedure Name Priority Date/Time Associated Diagnosis Comments CT SHOULDER WO CONTRAST RIGHT Stat 06/10/2024 12:30 PM CDT XR HUMERUS 2+ VW RIGHT Stat 06/10/2024 9:56 AM CDT documented in this encounter Results * CT SHOULDER WO CONTRAST RIGHT (06/10/2024 12:30 PM CDT) Anatomical Region Laterality Modality Upper Extremity Computed Tomogra phy 06/10/2024 12:3 0 PM CDT Impressions 06/10/2024 12:38 PM CDT IMPRESSION: Please see below. Exam: CT SHOULDER WO CONTRAST RIGHT Date/Time of Exam: 06/10/2024 12:30 PM Reason For Exam: Shoulder trauma, fracture of humerus or scapula. Diagnosis: Closed displaced fracture of surgical neck of right humerus, unspecified fracture morphology, initial encounter; Skin tear of elbow without complication, right, initial encounter. Technique: CT of the right shoulder was performed without the administration of intravenous contrast. Comparison: Radiographs from 06/10/2024. Findings: There is an acute comminuted and displaced proximal humeral fracture involving the humeral head, humeral neck and both tuberosities. The degree of displacement is greatest at the neck component where there is anterior and superior displacement of the distal humeral fracture fragment by up to one shaft width. The osseous structures appear otherwise intact. The glenohumeral and acromioclavicular joints are anatomically aligned. There are mild degenerative changes. There is a mild degree of edema and hemorrhage within the periarticular soft tissues and musculature without a discrete fluid collection or measurable hematoma. IMPRESSION: Comminuted displaced proximal humeral fracture as above. Narrative Procedure Note Elpidio Gomez, - 06/10/2024 IMPRESSION: Please see below. Exam: CT SHOULDER WO CONTRAST RIGHT Date/Time of Exam: 06/10/2024 12:30 PM Reason For Exam: Shoulder trauma, fracture of humerus or scapula. Diagnosis: Closed displaced fracture of surgical neck of right humerus, unspecified fracture morphology, initial encounter; Skin tear of elbow without complication, right, initial encounter. Technique: CT of the right shoulder was performed without the administration of intravenous contrast. Comparison: Radiographs from 06/10/2024. Findings: There is an acute comminuted and displaced proximal humeral fracture involving the humeral head, humeral neck and both tuberosities. The degree of displacement is greatest at the neck component where there is anterior and superior displacement of the distal humeral fracture fragment by up to one shaft width. The osseous structures appear otherwise intact. The glenohumeral and acromioclavicular joints are anatomically aligned. There are mild degenerative changes. There is a mild degree of edema and hemorrhage within the periarticular soft tissues and musculature without a discrete fluid collection or measurable hematoma. IMPRESSION: Comminuted displaced proximal humeral fracture as above. us Jakob Marti MD CT ORDERABLES Final Result * XR HUMERUS 2+ VW RIGHT (06/10/2024 9:56 AM CDT) Anatomical Region Laterality Modality Upper Extremity Computed Radiogr aphy 06/10/2024 9:56 AM CDT Impressions 06/10/2024 10:06 AM CDT IMPRESSION: Please see below. EXAM: XR HUMERUS 2+ VW RIGHT DATE/TIME OF EXAM: 06/10/2024 9:56 AM REASON FOR STUDY: Injury DIAGNOSIS: See Reason for Exam COMPARISON: None FINDINGS: Bones: Comminuted, displaced, overriding right humeral fracture. Mineralization: Demineralization. Soft Tissues: No acute abnormality identified. Surgical clips overlying right chest. Narrative 06/10/2024 10:06 AM CDT Procedure Note Kelsea Ortiz MD - 06/10/2024 IMPRESSION: Please see below. EXAM: XR HUMERUS 2+ VW RIGHT DATE/TIME OF EXAM: 06/10/2024 9:56 AM REASON FOR STUDY: Injury DIAGNOSIS: See Reason for Exam COMPARISON: None FINDINGS: Bones: Comminuted, displaced, overriding right humeral fracture. Mineralization: Demineralization. Soft Tissues: No acute abnormality identified. Surgical clips overlying right chest. us Jakob Marti MD DIAGNOSTIC IMAGING ORDERABLES F inal Result documented in this encounter Visit Diagnoses Diagnosis Closed displaced fracture of surgical neck of right humerus, unspecified fracture morphology, initial encounter- Primary Skin tear of elbow without complication, right, initial encounter Closed displaced fracture of surgical neck of right humerus Closed fracture of surgical neck of humerus Skin tear of elbow without complication, right, initial encounter documented in this encounter Administered Medications Inactive Administered Medications - up to 3 most recent administrations Medication Order MAR Action Action Date Dose Rate Site oxyCODONE-acetaminophen (PERCOCET) 5-325 mg per tablet 1 Tablet 1 Tablet, Oral, ONE TIME ONLY, 1 dose, On Sat06/10/24 at 1030, Routine Given 06/10/2024 10:28 AM CDT 1 Tablet oxyCODONE-acetaminophen (PERCOCET) 5-325 mg per tablet 1 Tablet 1 Tablet, Oral, ONE TIME ONLY, 1 dose, On Sat06/10/24 at 1300, Routine Given 06/10/2024 12:58 PM CDT 1 Tablet documented in this encounter Active and Recently Administered Medications Times are shown in CDT. Scheduled Medication Order 06/08/2024 06/09/2024 06/10/2024 oxyCODONE-acetaminophen (PERCOCET) 5-325 mg per tablet 1 Tablet (COMPLETED) 1 Tablet, Oral, ONE TIME ONLY, 1 dose, On Sat06/10/24 at 1030, Routine 1028 (Given - Provid er: Sandra Yang RN) oxyCODONE-acetaminophen (PERCOCET) 5-325 mg per tablet 1 Tablet (COMPLETED) 1 Tablet, Oral, ONE TIME ONLY, 1 dose, On Sat06/10/24 at 1300, Routine 1258 (Given - Provid er: Sandra Yang RN) documented in this encounter Additional Health Concerns Infection Onset Date Last Indicated Resolved Time VRE Comment:Positive Urine Culture from outside facility on 06/15/18 06/23/2018 06/23/2018 Assessment Noted Time PHQ-9 Depression Total Score: 4 03/12/20 19 1:00 PM CHAINSTITCH TUNNEL ELASTIC OPERATOR documented as of this encounter Care Teams Mortuary Operations Manager Relationship Specialty Start Date End Date Santino Reyes APRN [address] [place] [phone] PCP - General 06/09/20 documented as of this encounter
--- OUTSIDE RECORDS SUMMARY | 2024-06-15 17:15 | XMS_ITS | Encounter Summary ---
Author Organization [facility] Address [address] [place] [address] Care Team Providers Care Facing Baster Name Role Phone Santino Reyes APRN Primary Care Provider [phone] Encounter Details Date Type Department Care Team (Latest Contact Info) Description 01/11/1999 Outpatient Historical [facility] Rheumatology- Hamzah Lewisnn [place] [address] [place] [phone] Antonella Amaya MD [address] [place] [address] Phlebitis and thrombophlebitis of other site (Primary Dx); Synovitis and tenosynovitis, unspecified; Myalgia and myositis, unspecified Social History Tobacco Use Types Packs/Day Years Used Date Smoking Tobacco: Never Assessed Comments Unknown Sex and Gender Information Value Date Recorded Sex Assigned at Not on file Legal Sex Female 5:30 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 Gender Identity Not on file Sexual Orientation Not on file documented as of this encounter Plan of Treatment Not on file documented as of this encounter Visit Diagnoses Diagnosis Phlebitis and thrombophlebitis of other site- Primary Synovitis and tenosynovitis, unspecified Myalgia and myositis, unspecified Mylagia and myositis, unspecified documented in this encounter Additional Health Concerns Infection Onset Date Last Indicated Resolved Time VRE Comment:VRE positive urine culture 06/15/18 06/17/2018 06/17/2018 06/20/2018 9:09 AM C DT VRE Comment:Positive Urine Culture from outside facility on 06/15/18 06/23/2018 06/23/2018 documented as of this encounter Care Teams Facing Baster Relationship Specialty Start Date End Date Santino Reyes, COMMUNITY INTEGRATION SPECIALIST [address] [place] [phone] PCP - General NURSE PRACTITIONER 07/10/18 documented as of this encounter
--- OUTSIDE RECORDS SUMMARY | 2024-06-15 17:15 | XMS_ITS | Encounter Summary ---
Author Organization [facility] Address [address] [place] [address] Care Team Providers Care Bmw Service Technician Name Role Phone Santino Reyes APRN Primary Care Provider [phone] Encounter Details Date Type Department Care Team (Latest Contact Info) Description 03/08/1998 Outpatient Historical [facility] Rheumatology- Hamzah Castro [place] [address] [place] [phone] Antonella Amaya MD [address] [place] [address] Myalgia and myositis, unspecified (Primary Dx); Synovitis and tenosynovitis, unspecified Social History Tobacco Use Types Packs/Day Years Used Date Smoking Tobacco: Never Assessed Comments Unknown Sex and Gender Information Value Date Recorded Sex Assigned at Not on file 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
--- OUTSIDE RECORDS SUMMARY | 2024-06-15 17:16 | XMS_ITS | Encounter Summary ---
Author Organization [facility] Address [address] [facility] Attn: Epic Prelude ADT [place] [address] Care Team Providers Care Dairy Husbandry Teacher Name Role Phone Santino Reyes APRN Primary Care Provider [phone] Encounter Details Date Type Department Care Team ([facility] Contact Info) Description 03/05/2000 Outpatient Historical Luis Miguel Almendarez MD NO ADDRESS ON FILE Social History Tobacco Use Types Packs/Day Years Used Date Smoking Tobacco: Never Assessed Comments Unknown Sex and Gender Information Value Date Recorded Sex Assigned at Not on file Legal Sex Female 5:30 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
--- OUTSIDE RECORDS SUMMARY | 2024-06-15 17:16 | XMS_ITS | Encounter Summary ---
Author Organization [facility] Address [address] [place] [address] Care Team Providers Care Water Pollution Control Technician Name Role Phone Eric Santino CARDENAS Primary Care Provider [phone] Encounter Details Date Type Department Care Team (Latest Contact Info) Description 08/28/2001 Outpatient Historical [facility] Rheumatology- Hamzah Garvin [place] [address] [place] [phone] Antonella Amaya MD [address] [place] [address] RHEUMATISM NOS (Primary Dx); DIFF CONNECT TIS DIS NOS; JOINT PAIN-ANKLE Social History Tobacco Use Types Packs/Day Years Used Date Smoking Tobacco: Never Assessed Comments Unknown Sex and Gender Information Value Date Recorded Sex Assigned at Not on file 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 Gender Identity Not on file Sexual Orientation Not on file documented as of this encounter Plan of Treatment Not on file documented as of this encounter Visit Diagnoses Diagnosis Rheumatism, unspecified and fibrositis- Primary Unspecified diffuse connective tissue disease Pain in joint, ankle and foot documented in this encounter Additional Health Concerns Infection Onset Date Last Indicated Resolved Time VRE Comment:VRE positive urine culture 06/15/18 06/17/2018 06/17/2018 06/20/2018 9:09 AM C DT VRE Comment:Positive Urine Culture from outside facility on 06/15/18 06/23/2018 06/23/2018 documented as of this encounter Care Teams Water Pollution Control Technician Relationship Specialty Start Date End Date Santino Reyes, VIDEO PRODUCTION SPECIALIST [facility] [address] [phone] PCP - General NURSE PRACTITIONER 07/10/18 documented as of this encounter
--- OUTSIDE RECORDS SUMMARY | 2024-06-15 17:16 | XMS_ITS | Clinical Summary ---
Author Organization [facility] Hamzah Adalberto de leónn Dolores Address [address] [place] [address] Phone Care Team Providers Care Residential Housekeeper Name Role Phone Santino Reyes APRN Primary Care Provider [phone] Allergies Active Allergy Reactions Criticality Noted Date Comments Penicillins Unknown 10/08/2016 Pt unsure if this is a true allergy. Tolerated cephalosporins Sulfa (Sulfonamide Antibiotics) Nausea and Vomiting Low 06/05/2010 Medications potassium chloride (MICRO-K EXTENCAPS) 10 mEq Extended Release capsule TAKE ONE CAPSULE BY MOUTH EVERY DAY 0 Active calcium carbonate/vitami n D3 (CALCIUM 600 WITH VITAMIN D3 ORAL) Take 1 Tablet by mouth daily. 8 Active predniSONE (DELTASONE) 5 mg tablet Take 5 mg by mouth daily at bedtime. 8 Active lisinopriL (PRINIVIL) 20 mg tablet TAKE 1 TABLET BY MOUTH ONCE DAILY FOR 90 DAYS 2 Active levothyroxine 25 mcg tablet Take 25 mcg by mouth daily. 2 Active oxyCODONE-acetam inophen (PERCOCET) 5-325 mg tabletIndication s:Closed displaced fracture of surgical neck of right humerus, unspecified fracture morphology, initial encounter,Skin tear of elbow without complication, right, initial encounter Take 1 Tablet by mouth every 6 hours as needed for Pain, Moderate. Max Daily Amount: 4 Tablets 12 Tablet 5 06/14/19 25 Active Problems Problem Noted Date Diagnosed Date Closed displaced fracture of surgical neck of ri ght humerus 06/10/2024 Skin tear of elbow without c omplication, right, initial encounter 06/10/2024 Chronic systolic heart failure 03/16/2019 Acute deep vein thrombosis ( DVT) of popliteal vein of left lower extremity 03/13/2019 Severe protein-calorie malnutrition 03/13/2019 Subdural hematoma, post-traumatic 03/12/2019 Fall 03/12/2019 Acute deep vein thrombosis ( DVT) of tibial vein of right lower extremity 06/23/2018 Hypomagnesemia 06/23/2018 Protein-calorie malnutrition, moderate 9 Acute renal failure with acu te tubular necrosis superimposed on stage 3 chronic kidney disease 06/15/2018 Vancomycin resistant enteroc occus infection, multi-drug resistance 06/15/2018 Mixed connective tissue disease 06/15/2018 Neutropenia associated with oral mucositis 06/15 Overview (07/28/2020): Methotrexate induced Acute cystitis without hematuria 06/15/2018 LBBB (left bundle branch block) 01/30/2018 Preoperative general physical examination 2017 Obstructive sleep apnea on CPAP 01/30/2018 History of postoperative nausea and vomiting 04/2017 Essential hypertension 01/30/2018 Inflammatory arthritis 01/30/2018 Hyponatremia 01/30/2018 Elevated serum creatinine 01/30/2018 GERD (gastroesophageal reflux disease) 8 Primary osteoarthritis of right hip 01/29/2018 Joint contracture of hand 10/08/2016 Left Anterior CA 12/26/2011 Hip pain 11/08/2011 History of breast cancer in female Hypothyroidism Resolved Problems Problem Noted Date Diagnosed Date Resolved Date Iron deficiency anemia, unspecified 06/05/2010 01/30/2016 Encounters Date Type Department Care Team Description 06/11/2024 Telephone [facility] [address] [place] [address] Jony Charles, DO Question 06/10/2024 9:13 AM CDT - 06/10/2024 5:45 PM CDT Emergency [facility] [address] [place] [phone] Jakob Marti MD Closed displaced fracture of surgical neck of right humerus, unspecified fracture morphology, initial encounter (Primary Dx); Skin tear of elbow without complication, right, initial encounter Discharge Disposition: Home or Self Care from Last 3 Months Immunizations Immunization Administration Dates Next Due (ADACEL/BOOSTRIX)(10 YR UP) TDAP VACCINE, 0.5ML, IM 06/10/2024 Influenza Seasonal Unspecified Formulation IM Family History Medical History Relation Name Comments Diabetes Brother Heart Disease Brother Breast Cancer Daughter Heart Disease Father Breast Cancer Maternal Cousin Cancer Mother UTERINE CANCER Breast Cancer Other SELF Breast Cancer Paternal Aunt Breast Cancer Paternal Cousin Other Sister Other Son Colon Cancer Neg Hx Ovarian Cancer Neg Hx Relation Name Status Comments Brother Daughter Alive Father Maternal Cousin Maternal Grandmother Mother Other SELF Paternal Aunt Alive Paternal Cousin Sister Alive Son Social History Tobacco Use Types Packs/Day Years [...] on file Legal Sex Female 6:53 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 Gender Identity Not on file Sexual Orientation Not on file Last Filed Vital Signs Vital Sign Reading [...] Mass Index 21.05 06/10/2024 9:17 AM CDT Plan of Treatment Upcoming Encounters Date Type Department Care Team (Late st Contact Info) Description 06/24/2024 1:40 PM CDT Office Visit [facility] [place] [address] [place] [address] Ric Wei PA [address] [place] [address] Health Maintenance Due Date Last Done Comments PNEUMOCOCCAL VACCINE 50+ YEA RS (1 of 2 - PCV) 1962 ZOSTER VACCINE (1 of 2) 1993 RSV VACCINE (60+ or ) (1 - 1-dose 75+ series) 2018 INFLUENZA VACCINE (#1) 2023 3, 01/19/2022, 12/28/2014 [place] ([place] Preventative Visit/Annual Wellness Visit 04/01/2024 COVID-19 Vaccine (2023-2 5 season) 2024 01/27/2024, 03/29/2023, 01/19/2022, Additional history exists DTAP/TDAP/TD VACCINES (2 - T d or Tdap) 06/10/2034 06/10/2024 OSTEOPOROSIS SCREENING Completed , 06/11/2017, 06/11/2017, Additional history exists Medical Devices Implanted Type Area Outside Cutter Hand Device Identifier Shelf Expiration Date Model / Serial / Lot Filter Vc Paris Fem [id number] Implanted:Qt y: 1 on 03/13/2019 by Andrew Villanueva MD Cardiovascular Device Vena Cava CR BARD- [employer] [id number] 02/28/2022 [id number] / / [id number] Description:Bard [place] IVC Filter Lens Io Bi-Aspheric Softechd+19. 25 - [id number] Implanted:Qt y: 1 on 09/16/2013 by Chetan Krause MD Eye Left: Eye [employer] 06/16/2016 SOFTECHD+1 9.25 / [id number] / Lens Io Bi-Aspheric Softechd+19. 25 - [id number] Implanted:Qt y: 1 on 11/18/2013 Eye Right: Eye [employer] 04/20/2018 SOFTECHD+1 9.25 / [id number] / Finger Implant Implanted:Qt y: 1 on 11/15/2016 by Farooq Johnston MD Finger Left: Finger 11/29/2017 [facility]WW / N/A / [id number] Description:PER INVOICE Cup Pinn Sctr Grptn 48mm [id number] - Sna Implanted:Qt y: 1 on 12/26/2011 Hip Left: Hip J[employer] 10/24/2021 [id number] / NA / [id number] Head Fem Art/Jordin Cocr Sz32 1365--000 - Sna Implanted:Qt y: 1 on 12/26/2011 Hip Left: Hip [employer] 05/27/2016 [id number] / NA / [id number] Hole Eliminator [place] [id number] - Sna Implanted:Qt y: 1 on 12/26/2011 Hip Left: Hip [employer] 10/24/2021 0 / NA / [id number] Liner Pinn Altrx Poly 1221-32-048 - Sna Implanted:Qt y: 1 on 12/26/2011 Hip Left: Hip [employer] 10/24/2016 [id number] / NA / [id number] Stem Fem Corail Std N-Clr [id number] - Sna Implanted:Qt y: 1 on 12/26/2011 Hip Left: Hip [employer] 09/24/2016 [id number] / NA / [id number] Stem Fem Actis Colr Std Sz4 1010--040 - [id number] Implanted:Qt y: 1 on 01/30/2018 by Carltios Tanner MD Hip Right: Hip [employer] 12/30/20271010-011010-02-02 0 / / [id number] Cup Pinn Sctr Grptn 48mm 1217-32-048 - [id number] Implanted:Qt y: 1 on 01/30/2018 by Carlitos Tanner MD Hip Right: Hip [employer] 11/30/2027 [id number] / / [id number] Head Fem Art/Jordin Cer Sz32 1365-32-310 - [id number] Implanted:Qt y: 1 on 01/30/2018 by Carlitos Tanner MD Hip Right: Hip [employer] 07/29/2022 0 / / [id number] Hole Eliminator [place] 1246-03-000 - [id number] Implanted:Qt y: 1 on 01/30/2018 by Carlitos Tanner MD Hip Right: Hip [employer] 10/30/2027 0 / / [id number] Liner Pinn Altrx Poly 1221-32-048 - [id number] Implanted:Qt y: 1 on 01/30/2018 by Carlitos Tanner MD Hip Right: Hip [employer] 11/29/2022 [id number] / / [id number] Screw Canc Pinn 6.5x20mm 1216--500 - Sna Implanted:Qt y: 1 on 12/26/2011 Screw Left: Hip [employer]- [employer] 11/24/2021 0 / NA / [id number] Screw Canc Pinn 6.5x30mm -500 - Sna Implanted:Qt y: 1 on 12/26/2011 Screw Left: Hip [employer] 11/24/2021 0 / NA / [id number] Screw Canc 6.5x25mm 117--000 - [id number] Implanted:Qt y: 1 on 01/30/2018 by Carlitos Tanner MD Screw Right: Hip [employer] 09/29/2027 [id number] / / [id number] Finger Implant Implanted:Qt y: 1 on 11/15/2016 by Farooq Johnston MD Left: Finger [employer] 03/31/2018 SMCP-500-1 0-WW / NA / [id number] Description:middle/long fing er. PER INVOICE. Finger Implant Implanted:Qt y: 1 on 11/15/2016 by Farooq Johnston MD Left: Finger [employer] 11/29/2017 SMCP-500-0 5-WW / NA / [id number] Description:ring finger. PER INVOICE Procedures Procedure Name Priority Date/Time Associated Diagnosis Comments CT SHOULDER WO CONTRAST RIGHT Stat 06/10/2024 12:30 PM CDT XR HUMERUS 2+ VW RIGHT Stat 06/10/2024 9:56 AM CDT XR DEXA BONE DENSITY AXIAL 1 OR MORE SITES Routine 06/11/2017 2:05 PM CDT Age-related osteoporosis without current pathological fracture vermin exterminator current use of systemic steroids from Last 3 Months or Most Recently Relevant to Health Maintenance Results * CT SHOULDER WO CONTRAST RIGHT [...] Comminuted displaced proximal humeral fracture as above. Jakob Marti MD CT ORDERABLES Final Result [...] MD DIAGNOSTIC IMAGING ORDERABLES F inal Result * XR DEXA BONE DENSITY AXIAL 1 OR MORE SITES (06/11/2017 2:05 PM CDT) Anatomical Region Laterality Modality Other Impressions 06/11/2017 10:29 PM CDT 1. Current findings consistent with severe osteopenia; there is currently moderate/high risk for fracture as predicted at the femoral neck. Age matched Z-score of greater than -2.0 does not indicate accelerated bone demineralization. Definitions: ?? T-score ??> -0.99 = Normal T-score ??-1.00 to -1.49 = mild osteopenia T-score ??-1.50 to -1.99 = moderate osteopenia T-score ??-2.00 to -2.49 = severe osteopenia T-score ??< -2.50 = osteoporosis N.B. Changes in density of <=0.05 g/cm2 are not statistically significant. RECOMMENDATIONS: Normal: Low risk for fracture - f/u in 2 years Mild/Mod osteopenia: Moderate risk for fracture - f/u in 1 year Severe osteopenia: Moderate/high risk for fracture - f/u in 1 year Osteoporosis: High risk for fracture - f/u in 1 year NOF guidelines recommend consideration of FDA-approved medical therapies in patients with FRAX determined 10-year probabilities of hip/major osteoporosis-related fractures equal or greater than 3%/20% respectively. Consider assessing fracture risk using the FRAX analysis tool for guidance of clinical management available online at www.shef.ac.uk/FRAX/. Enter Qik for Select DXA and the Femoral Neck BMD value. [id number]/[id number] ? Narrative 06/11/2017 10:29 PM CDT DEXA Evaluation of the Lumbar Spine and Proximal Femur Reason for Consultation: ??Osteoporosis screening. ??Evaluation of bone mineral density. The following absorptiometry data were obtained. ??The quality of this examination is acceptable with regards to count density, processed images, data display and lack of important artifacts (including but not limited to motion and attenuation artifacts). ??Serial examination number 1. L1-L4 BMD (g/cm2): 1.039 Adult T-score: -0.1 Adult Z-score: 2.3 Left Femoral Neck BMD (g/cm2): ??0.610 Adult T-score: ??-2.2 Adult Z-score: ??-0.1 Left Total Hip BMD (g/cm2): ??0.845 Adult T-score: ??-0.8 Adult Z-score: ??0.9 Procedure Note Luis Alba MD - 05/26/2021 DEXA Evaluation of the Lumbar Spine and Proximal Femur Reason for Consultation: Osteoporosis screening. Evaluation of bone mineral density. The following absorptiometry data were obtained. The quality of this examination is acceptable with regards to count density, processed images, data display and lack of important artifacts (including but not limited to motion and attenuation artifacts). Serial examination number 1. L1-L4 BMD (g/cm2): 1.039 Adult T-score: -0.1 Adult Z-score: 2.3 Left Femoral Neck BMD (g/cm2): 0.610 Adult T-score: -2.2 Adult Z-score: -0.1 Left Total Hip BMD (g/cm2): 0.845 Adult T-score: -0.8 Adult Z-score: 0.9 IMPRESSION 1. Current findings consistent with severe osteopenia; there is currently moderate/high risk for fracture as predicted at the femoral neck. Age matched Z-score of greater than -2.0 does not indicate accelerated bone demineralization. Definitions: T-score > -0.99 = Normal T-score -1.00 to -1.49 = mild osteopenia T-score -1.50 to -1.99 = moderate osteopenia T-score -2.00 to -2.49 = severe osteopenia T-score < -2.50 = osteoporosis N.B. Changes in density of <=0.05 g/cm2 are not statistically significant. RECOMMENDATIONS: Normal: Low risk for fracture - f/u in 2 years Mild/Mod osteopenia: Moderate risk for fracture - f/u in 1 year Severe osteopenia: Moderate/high risk for fracture - f/u in 1 year Osteoporosis: High risk for fracture - f/u in 1 year NOF guidelines recommend consideration of FDA-approved medical therapies in patients with FRAX determined 10-year probabilities of hip/major osteoporosis-related fractures equal or greater than 3%/20% respectively. Consider assessing fracture risk using the FRAX analysis tool for guidance of clinical management available online at www.shef.ac.uk/FRAX/. Enter Qik for Select DXA and the Femoral Neck BMD value. [id number] Bautista Denis MD DIAGNOSTIC IMAGING ORDERABLES Final Result from Last 3 Months or Most Recently Relevant to Health Maintenance Additional Health Concerns Infection Onset Date Last Indicated VRE Comment:Positive Urine Culture from outside facility on 06/15/18 06/23/2018 06/23/2018 Insurance [facility] * Guarantor: SHAMIKA SAUER Account Type Relation to Patient Date of Phone Billing Address Personal/Family [address] [place] [address] RX [employer] Medicare Part D Care Teams Residential Housekeeper Relationship Specialty Start Date End Date Santino Reyes, DEVELOPMENTAL MATHEMATICS INSTRUCTOR [address] [place] [phone] PCP - General 06/09/20
--- OUTSIDE RECORDS SUMMARY | 2024-06-15 17:16 | XMS_ITS | Encounter Summary ---
Author Organization [facility] Address [address] [place] [address] Care Team Providers Care Underwater Hunter Name Role Phone Santino Reyes APRN Primary Care Provider [phone] Encounter Details Date Type Department Care Team ([facility] Contact Info) Description 03/05/2000 Outpatient Historical [facility]-? 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
--- OUTSIDE RECORDS SUMMARY | 2024-06-15 17:16 | XMS_ITS | Encounter Summary ---
Author Organization [facility] Address [address] [place] [address] Care Team Providers Care Wire Turning Machine Operator Name Role Phone Santino Reyes APRN Primary Care Provider [phone] Encounter Details Date Type Department Care Team (Latest Contact Info) Description 02/25/2001 Outpatient Historical [facility] Luis Miguel Almendarez MD NO ADDRESS ON FILE SURGERY FOLLOWUP, UNSPEC (Primary Dx) Social History Tobacco Use Types Packs/Day Years Used Date Smoking Tobacco: Never Assessed Comments Unknown Sex and Gender Information Value Date Recorded Sex Assigned at Not on file Legal Sex Female 5:30 AM 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 ADMINISTRATION INTERN Gender Identity Not on file Sexual Orientation Not on file documented as of this encounter Plan of Treatment Not on file documented as of this encounter Visit Diagnoses Diagnosis Follow-up examination, following unspecified surgery- Primary documented in this encounter Additional Health Concerns Infection Onset Date Last Indicated Resolved Time VRE Comment:VRE positive urine culture 06/15/18 06/17/2018 06/17/2018 06/20/2018 9:09 AM C DT VRE Comment:Positive Urine Culture from outside facility on 06/15/18 06/23/2018 06/23/2018 documented as of this encounter Care Teams Wire Turning Machine Operator Relationship Specialty Start Date End Date Santino Reyes APRN [address] [phone] PCP - General NURSE PRACTITIONER 07/10/18 documented as of this encounter
--- OUTSIDE RECORDS SUMMARY | 2024-06-15 17:16 | XMS_ITS | Encounter Summary ---
Author Organization [facility] Address [address] [place] [address] Attn: [place] [address] Care Team Providers Care Fish Culturist Name Role Phone Santino Reyes APRN Primary Care Provider [phone] Encounter Details Date Type Department Care Team ([facility] Contact Info) Description 12/20/2000 Outpatient Historical Raulito Wagner MD [address] [facility] [address] [place] [address] Social History Tobacco Use Types Packs/Day Years Used Date Smoking Tobacco: Never Assessed Comments Unknown Sex and Gender Information Value Date Recorded Sex Assigned at Not on file 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
--- OUTSIDE RECORDS SUMMARY | 2024-06-15 17:16 | XMS_ITS | Encounter Summary ---
Author Organization [facility] Address [address] [place] [address] Care Team Providers Care Decorator Consultant Name Role Phone Santino Reyes APRN Primary Care Provider [phone] Encounter Details Date Type Department Care Team (Latest Contact Info) Description 03/22/2000 Outpatient Historical [facility] Luis Miguel Almendarez MD NO ADDRESS ON FILE Follow-up examination following surgery (Primary Dx) Social History Tobacco Use Types Packs/Day Years Used Date Smoking Tobacco: Never Assessed Comments Unknown Sex and Gender Information Value Date Recorded Sex Assigned at Not on file 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 Gender Identity Not on file Sexual Orientation Not on file documented as of this encounter Plan of Treatment Not on file documented as of this encounter Visit Diagnoses Diagnosis Follow-up examination following surgery- Primary documented in this encounter Additional Health Concerns Infection Onset Date Last Indicated Resolved Time VRE Comment:VRE positive urine culture 06/15/18 06/17/2018 06/17/2018 06/20/2018 9:09 AM C DT VRE Comment:Positive Urine Culture from outside facility on 06/15/18 06/23/2018 06/23/2018 documented as of this encounter Care Teams Decorator Consultant Relationship Specialty Start Date End Date Santino Reyes APRN [facility] [phone] PCP - General NURSE PRACTITIONER 07/10/18 documented as of this encounter
--- OUTSIDE RECORDS SUMMARY | 2024-06-15 17:16 | XMS_ITS | Encounter Summary ---
Author Organization [employer] [facility] Address [address] [place] [address] Care Team Providers Care Carriage Setter Name Role Phone Santino Reyes THERESA Primary Care Provider [phone] Encounter Details Date Type Department Care Team (Late st Contact Info) Description 10/11/2011 Ancillary Orders [facility] [address] [place] [address] Anisha Davila, SHAKER TENDER [address] [place] [address] Hip pain Social History Tobacco Use Types Packs/Day Years Used Date Smoking Tobacco: Former Cigarettes Q uit: 04/01/1989 Smokeless Tobacco: Never Alcohol Use Standard Drinks/Week Comments Yes 0 (1 standard drink = 0.6 oz pur e alcohol) socially Comments No Sex and Gender Information Value Date Recorded Sex Assigned at Not on file 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 ??There is subcortical degenerative cyst formation of the head and acetabulum. ??There is a prominent osteophyte formation of the acetabular rim and articular margin of the femoral head. ??No acute fracture or deformity is seen. ??There is also note of some arthritic change of the left sacroiliac joint more pronounced caudally. ?? IMPRESSION arthritic changes as described with no acute fracture or dislocation seen Procedure Note Kyle Yu MD - 10/11/2011 DESCRIPTION AP and Cleave's views of the left hip 11 October 2011 show extensive arthritic change with loss of the cartilage space cephalad in the hip articulation and some sclerosis of the acetabular roof and femoral head. There is subcortical degenerative cyst formation of the head and acetabulum. There is a prominent osteophyte formation of the acetabular rim and articular margin of the femoral head. No acute fracture or deformity is seen. There is also note of some arthritic change of the left sacroiliac joint more pronounced caudally. IMPRESSION arthritic changes as described with no acute fracture or dislocation seen Anisha Davila SHAKER TENDER DIAGNOSTIC IMAGING ORDERABLES Final Result documented in this encounter Visit Diagnoses Diagnosis Hip pain Pain in joint, pelvic region and thigh Hip pain Pain in joint, pelvic region and thigh documented in this encounter Additional Health Concerns Infection Onset Date Last Indicated Resolved Time VRE Comment:VRE positive urine culture 06/15/18 06/17/2018 06/17/2018 06/20/2018 9:09 AM C DT VRE Comment:Positive Urine Culture from outside facility on 06/15/18 06/23/2018 06/23/2018 documented as of this encounter Care Teams Carriage Setter Relationship Specialty Start Date End Date Santino Reyes, THERESA [address] [place] [phone] PCP - General NURSE PRACTITIONER 07/10/18 documented as of this encounter
--- OUTSIDE RECORDS SUMMARY | 2024-06-15 17:16 | XMS_ITS | Encounter Summary ---
Author Organization [facility] Address [address] [facility] Attn: Epic Prelude ADT [place] [address] Care Team Providers Care Credit Assessment Analyst Name Role Phone Santino Reyes APRN Primary Care Provider [phone] Encounter Details Date Type Department Care Team ([facility] Contact Info) Description 10/25/2000 Outpatient Historical Luis Miguel Almendarez MD NO ADDRESS ON FILE Social History Tobacco Use Types Packs/Day Years Used Date Smoking Tobacco: Never Assessed Comments Unknown Sex and Gender Information Value Date Recorded Sex Assigned at Not on file 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
--- OUTSIDE RECORDS SUMMARY | 2024-06-15 17:16 | XMS_ITS | Encounter Summary ---
Author Organization [facility] Address [address] [place] [address] Care Team Providers Care Home Care Giver Name Role Phone Santino Reyes THERESA Primary Care Provider Reason for Referral * Outpatient Services (Routine) - Closed Specialty Diagnoses / Procedures Referred By Contac t Referred To Contact Diagnoses Abnormal mammogram, unspecified Procedures MAMMO DIGITAL DIAG UNI LEFT Jose Matos MD NO ADDRESS ON FILE [employer] Pre-Registration [place] CALL TO MAKE APPOINTMENT ONLY [address] [facility] [place] [place] [address] Phone: tel: fax: Referral ID Status Reason Start Date Expiration Date V isits Requested Visits Authorized [id number] Closed [facility] TO SCHEDULE ([facility]) CRS to Schedule ([facility]) 07/10/2011 07/09/2012 1 1 Encounter Details Date Type Department Care Team (Latest Contact Info) Description 07/10/2011 Ancillary Orders [facility] Pre-Registration [place] CALL TO MAKE APPOINTMENT ONLY [address] [facility] [address] Jose Matos MD NO ADDRESS ON FILE Abnormal mammogram, unspecified Social History Tobacco Use Types Packs/Day Years Used Date Smoking Tobacco: Former Cigarettes Q uit: 04/01/1989 Smokeless Tobacco: Never Alcohol Use Standard Drinks/Week Comments Yes 0 (1 standard drink = 0.6 oz pur e alcohol) socially Comments No Sex and Gender Information Value Date Recorded Sex Assigned at Not on file 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 ??The patient has had a right mastectomy. Left craniocaudal, oblique, exaggerated craniocaudal, and axillary tail views were obtained today and compared with prior exams of 01/18/2011, 01/17/2010, 01/09/2008, 01/10/2007, and 01/06/2009. ??The lymph nodes appear stable compared with the 2008, 2009, and 2010 exams. ??They did in fact appear to be benign lymph nodes on the prior ultrasound. ??Since there has been no significant change since 2008, I would recommend continued surveillance. ??The breast tissue is average and no suspicious findings are seen within the breast. This digital mammogram was also analyzed by the Computer Aided Detection System (CAD), [employer] ImageChecker, Version 8.3. ?? The patient received a result/recommendation letter. ?? CONCLUSION: ??I would recommend left diagnostic mammogram in six months' time and possible repeat ultrasound. KB/nara ? - uploaded from [employer] - Procedure Note Louise Gil MD - 09/05/2011 LEFT DIAGNOSTIC MAMMOGRAM: 09/04/2011 The patient had a screening at [facility] on 01/18/2011 and returned for ultrasound of slightly prominent left axillary lymph nodes. The patient has had a right mastectomy. Left craniocaudal, oblique, exaggerated craniocaudal, and axillary tail views were obtained today and compared with prior exams of 01/18/2011, 01/17/2010, 01/09/2008, 01/10/2007, and 01/06/2009. The lymph nodes appear stable compared with the 2008, 2009, and 2010 exams. They did in fact appear to be benign lymph nodes on the prior ultrasound. Since there has been no significant change since 2008, I would recommend continued surveillance. The breast tissue is average and no suspicious findings are seen within the breast. This digital mammogram was also analyzed by the Computer Aided Detection System (CAD), [employer]cker, Version 8.3. The patient received a result/recommendation letter. CONCLUSION: I would recommend left diagnostic mammogram in six months' time and possible repeat ultrasound. CLIFTON/nara - uploaded from [employer] - us Jose Matos MD MAMMO ORDERABLES Final Result documented in this encounter Visit Diagnoses Diagnosis Abnormal mammogram, unspecified Abnormal mammogram, unspecified documented in this encounter Additional Health Concerns Infection Onset Date Last Indicated Resolved Time VRE Comment:VRE positive urine culture 06/15/18 06/17/2018 06/17/2018 06/20/2018 9:09 AM C DT VRE Comment:Positive Urine Culture from outside facility on 06/15/18 06/23/2018 06/23/2018 documented as of this encounter Care Teams Home Care Giver Relationship Specialty Start Date End Date Santino Reyes APRN [facility] [phone] PCP - General NURSE PRACTITIONER 07/10/18 documented as of this encounter
--- OUTSIDE RECORDS SUMMARY | 2024-06-15 17:16 | XMS_ITS | Encounter Summary ---
Author Organization [facility] Address [address] [place] [address] Care Team Providers Care Utility Mechanic Name Role Phone Santino Reyes APRN Primary Care Provider [phone] Encounter Details Date Type Department Care Team (Latest Contact Info) Description 07/11/2000 Outpatient Historical [facility] [address] [place] [address] [address] [place] [address] Jose Matos MD NO ADDRESS ON FILE Malignant neoplasm of upper-outer quadrant of female breast (CMS/HCC) (Primary Dx) Social History Tobacco Use Types Packs/Day Years Used Date Smoking Tobacco: Never Assessed Comments Unknown Sex and Gender Information Value Date Recorded Sex Assigned at Not on file 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 Gender Identity Not on file Sexual Orientation Not on file documented as of this encounter Plan of Treatment Not on file documented as of this encounter Visit Diagnoses Diagnosis Malignant neoplasm of upper-outer quadrant of female breast (CMS/HCC)- Primary Malignant neoplasm of upper-outer quadrant of female breast documented in this encounter Additional Health Concerns Infection Onset Date Last Indicated Resolved Time VRE Comment:VRE positive urine culture 06/15/18 06/17/2018 06/17/2018 06/20/2018 9:09 AM C DT VRE Comment:Positive Urine Culture from outside facility on 06/15/18 06/23/2018 06/23/2018 documented as of this encounter Care Teams Utility Mechanic Relationship Specialty Start Date End Date Santino Reyes APRN [address] [place] [phone] PCP - General NURSE PRACTITIONER 07/10/18 documented as of this encounter
--- OUTSIDE RECORDS SUMMARY | 2024-06-15 17:16 | XMS_ITS | Encounter Summary ---
Author Organization [facility] Address [address] [place] [address] Care Team Providers Care Drywall Foreman Name Role Phone Santino Reyes APRN Primary Care Provider [phone] Encounter Details Date Type Department Care Team (Latest Contact Info) Description 11/08/2000 Outpatient [facility]-? 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
--- OUTSIDE RECORDS SUMMARY | 2024-06-15 17:16 | XMS_ITS | Encounter Summary ---
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 current use of systemic steroids Procedures XR DEXA BONE DENSITY AXIAL 1 OR MORE SITES Bautista Denis MD [address] [place] [address] Phone: tel: fax: [facility] [address] [facility] [address] [place] [address] Phone: tel: fax: Referral ID Status Reason Start Date Expiration Date V isits Requested Visits Authorized [id number] Closed [facility] CTS to Schedule (SGF) 06/04/2017 07/05/2018 1 1 ND WORKER Encounter Details Date Type Department Care Team ([facility] st Contact Info) Description 06/04/2017 Ancillary Orders [facility] Centralized Scheduling [address] [facility] [address] [place] [address] Bautista Denis MD [address] [place] [address] Age-related osteoporosis without current pathological fracture; 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 current use of systemic steroids Social History Tobacco Use Types Packs/Day Years Used Date Smoking Tobacco: Former Cigarettes 1 25 0 [birth year]/01/1964 - 04/01/1989 Smokeless Tobacco: Never Alcohol Use Standard Drinks/Week Comments No 0 (1 standard drink = 0.6 oz pur e alcohol) Comments No Sex and Gender Information Value Date Recorded Sex Assigned at Not on file 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 Current findings consistent with severe osteopenia; [...] clinical management available online at [email or web address] [employer] for Select DXA and the Femoral Neck BMD value. [id number] ? Narrative 06/11/2017 10:29 PM CDT DEXA [...] ??0.9 Procedure Note Luis Alba MD - 06/11/2017 DEXA Evaluation of the Lumbar Spine and [...] 0.845 Adult T-score: -0.8 Adult Z-score: 0.9 IMPRESSION: 1. Current findings consistent with severe osteopenia; [...] clinical management available online at [email or web address] [employer] for Select DXA and the Femoral Neck BMD value. 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 of systemic steroids Encounter for long-term (current) use of steroids documented in this encounter Additional Health Concerns Infection Onset Date Last Indicated Resolved Time VRE Comment:VRE positive urine culture 06/15/18 06/17/2018 06/17/2018 06/20/2018 9:09 AM C DT VRE Comment:Positive Urine Culture from outside facility on 06/15/18 06/23/2018 06/23/2018 documented as of this encounter Care Teams Configuration Manager Relationship Specialty Start Date End Date Santino Reyes, THERESA [address] [place] [phone] PCP - General NURSE PRACTITIONER 07/10/18 documented as of this encounter
--- OUTSIDE RECORDS SUMMARY | 2024-06-15 17:16 | XMS_ITS | Encounter Summary ---
Author Organization [facility] Address [address] [place] [address] Care Team Providers Care Muffler Installer Name Role Phone Santino Reyes THERESA Primary Care Provider [phone] Reason for Referral * Outpatient Services (Routine) - Closed Specialty Diagnoses / Procedures Referred By Contac t Referred To Contact Radiology Diagnoses Other screening mammogram Procedures MAMMO DIGITAL SCREEN UNI LEFT Anisha Davila FNP [address] [facility] [place] [address] Phone: tel: fax: [facility] [address] [facility] [address] [place] [address] Phone: tel: fax: Referral ID Status Reason Start Date Expiration Date V isits Requested Visits Authorized [id number] Closed [facility] CTS to Schedule (SGF) 01/06/2013 02/06/2014 1 1 Encounter Details Date Type Department Care Team ([facility] st Contact Info) Description 01/01/2013 Ancillary Orders [facility] Centralized Scheduling [address] [facility] [address] [place] [address] Anisha Davila FNP [address] [place] [address] Other screening mammogram (Primary Dx) Social History Tobacco Use Types Packs/Day Years Used Date Smoking Tobacco: Former Cigarettes Q uit: 04/01/1989 Smokeless Tobacco: Never Alcohol Use Standard Drinks/Week Comments Yes 0 (1 standard drink = 0.6 oz pur e alcohol) socially Comments No Sex and Gender Information Value Date Recorded Sex Assigned at Not on file 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 Gender Identity Not on file Sexual Orientation Not on file Occupation Industry Job Start Date Job End Date Not on file Not on file Not on file Not on file documented as of this encounter Plan of Treatment Not on file documented as of this encounter Results * MAMMO DIGITAL SCREEN UNI LEFT (01/13/2013 11:58 AM CDT) Anatomical Region Laterality Modality Breast Left Mammography Narrative 01/20/2013 10:31 AM CDT Left Mammogram Reason for Exam: Screening Comparison: Compared to: 03/07/2012 MAMMO DIGITAL DIAG UNI LEFT, 09/04/2011 MAMMO DIGITAL DIAG UNI LEFT, 01/18/2011 MAMMO DIGITIZED STUDY, 01/10/2007 MAMMO DIGITIZED STUDY ?? 08 ?? 01.17.10 ? Findings: Left CC and MLO views were obtained. This examination was reviewed with the aid of a computer-aided detection system(CAD). The breast tissue density is average. No significant new findings since the prior mammogram(s) Procedure Note Louise Gil MD - 01/20/2013 Left Mammogram Reason for Exam: Screening Comparison: Compared to: 03/07/2012 MAMMO DIGITAL DIAG UNI LEFT,09/04/2011 MAMMO DIGITAL DIAG UNI LEFT, 01/18/2011 MAMMO DIGITIZED STUDY,01/10/2007 MAMMO DIGITIZED STUDY 10.10.08 01.17.10 Findings: Left CC and MLO views were obtained. This examination was reviewed with the aid of a computer-aided detectionsystem(CAD). The breast tissue density is average. No significant new findings since the prior mammogram(s) Anisha Davila ELEMENTARY SECRETARY MAMMO ORDERABLES Fi nal Result documented in this encounter Visit Diagnoses Diagnosis Other screening mammogram- Primary Other screening mammogram documented in this encounter Additional Health Concerns Infection Onset Date Last Indicated Resolved Time VRE Comment:VRE positive urine culture 06/15/18 06/17/2018 06/17/2018 06/20/2018 9:09 AM Kang TAPIA VRE Comment:Positive Urine Culture from outside facility on 06/15/18 06/23/2018 06/23/2018 documented as of this encounter Care Teams Muffler Installer Relationship Specialty Start Date End Date Santino Reyes, BEAD STRINGER [address] [place] [address] [phone] PCP - General NURSE PRACTITIONER 07/10/18 documented as of this encounter
--- OUTSIDE RECORDS SUMMARY | 2024-06-15 17:16 | XMS_ITS | Encounter Summary ---
Author Organization [facility] Address [address] [place] [address] Care Team Providers Care Glass Polisher Name Role Phone Santino Reyes APRN Primary Care Provider [phone] Encounter Details Date Type Department Care Team (Latest Contact Info) Description 04/07/1999 Outpatient Historical [facility] Cancer and Hematology 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
--- OUTSIDE RECORDS SUMMARY | 2024-06-15 17:16 | XMS_ITS | Encounter Summary ---
Author Organization [facility] Address [address] [place] [address] Care Team Providers Care Loan Services Professional Name Role Phone Santino Reyes APRN Primary Care Provider [phone] Encounter Details Date Type Department Care Team (Latest Contact Info) Description 04/07/1999 Outpatient Historical [facility] Luis Miguel Almendarez MD NO ADDRESS ON FILE Follow-up examination following surgery (Primary Dx) Social History Tobacco Use Types Packs/Day Years Used Date Smoking Tobacco: Never Assessed Comments Unknown Sex and Gender Information Value Date Recorded Sex Assigned at Not on file 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
--- OUTSIDE RECORDS SUMMARY | 2024-06-15 17:16 | XMS_ITS | Encounter Summary ---
Author Organization [facility] Address [address] [place] [address] Care Team Providers Care Hood Maker Name Role Phone Santino Reyes APRN Primary Care Provider [phone] Encounter Details Date Type Department Care Team (Latest Contact Info) Description 03/21/1999 Outpatient Historical [facility] [place] [facility] General and Trauma Surgery-[address] [place] [address] Raulito Wagner MD [address] [place] [address] [address] [place] [address] Malignant neoplasm of breast (female), unspecified site (CMS/HCC) (Primary Dx) Social History Tobacco Use Types Packs/Day Years Used Date Smoking Tobacco: Never Assessed Comments Unknown Sex and Gender Information Value Date Recorded Sex Assigned at Not on file 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
--- OUTSIDE RECORDS SUMMARY | 2024-06-15 17:16 | XMS_ITS | Encounter Summary ---
Author Organization [facility] Address [address] [place] [address] Care Team Providers Care Primer Charger Name Role Phone Santino Reyes APRN Primary Care Provider [phone] Encounter Details Date Type Department Care Team (Latest Contact Info) Description 04/19/2000 Outpatient Historical [facility] Luis Miguel Almendarez MD NO ADDRESS ON FILE Follow-up examination, following unspecified surgery (Primary Dx) Social History Tobacco Use Types Packs/Day Years Used Date Smoking Tobacco: Never Assessed Comments Unknown Sex and Gender Information Value Date Recorded Sex Assigned at Not on file 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
--- OUTSIDE RECORDS SUMMARY | 2024-06-15 17:16 | XMS_ITS | Encounter Summary ---
Author Organization [facility] Address [address] [place] [address] Care Team Providers Care Smelter Charger Name Role Phone Santino Reyes APRN Primary Care Provider [phone] Encounter Details Date Type Department Care Team ([facility] st Contact Info) Description 04/07/1999 Outpatient Historical [facility] Laboratory and Imaging Services-? 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
--- OUTSIDE RECORDS SUMMARY | 2024-06-15 17:16 | XMS_ITS | Encounter Summary ---
Author Organization [facility] Address [address] [place] [address] Care Team Providers Care Customer Engagement Representative Name Role Phone Santino Reyes APRN Primary Care Provider [phone] Encounter Details Date Type Department Care Team (Latest Contact Info) Description 05/09/2001 Outpatient Historical [facility] Cancer and Hematology [address] [place] [address] [address] [place] [address] Jose Matos MD NO ADDRESS ON FILE MALIG NEOPLASM BREAST UP-OUTER (CMS/HCC) (Primary Dx) Social History Tobacco Use Types Packs/Day Years Used Date Smoking Tobacco: Never Assessed Comments Unknown Sex and Gender Information Value Date Recorded Sex Assigned at Not on file Legal Sex Female 5:[address] Gender Identity Not on file Sexual Orientation [...] documented as of this encounter Care Teams Customer Engagement Representative Relationship Specialty Start Date End Date Santino Reyes APRN [address] [place] [address] [phone] PCP - General NURSE PRACTITIONER 07/10/18 documented as of this encounter
--- OUTSIDE RECORDS SUMMARY | 2024-06-15 17:16 | XMS_ITS | Encounter Summary ---
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
--- OUTSIDE RECORDS SUMMARY | 2024-06-15 17:16 | XMS_ITS | Encounter Summary ---
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
--- OUTSIDE RECORDS SUMMARY | 2024-06-15 17:16 | XMS_ITS | Encounter Summary ---
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) Social History Tobacco Use Types Packs/Day Years Used Date Smoking Tobacco: Never Assessed Comments Unknown Sex and Gender Information Value Date Recorded Sex Assigned at Not on file 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 Gender Identity Not on file Sexual Orientation Not on file documented as of this encounter Plan of Treatment Not on file documented as of this encounter Visit Diagnoses Diagnosis Other and unspecified malignant neoplasm of skin of other and unspecified parts of face- Primary documented in this encounter Additional Health Concerns Infection Onset Date Last Indicated Resolved Time VRE Comment:VRE positive urine culture 06/15/18 06/17/2018 06/17/2018 06/20/2018 9:09 AM C DT VRE Comment:Positive Urine Culture from outside facility on 06/15/18 06/23/2018 06/23/2018 documented as of this encounter Care Teams Counter Stacker Relationship Specialty Start Date End Date Santino Reyes APRN [address] [place] [phone] PCP - General NURSE PRACTITIONER 07/10/18 documented as of this encounter
--- OUTSIDE RECORDS SUMMARY | 2024-06-15 17:16 | XMS_ITS | Encounter Summary ---
Author Organization [facility] Address [address] [place] [address] Care Team Providers Care Labor Relations Supervisor Name Role Phone Santino Reyes APRN Primary Care Provider [phone] Encounter Details Date Type Department Care Team (Latest Contact Info) Description 12/25/2001 Outpatient [facility] [address] [facility] [address] [place] [address] Farzad Diehl MD NO ADDRESS ON FILE SCREENING MAMM-MAILG NEOPL-OTHER (Primary Dx); PERS HX OF BREAST MALIGNANCY Social History Tobacco Use Types Packs/Day Years Used Date Smoking Tobacco: Never Assessed Comments Unknown Sex and Gender Information Value Date Recorded Sex Assigned at Not on file 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 Gender Identity Not on file Sexual Orientation Not on file documented as of this encounter Plan of Treatment Not on file documented as of this encounter Visit Diagnoses Diagnosis Other screening mammogram- Primary Personal history of malignant neoplasm of breast documented in this encounter Additional Health Concerns Infection Onset Date Last Indicated Resolved Time VRE Comment:VRE positive urine culture 06/15/18 06/17/2018 06/17/2018 06/20/2018 9:09 AM C DT VRE Comment:Positive Urine Culture from outside facility on 06/15/18 06/23/2018 06/23/2018 documented as of this encounter Care Teams Labor Relations Supervisor Relationship Specialty Start Date End Date Santino Reyes APRN [address] [place] [address] [address] [place] [phone] PCP - General NURSE PRACTITIONER 07/10/18 documented as of this encounter
--- OUTSIDE RECORDS SUMMARY | 2024-06-15 17:16 | XMS_ITS | Encounter Summary ---
Author Organization [facility] Address [address] [place] [address] Care Team Providers Care Supervisor Machine Setter Name Role Phone Santino Reyes THERESA Primary Care Provider [phone] Reason for Referral * Outpatient Services (Routine) - Closed Specialty Diagnoses / Procedures Referred By Contac t Referred To Contact Diagnoses Other (abnormal) findings on radiological examination of breast Procedures MAMMO BREAST US LT Jose Matos MD NO ADDRESS ON FILE Referral ID Status Reason Start Date Expiration Date Visits Re quested Visits Authorized [id number] Closed 01/24/2011 01/24/2012 1 1 Encounter Details Date Type Department Care Team (Latest Contact Info) Description 01/24/2011 Ancillary Orders [facility] [address] [facility] [address] [place] [address] Jose Matos MD NO ADDRESS ON FILE Other (abnormal) findings on radiological examination of breast Social History Tobacco Use Types Packs/Day Years Used Date Smoking Tobacco: Former Cigarettes Q uit: 04/01/1989 Smokeless Tobacco: Never Alcohol Use Standard Drinks/Week Comments Yes 0 (1 standard drink = 0.6 oz pur e alcohol) socially Comments No Sex and Gender Information Value Date Recorded Sex Assigned at Not on file Legal Sex Female 5:30 AM VIRTUALIZATION CONSULTANT Gender Identity Not on file Sexual Orientation Not on file documented as of this encounter Plan of Treatment Not on file documented as of this encounter Results * MAMMO BREAST US LT (02/07/2011 1:42 PM VIRTUALIZATION CONSULTANT) Anatomical Region Laterality Modality Breast Left Ultrasound Narrative 02/14/2011 10:48 AM VIRTUALIZATION CONSULTANT LEFT BREAST ULTRASOUND: The patient returns for sonographic evaluation of the left-sided axillary lymph nodes. ??She has had a right-sided mastectomy. ??She also reports having fibromyalgia. Sonographic evaluation of the right-sided axillary lymph nodes does not show any suspicious lymph nodes. ??Most of them are fatty-replaced with thin cortices. ??None of them appear pathologically enlarged. SUMMARY: Given the findings and the fact that it has been four years since her previous imaging study, it is quite likely that the lymph nodes are simply reactive. ??We will follow her in six months' time with mammographic imaging. ??She is comfortable with that approach. The patient was given a result/recommendation letter. FELISA/geraldine ??D: ??02/07/2011 1:44 PM ?T: ??02/12/2011 3:49 PM - transcribed in [email or web address] - Procedure Note Joaquin Valentin MD - 02/14/2011 LEFT BREAST ULTRASOUND: The patient returns for sonographic evaluation of the left-sided axillarylymph nodes. She has had a right-sided mastectomy. She also reportshaving fibromyalgia. Sonographic evaluation of the right-sided axillary lymph nodes does notshow any suspicious lymph nodes. Most of them are fatty-replaced withthin cortices. None of them appear pathologically enlarged. SUMMARY: Given the findings and the fact that it has been four years since herprevious imaging study, it is quite likely that the lymph nodes are simplyreactive. We will follow her in six months' time with mammographicimaging. She is comfortable with that approach. The patient was given a result/recommendation letter. Home - transcribed in [email or web address] - us Jose Matos MD MAMMO ORDERABLES Final Result documented in this encounter Visit Diagnoses Diagnosis Other (abnormal) findings on radiological examination of breast Other (abnormal) findings on radiological examination of breast documented in this encounter Additional Health Concerns Infection Onset Date Last Indicated Resolved Time VRE Comment:VRE positive urine culture 3/17/19 06/17/2018 06/17/2018 06/20/2018 9:09 AM C DT VRE Comment:Positive Urine Culture from outside facility on 06/15/18 06/23/2018 06/23/2018 documented as of this encounter Care Teams Supervisor Machine Setter Relationship Specialty Start Date End Date Santino Reyes, THERESA [address] [place] [phone] PCP - General NURSE PRACTITIONER 07/10/18 documented as of this encounter
--- OUTSIDE RECORDS SUMMARY | 2024-06-15 17:16 | XMS_ITS | Encounter Summary ---
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
--- OUTSIDE RECORDS SUMMARY | 2024-06-15 17:16 | XMS_ITS | Encounter Summary ---
Author Organization [facility] Address [address] [place] [address] Care Team Providers Care Business Services Coordinator Name Role Phone Santino Reyes APRN Primary Care Provider [phone] Encounter Details Date Type Department Care Team (Latest Contact Info) Description 03/21/1999 Outpatient Historical [facility] Luis Miguel Almendarez MD NO ADDRESS ON FILE Follow-up examination following surgery (Primary Dx) Social History Tobacco Use Types Packs/Day Years Used Date Smoking Tobacco: Never Assessed Comments Unknown Sex and Gender Information Value Date Recorded Sex Assigned at Not on file 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
--- OUTSIDE RECORDS SUMMARY | 2024-06-15 17:16 | XMS_ITS | Encounter Summary ---
Author Organization [facility] Address [address] [place] [address] Care Team Providers Care Work Car Operator Name Role Phone Santino Reyes THERESA Primary Care Provider [phone] Reason for Referral * Outpatient Services (Routine) - Closed Specialty Diagnoses / Procedures Referred By Contac t Referred To Contact Diagnoses Other (abnormal) findings on radiological examination of breast Procedures MAMMO DIGITIZED STUDY Jose Matos MD NO ADDRESS ON FILE Referral ID Status Reason Start Date Expiration Date Visits Re quested Visits Authorized [id number] Closed 02/05/2011 02/05/2012 1 1 WARE DESIGN MANAGER Encounter Details Date Type Department Care Team (Latest Contact Info) Description 02/05/2011 Ancillary Orders [facility] [address] [facility] [address] [place] [address] Jose Matos MD NO ADDRESS [...] on file Legal Sex Female 5:30 AM SOFTWARE DESIGN MANAGER Gender Identity Not on file Sexual Orientation Not on file documented as of this encounter Plan of Treatment Not on file documented as of this encounter Results * MAMMO DIGITIZED STUDY (01/18/2011 3:01 PM CDT) Narrative Maria C Wynn, RT - 02/05/2011 3:02 PM SOFTWARE DESIGN MANAGER Order information only. ??Exam was auto-finalized. ?? Procedure Note Maria C Wynn, RT - 02/05/2011 Order information only. Exam was auto-finalized. us Jose Matos MD DIAGNOSTIC IMAGING ORDERABLES Fi nal Result documented in this [...] documented as of this encounter Care Teams Work Car Operator Relationship Specialty Start Date End Date Santino Reyes, SANDER SETTER [facility] [phone] PCP - General NURSE PRACTITIONER 07/10/18 documented as of this encounter
--- OUTSIDE RECORDS SUMMARY | 2024-06-15 17:16 | XMS_ITS | Encounter Summary ---
Author Organization [facility] Address [address] [place] [address] Care Team Providers Care Director Of Elementary Education Name Role Phone Santino Reyes APRN Primary Care Provider [phone] Encounter Details Date Type Department Care Team (Latest Contact Info) Description 09/03/2000 Outpatient Historical [facility] Rheumatology- [place] [address] [place] [phone] Antonella Amaya MD [address] [place] [address] Unspecified inflammatory polyarthropathy (CMS/HCC) (Primary Dx) Social History Tobacco Use Types Packs/Day Years Used Date Smoking Tobacco: Never Assessed Comments Unknown Sex and Gender Information Value Date Recorded Sex Assigned at Not on file 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 Gender Identity Not on file Sexual Orientation Not on file documented as of this encounter Plan of Treatment Not on file documented as of this encounter Visit Diagnoses Diagnosis Unspecified inflammatory polyarthropathy (CMS/HCC)- Primary Unspecified inflammatory polyarthropathy documented in this encounter Additional Health Concerns Infection Onset Date Last Indicated Resolved Time VRE Comment:VRE positive urine culture 06/15/18 06/17/2018 06/17/2018 06/20/2018 9:09 AM C DT VRE Comment:Positive Urine Culture from outside facility on 06/15/18 06/23/2018 06/23/2018 documented as of this encounter Care Teams Director Of Elementary Education Relationship Specialty Start Date End Date Santino Reyes, PAPER PRODUCTS SUPERVISOR [address] [phone] PCP - General NURSE PRACTITIONER 07/10/18 documented as of this encounter
--- OUTSIDE RECORDS SUMMARY | 2024-06-15 17:16 | XMS_ITS | Encounter Summary ---
Author Organization [facility] Address [address] [place] [address] Care Team Providers Care Electrician Locomotive Name Role Phone Santino Reyes THERESA Primary Care Provider [phone] Reason for Referral * Outpatient Services (Routine) - Closed Specialty Diagnoses / Procedures Referred By Dennis t Referred To Contact Diagnoses Encounter for special screening examination for neoplasm of breast Procedures MAMMO SCRN UNI LEFT W OR WO CAD [facility] Centralized Scheduling [address] [facility] [address] [place] [address] Phone: tel: fax: Referral ID Status Reason Start Date Expiration Date Visits Re quested Visits Authorized [id number] Closed 03/12/2017 04/12/2018 1 1 RENTAL SALES ASSISTANT Encounter Details Date Type Department Care Team (Late st Contact Info) Description 03/12/2017 Ancillary Orders [facility] Centralized Scheduling [address] [facility] [address] [place] [address] Rich External Provider [address] [facility] [address] [place] [address] Encounter for special screening examination for neoplasm of breast Social History Tobacco Use Types Packs/Day Years Used Date Smoking Tobacco: Former Cigarettes 1 25 0 04/01/1964 - 04/01/1989 Smokeless Tobacco: Never Alcohol Use Standard Drinks/Week Comments No 0 (1 standard drink = 0.6 oz pur e alcohol) Comments No Sex and Gender Information Value Date Recorded Sex Assigned at Not on file Legal Sex Female 5:30 AM CAR RENTAL SALES ASSISTANT Gender Identity Not on file Sexual Orientation Not on file Occupation Industry Job Start Date Job End Date Not on file Not on file Not on file Not on file documented as of this encounter Plan of Treatment Not on file documented as of this encounter Results * MAMMO SCRN UNI LEFT W OR WO CAD (03/14/2017 2:27 PM CAR RENTAL SALES ASSISTANT) Anatomical Region Laterality Modality Breast Left Mammography Narrative 03/18/2017 8:29 AM CAR RENTAL SALES ASSISTANT Left Mammogram Reason for Exam: Screening Comparison: Compared to: 02/28/2016 MAMMO DIGITAL SCREEN UNI LEFT, 02/17/2015 MAMMO DIGITAL SCREEN UNI LEFT, 01/12/2014 MAMMO DIGITAL SCREEN UNI LEFT, 01/13/2013 MAMMO DIGITAL SCREEN UNI LEFT, and 03/07/2012 MAMMO DIGITAL DIAG UNI LEFT Findings: Left CC and MLO views were obtained. This examination was reviewed with the aid of a computer-aided detection system(CAD). Breast Composition: ??There are scattered areas of fibroglandular density. ?? There are no suspicious masses, areas of architectural distortions, or microcalcifications to suggest malignancy. No significant new findings since the prior mammogram(s). us External Provider Mtnv MAMMO ORDERABLES Final Re sult documented in this encounter Visit Diagnoses Diagnosis Encounter for special screening examination for neoplasm of breast Encounter for special screening examination for neoplasm of breast documented in this encounter Additional Health Concerns Infection Onset Date Last Indicated Resolved Time VRE Comment:VRE positive urine culture 06/15/18 06/17/2018 06/17/2018 06/20/2018 9:09 AM C DT VRE Comment:Positive Urine Culture from outside facility on 06/15/18 06/23/2018 06/23/2018 documented as of this encounter Care Teams Electrician Locomotive Relationship Specialty Start Date End Date Santino Reyes, BASKET MACHINE OPERATOR [facility] [phone] PCP - General NURSE PRACTITIONER 07/10/18 documented as of this encounter
--- OUTSIDE RECORDS SUMMARY | 2024-06-15 17:16 | XMS_ITS | Encounter Summary ---
Author Organization [facility] Address [address] [place] [address] Care Team Providers Care Compressor Station Engineer Name Role Phone Santino Reyes APRN Primary Care Provider [phone] Encounter Details Date Type Department Care Team (Latest Contact Info) Description 10/09/1999 Outpatient Historical [facility] General and Trauma Surgery-[address] [place] [address] Arden Link MD NO ADDRESS ON FILE Malignant neoplasm of breast (female), unspecified site (CMS/HCC) (Primary Dx) Social History Tobacco Use Types Packs/Day Years Used Date Smoking Tobacco: Never Assessed Comments Unknown Sex and Gender Information Value Date Recorded Sex Assigned at Not on file Legal Sex Female 5:30 AM SCRUBBER OPERATOR Gender Identity Not on file Sexual [...] documented as of this encounter Care Teams Compressor Station Engineer Relationship Specialty Start Date End Date Santino Reyes APRN [address] [phone] PCP - General NURSE PRACTITIONER 07/10/18 documented as of this encounter
--- OUTSIDE RECORDS SUMMARY | 2024-06-15 17:16 | XMS_ITS | Encounter Summary ---
Author Organization [facility] Address [address] [place] [address] Care Team Providers Care Manager Inpatient Name Role Phone Santino Reyes APRN Primary Care Provider [phone] Encounter Details Date Type Department Care Team (Latest Contact Info) Description 03/05/2000 Outpatient Historical [facility] Cancer and Hemat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
--- OUTSIDE RECORDS SUMMARY | 2024-06-15 17:16 | XMS_ITS | Encounter Summary ---
Author Organization [facility] Address [address] [place] [address] Care Team Providers Care Insurance Case Manager Name Role Phone Santino Reyes APRN Primary Care Provider [phone] Encounter Details Date Type Department Care Team (Latest Contact Info) Description 07/11/2000 Outpatient [facility] Laboratory and Imaging Services-? 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
--- OUTSIDE RECORDS SUMMARY | 2024-06-15 17:16 | XMS_ITS | Encounter Summary ---
Author Organization [facility] Address [address] [place] [address] Care Team Providers Care Animal Feeder Name Role Phone Santino Reyes APRN Primary Care Provider [phone] Encounter Details Date Type Department Care Team (Latest Contact Info) Description 11/07/2001 Outpatient Historical [facility] [address] [place] [address] [address] [place] [address] Jose Matos MD NO ADDRESS ON FILE MALIG NEOPLASM BREAST UP-OUTER (CMS/HCC) (Primary Dx) Social History Tobacco Use Types Packs/Day Years Used Date Smoking Tobacco: Never Assessed Comments Unknown Sex and Gender Information Value Date Recorded Sex Assigned at Not on file 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
--- OUTSIDE RECORDS SUMMARY | 2024-06-15 17:16 | XMS_ITS | Encounter Summary ---
Author Organization [facility] Address [address] [place] [address] Care Team Providers Care Museum Or Zoo Director Name Role Phone Santino Reyes THERESA Primary Care Provider [phone] Reason for Referral * Outpatient Services (Routine) - Closed Specialty Diagnoses / Procedures Referred By Contac t Referred To Contact Diagnoses Other screening mammogram Procedures MAMMO SCREENING BILAT Jose Matos MD NO ADDRESS ON FILE Antonella Amaya MD Phone: tel: fax: Referral ID Status Reason Start Date Expiration Date Visits Re quested Visits Authorized [id number] Closed 01/22/2011 01/22/2012 1 1 Encounter Details Date Type Department Care Team (Late st Contact Info) Description 01/22/2011 Ancillary Orders [facility] External Read [address] [place] [address] Jose Matos MD NO ADDRESS ON FILE Other screening mammogram Social History Tobacco Use Types Packs/Day Years Used Date Smoking Tobacco: Former Cigarettes Q uit: 04/01/1989 Smokeless Tobacco: Never Alcohol Use Standard Drinks/Week Comments Yes 0 (1 standard drink = 0.6 oz pur e alcohol) socially Comments No Sex and Gender Information Value Date Recorded Sex Assigned at Not on file 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 ??The corrected exam is unilateral left breast screening mammogram. ??This was performed 01/22/11. Impressions 01/24/2011 5:25 PM CDT : Patient needs to return for further evaluation on the left. KG/eaw ??D: ??01/24/11 11:41 AM ?T: ??01/24/11 12:02 PM Narrative 01/24/2011 5:25 PM CDT REASON FOR EXAM: Screening IMAGES OBTAINED: Standard two view mammogram, on the left. ?? PATIENT COMPLAINT: No Concerns FAMILY HX.-BREAST Ca: There are multiple family members with breast cancer including her daughter who was diagnosed at age 42. TISSUE COMPOSITION: Average, scattered fibroglandular densities COMPARISON EXAM(S): 01/18/2006, 01/06/2009, 01/17/2010 FINDINGS: RIGHT BREAST: Patient is status post right mastectomy. ?? LEFT BREAST: The distribution of the tissue appears to be stable. However the visualized axillary lymph nodes appear more prominent particularly when compared with the study of 01/18/2006. ??I would recommend the patient return for a left axillary ultrasound for further evaluation This mammogram was also analyzed by the Computer Aided Detection System (CAD), [employer] ImageChecker, Version 3.1. Procedure Note Casandra Subramanian MD - 01/25/2011 REASON FOR EXAM: Screening IMAGES OBTAINED: Standard two view mammogram, on the left. PATIENT COMPLAINT: No Concerns FAMILY HX.-BREAST Ca: There are multiple family members with breast cancer including her daughter who was diagnosed at age 42. TISSUE COMPOSITION: Average, scattered fibroglandular densities COMPARISON EXAM(S): 01/18/2006, 01/06/2009, 01/17/2010 FINDINGS: RIGHT BREAST: Patient is status post right mastectomy. LEFT BREAST: The distribution of the tissue appears to be stable. However the visualized axillary lymph nodes appear more prominent particularly when compared with the study of 01/18/2006. I would recommend the patient return for a left axillary ultrasound for further evaluation This mammogram was also analyzed by the Computer Aided Detection System (CAD), [employer] ImageHuckletreecker, Version 3.1. IMPRESSION: Patient needs to return for further evaluation on the left. KG/eaw us Jose Matos MD MAMMO ORDERABLES Edited Result - Final documented in this encounter Visit Diagnoses Diagnosis Other screening mammogram documented in this encounter Additional Health Concerns Infection Onset Date Last Indicated Resolved Time VRE Comment:VRE positive urine culture 06/15/18 06/17/2018 06/17/2018 06/20/2018 9:09 AM C DT VRE Comment:Positive Urine Culture from outside facility on 06/15/18 06/23/2018 06/23/2018 documented as of this encounter Care Teams Museum Or Zoo Director Relationship Specialty Start Date End Date Santino Reyes, THERESA [address] [place] [phone] PCP - General NURSE PRACTITIONER 07/10/18 documented as of this encounter
--- OUTSIDE RECORDS SUMMARY | 2024-06-15 17:16 | XMS_ITS | Encounter Summary ---
Author Organization [facility] Address [address] [place] [address] Care Team Providers Care Press Tender Incendiary Grenade Name Role Phone Santino Reyes APRN Primary Care Provider [phone] Encounter Details Date Type Department Care Team (Latest Contact Info) Description 09/17/1997 Outpatient Historical [facility] Rheumatology- [place] [address] [place] [phone] Antonella Amaya MD [address] [place] [address] Myalgia and myositis, unspecified (Primary Dx); Synovitis and tenosynovitis, unspecified Social History Tobacco Use Types Packs/Day Years Used Date Smoking Tobacco: Never Assessed Comments Unknown Sex and Gender Information Value Date Recorded Sex Assigned at Not on file 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
--- OUTSIDE RECORDS SUMMARY | 2024-06-15 17:16 | XMS_ITS | Encounter Summary ---
Author Organization [facility] Address [address] [place] [address] Care Team Providers Care Power Digger Operator Name Role Phone Santino Reyes APRN Primary Care Provider [phone] Encounter Details Date Type Department Care Team (Latest Contact Info) Description 08/11/1999 Outpatient Historical [facility] Luis Miguel Almendarez MD NO ADDRESS ON FILE Other specified disorder of breast (Primary Dx); Personal history of malignant neoplasm of breast Social History Tobacco Use Types Packs/Day Years Used Date Smoking Tobacco: Never Assessed Comments Unknown Sex and Gender Information Value Date Recorded Sex Assigned at Not on file 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 Gender Identity Not on file Sexual Orientation Not on file documented as of this encounter Plan of Treatment Not on file documented as of this encounter Visit Diagnoses Diagnosis Other specified disorder of breast- Primary Personal history of malignant neoplasm of breast documented in this encounter Additional Health Concerns Infection Onset Date Last Indicated Resolved Time VRE Comment:VRE positive urine culture 06/15/18 06/17/2018 06/17/2018 06/20/2018 9:09 AM C DT VRE Comment:Positive Urine Culture from outside facility on 06/15/18 06/23/2018 06/23/2018 documented as of this encounter Care Teams Power Digger Operator Relationship Specialty Start Date End Date Santino Reyes APRN [address] [place] [phone] PCP - General NURSE PRACTITIONER 07/10/18 documented as of this encounter
--- OUTSIDE RECORDS SUMMARY | 2024-06-15 17:16 | XMS_ITS | Encounter Summary ---
Author Organization [facility] Address [address] [place] [address] Care Team Providers Care Glass Presser Name Role Phone Santino Reyes APRN Primary Care Provider [phone] Encounter Details Date Type Department Care Team (Latest Contact Info) Description 08/11/1999 Outpatient Historical [facility] [address] [place] [address] Jose Matos MD NO ADDRESS ON FILE Malignant neoplasm of upper-outer quadrant of female breast (CMS/HCC) (Primary Dx) Social History Tobacco Use Types Packs/Day Years Used Date Smoking Tobacco: Never Assessed Comments Unknown Sex and Gender Information Value Date Recorded Sex Assigned at Not on file 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
--- OUTSIDE RECORDS SUMMARY | 2024-06-15 17:16 | XMS_ITS | Encounter Summary ---
Author Organization [facility] Address [address] [facility] Attn: Epic Prelude ADT [place] [address] Care Team Providers Care Pot Room Supervisor Name Role Phone Santino Reyes APRN Primary Care Provider [phone] Encounter Details Date Type Department Care Team ([facility] Contact Info) Description 03/13/2000 Outpatient Historical Luis Miguel Almendarez MD NO ADDRESS ON FILE Social History Tobacco Use Types Packs/Day Years Used Date Smoking Tobacco: Never Assessed Comments Unknown Sex and Gender Information Value Date Recorded Sex Assigned at Not on file 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
--- OUTSIDE RECORDS SUMMARY | 2024-06-15 17:16 | XMS_ITS | Encounter Summary ---
Author Organization [facility] Address [address] [place] [address] Care Team Providers Care Agile Scrum Coach Name Role Phone Santino Reyes APRN Primary Care Provider [phone] Encounter Details Date Type Department Care Team (Latest Contact Info) Description 04/18/1999 Outpatient Historical [facility] Luis Miguel Almendarez MD NO ADDRESS ON FILE Follow-up examination following surgery (Primary Dx) Social History Tobacco Use Types Packs/Day Years Used Date Smoking Tobacco: Never Assessed Comments Unknown Sex and Gender Information Value Date Recorded Sex Assigned at Not on file 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
--- OUTSIDE RECORDS SUMMARY | 2024-06-15 17:16 | XMS_ITS | Encounter Summary ---
Author Organization [facility] Address [address] [place] [address] Care Team Providers Care Monitoring Specialist Name Role Phone Santino Reyes APRN Primary Care Provider [phone] Encounter Details Date Type Department Care Team (Latest Contact Info) Description 03/19/1997 Outpatient Historical [facility] Rheumatology- [place] [address] [place] [phone] Antonella Amaya MD [address] [place] [address] Myalgia and myositis, unspecified (Primary Dx); Synovitis and tenosynovitis, unspecified Social History Tobacco Use Types Packs/Day Years Used Date Smoking Tobacco: Never Assessed Comments Unknown Sex and Gender Information Value Date Recorded Sex Assigned at Not on file 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
--- OUTSIDE RECORDS SUMMARY | 2024-06-15 17:16 | XMS_ITS | Encounter Summary ---
Author Organization [facility] Address [address] [facility] Attn: Epic Prelude ADT DAXA TALAVERA [address] Care Team Providers Care Anti Air Warfare Operations Officer Name Role Phone Santino Reyes APRN Primary Care Provider [phone] Encounter Details Date Type Department Care Team ([facility] Contact Info) Description 12/25/2001 Outpatient Historical Jose Matos MD NO ADDRESS ON FILE Social History Tobacco Use Types Packs/Day Years Used Date Smoking Tobacco: Never Assessed Comments Unknown Sex and Gender Information Value Date Recorded Sex Assigned at Not on file 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
--- OUTSIDE RECORDS SUMMARY | 2024-06-15 17:16 | XMS_ITS | Encounter Summary ---
Author Organization [facility] Address [address] [place] [address] Care Team Providers Care Consulting Property Manager Name Role Phone Santino Reyes APRN Primary Care Provider Encounter Details Date Type Department Care Team (Latest Contact Info) Description 11/21/2000 Outpatient Historical [facility] Luis Miguel Almendarez MD NO ADDRESS ON FILE Follow-up examination, following unspecified surgery (Primary Dx) Social History Tobacco Use Types Packs/Day Years Used Date Smoking Tobacco: Never Assessed Comments Unknown Sex and Gender Information Value Date Recorded Sex Assigned at Not on file 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
--- OUTSIDE RECORDS SUMMARY | 2024-06-15 17:16 | XMS_ITS | Encounter Summary ---
Author Organization [facility] Address 5 [facility] Attn: Epic Prelude ADT [place] [address] Care Team Providers Care Building Insulation Supervisor Name Role Phone Santino Reyes APRN Primary Care Provider [phone] Encounter Details Date Type Department Care Team ([facility] Contact Info) Description 05/09/2001 Outpatient Historical Bautista Nuñez MD NO ADDRESS ON FILE Social History Tobacco Use Types Packs/Day Years Used Date Smoking Tobacco: Never Assessed Comments Unknown Sex and Gender Information Value Date Recorded Sex Assigned at Not on file Legal Sex Female 5:30 AM HORSER UP Gender Identity Not on file Sexual Orientation [...] documented as of this encounter Care Teams Building Insulation Supervisor Relationship Specialty Start Date End Date Santino Reyes APRN [address] [place] [phone] PCP - General NURSE PRACTITIONER 07/10/18 documented as of this encounter
--- OUTSIDE RECORDS SUMMARY | 2024-06-15 17:16 | XMS_ITS | Encounter Summary ---
Author Organization [facility] Address [address] [place] [address] Care Team Providers Care Secondary Spanish Teacher Name Role Phone Santion Reyes THERESA Primary Care Provider [phone] Reason for Referral * Outpatient Services (Routine) - Closed Specialty Diagnoses / Procedures Referred By Contac t Referred To Contact Diagnoses Other (abnormal) findings on radiological examination of breast Procedures MAMMO DIGITIZED STUDY Jose Matos MD NO ADDRESS ON FILE Referral ID Status Reason Start Date Expiration Date Visits Re quested Visits Authorized [id number] Closed 02/05/2011 02/05/2012 1 1 F DESIGN ENGINEER Encounter Details Date Type Department Care Team (Latest Contact Info) Description 02/05/2011 Ancillary Orders [facility] [address] [facility] [address] [place] [address] Jose Matos MD NO ADDRESS [...] on file Legal Sex Female 5:30 AM STAFF DESIGN ENGINEER Gender Identity Not on file Sexual Orientation Not on file documented as of this encounter Plan of Treatment Not on file documented as of this encounter Results * MAMMO DIGITIZED STUDY (01/10/2007 3:00 PM CDT) Narrative Maria C Wynn Rajat, RT - 02/05/2011 3:00 PM STAFF DESIGN ENGINEER Order information only. ??Exam was auto-finalized. ?? [...] as of this encounter Care Teams Secondary Spanish Teacher Relationship Specialty Start Date End Date Santino Reyes, SHOT HOLE SHOOTER [facility] [phone] PCP - General NURSE PRACTITIONER 07/10/18 documented as of this encounter
--- OUTSIDE RECORDS SUMMARY | 2024-06-15 17:16 | XMS_ITS | Encounter Summary ---
Author Organization [facility] Address [address] [place] [address] Care Team Providers Care High School Mathematics Teacher Name Role Phone Santino Reyes APRN Primary Care Provider [phone] Encounter Details Date Type Department Care Team (Latest Contact Info) Description 10/06/1997 Outpatient [facility] [address] [facility] [address] [place] [address] Farzad Diehl MD NO ADDRESS ON FILE Other sign and symptom in breast (Primary Dx) Social History Tobacco Use Types Packs/Day Years Used Date Smoking Tobacco: Never Assessed Comments Unknown Sex and Gender Information Value Date Recorded Sex Assigned at Not on file Legal Sex Female 5:30 AM IMMIGRATION SPECIALIST Gender Identity Not on file Sexual Orientation [...] documented as of this encounter Care Teams High School Mathematics Teacher Relationship Specialty Start Date End Date Santino Reyes APRN [facility]5 [facility] [address] [place] [address] PCP - General NURSE PRACTITIONER 07/10/18 documented as of this encounter
--- OUTSIDE RECORDS SUMMARY | 2024-06-15 17:16 | XMS_ITS | Encounter Summary ---
Author Organization 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
--- OUTSIDE RECORDS SUMMARY | 2024-06-15 17:16 | XMS_ITS | Encounter Summary ---
Author Organization [facility] Address [address] [place] [address] Care Team Providers Care Switchboard Troubleshooter Name Role Phone Santino Reyes APRN Primary Care Provider [phone] Encounter Details Date Type Department Care Team (Latest Contact Info) Description 03/10/1999 Outpatient Historical [facility] Luis Miguel Almendarez MD NO ADDRESS ON FILE Attention to dressings and sutures (Primary Dx) Social History Tobacco Use Types Packs/Day Years Used Date Smoking Tobacco: Never Assessed Comments Unknown Sex and Gender Information Value Date Recorded Sex Assigned at Not on file Legal Sex Female 5:30 AM REJECTOR Gender Identity Not on file Sexual Orientation Not on file documented as of this encounter Plan of Treatment Not on file documented as of this encounter Visit Diagnoses Diagnosis Attention to dressings and sutures- Primary documented in this encounter Additional Health Concerns Infection Onset Date Last Indicated Resolved Time VRE Comment:VRE positive urine culture 06/15/18 06/17/2018 06/17/2018 06/20/2018 9:09 AM C DT VRE Comment:Positive Urine Culture from outside facility on 06/15/18 06/23/2018 06/23/2018 documented as of this encounter Care Teams Switchboard Troubleshooter Relationship Specialty Start Date End Date Santino Reyes APRN [facility] [phone] PCP - General NURSE PRACTITIONER 07/10/18 documented as of this encounter
--- OUTSIDE RECORDS SUMMARY | 2024-06-15 17:16 | XMS_ITS | Encounter Summary ---
Author Organization [facility] Address [address] [place] [address] Care Team Providers Care Nurse Anesthetist Name Role Phone Santino Reyes APRN Primary Care Provider [phone] Encounter Details Date Type Department Care Team (Latest Contact Info) Description 08/11/1999 Outpatient [facility] Laboratory and Imaging Services-? 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
--- OUTSIDE RECORDS SUMMARY | 2024-06-15 17:16 | XMS_ITS | Encounter Summary ---
Author Organization [facility] Address [address] [place] [address] Care Team Providers Care Panel Instrument Repairer Name Role Phone Santino Reyes APRN Primary Care Provider [phone] Encounter Details Date Type Department Care Team (Latest Contact Info) Description 04/07/1999 Outpatient Historical [facility] Laboratory and Imaging Services-? 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
--- OUTSIDE RECORDS SUMMARY | 2024-06-15 17:16 | XMS_ITS | Encounter Summary ---
Author Organization [facility] Address [address] [place] [address] Care Team Providers Care Security Shift Manager Name Role Phone Santino Reyes APRN Primary Care Provider [phone] Encounter Details Date Type Department Care Team (Latest Contact Info) Description 11/10/1999 Outpatient Historical [facility] Laboratory and Imaging Services-? 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
--- OUTSIDE RECORDS SUMMARY | 2024-06-15 17:16 | XMS_ITS | Encounter Summary ---
Author Organization [facility] Address [address] [place] [address] Care Team Providers Care Body Work Auto Trimmer Name Role Phone Santino Reyes APRN Primary Care Provider Encounter Details Date Type Department Care Team (Latest Contact Info) Description 05/19/1999 Outpatient Historical [facility] Laboratory and Imaging Services-? 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
--- OUTSIDE RECORDS SUMMARY | 2024-06-15 17:17 | XMS_ITS | Encounter Summary ---
Author Organization [facility] Address [address] [place] [address] Care Team Providers Care Bilingual Account Manager Name Role Phone Santino Reyes APRN Primary Care Provider [phone] Encounter Details Date Type Department Care Team ([facility] st Contact Info) Description 01/12/2014 Ancillary Orders [facility] Centralized Scheduling [address] [facility] [address] [place] [address] Anisha Davila, PARALEGALS [address] [place] [address] Other screening mammogram (Primary Dx) Social History Tobacco Use Types Packs/Day Years Used Date Smoking Tobacco: Former Cigarettes Q uit: 04/01/1989 Smokeless Tobacco: Never Alcohol Use Standard Drinks/Week Comments Yes 0 (1 standard drink = 0.6 oz pur e alcohol) socially Comments No Sex and Gender Information Value Date Recorded Sex Assigned at Not on file Legal Sex Female 5:30 AM RN PALLIATIVE Gender Identity Not on file Sexual Orientation Not on file Occupation Industry Job Start Date Job End Date Not on file Not on file Not on file Not on file documented as of this encounter Plan of Treatment Not on file documented as of this encounter Results * MAMMO DIGITIZED STUDY (01/06/2009 2:54 PM CDT) Narrative Maria Eugenia Alvares, RT - 01/12/2014 2:54 PM CDT Order information only. ??Exam was auto-finalized. ?? Procedure Note Maria Eugenia Alvares Yfn, RT - 01/12/2014 Order information only. Exam was auto-finalized. Anisha Davila [employer] DIAGNOSTIC IMAGING ORDERABLES Final Result documented in [...] documented as of this encounter Care Teams Bilingual Account Manager Relationship Specialty Start Date End Date Santino Reyes, TEACHER ADVISOR [facility] [phone] PCP - General NURSE PRACTITIONER 07/10/18 documented as of this encounter
--- OUTSIDE RECORDS SUMMARY | 2024-06-15 17:17 | XMS_ITS | Encounter Summary ---
Author Organization [facility] Address [address] [place] [address] Care Team Providers Care Night Court Magistrate Name Role Phone Santino Reyes APRN Primary Care Provider [phone] Encounter Details Date Type Department Care Team (Late st Contact Info) Description 01/12/2014 Ancillary Orders [facility] Centralized Scheduling [address] [facility] [address] [place] [address] Anisha Davila, CORPORATION LAWYER [address] [place] [address] Other screening mammogram (Primary Dx) Social History Tobacco Use Types Packs/Day Years Used Date Smoking Tobacco: Former Cigarettes Q uit: 04/01/1989 Smokeless Tobacco: Never Alcohol Use Standard Drinks/Week Comments Yes 0 (1 standard drink = 0.6 oz pur e alcohol) socially Comments No Sex and Gender Information Value Date Recorded Sex Assigned at Not on file Legal Sex Female 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 ??Exam was auto-finalized. ?? Procedure Note Maria Eugenia Alvares Yfn, RT - 01/12/2014 Order information only. Exam was auto-finalized. Anisha Davila CORPORATION LAWYER DIAGNOSTIC IMAGING ORDERABLES Final Result documented in [...] documented as of this encounter Care Teams Night Court Magistrate Relationship Specialty Start Date End Date Santino Reyes, BOILERMAKING SUPERVISOR [facility] [phone] PCP - General NURSE PRACTITIONER 07/10/18 documented as of this encounter
--- OUTSIDE RECORDS SUMMARY | 2024-06-15 17:17 | XMS_ITS | Encounter Summary ---
Author Organization [facility] Address [address] [place] [address] Care Team Providers Care Migration Agent Name Role Phone Santino Reyes APRN Primary Care Provider [phone] Encounter Details Date Type Department Care Team (Latest Contact Info) Description 01/22/[address] [facility] Breast Center [facility] [address] [place], [place] [id number] Bautista Nuñez MD NO ADDRESS ON FILE SCREENING MAMM-MAILG NEOPL-OTHER (Primary Dx) Social History Tobacco Use Types Packs/Day Years Used Date Smoking Tobacco: Never Assessed Comments Unknown Sex and Gender Information Value Date Recorded Sex Assigned at Not on file Legal Sex Female 5:30 AM PROPERTIES SUPERVISOR Gender Identity Not on file Sexual [...] documented as of this encounter Care Teams Migration Agent Relationship Specialty Start Date End Date Santino Reyes APRN [address] [phone] PCP - General NURSE PRACTITIONER 07/10/18 documented as of this encounter
--- OUTSIDE RECORDS SUMMARY | 2024-06-15 17:17 | XMS_ITS | Encounter Summary ---
Author Organization [facility] Address [address] [place] [address] Care Team Providers Care Water Truck Driver Name Role Phone Eric Santino CARDENAS Primary Care Provider [phone] Reason for Referral * Outpatient Services (Routine) - Closed Specialty Diagnoses / Procedures Referred By Dennis t Referred To Contact Radiology Diagnoses Visit for screening mammogram Procedures MAMMO DIGITAL SCREEN UNI LEFT Anisha Davila FNP Phone: tel: fax: [facility] [address] [facility] [address] [place] [address] Phone: tel: fax: Referral ID Status Reason Start Date Expiration Date V isits Requested Visits Authorized [id number] Closed [facility] View CTS to Schedule (SGF) 02/08/2015 03/10/2016 1 1 EMATICS IMPROVEMENT TEACHER Encounter Details Date Type Department Care Team ([facility] st Contact Info) Description 02/08/2015 Ancillary Orders [facility] Centralized Scheduling [address] [facility] [address] [place] [address] Anisha Davila FNP [address] [place] [address] Visit for screening mammogram (Primary Dx) Social History Tobacco Use Types Packs/Day Years Used Date Smoking Tobacco: Former Cigarettes Q uit: 04/01/1989 Smokeless Tobacco: Never Alcohol Use Standard Drinks/Week Comments Yes 0 (1 standard drink = 0.6 oz pur e alcohol) socially Comments No Sex and Gender Information Value Date Recorded Sex Assigned at Not on file Legal Sex Female 5:30 AM MATHEMATICS IMPROVEMENT TEACHER Gender Identity Not on file Sexual Orientation Not on file Occupation Industry Job Start Date Job End Date Not on file Not on file Not on file Not on file documented as of this encounter Plan of Treatment Not on file documented as of this encounter Results * MAMMO DIGITAL SCREEN UNI LEFT (02/17/2015 2:53 PM MATHEMATICS IMPROVEMENT TEACHER) Anatomical Region Laterality Modality Breast Left Mammography Narrative 02/21/2015 6:32 AM MATHEMATICS IMPROVEMENT TEACHER Left Mammogram Reason for Exam: Screening Comparison: Compared to: 01/12/2014 MAMMO DIGITAL SCREEN UNI LEFT, 01/13/2013 MAMMO DIGITAL SCREEN UNI LEFT, 03/07/2012 MAMMO DIGITAL DIAG UNI LEFT, 09/04/2011 MAMMO DIGITAL DIAG UNI LEFT, 01/18/2011 MAMMO DIGITIZED STUDY Findings: Left CC and MLO views were obtained. This examination was reviewed with the aid of a computer-aided detection system(CAD). The breast tissue density is average. ??Patient is status-post right ?? mastectomy. 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
--- OUTSIDE RECORDS SUMMARY | 2024-06-15 17:17 | XMS_ITS | Encounter Summary ---
Author Organization [facility] Address [address] [place] [address] Care Team Providers Care Tank Tester Name Role Phone Santino Reyes APRN Primary Care Provider [phone] Encounter Details Date Type Department Care Team ([facility] st Contact Info) Description 01/12/2014 Ancillary Orders [facility] Centralized Scheduling [address] [facility] [address] [place] [address] Anisha Davila, COLOR CHECKER [address] [place] [address] Other screening mammogram (Primary Dx) Social History Tobacco Use Types Packs/Day Years Used Date Smoking Tobacco: Former Cigarettes Q uit: 04/01/1989 Smokeless Tobacco: Never Alcohol Use Standard Drinks/Week Comments Yes 0 (1 standard drink = 0.6 oz pur e alcohol) socially Comments No Sex and Gender Information Value Date Recorded Sex Assigned at Not on file Legal Sex Female 5:30 AM METEOROLOGICAL OBSERVER Gender Identity Not on file Sexual Orientation Not on file Occupation Industry Job Start Date Job End Date Not on file Not on file Not on file Not on file documented as of this encounter Plan of Treatment Not on file documented as of this encounter Results * MAMMO DIGITIZED STUDY (01/18/2011 2:49 PM CDT) Narrative Maria Eugenia Alvares, RT - 01/12/2014 2:49 PM CDT Order information only. ??Exam was auto-finalized. ?? Procedure Note Maria Eugenia Alvares Yfn, RT - 01/12/2014 Order information only. Exam was auto-finalized. Anisha Davila COLOR CHECKER DIAGNOSTIC IMAGING ORDERABLES Final Result documented in [...] documented as of this encounter Care Teams Tank Tester Relationship Specialty Start Date End Date Santino Reyes, COMMERCIAL SALES MANAGER [facility] [phone] PCP - General NURSE PRACTITIONER 07/10/18 documented as of this encounter
--- OUTSIDE RECORDS SUMMARY | 2024-06-15 17:17 | XMS_ITS | Encounter Summary ---
Author Organization [facility] Address [address] [place] [address] Care Team Providers Care Chemical Pathologist Name Role Phone Santino Reyes THERESA Primary Care Provider [phone] Encounter Details Date Type Department Care Team (Late st Contact Info) Description 01/07/2009 Ancillary Orders [facility] Imaging External Read [address] [place] [address] Bautista Nuñez MD NO ADDRESS ON FILE Screening Mammogram Social History Tobacco Use Types Packs/Day Years Used Date Smoking Tobacco: Former Cigarettes Q uit: 04/01/1989 Alcohol Use Standard Drinks/Week Comments Yes 0 (1 standard drink = 0.6 oz pur e alcohol) socially Comments No Sex and Gender Information Value Date Recorded Sex Assigned at Not on file Legal Sex Female 5:30 AM METER TESTER PRIMARY Gender Identity Not on file Sexual Orientation Not on file documented as of this encounter Plan of Treatment Not on file documented as of this encounter Results * MAMMO SCREENING BILAT (01/07/2009 2:03 PM CDT) Anatomical Region Laterality Modality Breast Bilateral Mammography Narrative 01/10/2009 9:54 AM CDT Left Mammogram Reason for Exam: Screening Findings: Left CC and MLO views were obtained. This examination was reviewed with the aid of a computer-aided detection system(CAD). The breast tissue is average. Calcifications are noted. ??Patient is status-post right mastectomy. No significant interval change is noted when compared to prior exam(s) of 1026.04 Procedure Note Casandra Subramanian MD - 01/10/2009 Left Mammogram Reason for Exam: Screening Findings: Left CC and MLO views were obtained. This examination was reviewed with the aid of a computer-aided detectionsystem(CAD). The breast tissue is average. Calcifications are noted. Patient isstatus-post right mastectomy. No significant interval change is noted when compared to prior exam(s) ao9633.04 Bautista Nuñez MD MAMMO ORDERABLES Final Result documented in this encounter Visit Diagnoses Diagnosis Screening mammogram Other screening mammogram documented in this encounter Additional Health Concerns Infection Onset Date Last Indicated Resolved Time VRE Comment:VRE positive urine culture 06/15/18 06/17/2018 06/17/2018 06/20/2018 9:09 AM C DT VRE Comment:Positive Urine Culture from outside facility on 06/15/18 06/23/2018 06/23/2018 documented as of this encounter Care Teams Chemical Pathologist Relationship Specialty Start Date End Date Santino Reyes, PRESS CLIPPINGS CUTTER AND PASTER [address] [place] [phone] PCP - General NURSE PRACTITIONER 07/10/18 documented as of this encounter
--- OUTSIDE RECORDS SUMMARY | 2024-06-15 17:17 | XMS_ITS | Clinical Summary ---
Author Organization [facility] Adalberto de leónn [facility] Address [address] [place] [address] Phone Care Team Providers Care Want Ad Supervisor Name Role Phone Eric Santino CARDENAS Primary Care Provider [phone] Allergies Active Allergy Reactions Criticality Noted Date Comments Penicillins Unknown 10/08/2016 Pt unsure if this is a true allergy. Tolerated cephalosporins Sulfa (Sulfonamide Antibiotics) Nausea and Vomiting Low 06/05/2010 Medications levothyroxine (SYNTHROID) 25 mcg Oral Tab Take 25 mcg by mouth daily. Active MULTIVITAMIN (POLY-VITAMIN ORAL) Take 1 Tablet by mouth daily . Active cyclobenzaprine (FLEXERIL) 10 mg Oral tablet Take 1 Tab by mouth 3 times daily as needed for Spasm. 60 Tab 0 2 Active folic acid (FOLVITE) 400 mcg Tablet Take 400 mcg by mouth daily. Active calcium carbonate/vitami n D3 (CALCIUM 600 WITH VITAMIN D3 ORAL) Take 1 Tablet by mouth daily. Active predniSONE (DELTASONE) 5 mg tablet Take 5 mg by mouth daily at bedtime. Active oxyCODONE (ROXICODONE) 5 mg tablet Take 1-2 Tablets (5-10 mg) by mouth every 4 hours as needed for Pain. Max Daily Amount: 60 mg 80 Tablet 8 Active traMADol (ULTRAM) 50 mg tablet Take 1 Tablet (50 mg) by mouth every 6 hours as needed for Pain 60 Tablet 8 Active docusate sodium (COLACE) 100 mg capsule Take 1 Capsule (100 mg) by mouth 2 times daily. 60 Capsule 8 Active Additional Information Patient taking differently:100 mg OralDAILY, Informant: Patient, Reported on 03/12/2019 famotidine (PEPCID) 20 mg tablet Take 1 Tablet (20 mg) by mouth 2 times daily. 80 Tablet 8 Active Additional Information Patient taking differently:20 mg OralDAILY, Informant: Patient, Reported on 03/12/2019 polyethylene glycol (MIRALAX) 17 gram Powder in Packet Take 1 Packet (17 Grams) by mouth 1 time daily as needed for Constipation. 9 Active lisinopril (PRINIVIL) 10 mg tablet Take 1 Tablet (10 mg) by mouth daily. 0 9 Active metoprolol succinate (TOPROL XL) 25 mg Extended Release 24 hour tablet Take 1 Tablet (25 mg) by mouth daily. 9 Active isosorbide mononitrate (IMDUR) 30 mg Extended Release 24 hour tablet TAKE ONE TABLET BY MOUTH DAILY 0 Active pantoprazole (PROTONIX) 40 mg Tablet, Delayed Release (E.C.) TAKE ONE TABLET BY MOUTH DAILY 0 Active potassium chloride (MICRO-K EXTENCAPS) 10 mEq Extended Release capsule TAKE ONE CAPSULE BY MOUTH EVERY DAY 0 Active sennosides (SENOKOT) 8.6 mg tablet Take 8.6 mg by mouth daily. Active tamsulosin (FLOMAX) 0.4 mg capsule Take 0.4 mg by mouth daily. 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 Acute cystitis without hematuria 06/15/2018 Acute renal failure with acu te tubular necrosis superimposed on stage 3 chronic kidney disease 06/15/2018 Vancomycin resistant enteroc occus infection, multi-drug resistance 06/15/2018 Preoperative general physical examination 2017 LBBB (left bundle branch block) 01/30/2018 Obstructive sleep apnea on CPAP 01/30/2018 History [...] Date Iron deficiency anemia, unspecified 06/05/2010 01/30/2016 Immunizations Immunization Administration Dates Next Due (PREVNAR 13)(6 WKS UP) PNEUM OCOCCAL CONJUGATE (PCV13) 0.5 ML, IM 06/24/2018(Deferred: - pt recieved already) Influenza Seasonal Unspecifi ed Formulation IM 12/28/2014 Family History Medical History Relation Name Comments [...] on file Legal Sex Female 5:30 AM GEAR LAPPING MACHINE OPERATOR Gender Identity Not on file Sexual Orientation Not on file Occupation Industry Job Start Date Job End Date Not on file Not on file Not on file Not on file Last Filed Vital Signs Vital Sign Reading Time Taken Comments Blood Pressure 151/69 06/09/2020 3:16 PM GEAR LAPPING MACHINE OPERATOR Pulse 86 06/09/2020 3:16 PM GEAR LAPPING MACHINE OPERATOR Temperature 36.7 ??C (98 ??F) 06/09/2020 3:16 PM GEAR LAPPING MACHINE OPERATOR Respiratory Rate 18 06/09/2020 3:16 PM GEAR LAPPING MACHINE OPERATOR Oxygen Saturation 98% 06/09/2020 3:16 PM GEAR LAPPING MACHINE OPERATOR Inhaled Oxygen Concentration - - Weight 48.5 kg (107 lb) 09/24/2019 1:10 PM CDT Height 144.8 cm (4' 9 ) 09/24/2019 1:10 PM CDT Body Mass Index 23.15 09/24/2019 1:10 PM CDT Plan of Treatment Health Maintenance Due Date Last Done Comments DTAP/TDAP/TD VACCINES (1 - Tdap) 1962 PNEUMOCOCCAL VACCINE 50+ YEA RS (1 of 2 - PCV) 1962 ZOSTER VACCINE (1 of 2) 1993 RSV VACCINE (60+ or ) (1 - 1-dose 75+ series) 2018 INFLUENZA VACCINE (#1) 2023 12/28/2014 OSTEOPOROSIS SCREENING Completed 06/11/2017, 2014 Medical Devices Implanted Type Area Behavioral Health Therapist Device Identifier Shelf Expiration Date Model / Serial / Lot Filter Vc [place] Fem [id number] Implanted:Qty : 1 on 03/13/2019 by Andrew Villanueva MD Cardiovascular Device Vena Cava CR BARD- [employer] [id number] 02/28/2022 [id number] / / [id number] Description:Bard Liberty IVC Filter Lens Io Bi-Aspheric Softechd+19.2 5 - [id number] Implanted:Qty : 1 on 09/16/2013 by Chetan Krause MD at [facility] Left: Eye [employer] 06/16/2016 SOFTECHD+1 9.25 / [id number] / Lens Io Bi-Aspheric Softechd+19.2 5 - [id number] Implanted:Qty : 1 on 11/18/2013 at [facility] Right: Eye [employer] 04/20/2018 SOFTECHD+1 9.25 / [id number] / Finger Implant Implanted:Qty : 1 on 11/15/2016 by Farooq Johnston MD at [facility] Finger Left: Finger 11/29/2017 SMCP-500-0 5-WW / N/A / [id number] Description:PER INVOICE Hole Eliminator [place] 1246-03-000 - Sna Implanted:Qty : 1 on 12/26/2011 at [facility] Hip Left: Hip [employer] 10/24/2021 0 / NA / [id number] Cup Pinn Sctr Grptn 48mm [id number] - Sna Implanted:Qty : 1 on 12/26/2011 at [facility] Hip Left: Hip [employer] 10/24/2021 [id number] / NA / [id number] Liner Pinn Altrx Poly 122-32-048 - Sna Implanted:Qty : 1 on 12/26/2011 at [facility] Hip Left: Hip [employer] 10/24/2016 [id number] / NA / [id number] Stem Fem Corail Std N-Clr [id number] - Sna Implanted:Qty : 1 on 12/26/2011 at [facility] Hip Left: Hip [employer] 09/24/2016 [id number] / NA / [id number] Head Fem Art/Jordin Cocr Sz32 1365-21-000 - Sna Implanted:Qty : 1 on 12/26/2011 at [facility] Hip Left: Hip [employer] 05/27/2016 [id number] / NA / [id number] Cup Pinn Sctr Grptn 48mm 1217-32-048 - [id number] Implanted:Qty : 1 on 01/30/2018 by Carlitos Tanner MD at [facility] Hip Right: Hip [employer] 11/30/2027 [id number] / / [id number] Liner Pinn Altrx Poly 12232-048 - [id number] Implanted:Qty : 1 on 01/30/2018 by Carlitos Tanner MD at [facility] Hip Right: Hip [employer] 11/29/2022 [id number] / / [id number] Stem Fem Actis Colr Std Sz4 1010-11-040 - [id number] Implanted:Qty : 1 on 01/30/2018 by Carlitos Tanner MD at [facility] Hip Right: Hip [employer] 12/30/20271010-02-02 0 / / [id number] Hole Eliminator [place] - [id number] Implanted:Qty : 1 on 01/30/2018 by Carlitos Tanner MD at [facility] Hip Right: Hip [employer] 10/30/2027 0 / / [id number] Head Fem Art/Jordin Cer Sz32 1365-32-310 - [id number] Implanted:Qty : 1 on 01/30/2018 by Carlitos Tanner MD at [facility] Hip Right: Hip [employer] 07/29/2022 0 / / [id number] Screw Canc Pinn 6.5x20mm 1217--500 - Sna Implanted:Qty : 1 on 12/26/2011 at [facility] Screw Left: Hip [employer] 11/24/2021 0 / NA / [id number] Screw Canc Pinn 6.5x30mm 1217-30-500 - Sna Implanted:Qty : 1 on 12/26/2011 at [facility] Screw Left: Hip [employer] 11/24/2021 0 / NA / [id number] Screw Canc 6.5x25mm - [id number] Implanted:Qty : 1 on 01/30/2018 by Carlitos Tanner MD at [facility] Screw Right: Hip [employer] 09/29/2027 [id number] / / [id number] Finger Implant Implanted:Qty : 1 on 11/15/2016 by Farooq Johnston MD at [facility] Left: Finger [employer] 03/31/2018 SMCP-500-1 0-WW / NA / [id number] Description:middle/long fing er. PER INVOICE. Finger Implant Implanted:Qty : 1 on 11/15/2016 by Farooq Johnston MD at [facility] Left: Finger [employer] 11/29/2017 [facility] / NA / [id number] Description:ring finger. PER INVOICE Procedures Procedure Name Priority Date/Time Associated Diagnosis Comments XR DEXA BONE DENSITY AXIAL 1 OR MORE SITES Routine 06/11/2017 2:05 PM CDT Age-related osteoporosis without current pathological fracture [facility] current use of systemic steroids from Last 3 Months or Most Recently Relevant to Health Maintenance Results * XR DEXA BONE DENSITY AXIAL [...] clinical management available online at [email or web address] Enter [employer] for Select DXA and the Femoral Neck BMD value. [id number] ? Narrative 06/11/2017 10:29 PM CDT DEXA [...] clinical management available online at [email or web address] Enter [employer] for Select DXA and the Femoral Neck BMD value. [id number] Bautista Denis MD DIAGNOSTIC IMAGING ORDERABLES Final Result from Last 3 Months or Most Recently Relevant to Health Maintenance Additional Health Concerns Infection Onset Date Last Indicated VRE Comment:Positive Urine Culture from outside facility on 06/15/18 06/23/2018 06/23/2018 Insurance MEDICARE PART A AND B [facility] RX AET[employer] Medicare Part D Advance Directives For more information, please contact: [phone] * Full Code (Latest Code Status on File) Date Activated Date Inactivated Comments 06/15/2018 9:20 PM 06/24/2018 3:54 PM * Full Code Date Activated Date Inactivated Comments 01/30/2018 3:43 PM 02/01/2018 2:25 PM * Full Code Date Activated Date Inactivated Comments 01/30/2018 1:00 PM 01/30/2018 3:43 PM * Full Code Date Activated Date Inactivated Comments 11/15/2016 8:38 AM 11/15/2016 1:12 PM * Full Code Date Activated Date Inactivated Comments 11/15/2016 8:37 AM 11/15/2016 8:38 AM Care Teams Want Ad Supervisor Relationship Specialty Start Date End Date Santino Reyes APRN [address] [phone] PCP - General NURSE PRACTITIONER 07/10/18
--- OUTSIDE RECORDS SUMMARY | 2024-06-15 17:17 | XMS_ITS | Encounter Summary ---
Author Organization [facility] Address [address] [place] [address] Care Team Providers Care Auditor Internal Name Role Phone Santino Reyes APRN Primary Care Provider [phone] Encounter Details Date Type Department Care Team ([facility] st Contact Info) Description 01/12/2014 Ancillary Orders [facility] Centralized Scheduling [address] [facility] [address] [place] [address] Anisha Davila, COSTUME CUTTER [address] [place] [address] Other screening mammogram (Primary Dx) Social History Tobacco Use Types Packs/Day Years Used Date Smoking Tobacco: Former Cigarettes Q uit: 04/01/1989 Smokeless Tobacco: Never Alcohol Use Standard Drinks/Week Comments Yes 0 (1 standard drink = 0.6 oz pur e alcohol) socially Comments No Sex and Gender Information Value Date Recorded Sex Assigned at Not on file Legal Sex Female 5:30 AM PEST CONTROL WORKER Gender Identity Not on file Sexual Orientation Not on file Occupation Industry Job Start Date Job End Date Not on file Not on file Not on file Not on file documented as of this encounter Plan of Treatment Not on file documented as of this encounter Results * MAMMO DIGITIZED STUDY (01/17/2010 2:52 PM CDT) Narrative Maria Eugenia Alvares, RT - 01/12/2014 2:52 PM CDT Order information only. ??Exam was auto-finalized. ?? Procedure Note Maria Eugenia Alvares Yfn, RT - 01/12/2014 Order information only. Exam was auto-finalized. Anisha Davila COSTUME CUTTER DIAGNOSTIC IMAGING ORDERABLES Final Result documented in [...] documented as of this encounter Care Teams Auditor Internal Relationship Specialty Start Date End Date Santino Reyes, HEAVY MACHINERY ASSEMBLER [facility] [phone] PCP - General NURSE PRACTITIONER 07/10/18 documented as of this encounter
--- OUTSIDE RECORDS SUMMARY | 2024-06-15 17:17 | XMS_ITS | Encounter Summary ---
Author Organization [facility] Address [address] [place] [address] Care Team Providers Care Car Racer Name Role Phone Santino Reyes APRN Primary Care Provider [phone] Encounter Details Date Type Department Care Team (Latest Contact Info) Description 01/17/2000 Outpatient Historical [facility] Rheumatology- Hamzah Lewisnn [place] [address] [place] [phone] Antonella Amaya MD [address] [place] [address] Rheumatism, unspecified and fibrositis (Primary Dx); Unspecified inflammatory polyarthropathy (CMS/HCC) Social History Tobacco Use Types Packs/Day Years Used Date Smoking Tobacco: Never Assessed Comments Unknown Sex and Gender Information Value Date Recorded Sex Assigned at Not on file Legal Sex Female 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 Gender Identity Not on file Sexual Orientation Not on file documented as of this encounter Plan of Treatment Not on file documented as of this encounter Visit Diagnoses Diagnosis Rheumatism, unspecified and fibrositis- Primary 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
--- OUTSIDE RECORDS SUMMARY | 2024-06-15 17:17 | XMS_ITS | Encounter Summary ---
Author Organization [facility] Address [address] [place] [address] Care Team Providers Care Offal Baler Name Role Phone Santino Reyes APRN Primary Care Provider [phone] Encounter Details Date Type Department Care Team (Latest Contact Info) Description 09/14/2005 Outpatient Historical [facility] [place] 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
--- OUTSIDE RECORDS SUMMARY | 2024-06-15 17:17 | XMS_ITS | Encounter Summary ---
Author Organization [facility] Address [address] [place] [address] Care Team Providers Care Battery Installer Name Role Phone Santino Reyes THERESA Primary Care Provider [phone] Encounter Details Date Type Department Care Team ([facility] st Contact Info) Description 01/08/2014 Ancillary Orders [facility] Centralized Scheduling [address] [facility] [address] [place] [address] Anisha Davila, TURN LASTER [address] [place] [address] Other screening mammogram (Primary Dx) Social History Tobacco Use Types Packs/Day Years Used Date Smoking Tobacco: Former Cigarettes Q uit: 04/01/1989 Smokeless Tobacco: Never Alcohol Use Standard Drinks/Week Comments Yes 0 (1 standard drink = 0.6 oz pur e alcohol) socially Comments No Sex and Gender Information Value Date Recorded Sex Assigned at Not on file Legal Sex Female 5:30 AM DRYWALL APPLICATOR Gender Identity Not on file Sexual Orientation [...] documented as of this encounter Care Teams Battery Installer Relationship Specialty Start Date End Date Santino Reyes, SEAM RUBBER [address] [phone] PCP - General NURSE PRACTITIONER 07/10/18 documented as of this encounter
--- OUTSIDE RECORDS SUMMARY | 2024-06-15 17:17 | XMS_ITS | Encounter Summary ---
Author Organization [facility] Address [address] [place] [address] Care Team Providers Care Community Health Representative Name Role Phone Santino Reyes THERESA Primary Care Provider [phone] Reason for Referral * Outpatient Services (Routine) - Closed Specialty Diagnoses / Procedures Referred By Contac t Referred To Contact Radiology Diagnoses Abnormal mammogram, unspecified Procedures MAMMO DIGITAL DIAG UNI LEFT Jose Matos MD NO ADDRESS ON FILE [facility] [address] [address] Phone: tel: fax: Referral ID Status Reason Start Date Expiration Date Visits Re quested Visits Authorized [id number] Closed 02/08/2012 02/07/2013 1 1 L AND DINING ROOM CASHIER Encounter Details Date Type Department Care Team (Latest Contact Info) Description 02/08/2012 Ancillary Orders [facility] Pre-Registration [place] CALL TO MAKE APPOINTMENT ONLY [address] [place] [address] Jose Matos MD NO ADDRESS ON [...] on file Legal Sex Female 5:30 AM HOTEL AND DINING ROOM CASHIER Gender Identity Not on file Sexual Orientation Not on file documented as of this encounter Plan of Treatment Not on file documented as of this encounter Results * MAMMO DIGITAL DIAG UNI LEFT (03/07/2012 2:13 PM HOTEL AND DINING ROOM CASHIER) Anatomical Region Laterality Modality Breast Left Mammography 03/07/2012 1:42 PM HOTEL AND DINING ROOM CASHIER Impressions 03/07/2012 3:33 PM HOTEL AND DINING ROOM CASHIER IMPRESSION: Satisfactory and stable second 6-month followup left mammogram with primary attention to the visualized lymph nodes in the left axilla, as noted. ??Left mammogram appears stable as well. ??I would recommend routine annual mammograms on the left, on this patient with history of previous right mastectomy in 1998. Patient received a result/recommendation letter. ?? ROJELIO/perlita ?? 1407 PM ? - uploaded from [employer] - Narrative 03/07/2012 3:33 PM HOTEL AND DINING ROOM CASHIER Left Digital Diagnostic Mammogram: Repeat examination on this 66-year-old female is compared with multiple previous, the most recent 09/04/2011, dating back to 2006. This is second 6-month followup because of prominent-appearing lymph nodes visible in the lower axilla on mediolateral oblique image of recent mammograms. ??Breast tissue is of average density. ??Lymph nodes appear stable, both in the upper outer aspect of the left breast and in the lower axilla. ??Breast tissue appears stable as well. This digital mammogram was also analyzed by the Computer Aided Detection System (CAD), [employer] ImageChecker, Version 8.3. ?? Procedure Note Rajat Diehl MD - 03/07/2012 Left Digital Diagnostic Mammogram: Repeat examination on this 66-year-old female is compared with multiple previous, the most recent 09/04/2011, dating back to 2006. This is second 6-month followup because of prominent-appearing lymph nodes visible in the lower axilla on mediolateral oblique image of recent mammograms. Breast tissue is of average density. Lymph nodes appear stable, both in the upper outer aspect of the left breast and in the lower axilla. Breast tissue appears stable as well. This digital mammogram was also analyzed by the Computer Aided Detection System (CAD), [employer] ImageAdduplexcker, Version 8.3. IMPRESSION IMPRESSION: Satisfactory and stable second 6-month followup left mammogram with primary attention to the visualized lymph nodes in the left axilla, as noted. Left mammogram appears stable as well. I would recommend routine annual mammograms on the left, on this patient with history of previous right mastectomy in 1998. Patient received a result/recommendation letter. ROJELIO/perlita 1407 PM - uploaded from [employer] - us Jose Matos MD MAMMO ORDERABLES [...] documented as of this encounter Care Teams Community Health Representative Relationship Specialty Start Date End Date Santino Reyes, THERESA [address] [place] [phone] PCP - General NURSE PRACTITIONER 07/10/18 documented as of this encounter
--- OUTSIDE RECORDS SUMMARY | 2024-06-15 17:17 | XMS_ITS | Encounter Summary ---
Author Organization [facility] Address [address] [place] [address] Care Team Providers Care Clinical Allergist Name Role Phone Santino Reyes APRN Primary Care Provider [phone] Encounter Details Date Type Department Care Team (Latest Contact Info) Description 06/25/2003 Outpatient Historical [facility] [address] [place] [address] [address] [place] [address] Jose Matos MD NO ADDRESS ON FILE MALIG NEOPLASM BREAST-CENTRAL (CMS/HCC) (Primary Dx) Social History Tobacco Use Types Packs/Day Years Used Date Smoking Tobacco: Never Assessed Comments Unknown Sex and Gender Information Value Date Recorded Sex Assigned at Not on file 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
--- OUTSIDE RECORDS SUMMARY | 2024-06-15 17:17 | XMS_ITS | Encounter Summary ---
Author Organization [facility] Address [address] [place] [address] Care Team Providers Care Quality Compliance Coordinator Name Role Phone Santino Reyes APRN Primary Care Provider [phone] Encounter Details Date Type Department Care Team (Latest Contact Info) Description 01/22/2003 Outpatient [facility] [address] [facility] [address] [place] [address] Louise Gil MD NO ADDRESS ON FILE SCREENING MAMM-MAILG NEOPL-OTHER (Primary Dx); PERS HX OF BREAST MALIGNANCY Social History Tobacco Use Types Packs/Day Years Used Date Smoking Tobacco: Never Assessed Comments Unknown Sex and Gender Information Value Date Recorded Sex Assigned at Not on file Legal Sex Female 5:30 AM DIESEL STATIONARY ENGINEER Gender Identity Not on file Sexual [...] documented as of this encounter Care Teams Quality Compliance Coordinator Relationship Specialty Start Date End Date Santino Reyes APRN [address] [place] [address] [address] [place] [address] PCP - General NURSE PRACTITIONER 07/10/18 documented as of this encounter
--- OUTSIDE RECORDS SUMMARY | 2024-06-15 17:17 | XMS_ITS | Encounter Summary ---
Author Organization [facility] Address [address] [place] [address] Care Team Providers Care Supervisor Aircraft Cleaning Name Role Phone Santino Reyes APRN Primary Care Provider [phone] Encounter Details Date Type Department Care Team (Latest Contact Info) Description 06/04/2002 Outpatient Historical [facility] Cancer and Hematology [address] [place] [address] [address] [place] [address] Jose Matos MD NO ADDRESS ON FILE MALIG NEOPLASM BREAST UP-OUTER (CMS/HCC) (Primary Dx) Social History Tobacco Use Types Packs/Day Years Used Date Smoking Tobacco: Never Assessed Comments Unknown Sex and Gender Information Value Date Recorded Sex Assigned at Not on file Legal Sex Female 5:30 AM HORTICULTURE WORKER Gender Identity Not on file Sexual [...] as of this encounter Care Teams Supervisor Aircraft Cleaning Relationship Specialty Start Date End Date Santino Reyes APRN [address] [place] [phone] PCP - General NURSE PRACTITIONER 07/10/18 documented as of this encounter
--- OUTSIDE RECORDS SUMMARY | 2024-06-15 17:17 | XMS_ITS | Encounter Summary ---
Author Organization [facility] Address [address] [place] [address] Care Team Providers Care Drywall Finishing Foreman Name Role Phone Santino Reyes APRN Primary Care Provider [phone] Encounter Details Date Type Department Care Team (Latest Contact Info) Description 07/19/1999 Outpatient Historical [facility] Rheumatology- Hamzah [place] [address] [place] [address] Antonella Amaya MD [address] [place] [address] Rheumatoid arthritis(714.0) ([facility]) (Primary Dx); Encounter for long-term (current) use of other medications Social History Tobacco Use Types Packs/Day Years Used Date Smoking Tobacco: Never Assessed Comments Unknown Sex and Gender Information Value Date Recorded Sex Assigned at Not on file 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 Gender Identity Not on file Sexual Orientation Not on file documented as of this encounter Plan of Treatment Not on file documented as of this encounter Visit Diagnoses Diagnosis Rheumatoid arthritis(714.0) ([facility])- Primary Rheumatoid arthritis Encounter for long-term (current) use of other medications documented in this encounter Additional Health Concerns Infection Onset Date Last Indicated Resolved Time VRE Comment:VRE positive urine culture 06/15/18 06/17/2018 06/17/2018 06/20/2018 9:09 AM C DT VRE Comment:Positive Urine Culture from outside facility on 3/1706/23/2018 06/23/2018 documented as of this encounter Care Teams Drywall Finishing Foreman Relationship Specialty Start Date End Date Santino Reyes APRN [address] [phone] PCP - General NURSE PRACTITIONER 07/10/18 documented as of this encounter
--- OUTSIDE RECORDS SUMMARY | 2024-06-15 17:17 | XMS_ITS | Encounter Summary ---
Author Organization [facility] Address [address] [place] [address] Care Team Providers Care Sexual Assault Nurse Name Role Phone Santino Reyes APRN Primary Care Provider [phone] Encounter Details Date Type Department Care Team (Latest Contact Info) Description 07/03/1999 Outpatient Historical [facility] General and Trauma Surgery-[address] [place] [address] Sloane Srivastava MD NO ADDRESS ON FILE Malignant neoplasm of breast (female), unspecified site (CMS/HCC) (Primary Dx) Social History Tobacco Use Types Packs/Day Years Used Date Smoking Tobacco: Never Assessed Comments Unknown Sex and Gender Information Value Date Recorded Sex Assigned at Not on file 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
--- OUTSIDE RECORDS SUMMARY | 2024-06-15 17:17 | XMS_ITS | Encounter Summary ---
Author Organization [facility] Address [address] [place] [address] Care Team Providers Care Hand Launderer Name Role Phone Santino Reyes APRN Primary Care Provider [phone] Encounter Details Date Type Department Care Team ([facility] Contact Info) Description 07/25/2004 Outpatient Historical [facility] Services-Hamzah [place] [address] [place] [address] Social History Tobacco Use Types Packs/Day Years Used Date Smoking Tobacco: Never Assessed Comments Unknown Sex and Gender Information Value Date Recorded Sex Assigned at Not on file 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
--- OUTSIDE RECORDS SUMMARY | 2024-06-15 17:17 | XMS_ITS | Encounter Summary ---
Author Organization [facility] Address [address] [place] [address] Care Team Providers Care Fabricator Foam Rubber Name Role Phone Santino Reyes APRN Primary Care Provider [phone] Encounter Details Date Type Department Care Team ([facility] Contact Info) Description 09/30/2006 Outpatient Historical [facility] [place] Imaging Services-Hamzah Jennings [place] [address] [place] [address] Social History Tobacco Use Types Packs/Day Years Used Date Smoking Tobacco: Never Assessed Comments Unknown Sex and Gender Information Value Date Recorded Sex Assigned at Not on file 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
--- OUTSIDE RECORDS SUMMARY | 2024-06-15 17:17 | XMS_ITS | Encounter Summary ---
Author Organization [facility] Address [address] [place] [address] Care Team Providers Care Pile Driving Superintendent Name Role Phone Santino Reyes APRN Primary Care Provider [phone] Encounter Details Date Type Department Care Team (Latest Contact Info) Description 12/04/2002 Outpatient Historical [facility] [place] Cancer and Hematology [address] [place] [address] [address] [place] [address] Jose Matos MD NO ADDRESS ON FILE MALIG NEOPLASM BREAST UP-OUTER (CMS/HCC) (Primary Dx) Social History Tobacco Use Types Packs/Day Years Used Date Smoking Tobacco: Never Assessed Comments Unknown Sex and Gender Information Value Date Recorded Sex Assigned at Not on file 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
--- OUTSIDE RECORDS SUMMARY | 2024-06-15 17:17 | XMS_ITS | Encounter Summary ---
Author Organization [facility] Address [address] [place] [address] Care Team Providers Care Lock And Dam Operator Name Role Phone Santino Reyes APRN Primary Care Provider [phone] Encounter Details Date Type Department Care Team (Latest Contact Info) Description 08/06/2003 Outpatient Historical [facility] Rheumatology- Hamzah [place] [address] [place] [phone] Antonella Amaya MD [address] [place] [address] RHEUMATISM NOS (Primary Dx); DIFF CONNECT TIS DIS NOS Social History Tobacco Use Types Packs/Day Years Used Date Smoking Tobacco: Never Assessed Comments Unknown Sex and Gender Information Value Date Recorded Sex Assigned at Not on file Legal Sex Female 5:30 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 Gender Identity Not on file Sexual Orientation Not on file documented as of this encounter Plan of Treatment Not on file documented as of this encounter Visit Diagnoses Diagnosis Rheumatism, unspecified and fibrositis- Primary Unspecified diffuse connective tissue disease documented in this encounter Additional Health Concerns Infection Onset Date Last Indicated Resolved Time VRE Comment:VRE positive urine culture 06/15/18 06/17/2018 06/17/2018 06/20/2018 9:09 AM C DT VRE Comment:Positive Urine Culture from outside facility on 06/15/18 06/23/2018 06/23/2018 documented as of this encounter Care Teams Lock And Dam Operator Relationship Specialty Start Date End Date Santino Reyes APRN [address] [phone] PCP - General NURSE PRACTITIONER 07/10/18 documented as of this encounter
--- OUTSIDE RECORDS SUMMARY | 2024-06-15 17:17 | XMS_ITS | Encounter Summary ---
Author Organization [facility] Address [address] [place] [address] Care Team Providers Care Potline Monitor Name Role Phone Santino Reyes APRN Primary Care Provider [phone] Encounter Details Date Type Department Care Team (Latest Contact Info) Description 08/08/2006 Outpatient Historical [facility] Rheumatology- Hamzah Rabun [place] [address] [place] [address] Antonella Amaya MD [address] [place] [address] Unspecified Diffuse Connective Tissue Disease (Primary Dx); Rheumatism, Unspecified and Fibrositis Social History Tobacco Use Types Packs/Day Years Used Date Smoking Tobacco: Never Assessed Comments Unknown Sex and Gender Information Value Date Recorded Sex Assigned at Not on file 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 Sex Female 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 Gender Identity Not on file Sexual Orientation Not on file documented as of this encounter Plan of Treatment Not on file documented as of this encounter Visit Diagnoses Diagnosis Unspecified diffuse connective tissue disease- Primary Rheumatism, unspecified and fibrositis documented in this encounter Additional Health Concerns Infection Onset Date Last Indicated Resolved Time VRE Comment:VRE positive urine culture 06/15/18 06/17/2018 06/17/2018 06/20/2018 9:09 AM C DT VRE Comment:Positive Urine Culture from outside facility on 06/15/18 06/23/2018 06/23/2018 documented as of this encounter Care Teams Potline Monitor Relationship Specialty Start Date End Date Santino Reyes, GLOBAL ACCOUNT MANAGER [address] [phone] PCP - General NURSE PRACTITIONER 07/10/18 documented as of this encounter
--- OUTSIDE RECORDS SUMMARY | 2024-06-15 17:17 | XMS_ITS | Encounter Summary ---
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
--- OUTSIDE RECORDS SUMMARY | 2024-06-15 17:17 | XMS_ITS | Encounter Summary ---
Author Organization [facility] Address [address] [place] [address] Care Team Providers Care Cracking And Fanning Machine Operator Name Role Phone Santino Reyes APRN Primary Care Provider [phone] Encounter Details Date Type Department Care Team (Latest Contact Info) Description 07/21/2004 Outpatient Historical [facility] H[facility]ology [address] [place] [address] [address] [place] [address] Jose Matos MD NO ADDRESS ON FILE MALIG NEOPLASM BREAST-CENTRAL (CMS/HCC) (Primary Dx) Social History Tobacco Use Types Packs/Day Years Used Date Smoking Tobacco: Never Assessed Comments Unknown Sex and Gender Information Value Date Recorded Sex Assigned at Not on file 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
--- OUTSIDE RECORDS SUMMARY | 2024-06-15 17:17 | XMS_ITS | Encounter Summary ---
Author Organization [facility] Address [address] [place] [address] Care Team Providers Care Provider Contracting Consultant Name Role Phone Santino Reyes THERESA Primary Care Provider Reason for Referral * Outpatient Services (Routine) - Closed Specialty Diagnoses / Procedures Referred By Dennis pike Referred To Contact Diagnoses Screening mammogram Procedures MAMMO SCREENING UNILATERAL LEFT Bautista Nuñez MD NO ADDRESS ON FILE Referral ID Status Reason Start Date Expiration Date Visits Re quested Visits Authorized [id number] Closed 01/19/2010 07/18/2010 1 1 Encounter Details Date Type Department Care Team (Late st Contact Info) Description 01/19/2010 Ancillary Orders [facility] Imaging External Read [address] [place] [address] Bautista Nuñez MD NO ADDRESS ON FILE Screening mammogram Social History Tobacco Use Types Packs/Day Years Used Date Smoking Tobacco: Former Cigarettes Q uit: 04/01/1989 Alcohol Use Standard Drinks/Week Comments Yes 0 (1 standard drink = 0.6 oz pur e alcohol) socially Comments No Sex and Gender Information Value Date Recorded Sex Assigned at Not on file 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 This examination was reviewed with the aid of a computer-aided detection system(CAD). The breast tissue density is average. ??Patient is status-post right ?? mastectomy. No significant new findings since the prior mammogram(s) Procedure Note Casandra Subramanian MD - 01/20/2010 Left Mammogram Reason for Exam: Screening Comparison: Comparison is made with the prior exam(s) dated 02.08.05,01.06.09 Findings: Left CC and MLO views were obtained. This examination was reviewed with the aid of a computer-aided detectionsystem(CAD). The breast tissue density is average. Patient is status-post rightmastectomy. No significant new findings since the prior mammogram(s) Bautista Nuñez MD MAMMO ORDERABLES Final Result [...] documented as of this encounter Care Teams Provider Contracting Consultant Relationship Specialty Start Date End Date Santino Reyes, THERESA [address] [phone] PCP - General NURSE PRACTITIONER 07/10/18 documented as of this encounter
--- OUTSIDE RECORDS SUMMARY | 2024-06-15 17:17 | XMS_ITS | Encounter Summary ---
Author Organization [facility] Address [address] [place] [address] Care Team Providers Care Teacher Of Gifted Students Name Role Phone Santino Reyes APRN Primary Care Provider [phone] Encounter Details Date Type Department Care Team (Latest Contact Info) Description 08/04/2004 Outpatient Historical [facility] Rheumatology- Hamzah [place] [address] [place] [phone] Antonella Amaya MD [address] [place] [address] RHEUMATISM NOS (Primary Dx); DIFF CONNECT TIS DIS NOS Social History Tobacco Use Types Packs/Day Years Used Date Smoking Tobacco: Never Assessed Comments Unknown Sex and Gender Information Value Date Recorded Sex Assigned at Not on file 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
--- OUTSIDE RECORDS SUMMARY | 2024-06-15 17:17 | XMS_ITS | Encounter Summary ---
Author Organization [facility] Address [address] [place] [address] Care Team Providers Care Police Surgeon Name Role Phone Santino Reyes APRN Primary Care Provider [phone] Encounter Details Date Type Department Care Team (Latest Contact Info) Description 01/07/2004 Outpatient Historical [facility] Cancer and Hematology [address] [place] [address] [address] [place] [address] Jose Matos MD NO ADDRESS ON FILE MALIG NEOPLASM BREAST-CENTRAL (CMS/HCC) (Primary Dx) Social History Tobacco Use Types Packs/Day Years Used Date Smoking Tobacco: Never Assessed Comments Unknown Sex and Gender Information Value Date Recorded Sex Assigned at Not on file 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
--- OUTSIDE RECORDS SUMMARY | 2024-06-15 17:17 | XMS_ITS | Encounter Summary ---
Author Organization [facility] Address [address] [place] [address] Care Team Providers Care Wire Sawyer Name Role Phone Eric Santino CARDENAS Primary Care Provider [phone] Reason for Referral * Outpatient Services (Routine) - Closed Specialty Diagnoses / Procedures Referred By Dennis t Referred To Contact Radiology Diagnoses Encounter for screening mammogram for malignant neoplasm of breast Procedures MAMMO DIGITAL SCREEN UNI LEFT Anisha Davila FNP Phone: tel: fax: [facility] [place] [address] [facility] [address] [place] [address] Phone: tel: fax: Referral ID Status Reason Start Date Expiration Date V isits Requested Visits Authorized [id number] Closed [facility] CTS to Schedule (SGF) 01/23/2016 02/22/2017 1 1 Encounter Details Date Type Department Care Team (Late st Contact Info) Description 01/23/2016 Ancillary Orders [facility] Centralized Scheduling [address] [facility] [address] [place] [address] Anisha Davila FNP [address] [place] [address] Encounter for screening mammogram for malignant neoplasm of breast (Primary Dx) Social History Tobacco Use Types Packs/Day Years Used Date Smoking Tobacco: Former Cigarettes Q uit: 04/01/1989 Smokeless Tobacco: Never Alcohol Use Standard Drinks/Week Comments Yes 0 (1 standard drink = 0.6 oz pur e alcohol) socially Comments No Sex and Gender Information Value Date Recorded Sex Assigned at Not on file Legal Sex Female 5:30 AM ASSISTANT OPERATOR Gender Identity Not on file Sexual Orientation Not on file Occupation Industry Job Start Date Job End Date Not on file Not on file Not on file Not on file documented as of this encounter Plan of Treatment Not on file documented as of this encounter Results * MAMMO DIGITAL SCREEN UNI LEFT (02/28/2016 11:29 AM ASSISTANT OPERATOR) Anatomical Region Laterality Modality Breast Left Mammography Narrative 02/29/2016 8:40 AM ASSISTANT OPERATOR Left Mammogram Reason for Exam: Screening Comparison: Compared to: 02/17/2015 MAMMO DIGITAL SCREEN UNI LEFT, 01/12/2014 MAMMO DIGITAL SCREEN UNI LEFT, 01/13/2013 MAMMO DIGITAL SCREEN UNI LEFT, 03/07/2012 MAMMO DIGITAL DIAG UNI LEFT, 09/04/2011 MAMMO DIGITAL DIAG UNI LEFT, 02/07/2011 MAMMO BREAST US LT, 01/18/2011 MAMMO DIGITIZED STUDY, 01/17/2010 MAMMO DIGITIZED STUDY, 01/06/2009 MAMMO DIGITIZED STUDY, 01/09/2008 MAMMO DIGITIZED STUDY, and 01/10/2007 MAMMO DIGITIZED STUDY Findings: Left CC and MLO views were obtained. This examination was reviewed with the aid of a computer-aided detection system(CAD). BREAST COMPOSITION: Scattered areas of fibroglandular density. The overall fibroglandular pattern is stable. No suspicious abnormality is identified. No significant new findings since the prior mammogram(s). Anisha Davila [employer] MAMMO ORDERABLES Fi nal Result documented in this encounter Visit Diagnoses Diagnosis Encounter for screening mammogram for malignant neoplasm of breast- Primary Other screening mammogram Encounter for screening mammogram for malignant neoplasm of breast Other screening mammogram documented in this encounter Additional Health Concerns Infection Onset Date Last Indicated Resolved Time VRE Comment:VRE positive urine culture 06/15/18 06/17/2018 06/17/2018 06/20/2018 9:09 AM Kang TAPIA VRE Comment:Positive Urine Culture from outside facility on 06/15/18 06/23/2018 06/23/2018 documented as of this encounter Care Teams Wire Sawyer Relationship Specialty Start Date End Date Santino Reyes APRN [facility] [phone] PCP - General NURSE PRACTITIONER 07/10/18 documented as of this encounter
--- OUTSIDE RECORDS SUMMARY | 2024-06-15 17:17 | XMS_ITS | Encounter Summary ---
Author Organization [facility] Address [address] [place] [address] Care Team Providers Care Boats Renter Name Role Phone Santino Reyes APRN Primary Care Provider [phone] Reason for Referral * Radiology Services (Routine) - Closed Specialty Diagnoses / Procedures Referred By Danielac t Referred To Contact Radiology Diagnoses Left leg swelling Procedures US VENOUS DOPPLER LEG LEFT Santino Reyes, STATE MANAGER [address] [address] Phone: tel: fax: [facility] [address] [facility] [address] [place] [address] Phone: tel: fax: Referral ID Status Reason Start Date Expiration Date V isits Requested Visits Authorized [id number] Closed [facility] CTS to Schedule (SGF) 07/09/2018 08/09/2019 1 1 Encounter Details Date Type Department Care Team (Late st Contact Info) Description 07/09/2018 Ancillary Orders [facility] Centralized Scheduling [address] [facility] [address] [place] [address] Santino Reyes, STATE MANAGER [address] [address] Left leg swelling Social History Tobacco Use Types Packs/Day Years Used Date Smoking Tobacco: Former Cigarettes 1 25 0 04/01/1964 - 04/01/1989 Smokeless Tobacco: Never Alcohol Use Standard Drinks/Week Comments No 0 (1 standard drink = 0.6 oz pur e alcohol) Comments No Sex and Gender Information Value Date Recorded Sex Assigned at Not on file 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 [facility] ? Radiology Services - Noninvasive Vascular ?[address] ?[place] [address] ? Noninvasive Vascular Lab Venous Exam Unilateral Lower Extremity Duplex Patient: ?Martha Patterson Study ID: ?? US VENOUS DOPPLE Gender: ? F : ?1945 Age: ?73 Room: Height: Weight: BSA: Pt status: ??Outpatient Study Date: 07/15/2018 Study Time: 10:27:04 AM BSA: Ordering: Santino Reyes Interpreting:Ishmael Hughes MD, RPVI Indications: ?? Left Leg Swelling. ??M79.89. Summary Impression: 1. Limited exam. No evidence of deep vein thrombosis involving the ?? left common femoral vein, left femoral vein, and left popliteal ?? vein 2. No prior study available for comparison. Study data: ??Left lower extremity venous duplex evaluation. Doppler flow study including spectral analysis, color and mensah scale imaging. ??Ethnicity: ??Ethnicity: white. ??Location: ??Vascular laboratory. ??Patient status: ??Outpatient. ? Study status: Routine. ??Procedure: ??A vascular evaluation was performed. Image quality was good. Exam quality was fair. The study was technically limited due to limited visualization below knee. Prepared and Electronically Authenticated Ishmael Hughes MD, RPVI Confirmed ?12/18/2018 12:19 Procedure Note Ishmael Hughes MD - 12/18/2018 [facility] Radiology Services - Noninvasive Vascular [address] [address] Noninvasive Vascular Lab Venous Exam Unilateral Lower Extremity Duplex Patient: Martha Patterson Study ID: US VENOUS DOPPLE Gender: Annelise : 1945 Age: 73 Room: Height: Weight: BSA: Pt status: Outpatient Study Date: 07/15/2018 Study Time: 10:27:04 AM BSA: Ordering: Santino Reyes Interpreting:Ishmael Hughes MD, RPVI Indications: Left Leg Swelling. M79.89. Summary Impression: 1. Limited exam. No evidence of deep vein thrombosis involving the left common femoral vein, left femoral vein, and left popliteal vein 2. No prior study available for comparison. Study data: Left lower extremity venous duplex evaluation. Doppler flow study including spectral analysis, color and mensah scale imaging. Ethnicity: Ethnicity: white. Location: Vascular laboratory. Patient status: Outpatient. Study status: Routine. Procedure: A vascular evaluation was performed. Image quality was good. Exam quality was fair. The study was technically limited due to limited visualization below knee. Prepared and Electronically Authenticated Ishmael Hughes MD, RPVI Confirmed 12/18/2018 12:19 us Santino Reyes APRN US ORDERABLES Final Result documented in this encounter Visit Diagnoses Diagnosis Left leg swelling Left leg swelling documented in this encounter Additional Health Concerns Infection Onset Date Last Indicated Resolved Time VRE Comment:Positive Urine Culture from outside facility on 06/15/18 06/23/2018 06/23/2018 documented as of this encounter Care Teams Boats Renter Relationship Specialty Start Date End Date Santino Reyes, STATE MANAGER [address] [place] [phone] PCP - General NURSE PRACTITIONER 07/10/18 documented as of this encounter
--- OUTSIDE RECORDS SUMMARY | 2024-06-15 17:17 | XMS_ITS | Encounter Summary ---
Author Organization [facility] Address [address] [place] [address] Care Team Providers Care Bi Analyst Name Role Phone Santino Reyes APRN Primary Care Provider [phone] Encounter Details Date Type Department Care Team ([facility] Contact Info) Description 09/18/2005 Outpatient Historical [facility] Imaging Services-Hamzah [place] [address] [place] [phone] Social History Tobacco Use Types Packs/Day Years Used Date Smoking Tobacco: Never Assessed Comments Unknown Sex and Gender Information Value Date Recorded Sex Assigned at Not on file 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
--- OUTSIDE RECORDS SUMMARY | 2024-06-15 17:17 | XMS_ITS | Encounter Summary ---
Author Organization [facility] Address [address] [place] [address] Care Team Providers Care Oncology Social Work Name Role Phone Santino Reyes APRN Primary Care Provider [phone] Encounter Details Date Type Department Care Team (Latest Contact Info) Description 08/07/2002 Outpatient Historical [facility] Rheumatology- Hamzah [place] [address] [place] [phone] Antonella Amaya MD [address] [place] [address] RHEUMATISM NOS (Primary Dx); INFLAMM POLYARTHROP NOS (CMS/HCC) Social History Tobacco Use Types Packs/Day Years Used Date Smoking Tobacco: Never Assessed Comments Unknown Sex and Gender Information Value Date Recorded Sex Assigned at Not on file 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
--- OUTSIDE RECORDS SUMMARY | 2024-06-15 17:17 | XMS_ITS | Encounter Summary ---
Author Organization [facility] Address [address] [place] [address] Care Team Providers Care Scratcher Tender Name Role Phone Santino Reyes APRN Primary Care Provider [phone] Encounter Details Date Type Department Care Team (Latest Contact Info) Description 08/03/[address] 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 Gender Identity Not on file Sexual Orientation Not on file documented as of this encounter Plan of Treatment Not on file documented as of this encounter Visit Diagnoses Diagnosis Unspecified diffuse connective tissue disease- Primary documented in this encounter Additional Health Concerns Infection Onset Date Last Indicated Resolved Time VRE Comment:VRE positive urine culture 06/15/18 06/17/2018 06/17/2018 06/20/2018 9:09 AM C DT VRE Comment:Positive Urine Culture from outside facility on 06/15/18 06/23/2018 06/23/2018 documented as of this encounter Care Teams Scratcher Tender Relationship Specialty Start Date End Date Santino Reyes APRN [address] [place] [phone] PCP - General NURSE PRACTITIONER 07/10/18 documented as of this encounter
--- OUTSIDE RECORDS SUMMARY | 2024-06-15 17:17 | XMS_ITS | Encounter Summary ---
Author Organization [facility] Address [address] [place] [address] Care Team Providers Care Cafe Server Name Role Phone Santino Reyes APRN Primary Care Provider [phone] Encounter Details Date Type Department Care Team (Latest Contact Info) Description 12/19/1999 Outpatient [facility] [address] [facility] [address] [place] [address] Farzad Diehl MD NO ADDRESS ON FILE Personal history of malignant neoplasm of breast (Primary Dx); Screening mammogram for high-risk patient Social History Tobacco Use Types Packs/Day Years Used Date Smoking Tobacco: Never Assessed Comments Unknown Sex and Gender Information Value Date Recorded Sex Assigned at Not on file 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 Gender Identity Not on file Sexual Orientation Not on file documented as of this encounter Plan of Treatment Not on file documented as of this encounter Visit Diagnoses Diagnosis Personal history of malignant neoplasm of breast- Primary Screening mammogram for high-risk patient documented in this encounter Additional Health Concerns Infection Onset Date Last Indicated Resolved Time VRE Comment:VRE positive urine culture 06/15/18 06/17/2018 06/17/2018 06/20/2018 9:09 AM C DT VRE Comment:Positive Urine Culture from outside facility on 06/15/18 06/23/2018 06/23/2018 documented as of this encounter Care Teams Cafe Server Relationship Specialty Start Date End Date Santino Reyes APRN [address] [place] [address] [address] [place] [address] PCP - General NURSE PRACTITIONER 07/10/18 documented as of this encounter
[2024-06-15 17:25] VITALS: BMI 21.6
[2024-06-15 17:53] VITALS: BP 123/66; PULSE 72; RESP 16; TEMP 37.1; O2SAT 99
[2024-06-15 18:37] LABS: Basophils # 0.1 10^3/uL (0.0-0.1); Basophils % 0.6 %; Eosinophils # 0.1 10^3/uL (0.0-0.8); Eosinophils % 0.6 %; Hematocrit 35.1 % (36-47); Lymphocytes # 1.2 10^3/uL (0.8-4.8); Lymphocytes % 12.1 %; Mean Corpuscular HGB Conc 29.6 g/dL (30-55); Mean Corpuscular Hemoglobin 29.6 pg (27-33); Mean Platelet Volume 10.2 fL (7.4-10.4); Monocytes # 0.9 10^3/uL (0.2-0.9); Monocytes % 8.9 %; Neutrophils # 7.67 10^3/uL (1.8-7.7); Neutrophils % 77.1 %; Nucleated Red Blood Cells % 0 %; Platelet Count 317 10^3/cmm (157-399); Red Blood Count 3.51 10^6/uL (3.85-5.65); Red Cell Distribution Width 12.8 % (12.1-15.1); White Blood Count 9.94 10^3/uL (3.29-11.43)
[2024-06-15 18:58] LABS: Alanine Aminotransferase 7 U/L (0-33); Albumin Level 3.5 g/dL (3.5-5.2); Alkaline Phosphatase 54 U/L (35-105); Anion Gap 21.3 (5-19); Aspartate Amino Transferase 15 U/L (0-32); Blood Urea Nitrogen 42 mg/dL (8-23); Calcium 9.1 mg/dL (8.5-10.5); Carbon Dioxide 18 mmol/L (22-29); Chloride 100 mmol/L (98-107); Creatinine Clr Calc Pharmacy 26.0041; Globulin 3.4 g/dL (1.3-4.6); Glucose 122 mg/dL (65-115); Osmolality Calculated 294 mOsm/kg (285-295); Potassium 3.3 mmol/L (3.5-5.1); Sodium 136 mmol/L (136-145); Total Bilirubin 0.6 mg/dL (0.15-1.2); Total Protein 6.9 g/dL (6.6-8.7)
[2024-06-15] MEDS: lisinopril 20 mg Tablet PO (19:42)
[2024-06-15] MEDS: sodium chloride 0.9% 1,000 ML 75 ML IV (20:01)
[2024-06-15 20:24] VITALS: RESP 18
[2024-06-15] MEDS: oxyCODONE 5 mg IR Tab/Cap PO (20:24)
[2024-06-15 21:05] VITALS: BP 126/85; PULSE 92; RESP 18; TEMP 36.5; O2SAT 93
[2024-06-15 22:00] VITALS: PULSE 75
[2024-06-16] VITALS (19 sets, daily range): BP systolic 101–152; BP diastolic 50–89; PULSE 63–87; RESP 16–98; TEMP 36.3–37.2; O2SAT 92–100
[2024-06-16] MEDS: ondansetron 2 mg/ML SDV 2 mL 4 MG IVP (01:51)
[2024-06-16] MEDS: oxyCODONE 5 mg IR Tab/Cap PO (07:28)
[2024-06-16] MEDS: levothyroxine 25 mcg Tablet PO (09:00)
--- NOTE | 2024-06-16 10:05 | PC.CHAP ---
Pastoral Care Encounter/Spiritual Assessment Type of Contact [] Declined poultry inseminator visit [] Patient/Family/Request visit [] Outpatient visit [] Follow-up visit [] Physician referral [] Code/Alert [x] Routine visit [] Staff referral [] Actively dying [] Patient sleeping [] Family support [] [] Out of room [] Palliative care [] [] Receiving care in room [] Pre-surgical visit [] Trauma [] Long length of stay [] ICU visit [] Other: Relational/Emotional Strength [x] Patient feels connected with others/family/visitors/staff [] Distress [] Loneliness/isolation [] Abandonment Spirituality of Patient [x] Person of Gaby [] Attends Jew of their Gaby [x] Believes in Prayer [] Reads Bible or Moravian materials [] There are Spiritual issues to be addressed Housing Coordinator Interventions [x] Prayer [x] Active listening [] Non-anxious presence [x] Spiritual/emotional support [] Crisis/trauma care [] Spiritual counseling [] Bereavement support [] Provided bereavement packet [] Provided Bible/devotional materials [] Provided toy/stuffed animal, coloring book to patient or family member [] Provided Communion [] Anointing/[place] [] Salvation [x] Completed spiritual assessment [] Other: Impact on Illness or Injury [] Angry [] Fearful [] Anxious [] Often cries [] Exhaustion [] Unable to work [] Unable to attend jain [] Unable to walk/stand [] Unable to read [] Unable to drive [] Unable to eat/drink [] Unable to sleep [] Unable to be with family [] Patient intubated [] Other: Summary Time spent with patient 5 min
--- NOTE | 2024-06-16 10:30 | PM.MISC ---
Miscellaneous Note Purpose of Documentation: Patient awaiting surgical fixation this afternoon. No acute interim events. No changes recommended at this time with regards to medical comorbidities.
[2024-06-16] MEDS: sodium chloride 0.9% 1,000 ML 30 ML IV (12:19)
--- NOTE | 2024-06-16 12:44 | P.ANESASSM_ITS ---
Pre-Anesthetic Assessment Height/Weight: Height 1.5 m Weight 48.534 kg Temp Pulse Resp BP Pulse Ox O2 Del Method 98.6 F 64 17 130/73 97 Room Air 06/16/24 11:30 06/16/24 11:30 06/16/24 11:30 06/16/24 11:30 06/16/24 11:30 06/16/24 11:30 Operation Date: 06/16/24 13:10 Proposed Procedures p Elastic/Flexible Nail Upper Extremity Flexible Nail Humerus(Right) - Humphrey Boles MD Familial anesthetic complications: None Was Beta Merlin taken within 24 hours: N/A Was Clonidine taken within 24 hours: N/A Last intake: Intake Last Liquid Date 06/15/24 Last Solid Date 06/15/24 Social No alcohol and No tobacco Exam alert, oriented x 3, clear to auscultation bilaterally and regular rate & rhythm Airway Mallampati: Class II Dentition: full CV/HEM Hypertension Metabolic Hyperlipidemia Anesthetic Plan ASA status: 3 Anesthesia: General and Regional (specify below) Risk of > 500 ml blood loss (7ml/kg in children): No Medications/Allergies Home Medications ?Medication ?Instructions ?Recorded ?Confirmed ?Last Taken ?Type lisinopril 20 mg tablet See Rx Instructions .Route 0 06/26/23 06/16/24 Unknown Rx .COMPLEX #180 tabs pantoprazole 40 mg tablet,delayed See Rx Instructions .Route 07/29/23 06/16/24 Unknown Rx release .COMPLEX #90 tabs levothyroxine 25 mcg tablet See Rx Instructions .Route 09/12/23 06/16/24 Unknown Rx .COMPLEX #90 tabs amlodipine 5 mg tablet See Rx Instructions .Route 1 06/16/24 Unknown Rx .COMPLEX #90 tabs chlorthalidone 25 mg tablet See Rx Instructions .Route 03/17/24 06/16/24 Unknown Rx .COMPLEX 90 days #90 tabs prednisone 5 mg tablet See Rx Instructions .Route 0 04/07/24 06/16/24 Unknown Rx .COMPLEX #30 tabs hydrocodone 5 mg-acetaminophen 325 1 tab PO Q6H PRN pa in 3 days #10 06/12/24 06/16/24 Unknown Rx mg tablet tabs leflunomide 10 mg tablet 10 mg PO DAILY 06/16/2405/30 Unknown History Allergies Allergy/AdvReac Type Severity Reaction Status Date / Time ciprofloxacin (From Cipro) Allergy Intermediate rash Verified 06/15/24 14:34 Sulfa (Sulfonamide Allergy Mild ADR-Nausea Verified 06/15/24 14:34 Antibiotics) Current Medications Generic Name Dose Route Start Last Admin Trade Name Freq PRN Reason Stop Dose Admin Sodium Chloride 1,000 mls @ 75 mls/hr 06/15/24 17:45 06/16/24 10:26 Sodium Chloride 0.9% IV Not Given .[id number] LOU Sodium Chloride 1,000 mls @ 30 mls/hr 06/16/24 12:15 06/16/24 12:19 Sodium Chloride 0.9% IV 30 mls/hr .Q24H LOU Administration Levothyroxine Sodium 25 mcg 06/16/24 09:00 06/16/24 09:00 Levothyroxine 25 Mcg Tablet PO 25 mcg DAILY LOU Administration Lisinopril 20 mg 06/15/24 18:45 06/16/24 09:00 Lisinopril 20 Mg Tablet PO Not Given BID LOU Ondansetron HCl 4 mg 06/15/24 17:37 06/16/24 01:51 Ondansetron 2 Mg/Ml Sdv 2 Ml IVP 4 mg Q8H PRN Administration vomiting, or N/V if npo Oxycodone HCl 5 mg 06/15/24 17:37 06/16/24 07:28 Oxycodone 5 Mg Ir Tab/Cap PO 5 mg Q6H PRN Administration SEVERE PAIN PFSH Anesthesia Medical History Weight loss Cellulitis, leg Abdominal pain Breast cancer screening by mammogram Enrolled in chronic care management Pseudomonas infection Cellulitis of right lower limb Klebsiella infection Urinary tract infection Claudication of right lower extremity Slurred speech Dizziness Pain of right foot Ingrown right big toenail History of nonmelanoma skin cancer Mixed incontinence Cervicalgia SCCA (squamous cell carcinoma) of skin Carotid stenosis, bilateral Recurrent UTI Mixed stress and urge urinary incontinence Urinary incontinence Leg swelling Fatigue Tonsil cancer Abnormal nuclear stress test Benign essential HTN Syncope and collapse Polymorphic ventricular tachycardia Generalized weakness Brain bleed H/O deep venous thrombosis Hypothyroidism (acquired) Chronic congestive heart failure Chronic GERD History of breast cancer Mild hyperlipidemia COPD (chronic obstructive pulmonary disease) Surgical History History of insertion of tunneled central venous catheter (CVC) with port H/O vaginal surgery (05/31/20) Laparoscopic BSO, Uterosacral ligament suspension with enterocele, Anterior colporrhaphy, Cystoscopy. Performed by Dr. Isaac at [facility] in [place], [place] H/O abdominoplasty S/P IVC filter (~03/13/19) DVT after hip replacement IVC Filter placed March 13, 2019 at [facility] History of left hip replacement Status post carpal tunnel release Status post total hip replacement, left Status post hysterectomy (~1969) Vaginal per patient, ovaries were spared Status post right mastectomy with breast reconstruction with abdominal trans-flap. Family History Mother Diabetes Hypertension Uterine cancer Diagnosed in her 70s CAD (coronary artery disease) Family/Other Diabetes maternal aunt Chronic kidney disease (CKD) Father Hypertension Heart disease of [place] at age 59 CAD (coronary artery disease) Daughter Breast cancer With Mets; at age 50 Sister Dementia Denies family history of Clotting disorder Suicide Anesthesia complication Bleeding disorder Lung disease Cancer Stroke Social History Smoking and tobacco/nicotine status: former use of tobacco/nicotine (quit about 35 years ago) Quit status (tobacco/nicotine): has quit using Year quit tobacco: 1989 Former quit date comment: Started smoked as a teenager and smoked 1/2 pack per day Alcohol intake: current Alcohol intake frequency: holidays/special occasions only Substance/Drug Use: never Marital status: Current occupational status: retired Data Anesthesia 06/15/24 18:27 06/15/24 18:27 Short CBC 06/15/24 Range/Units 18:27 WBC 9.94 (3.29-11.43) 10^3/uL Hgb 10.40 L (11.27-16.99) g/dL Hct 35.1 L (36-47) % MCV 100.0 H (85-98) fl Plt Count 317 (157-399) 10^3/cmm Neut % (Auto) 77.1 % Neut # (Auto) 7.67 (1.8-7.7) 10^3/uL BMP 06/15/24 18:27 Sodium 136 Potassium 3.3 L Chloride 100 Carbon Dioxide 18 L BUN 42 H Creatinine 1.3 H Glucose 122 H Calcium 9.1 Liver Function 06/15/24 Range/Units 18:27 Total Bilirubin 0.6 (0.15-1.2) mg/dL AST 15 (0-32) U/L ALT 7 (0-33) U/L Alkaline Phosphatase 54 (35-105) U/L Albumin 3.5 (3.5-5.2) g/dL Cardiac Studies: 2 Holter Monitor 04/24/19
--- NOTE | 2024-06-16 12:49 | ANES.PROC ---
Anesthesia Procedures Procedure/Date: 06/16/24 Nerve Block ^: Nerve Block 1: Main Anesthesia: general anesthesia Time Out Performed: Yes Consent: requested by attending/covering physician, from patient, from other, risks and benefits reviewed and patient agrees to proceed Nerve block location: supraclavicular (R) Anesthesia monitors applied: pulse oximetry, EKG, BP cuff and oxygen Nerve block position: semi sitting Anesthetic Used: ropivicaine 0.5% (20 ml) and with decadron (4 mg) Ultrasound used to: recognize landmarks, visualize and ID brachial plexus and in supraclavicular region Nerve Stimulator Used?: No Interscalene/Femoral BLK: 2 stimuplex 22 g needle used for position and inplane approach, visualize local anesthetic spread and no vascular puncture identified Injection: neg aspiration of heme Patient Tolerated Procedure: well Complications: none
--- NOTE | 2024-06-16 13:15 | P.HP_ITS ---
Same Day Surgery H&P Indication for Procedure/HPI DATE OF PROCEDURE: June 16, 2024 CHIEF COMPLAINT/INDICATIONFOR SURGICAL PROCEDURE: proximal right humerus fracture Painful shoulder PREOP DIAGNOSIS: fractured proximal humerus fracture PLANNED PROCEDURE: Operation Date: 06/16/24 13:10 Proposed Procedures p Elastic/Flexible Nail Upper Extremity Flexible Nail Humerus(Right) - Humphrey Boles MD Medications/Allergies* Home Medications ?Medication ?Instructions ?Recorded ?Confirmed ?Type leflunomide 10 mg tablet 10 mg PO DAILY 06/16/2405/30 History Allergies/Adverse Reactions Allergy/AdvReac Type Severity Reaction Status Date / Time ciprofloxacin (From Cipro) Allergy Intermediate rash Verified 06/15/24 14:34 Sulfa (Sulfonamide Allergy Mild ADR-Nausea Verified 06/15/24 14:34 Antibiotics) Current Medications: Generic Name Dose Route Start Last Admin Trade Name Freq PRN Reason Stop Dose Admin Sodium Chloride 1,000 mls @ 75 mls/hr 06/15/24 17:45 06/16/24 10:26 Sodium Chloride 0.9% IV Not Given .[id number] LOU Sodium Chloride 1,000 mls @ 30 mls/hr 06/16/24 12:15 06/16/24 12:19 Sodium Chloride 0.9% IV 30 mls/hr .Q24H LOU Administration Levothyroxine Sodium 25 mcg 06/16/24 09:00 06/16/24 09:00 Levothyroxine 25 Mcg Tablet PO 25 mcg DAILY LOU Administration Lisinopril 20 mg 06/15/24 18:45 06/16/24 09:00 Lisinopril 20 Mg Tablet PO Not Given BID LOU Ondansetron HCl 4 mg 06/15/24 17:37 06/16/24 01:51 Ondansetron 2 Mg/Ml Sdv 2 Ml IVP 4 mg Q8H PRN Administration vomiting, or N/V if npo Oxycodone HCl 5 mg 06/15/24 17:37 06/16/24 07:28 Oxycodone 5 Mg Ir Tab/Cap PO 5 mg Q6H PRN Administration SEVERE PAIN Pertinent History/Comorbid Conditions* Medical History (Updated 06/12/24 @ 14:31 by YISEL Cook) Weight loss Cellulitis, leg Abdominal pain Breast cancer screening by mammogram Enrolled in chronic care management Pseudomonas infection Cellulitis of right lower limb Klebsiella infection Urinary tract infection Claudication of right lower extremity Slurred speech Dizziness Pain of right foot Ingrown right big toenail History of nonmelanoma skin cancer Mixed incontinence Cervicalgia SCCA (squamous cell carcinoma) of skin Carotid stenosis, bilateral Recurrent UTI Mixed stress and urge urinary incontinence Urinary incontinence Leg swelling Fatigue Tonsil cancer Abnormal nuclear stress test Benign essential HTN Syncope and collapse Polymorphic ventricular tachycardia Generalized weakness Brain bleed H/O deep venous thrombosis Hypothyroidism (acquired) Chronic congestive heart failure Chronic GERD History of breast cancer Mild hyperlipidemia COPD (chronic obstructive pulmonary disease) Surgical History (Updated 03/07/22 @ 10:13 by YISEL Cook) History of insertion of tunneled central venous catheter (CVC) with port H/O vaginal surgery (05/31/20) Laparoscopic BSO, Uterosacral ligament suspension with enterocele, Anterior colporrhaphy, Cystoscopy. Performed by Dr. Isaac at [facility] in [place], [place] H/O abdominoplasty S/P IVC filter (~03/13/19) DVT after hip replacement IVC Filter placed March 13, 2019 at [facility] History of left hip replacement Status post carpal tunnel release Status post total hip replacement, left Status post hysterectomy (~1969) Vaginal per patient, ovaries were spared Status post right mastectomy with breast reconstruction with abdominal trans-flap. Family History (Updated 06/27/20 @ 14:17 by Belle Pearson RN) Father Diabetes Mother Family/Other maternal aunt CAD (coronary artery disease) Mother Father Dementia Sister Heart disease Father of [place] at age 59 Chronic kidney disease (CKD) Family/Other Breast cancer Daughter With Mets; at age 50 Hypertension Mother Father Uterine cancer Mother Diagnosed in her 70s Denies family history of Clotting disorder Suicide Anesthesia complication Bleeding disorder Lung disease Cancer Stroke Social History Smoking and tobacco/nicotine status: former use of tobacco/nicotine (quit about 35 years ago) Quit status (tobacco/nicotine): has quit using Year quit tobacco: 1989 Former quit date comment: Started smoked as a teenager and smoked 1/2 pack per day Alcohol intake: current Alcohol intake frequency: holidays/special occasions only Substance/Drug Use: never Marital status: Current occupational status: retired Pertinent Exam Findings alert, oriented x 3, clear to auscultation bilaterally, regular rate & rhythm, operative site marked and procedure specific exam findings Recommendations Surgery/Procedure today Coding Level of Care Code Acute Code for Chg Fwd
[2024-06-16] MEDS: ceFAZolin 2,000 mg SDV 2000 MG IVP ×2 (14:11→21:30)
--- NOTE | 2024-06-16 14:44 | PC.NURSE ---
Patient arrived to surgery with right skin tear, dressing removed, site cleansed with sterile saline, dressed with adaptic, abd and kerlix.
--- NOTE | 2024-06-16 14:46 | P.OP_ITS ---
Operative Report Date of procedure: June 16, 2024 Surgeon: Humphrey Boles MD Procedure: Preoperative diagnosis: Fracture proximal right humerus Postop diagnosis: Same Procedure: Open reduction with flexible henrik fixation proximal right humerus fracture Surgeon: Humphrey Boles MD Anesthesia: General With preoperative scalene block EBL: 50 cc Complications: None Indications: Martha is a 79-year-old white female who fell approximately 1 week ago injuring her right shoulder. She was seen in an outside emergency room where x-rays and CT scan demonstrated comminuted proximal humerus fracture was a fracture dislocation. Patient was placed in arm sling and instructed follow-up with orthopedics however it took over a week to get in for an appointment. After initial evaluation is felt patient most benefit from fixation of this fracture versus hemiarthroplasty of the shoulder. All risk benefits treatment alternatives were discussed with she and her and they are agreeable to this at this time. Patient was admitted through the the clinic to the hospital yesterday and surgery taken place today. Procedure: After obtaining her consent patient had scalene block administered in preop holding area. Patient then taken to the operative room placed on the operative table supine position general anesthetic was administered. Once good anesthesia was achieved patient was placed up in the beachchair position on the shoulder table and secured well to it. Right shoulder and arm were prepped and draped usual fashion. After surgical timeout and fluoroscopic evaluation of the shoulder with some manipulation anterior approach to the shoulder was made with #10 blade. Sharp dissection to gone down to subcutaneous tissues and electrocautery used for hemostasis. By digital palpation and finding the interval between the deltoid and the pectoral muscle digital palpation then found the fracture line and the area in question. With longitudinal traction on the arm as well as using a Brody elevator fracture fragments were brought back up into alignment. Interoperative fluoroscopy was used to further aligned this to confirm that there is adequate positioning of the shaft and humeral head. Superior incision was made off the anterior lateral aspect of the shoulder all the way down through the deltoid down to the greater trochanter and rotator cuff. By digital dissection palpating and there also demonstrated to a widening of the humeral shaft and the head of the humerus had been achieved. Subsequently using flexible rods these were cut off to appropriate length and the hook was bent into 1 in. A ball was placed into these rods in opposite directions of each 1 to get 3 point fixation. Drill holes made in the proximal humerus anteriorly along the greater trochanter first guide henrik is placed on d own through as the longitudinal traction internal rotation was done on the humerus and then placed on down the interventionally canal. Interoperative fluoroscopy demonstrated adequate fixation of this. Second henrik was placed in similar fashion with the bow in opposite direction for 3 point contact. A second drill hole was placed posterior to the first 1 guide henrik placed down through the humeral head into the interventionally canal the humerus and driven on down. Again interoperative fluoroscopy demonstrated adequate fixation with a good 3 point fixation of both rods. With manipulation of the shoulder it demonstrated that both fragments moved as 1. Adequate reduction had been achieved. Wound was then washed with sterile irrigation. Deep structures of the upper incision were closed with 0 Vicryl [id number] sutures including the rotator cuff interval as well as the deltoid reapproximated back onto the acromion. Subcutaneous tissue proximal 0 Vicryl erupted sutures. Skin was closed skin [place]. Wounds are clean and dry dressed with a Adaptic dressing sterile gauze dressing and Medipore tape. Patient was placed back in arm sling awakened and transferred recovery in stable condition
--- NOTE | 2024-06-16 15:01 | XR_ITS ---
WS: [id number] Right arm and humerus, 2 views, C ARM fluoroscopy views, 06/16/2024 Clinical Data: or pic, humerus pinning Comparison: Right shoulder, 06/15/2024 Findings: Dr. Bianchi reduced the fracture of the proximal right humerus with long orthopedic wires extending from the humeral head into the humeral shaft. The humeral head lies adjacent to the glenoid fossa. XR/[place] [id number] Impression: Internal fixation of comminuted fracture dislocation of right humeral head.
--- NOTE | 2024-06-16 15:25 | ANE.PACU2 ---
Inpatient post-anesthesia follow up: Airway intact: Yes Vital signs: Temperature 98.2 F Pulse Rate 63 Respiratory Rate 18 Blood Pressure 138/74 Pulse Oximetry 97 Oxygen Delivery Me thod Room Air Oxygen Flow Rate 10 Fraction of Inspir ed Oxygen Hydration adequate: Yes Nausea and vomiting: No Pain level: 1 Mental status: Baseline
[2024-06-16] MEDS: acetaminophen 500 mg Tablet 1000 MG PO (16:32)
[2024-06-16] MEDS: amlodipine 5 mg Tablet PO (18:31)
[2024-06-16] MEDS: lisinopril 20 mg Tablet PO (18:31)
[2024-06-17 03:44] VITALS: BP 104/60; PULSE 65; RESP 17; TEMP 36.4; O2SAT 93
[2024-06-17] MEDS: HYDROcodone-acetaminophen 5-325 mg Tablet PO (05:04)
[2024-06-17] MEDS: ceFAZolin 2,000 mg SDV 2000 MG IVP (05:05)
[2024-06-17] MEDS: ketorolac 30 mg/mL INJ 15 MG IVP (05:53)
[2024-06-17 06:37] VITALS: RESP 16
[2024-06-17] MEDS: morphine 4 mg/mL SDV 1 mL 1 MG IVP (06:37)
[2024-06-17 06:39] VITALS: BP 129/61
[2024-06-17 08:00] VITALS: BP 138/74; PULSE 63; RESP 18; TEMP 36.8; O2SAT 97
[2024-06-17] MEDS: chlorthalidone 25 mg Tablet PO (09:08)
[2024-06-17] MEDS: levothyroxine 25 mcg Tablet PO (09:08)
[2024-06-17] MEDS: acetaminophen 500 mg Tablet 1000 MG PO (09:08)
[2024-06-17] MEDS: pantoprazole DR 40 mg Tablet PO (09:08)
[2024-06-17] MEDS: predniSONE 5 mg Tablet PO (09:08)
[2024-06-17] MEDS: aspirin 325 mg EC Tablet PO (09:08)
[2024-06-17] MEDS: lisinopril 20 mg Tablet PO (09:08)
[2024-06-17 11:31] VITALS: BP 119/71; PULSE 90; RESP 17; TEMP 36.9; O2SAT 95
--- NOTE | 2024-06-17 13:19 | PM.DCS ---
Discharge Providers Date of Admission: 06/15/24 17:10 Date of Discharge: June 17, 2024 Attending Provider at Admission: Humphrey Boles MD Attending Provider at Discharge: Humphrey Boles MD Primary Care Provider: YISEL Che Diagnoses at Discharge Discharge Diagnosis (1) Closed fracture of right proximal humerus: Status: Acute Qualifiers: Encounter type: subsequent encounter Fracture morphology: other fracture Fracture alignment: displaced Fracture healing: with routine healing Qualified Code(s): S42.291D - Other displaced fracture of upper end of right humerus, subsequent encounter for fracture with routine healing Reason for Visit Reason for Visit: R humerous fracture, Room 260 Hospital Course Hospital Course Patient tolerated surgery well and has progressed well. Physical Exam Const: COMMON NORMALS: no acute distress GENERAL APPEARANCE: comfortable NUTRITIONAL APPEARANCE: thin ORIENTATION/CONSCIOUSNESS: Yes awake and Yes oriented to person HENMT: COMMON NORMALS: normocephalic and atraumatic HEAD & SCALP: normocephalic and atraumatic Extremity: COMMON NORMALS: normal to inspection NARRATIVE EXTREMITY EXAM: Ecchymosis about the right shoulder is to be expected. Dressings clear. Neurovascular intact distally Neuro: SENSORIUM/ORIENTATION: Yes oriented to person Discharge Data Studies Completed and Pending Completed Studies During Hospitalization Category [place] [id number] Routine Exams 06/16/24 15:01 Completed Radiology Impressions Humerus X-Ray 06/16/24 15:01 Impression: Internal fixation of comminuted fracture dislocation of right humeral head. Laboratory Results WBC 9.94 10^3/uL (3.29-11.43) 06/15/24 18:27 RBC 3.51 10^6/uL (3.85-5.65) L 06/15/24 18:27 Hgb 10.40 g/dL (11.27-16.99) L 06/15/24 18:27 Hct 35.1 % (36-47) L 06/15/24 18:27 MCV 100.0 fl (85-98) H 06/15/24 18:27 MCH 29.6 pg (27-33) 06/15/24 18:27 MCHC 29.6 g/dL (30-55) L 06/15/24 18:27 RDW 12.8 % (12.1-15.1) 06/15/24 18:27 Plt Count 317 10^3/cmm (157-399) 06/15/24 18: MPV 10.2 fL (7.4-10.4) 06/15/24 18: Neut % (Auto) 77.1 % 06/15/24 18: Lymph % (Auto) 12.1 % 06/15/24 18: Mchenry % (Auto) 8.9 % 06/15/24 18: Eos % (Auto) 0.6 % 06/15/24 18: Baso % (Auto) 0.6 % 06/15/24 18: Neut # (Auto) 7.67 10^3/uL (1.8-7.7) 06/15/24 18: Lymph # (Auto) 1.2 10^3/uL (0.8-4.8) 06/15/24 18: Mchenry # (Auto) 0.9 10^3/uL (0.2-0.9) 06/15/24 18: Eos # (Auto) 0.1 10^3/uL (0.0-0.8) 06/15/24 18: Baso # (Auto) 0.1 10^3/uL (0.0-0.1) 06/15/24 18: Nucleated RBC % (auto) 0 % 06/15/24 18: Nucleated RBCs # 0.0 /100WBC 06/15/24 18: Sodium 136 mmol/L (136-145) 06/15/24 18: Potassium 3.3 mmol/L (3.5-5.1) L 06/15/24 18: Chloride 100 mmol/L (98-107) 06/15/24 18: Carbon Dioxide 18 mmol/L (22-29) L 06/15/24 18: Anion Gap 21.3 (5-19) H 06/15/24 18: BUN 42 mg/dL (8-23) H 06/15/24 18: Creatinine 1.3 mg/dL (0.5-0.9) H 06/15/24 18: GFR Calculation Not Reportable 06/15/24 18: Glucose 122 mg/dL (65-115) H 06/15/24 18: Calculated Osmolality 294 mOsm/kg (285-295) 06/15/24 18:27 Calcium 9.1 mg/dL (8.5-10.5) 06/15/24 18: Total Bilirubin 0.6 mg/dL (0.15-1.2) 06/15/24 18:27 AST 15 U/L (0-32) 06/15/24 18:27 ALT 7 U/L (0-33) 06/15/24 18:27 Alkaline Phosphatase 54 U/L (35-105) 06/15/24 18: Total Protein 6.9 g/dL (6.6-8.7) 06/15/24 18: Albumin 3.5 g/dL (3.5-5.2) 06/15/24 18: Globulin 3.4 g/dL (1.3-4.6) 06/15/24 18: Vitals Last Vital Signs Temp 98.4 F 06/17/24 11:31 Pulse 90 06/17/24 11:31 Resp 17 06/17/24 11:31 BP 119/71 06/17/24 11:31 Pulse Ox 95 06/17/24 11:31 O2 Del Method Room Air 06/17/24 11:31 O2 Flow Rate 10 06/16/24 14:50 Discharge Plan Discharge Patient Disposition: Home Condition: Stable Prescriptions: New hydrocodone-acetaminophen 5-325 mg tablet 1 tab PO Q6H PRN (Reason: pain) Qty: 30 0RF Continued lisinopril 20 mg tablet See Rx Instructions .ROUTE .COMPLEX Qty: 180 3RF Dose Instruction: TAKE 1 TABLET TWICE DAILY Rx Instructions: TAKE 1 TABLET TWICE DAILY hydrocodone-acetaminophen 5-325 mg tablet 1 tab PO Q6H PRN (Reason: pain) 3 Days Qty: 10 0RF pantoprazole 40 mg tablet,delayed release (DR/EC) See Rx Instructions .ROUTE .COMPLEX Qty: 90 3RF Dose Instruction: TAKE 1 TABLET EVERY DAY Rx Instructions: TAKE 1 TABLET EVERY DAY levothyroxine 25 mcg tablet See Rx Instructions .ROUTE .COMPLEX Qty: 90 3RF Dose Instruction: TAKE 1 TABLET EVERY DAY Rx Instructions: TAKE 1 TABLET EVERY DAY amlodipine 5 mg tablet See Rx Instructions .ROUTE .COMPLEX Qty: 90 1RF Dose Instruction: TAKE 1 TABLET BY MOUTH EVERY EVENING FOR HIGH BLOOD PRESSURE Rx Instructions: TAKE 1 TABLET BY MOUTH EVERY EVENING FOR HIGH BLOOD PRESSURE chlorthalidone 25 mg tablet See Rx Instructions .ROUTE .COMPLEX 90 Days Qty: 90 1RF Dose Instruction: TAKE 1 TABLET EVERY DAY Rx Instructions: TAKE 1 TABLET EVERY DAY prednisone 5 mg tablet See Rx Instructions .ROUTE .COMPLEX Qty: 30 1RF Dose Instruction: TAKE 1 TABLET BY MOUTH DAILY Rx Instructions: TAKE 1 TABLET BY MOUTH DAILY leflunomide 10 mg tablet 10 mg PO DAILY Rx Instructions: TAKE 1 TABLET BY MOUTH EVERY DAY Discharge Orders: Discharge Order (Routine); Ordered 06/17/24 Ordered By: Humphrey Boles Referrals: CHETNA Reyes FNP [Primary Care Provider] - 06/26/24 1:40 pm Humphrey Boles MD [Physician] - 06/30/24 10:45 am Discharge Diet: Advance as tolerated and Usual diet Discharge Activity: Limit activity as instructed Patient Instructions: Acute Wound Care (DC), Opioid Safety, Post Anesthesia Care Activity Restrictions/Additional Instructions: Right arm and arm sling at all times. No use of right upper extremity. May change dressing in 3 to 4 days and shower at that time Assessment: Patient is doing well as tolerated procedure Plan of Treatment: Follow-up in 2 weeks for repeat evaluation and x-rays. Also for staple removal Discharge Attestations Time Spent in Discharge Care*: greater than 30 min Quality Metrics Clinical Quality Measures [ No reported AMI, CVA or VTE this stay] Coding Level of Care Code Acute Code for Chg Fwd Diagnoses Other closed displaced fracture of proximal end of right humerus with routine healing, subsequent encounter S42.291D Encounter type: subsequent encounter Fracture morphology: other fracture Fracture alignment: displaced Fracture healing: with routine healing
--- NOTE | 2024-06-17 14:05 | PC.NURSE ---
Instructor present while student de-accessed port-a-cath.
[2024-06-17 16:38] VITALS: BP 119/71; PULSE 90; RESP 17; TEMP 36.9; O2SAT 95
== END 2024-06-17 15:00 | disposition home or self-care (01) ==
PROVIDERS: Nurse Practitioner; Admitting Provider Orthopaedic Surgery; PCP Nurse Practitioner Family; Visit Provider Orthopaedic Surgery
PROC: (CPT 23615; principal; 2024-06-16 13:00)
DX: S42.291A Other displaced fracture of upper end of right humerus, initial encounter for closed fracture (principal); W19.XXXA Unspecified fall, initial encounter; Z87.891 Personal history of nicotine dependence; Z86.718 Personal history of other venous thrombosis and embolism; E03.9 Hypothyroidism, unspecified; E78.2 Mixed hyperlipidemia; J44.9 Chronic obstructive pulmonary disease, unspecified; I11.0 Hypertensive heart disease with heart failure; I50.9 Heart failure, unspecified
CPT/HCPCS: 23615; 36415; 73060; 76000; 80053; 85025; 97116; 97161; 97167; C1713; G0378; G0379; J0690; J1100; J1885; J2270; J2371; J2405; J2704; J3010; J3490; J7030; J7512; J9999

== ENCOUNTER 2024-06-29 14:30 | Oncology outpatient (recurring) (ONCR) | payer MEDICARE, SELFPAY | END 2024-06-29 23:59 | disposition home or self-care (01) | PROVIDERS: PCP Nurse Practitioner Family; Visit Provider Nurse Practitioner Family | DX: Z53.9 Procedure and treatment not carried out, unspecified reason (principal) | CPT/HCPCS: 96523 ==

== ENCOUNTER → 2024-06-30 11:04 | Outpatient (BNVA) | payer MEDICARE, SELFPAY | PROVIDERS: PCP Nurse Practitioner Family; Visit Provider Orthopaedic Surgery | DX: S42.291D Other displaced fracture of upper end of right humerus, subsequent encounter for fracture with routine healing (principal); X58.XXXD Exposure to other specified factors, subsequent encounter | CPT/HCPCS: 73030; 99024 ==

== ENCOUNTER → 2024-07-21 10:25 | Outpatient (BNVA) | payer MEDICARE, SELFPAY | PROVIDERS: PCP Nurse Practitioner Family; Visit Provider Orthopaedic Surgery | DX: S42.291A Other displaced fracture of upper end of right humerus, initial encounter for closed fracture (principal); S42.301A Unspecified fracture of shaft of humerus, right arm, initial encounter for closed fracture; X58.XXXA Exposure to other specified factors, initial encounter | CPT/HCPCS: 73030; 99213 ==

== ENCOUNTER → 2024-07-29 09:16 | Outpatient (BNVA) | payer MEDICARE, SELFPAY | PROVIDERS: PCP Nurse Practitioner Family; Visit Provider Nurse Practitioner Family | DX: R30.9 Painful micturition, unspecified (principal) | CPT/HCPCS: 81000 ==

== ENCOUNTER 2024-08-05 15:56 | Observation (INO) | payer MEDICARE, SELFPAY ==
[2024-08-05] VITALS (15 sets, daily range): BP systolic 132–183; BP diastolic 61–97; PULSE 58–78; RESP 16–22; TEMP 36.5–37.1; O2SAT 92–98; BMI 21.2
[2024-08-05] MEDS: sodium chloride 0.9% 1,000 ML 30 ML IV (10:26)
--- NOTE | 2024-08-05 11:34 | ANES.PREANE2 ---
Pre-Anesthetic Assessment Height/Weight: Height 4 ft 11 in Weight 105 lb Temp Pulse Resp BP Pulse Ox O2 Del Method 97.8 F 76 16 174/71 98 Room Air 08/05/24 10:10 08/05/24 10:10 08/05/24 10:10 08/05/24 10:10 08/05/24 10:10 08/05/24 10:12 Preop Diagnosis: Painful orthopedic hardware Operation Date: 08/05/24 12:10 Proposed Procedures p Hardware Removal Shoulder(Right) - Humphrey Boles MD s Right shoulder hemiarthroplasty(Right) - Humphrey Boles MD Was Beta Merlin taken within 24 hours: N/A Was Clonidine taken within 24 hours: N/A Last intake: Intake Last Liquid Date 08/04/24 Last Liquid Time 21:00 Last Solid Date 08/04/24 Last Solid Time 21:00 Social No alcohol and No tobacco Exam alert, oriented x 3, clear to auscultation bilaterally and regular rate & rhythm Airway Submandibular: within normal limits Cervical ROM: within normal limits Mallampati: Class II Dentition: false Anesthetic Plan ASA status: 3 Anesthesia: General and Regional (specify below) Other: No prior issues with anesthesia NPO since yesterday evening History of GERD on Protonix Hypertension on lisinopril and chlorthalidone Hypothyroidism on Synthroid Labs from May reviewed and acceptable for procedure today Patient states that she is very active, ambulates without a walker. Still performs all ADLs Plan for general anesthesia with preop nerve block Medications/Allergies Home Medications ?Medication ?Instructions ?Recorded ?Confirmed ?Last Taken ?Type nitrofurantoin 100 mg PO Q12H 7 days #14 caps 07/29/24 08/04/24 08/05/24 06:30 Rx monohydrate/macrocrystals 100 mg capsule (Macrobid) amlodipine 5 mg tablet 5 mg PO DAILY 08/04/24 08/04/24 08/05/24 06:30 History chlorthalidone 25 mg tablet 25 mg PO DAILY 08/04/24 08/04/24 08/05/24 06:30 History levothyroxine 25 mcg tablet 25 mcg PO DAILY 08/04/24 08/04/24 08/05/24 06:30 History lisinopril 20 mg tablet 20 mg PO DAILY 08/04/24 08/04/24 08/04/24 History pantoprazole 40 mg tablet,delayed 40 mg PO DAILY 08/04/24 08/04/24 08/05/24 06:30 History release potassium chloride 20 mEq 20 meq PO DAILY 08/04/24 08/04/24 08/05/24 06:30 History tablet,extended release(part/cryst) leflunomide 10 mg tablet 10 mg PO DAILY #30 tabs 08/05/24 08/05/24 08/05/24 06:30 Rx prednisone 5 mg tablet 5 mg PO DAILY 08/05/24 08/05/24 08/05/24 06:30 History Allergies Allergy/AdvReac Type Severity Reaction Status Date / Time ciprofloxacin (From Cipro) Allergy Intermediate rash Verified 08/04/24 15:18 Sulfa (Sulfonamide Allergy Mild ADR-Nausea Verified 08/04/24 15:18 Antibiotics) Current Medications Generic Name Dose Route Start Last Admin Trade Name Freq PRN Reason Stop Dose Admin Sodium Chloride 1,000 mls @ 30 mls/hr 08/05/24 09:45 08/05/24 10:26 Sodium Chloride 0.9% IV 08/06/24 09:44 30 mls/hr .Q24H LOU Administration [facility] Anesthesia Medical History Weight loss Cellulitis, leg Abdominal pain Breast cancer screening by mammogram Enrolled in chronic care management Pseudomonas infection Cellulitis of right lower limb Klebsiella infection Urinary tract infection Claudication of right lower extremity Slurred speech Dizziness Pain of right foot Ingrown right big toenail History of nonmelanoma skin cancer Mixed incontinence Cervicalgia SCCA (squamous cell carcinoma) of skin Carotid stenosis, bilateral Recurrent UTI Mixed stress and urge urinary incontinence Urinary incontinence Leg swelling Fatigue Tonsil cancer Abnormal nuclear stress test Benign essential HTN Syncope and collapse Polymorphic ventricular tachycardia Generalized weakness Brain bleed H/O deep venous thrombosis Hypothyroidism (acquired) Chronic congestive heart failure Chronic GERD History of breast cancer Mild hyperlipidemia COPD (chronic obstructive pulmonary disease) Surgical History History of insertion of tunneled central venous catheter (CVC) with port H/O vaginal surgery (05/31/20) Laparoscopic BSO, Uterosacral ligament suspension with enterocele, Anterior colporrhaphy, Cystoscopy. Performed by Dr. Isaac at [facility] in [place], [place] H/O abdominoplasty S/P IVC filter (~03/13/19) DVT after hip replacement IVC Filter placed March 13, 2019 at [facility] History of left hip replacement Status post carpal tunnel release Status post total hip replacement, left Status post hysterectomy (~1970) Vaginal per patient, ovaries were spared Status post right mastectomy with breast reconstruction with abdominal trans-flap. Family History Mother Diabetes Hypertension Uterine cancer Diagnosed in her 70s CAD (coronary artery disease) Family/Other Diabetes maternal aunt Chronic kidney disease (CKD) Father Hypertension Heart disease of [place] at age 59 CAD (coronary artery disease) Daughter Breast cancer With Mets; at age 50 Sister Dementia Denies family history of Clotting disorder Suicide Anesthesia complication Bleeding disorder Lung disease Cancer Stroke Social History Smoking and tobacco/nicotine status: former use of tobacco/nicotine (quit about 35 years ago) Quit status (tobacco/nicotine): has quit using Year quit tobacco: 1989 Former quit date comment: Started smoked as a teenager and smoked 1/2 pack per day Alcohol intake: current Alcohol intake frequency: holidays/special occasions only Substance/Drug Use: never Marital status: Current occupational status: retired Data Anesthesia Cardiac Studies: Holter Monitor 04/24/19
--- NOTE | 2024-08-05 12:13 | ANES.PROC ---
Anesthesia Procedures Procedure/Date: 08/05/24 Nerve Block ^: Nerve Block 1: Main Anesthesia: other (100 mcg of fentanyl) Time Out Performed: Yes Consent: requested by attending/covering physician and from patient Nerve block location: interscalene Anesthesia monitors applied: pulse oximetry, EKG, BP cuff and oxygen Nerve block position: supine Anesthetic Used: ropivicaine 0.5% Amount of anesthesia used (mL): 25 Ultrasound used to: recognize landmarks Nerve Stimulator Used?: Yes Interscalene/Femoral BLK: other needle (pjunk 4inch) Injection: neg aspiration of heme Patient Tolerated Procedure: well Complications: none Additional Comments: Decadron 4 mg added to block
[2024-08-05] MEDS: ceFAZolin 2,000 mg SDV 2000 MG IVP ×2 (12:25→20:44)
--- NOTE | 2024-08-05 12:46 | W.PM.OPSUD ---
Surgery/Procedure H&P Update DATE OF PROCEDURE: August 05, 2024 DATE H&P PERFORMED: 08/05/24 H&P UPDATE INFORMATION: I have reviewed H&P completed within last 30 days, I have examined patient prior to procedure, No changes to prior documentation and Risks and benefits of the procedure reviewed PREOP DIAGNOSIS: Painful orthopedic hardware PLANNED PROCEDURE: Operation Date: 08/05/24 12:10 Proposed Procedures p Hardware Removal Shoulder(Right) - Humphrey Boles MD s Right shoulder hemiarthroplasty(Right) - Humphrey Boles MD
[2024-08-05] MEDS: tranexamic acid 1,000 mg/10mL SDV 1000 MG IV (13:00)
--- NOTE | 2024-08-05 14:57 | P.OP_ITS ---
Operative Report Date of procedure: August 05, 2024 Surgeon: Humphrey Boles MD Procedure: Preop diagnosis: Proximal humerus nonunion/malunion with retained hardware Postop diagnosis: Same Procedure: Open removal of hardware right proximal humerus fracture with conversion to hemiarthroplasty of the proximal humerus. Adhesion releases were also done with debridement of nonhealing bone. Surgeon: Humphrey Boles MD Record Retrieval Specialist: YISEL Dong's assistance was necessary for positioning of the patient as well as involvement of removing the hardware and converting this to a hemiarthroplasty. She also assisted with wound closure as well as transported patient to the PACU. Anesthesia: General With preoperative scalene block EBL: 200 cc Complications: None Specimens: Flexible rods removed from the humerus Indications: Martha is an 79-year-old white female who originally fractured proximal humerus around the surgical neck approximately 2 months ago. She was originally seen by myself and subsequently had closed reduction with flexible nail fixation of her proximal humerus fracture. This is subsequently gone on to rotate out of position and have a nonunion versus malunion of the proximal humerus therefore at this time patient has been offered a removal of the hardware as well as revision of the proximal humerus to a hemiarthroplasty to try and alleviate her pain and improve function of her shoulder. All risk benefits treatment alternatives were discussed with her she is agreeable to this at this time. Procedure: After obtaining her consent patient had a scalene block administered in the preop holding area. Patient then taken to the operating room placed on the operating table in the supine position. General anesthetic was administered once anesthesia was achieved the patient was placed in beachchair position. They were secured and padded appropriately. Right upper extremity and shoulder were prepped and draped usual fashion. After surgical timeout a longitudinal incision was made through the previous incision on the superior aspect of the shoulder where the flexible rods been placed. Once down the subacromial space rods could be seen laying on top of the rotator cuff. These are grasped with a vice industrial ecologist from the set and each pin pulled out easily. At this point anterior approach was done to the shoulder with an incision made just lateral to the coracoid process and inferior to the clavicle down along the course of the deltopectoral line into the upper arm. Sharp dissection gone down to subcutaneous tissues electrocautery used hemostasis. There was a bleeding vein down below and the incision attempts were made to cauterize this and then these were sutured off with 0 Vicryl [id number] suture. Blunt sharp dissection with Metzenbaum scissors along the cephalic vein found the border between the pectoralis major and the deltoid and soft tissues were divided here. Is found that the deltoid was adhered down to the rotator cuff and proximal humerus quite a bit. Using Onofre scissors in a blunt and sharp fashion this is finally dissected away between these 2 surfaces. Biceps tendon was identified and a #2- 0 Ethibond marking suture was placed within it. It was found adhered to the lesser trochanter of the proximal humerus this 2 had a stay suture placed through it with 2-0 Ethibond. At this point articular surface appeared to be still intact to the major portion of this and therefore an osteotome was used to break up the proximal fracture fragments and these were removed piecemeal with a rongeur as well as pickups and cautery. The entire articular surface was pointing posteriorly and this was completely removed. The need to strip the rotator cuff off all the bony structures was necessary to clear the area and remove all scar tissue at that the glenoid could be fully visualized as well as the proximal humeral shaft. Once this was removed tag sutures were also placed in the rotator cuff to identify it. Entry point into the proximal humerus was done by rongeurs and electrocautery. Initial reaming of the humeral canal was done and then secondary reaming was done. It was decided that a size 8 fracture stem would be selected. This was placed on the applicator with guide rods to direct rotation. This is then driven down into place and found to have adequate fit and fill. This was then removed and a permanent size 8 humeral fracture s tem was placed and impacted. Once this was in place trial heads were applied until a size 38 head with a 19 mm height was selected for adequate fit and fill. We did put -4 offset on it to allow for best fit into the glenoid. Further scar tissue had to be released in order to try and regain motion of humerus and humeral head on the glenoid. Throughout this case adhesions had to be released her scar tissue had to be removed. Subsequently permanent humeral head and neck were placed and impacted. Shoulder was reduced then using 2-0 and 0 FiberWire rotator cuff was sutured back to the fins on their humeral component to suture them down back in place. Then [id number] sutures of 0 FiberWire were used as well as 2-0 Ethibond were used in a [id number]-[id number] fashion repair of the remainder of the rotator cuff. The stay sutures that have been placed in the rotator cuff on either side were then tied to each other to help reinforce the repair. Shoulders washed coachman sterile irrigation all appear to be aligned well. Subsequently deep structure reapproximated 0 Vicryl interrupted sutures. Subcutaneous and skin was closed with strata fix sutures numbering 2 oh and 3 oh. Was then dressed with Xeroform gauze sterile gauze dressing ABDs and adhesive tape. Patient placed in abduction pillow and sling and awakened and transferred to cover room in stable condition
--- NOTE | 2024-08-05 15:23 | XR_ITS ---
WS: [id number] XR shoulder RT 1V [id number] REASON FOR EXAM: Hemiarthroplasty right shoulder FINDINGS: Prosthetic replacement of the humeral head. Prosthesis is intact overlying the inferior glenoid. XR/XR shoulder RT 1V [id number] IMPRESSION: Right shoulder hemiarthroplasty as above.
[2024-08-05] MEDS: ondansetron 2 mg/ML SDV 2 mL 4 MG IVP (15:36)
--- NOTE | 2024-08-05 16:04 | ANE.PACU2 ---
Inpatient post-anesthesia follow up: Airway intact: Yes Vital signs: Temperature 98.5 F Pulse Rate 68 Respiratory Rate 17 Blood Pressure 156/75 Pulse Oximetry 96 Oxygen Delivery Me thod Room Air Oxygen Flow Rate Fraction of Inspir ed Oxygen Hydration adequate: Yes Nausea and vomiting: No Pain level: 1 Mental status: Baseline
--- NOTE | 2024-08-05 16:08 | P.CONIM_ITS ---
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 She has an IVC filter in place. Patient sustained a mechanical fall on June 10, 2024 s/p Open removal of hardware right proximal humerus fracture with conversion to hemiarthroplasty of the proximal humerus. Adhesion releases were also done with debridement of nonhealing bone. Hospitalist consult is requested for management of medical comorbidities. Review of Systems General: Reports: 10 or more systems reviewed and unremarkable except in HPI and below Const: Denies: fever(s) or chills Card: Denies: chest pain or palpitations Resp: Denies: dyspnea or productive cough Musc: Reports: extremity pain Neuro: Denies: headache(s) or numbness in extremities Medications/Allergies Home Medications ?Medication ?Instructions ?Recorded ?Confirmed ?Last Taken ?Type nitrofurantoin 100 mg PO Q12H 7 days #14 ca ps 07/29/24 08/04/24 08/05/24 06:30 Rx monohydrate/macrocrystals 100 mg capsule (Macrobid) amlodipine 5 mg tablet 5 mg PO DAILY 08/04/2408/0408/05/24 06:30 History chlorthalidone 25 mg tablet 25 mg PO DAILY 08/04/2408/05/24 06:30 History levothyroxine 25 mcg tablet 25 mcg PO DAILY 08/04/24 0 08/04/24 08/05/24 06:30 History lisinopril 20 mg tablet 20 mg PO DAILY 08/04/24 05/0 09/2308/04/24 History pantoprazole 40 mg tablet,delayed 40 mg PO DAILY 08/0408/04/24 08/05/24 06:30 History release potassium chloride 20 mEq 20 meq PO DAILY 08/04/2409/2308/05/24 06:30 History tablet,extended release(part/cryst) leflunomide 10 mg tablet 10 mg PO DAILY #30 tabs 05/0 10/2308/05/24 08/05/24 06:30 Rx prednisone 5 mg tablet 5 mg PO DAILY 08/05/2408/0508/05/24 06:30 History Allergies Allergy/AdvReac Type Severity Reaction Status Date / Time ciprofloxacin (From Cipro) Allergy Intermediate rash Verified 08/04/24 15:18 Sulfa (Sulfonamide Allergy Mild ADR-Nausea Verified 08/04/24 15:18 Antibiotics) Current Medications Generic Name Dose Route Start Last Admin Trade Name Freq PRN Reason Stop Dose Admin Sodium Chloride 1,000 mls @ 30 mls/hr 08/05/24 09:45 08/05/24 10:26 Sodium Chloride 0.9% IV 08/06/24 09:44 30 mls/hr .Q24H LOU Administration Ondansetron HCl 4 mg 08/05/24 14:45 08/05/24 15:36 Ondansetron 2 Mg/Ml Sdv 2 Ml IVP 08/06/24 14:45 4 mg Q5M PRN Administration Nausea PACU Phase I PFSH Acute PFSH: Medical History Weight loss Cellulitis, leg Abdominal pain Breast cancer screening by mammogram Enrolled in chronic care management Pseudomonas infection Cellulitis of right lower limb Klebsiella infection Urinary tract infection Claudication of right lower extremity Slurred speech Dizziness Pain of right foot Ingrown right big toenail History of nonmelanoma skin cancer Mixed incontinence Cervicalgia SCCA (squamous cell carcinoma) of skin Carotid stenosis, bilateral Recurrent UTI Mixed stress and urge urinary incontinence Urinary incontinence Leg swelling Fatigue Tonsil cancer Abnormal nuclear stress test Benign essential HTN Syncope and collapse Polymorphic ventricular tachycardia Generalized weakness Brain bleed H/O deep venous thrombosis Hypothyroidism (acquired) Chronic congestive heart failure Chronic GERD History of breast cancer Mild hyperlipidemia COPD (chronic obstructive pulmonary disease) Surgical History History of insertion of tunneled central venous catheter (CVC) with port H/O vaginal surgery (05/31/20) Laparoscopic BSO, Uterosacral ligament suspension with enterocele, Anterior colporrhaphy, Cystoscopy. Performed by Dr. Isaac at [facility] in [place], [place] H/O abdominoplasty S/P IVC filter (~03/13/19) DVT after hip replacement IVC Filter placed March 13, 2019 at [facility] History of left hip replacement Status post carpal tunnel release Status post total hip replacement, left Status post hysterectomy (~1970) Vaginal per patient, ovaries were spared Status post right mastectomy with breast reconstruction with abdominal trans-flap. Family History Mother Diabetes Hypertension Uterine cancer Diagnosed in her 70s CAD (coronary artery disease) Family/Other Diabetes maternal aunt Chronic kidney disease (CKD) Father Hypertension Heart disease of [place] at age 59 CAD (coronary artery disease) Daughter Breast cancer With Mets; at age 50 Sister Dementia Denies family history of Clotting disorder Suicide Anesthesia complication Bleeding disorder Lung disease Cancer Stroke Social History Smoking and tobacco/nicotine status: former use of tobacco/nicotine (quit about 35 years ago) Quit status (tobacco/nicotine): has quit using Year quit tobacco: 1989 Former quit date comment: Started smoked as a teenager and smoked 1/2 pack per day Alcohol intake: current Alcohol intake frequency: holidays/special occasions only Substance/Drug Use: never Marital status: Current occupational status: retired Vitals/I&O/Wt Last Vital Signs Temp 97.7 F 08/05/24 16:02 Pulse 64 08/05/24 16:02 Resp 20 H 08/05/24 16:02 BP 180/81 08/05/24 16:02 Pulse Ox 92 08/05/24 16:02 O2 Del Method Room Air 08/05/24 16:02 08/05/24 08/05/24 08/05/24 06:59 14:59 22:59 Intake Total 50 / 50 Output Total 200 / 200 Balance -150 / -150 Weight last 48 hrs Weight 105 lb Physical Exam Narrative: General:NAD, AAO x 3 HEENT:normocephalic, EOMI CVS: RRR, no murmur Lungs:CTA Abd:soft, NT MSK:right shoulder in sling A&P Assessment and plan (1) Humerus fracture: (2) Hypothyroidism (acquired): (3) S/P IVC filter: (4) Hypertension: (5) Undifferentiated connective tissue disease: Plan (1) Humerus fracture: s/p pen removal of hardware right proximal humerus fracture with conversion to hemiarthroplasty of the proximal humerus. Adhesion releases were also done with debridement of nonhealing bone. Pain management and post op wound care per ortho obtain baseline labs CBC and CMP (2) Hypertension: continue home dose of amlodpine and lisinopril hold chlorthalidone Qualifiers: Hypertension type: primary hypertension Qualified Code(s): I10 - Essential (primary) hypertension (3) S/P IVC filter: (4) Hypothyroidism (acquired): continue levothyroxine (5) Undifferentiated connective tissue disease: hold Leflunomide N/A on formulary - ok to restart when skin heals, and cleared by orthopedics as may affect healing consider low dose prednisone PDMP PDMP Reviewed: Not Reviewed Coding Level of Care Code 13973 Diagnoses Humerus fracture S42.309A Encounter type: subsequent encounter Fracture type: closed Humerus Location: proximal Hypothyroidism (acquired) E03.9 S/P IVC filter Z95.828 Primary hypertension I10 Hypertension type: primary hypertension Undifferentiated connective tissue disease M35.9
[2024-08-05 17:07] LABS: Basophils # 0.1 10^3/uL (0.0-0.1); Basophils % 0.6 %; Eosinophils % 0.2 %; Hematocrit 36.4 % (36-47); Lymphocytes # 0.4 10^3/uL (0.8-4.8); Lymphocytes % 3.9 %; Mean Corpuscular HGB Conc 30.2 g/dL (30-55); Mean Corpuscular Hemoglobin 29.2 pg (27-33); Mean Corpuscular Volume 96.6 fl (85-98); Monocytes # 0.1 10^3/uL (0.2-0.9); Monocytes % 1.2 %; Neutrophils # 9.44 10^3/uL (1.8-7.7); Neutrophils % 93.2 %; Nucleated Red Blood Cells % 0 %; Platelet Count 262 10^3/cmm (157-399); Red Blood Count 3.77 10^6/uL (3.85-5.65); Red Cell Distribution Width 14.8 % (12.1-15.1); White Blood Count 10.12 10^3/uL (3.29-11.43)
[2024-08-05 17:25] LABS: Alanine Aminotransferase 9 U/L (0-33); Alkaline Phosphatase 51 U/L (35-105); Anion Gap 19.6 (5-19); Aspartate Amino Transferase 14 U/L (0-32); Blood Urea Nitrogen 23 mg/dL (8-23); Calcium 9.2 mg/dL (8.5-10.5); Carbon Dioxide 18 mmol/L (22-29); Chloride 105 mmol/L (98-107); Creatinine Clr Calc Pharmacy 36.8595; Glucose 155 mg/dL (65-115); Osmolality Calculated 293 mOsm/kg (285-295); Potassium 4.6 mmol/L (3.5-5.1); Sodium 138 mmol/L (136-145); Total Bilirubin 0.3 mg/dL (0.15-1.2)
[2024-08-05] MEDS: ketorolac 30 mg/mL INJ 15 MG IVP (17:25)
[2024-08-05] MEDS: docusate sodium 100 mg Capsule PO (17:25)
[2024-08-05] MEDS: nitrofurantoin SR (BID) 100 mg Capsule PO (17:25)
[2024-08-05] MEDS: acetaminophen 500 mg Tablet 1000 MG PO ×2 (17:25→22:56)
[2024-08-06] VITALS: BP 143/67; PULSE 52; RESP 16; TEMP 36.6; O2SAT 96
[2024-08-06] MEDS: nitrofurantoin SR (BID) 100 mg Capsule PO ×2 (03:36→14:22)
[2024-08-06] MEDS: ceFAZolin 2,000 mg SDV 2000 MG IVP ×2 (03:36→12:04)
[2024-08-06] MEDS: ketorolac 30 mg/mL INJ 15 MG IVP (03:57)
[2024-08-06 04:00] VITALS: BP 157/82; PULSE 71; RESP 16; TEMP 36.4; O2SAT 98
[2024-08-06] MEDS: acetaminophen 500 mg Tablet 1000 MG PO (06:04)
[2024-08-06] MEDS: chlorthalidone 25 mg Tablet PO (07:39)
[2024-08-06] MEDS: levothyroxine 25 mcg Tablet PO (07:39)
[2024-08-06] MEDS: potassium chloride ER 20 mEq Tablet PO (07:39)
[2024-08-06] MEDS: aspirin 325 mg EC Tablet PO (07:39)
[2024-08-06] MEDS: HYDROcodone-acetaminophen 5-325 mg Tablet PO ×3 (07:39→15:45)
[2024-08-06] MEDS: lisinopril 20 mg Tablet PO (07:39)
[2024-08-06] MEDS: docusate sodium 100 mg Capsule PO (07:39)
[2024-08-06] MEDS: predniSONE 5 mg Tablet PO (07:40)
[2024-08-06] MEDS: amlodipine 5 mg Tablet PO (07:40)
[2024-08-06 07:48] VITALS: BP 148/78; PULSE 64; RESP 18; TEMP 37.6; O2SAT 96
--- NOTE | 2024-08-06 09:59 | PC.CHAP ---
Pastoral Care Encounter/Spiritual Assessment Type of Contact [] Declined duplication specialist visit [] Patient/Family/Request visit [] Outpatient visit [] Follow-up visit [] Physician referral [] Code/Alert [x] Routine visit [] Staff referral [] Actively dying [] Patient sleeping [] Family support [] [] Out of room [] Palliative care [] [] Receiving care in room [] Pre-surgical visit [] Trauma [] Long length of stay [] ICU visit [] Other: Relational/Emotional Strength [] Patient feels connected with others/family/visitors/staff [] Distress [] Loneliness/isolation [] Abandonment Spirituality of Patient [x] Person of Gaby [] Attends Congregation of their Gaby [x] Believes in Prayer [] Reads Bible or Hindu materials [] There are Spiritual issues to be addressed Right Of Way Clearer Interventions [x] Prayer [x] Active listening [] Non-anxious presence [] Spiritual/emotional support [] Crisis/trauma care [] Spiritual counseling [] Bereavement support [] Provided bereavement packet [x] Provided Bible/devotional materials [] Provided toy/stuffed animal, coloring book to patient or family member [] Provided Communion [] Anointing/[place]iota [] Salvation [x] Completed spiritual assessment [] Other: Impact on Illness or Injury [] Angry [] Fearful [] Anxious [] Often cries [] Exhaustion [] Unable to work [] Unable to attend lutheran [] Unable to walk/stand [] Unable to read [] Unable to drive [] Unable to eat/drink [] Unable to sleep [] Unable to be with family [] Patient intubated [] Other: Summary Time spent with patient 10 min
[2024-08-06 11:26] VITALS: BP 148/85; PULSE 62; RESP 18; TEMP 36.8; O2SAT 97
[2024-08-06] MEDS: ondansetron 2 mg/ML SDV 2 mL 4 MG IVP (14:23)
--- NOTE | 2024-08-06 15:01 | P.PN_ITS ---
Vitals/I&O/Wt Last Vital Signs Temp 98.3 F 08/06/24 11:26 Pulse 62 08/06/24 11:26 Resp 18 08/06/24 11:26 BP 148/85 08/06/24 11:26 Pulse Ox 97 08/06/24 11:26 O2 Del Method Room Air 08/06/24 11:26 08/06/24 08/06/24 08/06/24 06:59 14:59 22:59 Intake Total 360 / 360 Output Total 300 / 500 Balance -300 / -137.5 360 / 360 Weight last 48 hrs Weight 49.895 kg Weight 47.627 kg Physical Exam 2 Narrative: General:Awake, alert, no acute distress HEENT:normocephalic, EOMI CVS: S1, S2, regular rate, rhythm Lungs:Clear to auscultation BL, no wheezes or crackles Abd:soft, Non tender, Bowel sounds positive MSK:right shoulder in sling Data 08/05/24 17:01 08/05/24 17:01 A&P Assessment and plan (1) Humerus fracture: (2) Hypothyroidism (acquired): (3) S/P IVC filter: (4) Hypertension: (5) Undifferentiated connective tissue disease: Plan #Humerus fracture: -S/p removal of hardware right proximal humerus fracture with conversion to hemiarthroplasty of the proximal humerus. Adhesion releases were also done with debridement of nonhealing bone. -Pain management and post op wound care per ortho # Hypertension: -Continue home dose of amlodpine , lisinopril , chlorthalidone Qualifiers: Hypertension type: primary hypertension Qualified Code(s): I10 - Essential (primary) hypertension # S/P IVC filter #Hypothyroidism (acquired): -Continue levothyroxine #Undifferentiated connective tissue disease: -hold Leflunomide N/A on formulary - ok to restart when skin heals, and cleared by orthopedics as may affect healing PDMP PDMP Reviewed: Not Reviewed Attestations 2 Medical Necessity Statement*: Patient awaiting discharge by orthopedic surgery. Coding Level of Care Code Acute Code for Chg Fwd Diagnoses Humerus fracture S42.309A Encounter type: subsequent encounter Fracture type: closed Humerus Location: proximal Hypothyroidism (acquired) E03.9 S/P IVC filter Z95.828 Primary hypertension I10 Hypertension type: primary hypertension Undifferentiated connective tissue disease M35.9
[2024-08-06 15:26] VITALS: BP 156/75; PULSE 68; RESP 17; TEMP 36.9; O2SAT 96
--- NOTE | 2024-08-06 15:31 | P.DS_ITS ---
Discharge Providers Date of Admission: 08/05/24 15:56 Date of Discharge: August 06, 2024 Attending Provider at Admission: Humphrey Boles MD Attending Provider at Discharge: Humphrey Boles MD Primary Care Provider: YISEL Che Diagnoses at Discharge Discharge Diagnosis (1) Status post right shoulder hemiarthroplasty: Details from hospital stay: This is an 79-year-old female patient, who is postoperative day 1 from a right shoulder proximal humerus hardware removal and conversion to hemiarthroplasty of the proximal humerus. Patient was admitted to the observation after surgical intervention on August 05, 2024. The patient has done quite well. She is utilizing hydrocodone 5-325 mg for her pain control. She has worked with therapy services and is ambulating without significant assistance. She is stable. She continues to wear the UltraSling and will continue to do so for the next few weeks. Incisions are healing nicely. No sign of infection. Postoperative dressings are dry and intact. She is found to be stable for discharge and will be discharged home, as discussed and expected per the patient. We will plan to see her postoperatively in the clinic. 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 Adhesion releases were also done with debridement of nonhealing bone. 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 She was originally seen by myself and subsequently had closed reduction with flexible nail fixation of her proximal humerus fracture. This is subsequently gone on to rotate out of position and have a nonunion versus malunion of the proximal humerus therefore at this time patient has been offered a removal of the hardware as well as revision of the proximal humerus to a hemiarthroplasty to try and alleviate her pain and improve function of her shoulder. Patient was admitted for observation status post hemiarthroplasty of the right shoulder. Physical Exam Const: COMMON NORMALS: no acute distress, average body habitus, patient oriented x3, no limitations, alert and well nourished GENERAL APPEARANCE: cooperative; not anxious and not combative ORIENTATION/CONSCIOUSNESS: Yes awake, Yes oriented to person, Yes oriented to place and Yes oriented to time HENMT: COMMON NORMALS: normocephalic and atraumatic HEAD & SCALP: normocephalic and atraumatic Resp: COMMON NORMALS: normal respiratory effort Extremity: RIGHT UPPER EXTREMITY: Yes shoulder joint Right shoulder: Yes Right shoulder joint inspection exam (Postoperative dressings intact and dry.), Yes Right shoulder joint ROM exam (Not assessed due to recent surgery. UltraSling in place) and Yes Right shoulder joint neurovascular exam (Sensation intact to light touch. Rapid cap refill.) and Yes hand & digits Right hand and digits: Yes neurovascular exam (Sensation intact to light touch. Rapid cap refill.) Neuro: COMMON NORMALS: patient oriented x3 SENSORIUM/ORIENTATION: Yes alert, Yes oriented to person, Yes oriented to place and Yes oriented to time Psych: ATTITUDE: Yes engaged Skin: COMMON NORMALS: no rashes or lesions noted, turgor normal and no jaundice GENERAL SKIN EXAM: no rashes or lesions noted and turgor normal Discharge Data Studies Completed and Pending Completed Studies During Hospitalization Category Date Time Status XR shoulder RT 1V [id number] Routine Exams 08/05/24 15:23 Completed Radiology Impressions Shoulder X-Ray 08/05/24 15:23 IMPRESSION: Right shoulder hemiarthroplasty as above. Laboratory Results WBC 10.12 10^3/uL (3.29-11.43) 08/05/24 17:01 RBC 3.77 10^6/uL (3.85-5.65) L 08/05/24 17:01 Hgb 11.00 g/dL (11.27-16.99) L 08/05/24 17:01 Hct 36.4 % (36-47) 08/05/24 17: MCV 96.6 fl (85-98) 08/05/24 17:01 MCH 29.2 pg (27-33) 08/05/24 17:01 MCHC 30.2 g/dL (30-55) 08/05/24 17:01 RDW 14.8 % (12.1-15.1) 08/05/24 17:01 Plt Count 262 10^3/cmm (157-399) 08/05/24 17:01 MPV 10.0 fL (7.4-10.4) 08/05/24 17:01 Neut % (Auto) 93.2 % 08/05/24 17:01 Lymph % (Auto) 3.9 % 08/05/24 17:01 Mcdonough % (Auto) 1.2 % 08/05/24 17:01 Eos % (Auto) 0.2 % 08/05/24 17:01 Baso % (Auto) 0.6 % 08/05/24 17:01 Neut # (Auto) 9.44 10^3/uL (1.8-7.7) H 08/05/24 17:01 Lymph # (Auto) 0.4 10^3/uL (0.8-4.8) L 08/05/24 17:01 Mcdonough # (Auto) 0.1 10^3/uL (0.2-0.9) L 08/05/24 17:01 Eos # (Auto) 0.0 10^3/uL (0.0-0.8) 08/05/24 17:01 Baso # (Auto) 0.1 10^3/uL (0.0-0.1) 08/05/24 17:01 Nucleated RBC % (auto) 0 % 08/05/24 17:01 Nucleated RBCs # 0.0 /100WBC 08/05/24 17:01 Sodium 138 mmol/L (136-145) 08/05/24 17:01 Potassium 4.6 mmol/L (3.5-5.1) 08/05/24 17:01 Chloride 105 mmol/L (98-107) 08/05/24 17:01 Carbon Dioxide 18 mmol/L (22-29) L 08/05/24 17:01 Anion Gap 19.6 (5-19) H 08/05/24 17:01 BUN 23 mg/dL (8-23) 08/05/24 17:01 Creatinine 0.9 mg/dL (0.5-0.9) 08/05/24 17:01 GFR Calculation Not Reportable 08/05/24 17:01 Glucose 155 mg/dL (65-115) H 08/05/24 17:01 Calculated Osmolality 293 mOsm/kg (285-295) 08/05/24 17:01 Calcium 9.2 mg/dL (8.5-10.5) 08/05/24 17:01 Total Bilirubin 0.3 mg/dL (0.15-1.2) 08/05/24 17:01 AST 14 U/L (0-32) 08/05/24 17:01 ALT 9 U/L (0-33) 08/05/24 17:01 Alkaline Phosphatase 51 U/L (35-105) 08/05/24 17:01 Total Protein 7.0 g/dL (6.6-8.7) 08/05/24 17:01 Albumin 4.0 g/dL (3.5-5.2) 08/05/24 17:01 Globulin 3.0 g/dL (1.3-4.6) 08/05/24 17:01 Vitals Last Vital Signs Temp 98.5 F 08/06/24 15:26 Pulse 68 08/06/24 15:26 Resp 17 08/06/24 15:26 BP 156/75 08/06/24 15:26 Pulse Ox 96 08/06/24 15:26 O2 Del Method Room Air 08/06/24 15:26 Discharge Plan Discharge Patient Disposition: Home Condition: Stable Prescriptions: New hydrocodone-acetaminophen 7.5-325 mg tablet 1 tab PO TID PRN (Reason: pain) 5 Days Qty: 15 0RF ondansetron 4 mg tablet,disintegrating 4 mg PO TID PRN (Reason: nausea and vomiting) 5 Days Qty: 15 0RF Continued nitrofurantoin monohyd/m-cryst [Macrobid] 100 mg capsule 100 mg PO Q12H 7 Days Qty: 14 0RF Rx Instructions: must administer with a meal/food leflunomide 10 mg tablet 10 mg PO DAILY Qty: 30 2RF Rx Instructions: TAKE 1 TABLET BY MOUTH EVERY DAY potassium chloride 20 mEq tablet,ER particles/crystals 20 meq PO DAILY lisinopril 20 mg tablet 20 mg PO DAILY chlorthalidone 25 mg tablet 25 mg PO DAILY amlodipine 5 mg tablet 5 mg PO DAILY levothyroxine 25 mcg tablet 25 mcg PO DAILY pantoprazole 40 mg tablet,delayed release (DR/EC) 40 mg PO DAILY prednisone 5 mg tablet 5 mg PO DAILY Discharge Orders: Discharge Order (Routine); Ordered 08/06/24 Ordered By: Shannan Valentino Other Ambulatory Orders: Physical Therapy Eval and Treat Outpatient (Order) Timeframe: 2 Days Facility: [facility] - Location: Physical Therapy [place] Ordered By: Humphrey Boles Referrals: Humphrey Boles MD [Physician, Orthopedics] - 08/14/24 10:00 am Discharge Diet: Advance as tolerated and Usual diet Discharge Activity: Limit activity as instructed and As per PT/OT instructions Patient Instructions: Hydrocodone/Acetaminophen (By mouth), Ondansetron (By mouth), Acute Wound Care (DC), Hardware Removal (DC), Opioid Safety, Post Anesthesia Care Activity Restrictions/Additional Instructions: Continue UltraSling full-time, only removing for hygiene and dressing. Follow safe removal and replacement instructions, as guided by nursing services at discharge. Maintain clean and dry postoperative dressings. Do not remove until your first postoperative visit with the office. Ice as needed for swelling. Discharge Attestations Time Spent in Discharge Care*: greater than 30 min Quality Metrics Clinical Quality Measures [ No reported AMI, CVA or VTE this stay] Coding Level of Care Code Acute Code for Chg Fwd Diagnoses Status post right shoulder hemiarthroplasty Z96.611 Humerus fracture S42.309A Encounter type: subsequent encounter Humerus Location: proximal Fracture type: closed Hypothyroidism (acquired) E03.9 S/P IVC filter Z95.828 Primary hypertension I10 Hypertension type: primary hypertension Undifferentiated connective tissue disease M35.9
[2024-08-06 17:30] VITALS: BP 145/70; PULSE 70; O2SAT 97
== END 2024-08-06 17:31 | disposition home or self-care (01) ==
LOC: MEDSURG 15:56
PROVIDERS: Internal Medicine; Admitting Provider Orthopaedic Surgery; PCP Nurse Practitioner Family; Visit Provider Orthopaedic Surgery
PROC: (CPT 20680; principal; 2024-08-05 11:40)
PROC: (CPT 23470; 2024-08-05 11:40)
DX: M96.0 Pseudarthrosis after fusion or arthrodesis (principal); M35.9 Systemic involvement of connective tissue, unspecified; S42.309A Unspecified fracture of shaft of humerus, unspecified arm, initial encounter for closed fracture; X58.XXXA Exposure to other specified factors, initial encounter; K21.9 Gastro-esophageal reflux disease without esophagitis; E03.9 Hypothyroidism, unspecified; Z95.828 Presence of other vascular implants and grafts; I10 Essential (primary) hypertension; Z85.818 Personal history of malignant neoplasm of other sites of lip, oral cavity, and pharynx; Z85.3 Personal history of malignant neoplasm of breast; Z86.718 Personal history of other venous thrombosis and embolism; I70.221 Atherosclerosis of native arteries of extremities with rest pain, right leg; R00.0 Tachycardia, unspecified; E78.5 Hyperlipidemia, unspecified; Z96.642 Presence of left artificial hip joint; Z82.49 Family history of ischemic heart disease and other diseases of the circulatory system; Z87.891 Personal history of nicotine dependence
CPT/HCPCS: 20680; 23470; 36415; 73020; 80053; 85025; 97161; 97166; C1713; C1776; G0378; J0690; J1100; J1885; J2405; J2704; J3010; J3490; J7030; J7512; J9999

== ENCOUNTER 2024-08-25 14:20 | Oncology outpatient (recurring) (ONCR) | payer MEDICARE, SELFPAY ==
[2024-08-25 14:48] LABS: Basophils # 0.1 10^3/uL (0.0-0.1); Basophils % 0.5 %; Eosinophils # 0.1 10^3/uL (0.0-0.8); Eosinophils % 0.4 %; Hematocrit 28.2 % (36-47); Lymphocytes # 0.7 10^3/uL (0.8-4.8); Lymphocytes % 6.4 %; Mean Corpuscular HGB Conc 30.5 g/dL (30-55); Mean Corpuscular Hemoglobin 28.5 pg (27-33); Mean Corpuscular Volume 93.4 fl (85-98); Mean Platelet Volume 9.7 fL (7.4-10.4); Monocytes # 0.5 10^3/uL (0.2-0.9); Monocytes % 4.8 %; Neutrophils # 9.72 10^3/uL (1.8-7.7); Neutrophils % 87.2 %; Nucleated Red Blood Cells % 0 %; Platelet Count 318 10^3/cmm (157-399); Red Blood Count 3.02 10^6/uL (3.85-5.65); Red Cell Distribution Width 15.1 % (12.1-15.1); White Blood Count 11.15 10^3/uL (3.29-11.43)
[2024-08-25 14:58] LABS: Bilirubin Urine Negative (Negative); Blood Urine Negative (Negative); Glucose Urine UA Negative (Normal); Ketones Urine Negative (Negative); Leukocyte Esterase Urine Trace (Negative); Nitrate Urine Negative (Negative); Protein Urine Negative (Negative); Specific Gravity, Urine 1.017 (1.005-1.030); Urine Appearance Clear (CLEAR); Urine Color Yellow (Yellow); pH Urine 5.5 (5-7)
[2024-08-25 14:59] LABS: Hyaline Casts Urine 0-4 /lpf
[2024-08-25 15:00] LABS: Squamous Epithelial Cell Urine 0-4 /hpf (0-5); WBC Urine 0-4 /hpf (0-5)
[2024-08-25 15:13] LABS: Estmated Average Glucose 100; Hemoglobin A1C 5.1 % (4.0-6.0)
[2024-08-25 15:30] LABS: 25 Hydroxy Vitamin D 26 ng/mL (30-100); Alanine Aminotransferase < 5 U/L (0-33); Albumin Level 3.7 g/dL (3.5-5.2); Alkaline Phosphatase 52 U/L (35-105); Anion Gap 17.6 (5-19); Aspartate Amino Transferase 13 U/L (0-32); Blood Urea Nitrogen 23 mg/dL (8-23); Calcium 8.6 mg/dL (8.5-10.5); Carbon Dioxide 20 mmol/L (22-29); Chloride 107 mmol/L (98-107); Chol HDL Ratio 3.71 mg/dL (0.0-4.40); Cholesterol 193 mg/dL (0-200); Ferritin 425 ng/mL (15-150); Globulin 2.6 g/dL (1.3-4.6); Glucose 117 mg/dL (65-115); HDL Cholesterol 52 mg/dL (60-100); Iron 30 ug/dL (37-145); LDL Cholesterol Calculated 115 mg/dL (50-129); LDL HDL Ratio 2.21 RATIO (0.00-3.22); Osmolality Calculated 295 mOsm/kg (285-295); Percent Saturation 13.6 % (20-50); Potassium 4.6 mmol/L (3.5-5.1); Sodium 140 mmol/L (136-145); Total Bilirubin 0.2 mg/dL (0.15-1.2); Total Iron Binding Capacity 219 mcg/dl; Total Protein 6.3 g/dL (6.6-8.7); Triglycerides 132 mg/dL (0-150); Unsaturated Iron Binding 189 ug/dL (112-347); Vitamin B12 236 pg/mL (232-1245)
[2024-08-25 15:56] LABS: Folate Level 4.8 ng/mL (4.8-37.3)
== END 2024-08-29 23:59 | disposition home or self-care (01) ==
LOC: ONCMED 14:20
PROVIDERS: PCP Nurse Practitioner Family; Visit Provider Nurse Practitioner Family
DX: Z45.2 Encounter for adjustment and management of vascular access device (principal); Z95.828 Presence of other vascular implants and grafts; Z96.611 Presence of right artificial shoulder joint; M81.0 Age-related osteoporosis without current pathological fracture; I10 Essential (primary) hypertension; E78.5 Hyperlipidemia, unspecified; E03.9 Hypothyroidism, unspecified; R63.4 Abnormal weight loss; D64.9 Anemia, unspecified; R73.09 Other abnormal glucose; T84.028A Dislocation of other internal joint prosthesis, initial encounter; X58.XXXA Exposure to other specified factors, initial encounter; Z96.89 Presence of other specified functional implants
CPT/HCPCS: 73030; 80053; 80061; 81001; 82306; 82607; 82728; 82746; 83036; 83540; 83550; 84443; 85025; 96523; 99024

== ENCOUNTER → 2024-09-11 11:27 | Outpatient (BNVA) | payer MEDICARE, SELFPAY | PROVIDERS: PCP Nurse Practitioner Family; Visit Provider Orthopaedic Surgery | DX: Z96.611 Presence of right artificial shoulder joint (principal) | CPT/HCPCS: 73030; 99024 ==

== ENCOUNTER 2024-09-21 14:39 | Oncology outpatient (recurring) (ONCR) | payer MEDICARE, SELFPAY ==
[2024-09-21 14:57] LABS: Basophils % 0.4 %; Eosinophils # 0.1 10^3/uL (0.0-0.8); Eosinophils % 0.6 %; Hematocrit 29.5 % (36-47); Lymphocytes # 1.4 10^3/uL (0.8-4.8); Lymphocytes % 12.3 %; Mean Corpuscular HGB Conc 30.2 g/dL (30-55); Mean Corpuscular Hemoglobin 27.4 pg (27-33); Mean Corpuscular Volume 90.8 fl (85-98); Mean Platelet Volume 9.8 fL (7.4-10.4); Monocytes # 0.6 10^3/uL (0.2-0.9); Monocytes % 5.7 %; Neutrophils # 8.84 10^3/uL (1.8-7.7); Neutrophils % 80.1 %; Nucleated Red Blood Cells % 0 %; Platelet Count 386 10^3/cmm (157-399); Red Blood Count 3.25 10^6/uL (3.85-5.65); Red Cell Distribution Width 15.1 % (12.1-15.1); White Blood Count 11.04 10^3/uL (3.29-11.43)
[2024-09-21 15:18] LABS: Alanine Aminotransferase 6 U/L (0-33); Albumin Level 3.8 g/dL (3.5-5.2); Alkaline Phosphatase 62 U/L (35-105); Anion Gap 19.7 (5-19); Aspartate Amino Transferase 12 U/L (0-32); Blood Urea Nitrogen 25 mg/dL (8-23); Calcium 9.1 mg/dL (8.5-10.5); Carbon Dioxide 19 mmol/L (22-29); Chloride 105 mmol/L (98-107); Globulin 3.2 g/dL (1.3-4.6); Glucose 119 mg/dL (65-115); Osmolality Calculated 292 mOsm/kg (285-295); Potassium 5.7 mmol/L (3.5-5.1); Sodium 138 mmol/L (136-145); Total Bilirubin 0.2 mg/dL (0.15-1.2)
== END 2024-09-28 23:59 | disposition home or self-care (01) ==
LOC: ONCMED 14:39
PROVIDERS: Nurse Practitioner Family; Visit Provider Nurse Practitioner Family
DX: C09.9 Malignant neoplasm of tonsil, unspecified (principal)
CPT/HCPCS: 36591; 80053; 85025; 96523

== ENCOUNTER 2024-10-19 14:17 | Oncology outpatient (recurring) (ONCR) | payer MEDICARE, SELFPAY | END 2024-10-29 23:59 | disposition home or self-care (01) | LOC: ONCMED 14:17 | PROVIDERS: PCP Nurse Practitioner Family; Visit Provider Nurse Practitioner Family | DX: Z45.2 Encounter for adjustment and management of vascular access device (principal); Z95.828 Presence of other vascular implants and grafts | CPT/HCPCS: 36591; 96523 ==

== ENCOUNTER 2024-12-21 14:06 | Oncology outpatient (recurring) (ONCR) | payer MEDICARE, SELFPAY ==
[2024-12-14] MEDS: alteplase 1 mg/mL SDV 2 mL 2 MG INTRACATH (13:35)
[2024-12-14 14:17] LABS: Hematocrit 29.7 % (36-47); Hemoglobin 9.00 g/dL (11.27-16.99); Mean Corpuscular HGB Conc 30.3 g/dL (30-55); Mean Corpuscular Hemoglobin 27.1 pg (27-33); Mean Corpuscular Volume 89.5 fl (85-98); Nucleated Red Blood Cells % 0 %; Platelet Count 343 10^3/cmm (157-399); Red Blood Count 3.32 10^6/uL (3.85-5.65); White Blood Count 12.00 10^3/uL (3.29-11.43)
[2024-12-14 14:36] LABS: Alanine Aminotransferase < 5 U/L (0-33); Albumin Level 3.8 g/dL (3.5-5.2); Alkaline Phosphatase 42 U/L (35-105); Anion Gap 15.6 (5-19); Aspartate Amino Transferase 17 U/L (0-32); Blood Urea Nitrogen 24 mg/dL (8-23); Calcium 8.6 mg/dL (8.5-10.5); Carbon Dioxide 23 mmol/L (22-29); Chloride 106 mmol/L (98-107); Globulin 2.6 g/dL (1.3-4.6); Glucose 100 mg/dL (65-115); Osmolality Calculated 294 mOsm/kg (285-295); Potassium 4.6 mmol/L (3.5-5.1); Sodium 140 mmol/L (136-145); Total Protein 6.4 g/dL (6.6-8.7)
== END 2024-12-29 23:59 | disposition home or self-care (01) ==
PROVIDERS: Nurse Practitioner Family; PCP Nurse Practitioner Family; Visit Provider Internal Medicine Medical Oncology
DX: Z08 Encounter for follow-up examination after completed treatment for malignant neoplasm (principal); Z85.89 Personal history of malignant neoplasm of other organs and systems; T81.31XA Disruption of external operation (surgical) wound, not elsewhere classified, initial encounter; X58.XXXA Exposure to other specified factors, initial encounter; L08.9 Local infection of the skin and subcutaneous tissue, unspecified; D64.9 Anemia, unspecified; Z87.891 Personal history of nicotine dependence
CPT/HCPCS: 36591; 80053; 85025; 87070; 87075; 87205; 99214; J2997

== ENCOUNTER → 2024-12-24 11:03 | Outpatient (BNVA) | payer MEDICARE, SELFPAY | PROVIDERS: PCP Nurse Practitioner Family; Visit Provider Student in an Organized Health Care Education/Training Program | DX: T84.50XA Infection and inflammatory reaction due to unspecified internal joint prosthesis, initial encounter (principal); T81.31XA Disruption of external operation (surgical) wound, not elsewhere classified, initial encounter; Y83.8 Other surgical procedures as the cause of abnormal reaction of the patient, or of later complication, without mention of misadventure at the time of the procedure; Y79.2 Prosthetic and other implants, materials and accessory orthopedic devices associated with adverse incidents | CPT/HCPCS: 73020; 99205 ==

== ENCOUNTER → 2024-12-24 12:31 | Day surgery (SDC) | payer MEDICARE, SELFPAY ==
--- NOTE | 2024-12-24 12:40 | PICC.NOTE ---
Pt referred to vascular access nurse for PICC placement for IV antibiotics x 6 weeks. Upon assessment, port to left chest noted. Clarified with Dr. Parra's nurse, Tawana, if PICC needed inserted or if port could be used. New orders received to access port and give first dose of Cefepime 2 gm IVP. Pt tolerated IV antibiotic without difficulty. No reaction noted. Port left accessed and report called to [facility] with last dose of antibiotic. Pt teaching using [facility] technique completed. Written education materials given. Pt to have [facility] for pharmacy and [facility] for home health. No questions voiced by patient at this time.
[2024-12-24 12:51] VITALS: BP 144/67; PULSE 67; RESP 18; TEMP 36.3; O2SAT 97
[2024-12-24] MEDS: cefepime 2,000 mg SDV 2000 MG IVP (13:15)
== END ==
PROVIDERS: PCP Nurse Practitioner Family; Visit Provider Student in an Organized Health Care Education/Training Program
DX: B99.9 Unspecified infectious disease (principal)
CPT/HCPCS: 87070; 87075; 96374; J0692

== ENCOUNTER → 2025-03-05 15:15 | Outpatient (BNVA) | payer MEDICARE, SELFPAY | PROVIDERS: PCP Nurse Practitioner Family; Visit Provider Nurse Practitioner Family | DX: Z09 Encounter for follow-up examination after completed treatment for conditions other than malignant neoplasm (principal); G89.29 Other chronic pain; Z96.698 Presence of other orthopedic joint implants; Z98.890 Other specified postprocedural states | CPT/HCPCS: 73030 ==

== ENCOUNTER 2025-03-22 13:53 | Oncology outpatient (recurring) (ONCR) | payer MEDICARE, SELFPAY | END 2025-03-31 23:59 | disposition home or self-care (01) | LOC: ONCMED 13:54 | PROVIDERS: PCP Nurse Practitioner Family; Visit Provider Internal Medicine Medical Oncology | DX: Z45.2 Encounter for adjustment and management of vascular access device (principal); Z95.828 Presence of other vascular implants and grafts | CPT/HCPCS: 96523 ==